=== PATIENT | female | born 1940 | race Caucasian/White ===

== ENCOUNTER 2017-07-18 12:52 | Outpatient (CLI) | payer MEDICARE, MEDICAID ==
--- NOTE | 2017-07-18 14:56 | RAD ---
PA AND LATERAL CHEST XRAY: DATE: 07/18/17. HISTORY: Dyspnea. COMPARISON: 08/07/14. FINDINGS: Triple-lead left subclavian AICD device remains in place. The cardiac silhouette and pulmonary vascu lature are within normal limits. Lungs remain hyperexpanded with linear densities at each lung base probably related to mild scarring. The lungs are otherwise clear. A nodular density overlies the ri ght hilar region, but this is seen on the prior study and is likely related to a prominent pulmonary vessel. There has been no interval change from the prior exam. IMPRESSION: 1. No acute cardiopulmonary process. 2. Chronic obstructive pulmonary disease. POS: OFF
== END 2017-07-18 12:53 | disposition home or self-care (01) ==
LOC: RAD 12:52
PROVIDERS: ATTEND Internal Medicine Pulmonary Disease
DX: R06.00 Dyspnea, unspecified (principal); J44.9 Chronic obstructive pulmonary disease, unspecified
CPT/HCPCS: 71046

== ENCOUNTER 2017-07-28 18:58 | Inpatient (IN) | payer MEDICARE, OTHER ==
[2017-07-28 19:39] LABS: #Eosinphils 0.1 thou/uL (0.0-0.7); #Lymphocytes 0.6 thou/uL (1.20-3.40); #Monocytes 0.8 thou/uL (0.11-0.59); #Neutrophils 8.5 thou/uL (1.40-6.50); %Basophils 0.1 % (0.0-1.0); %Eosinophils 1.2 % (0.0-10.0); %Monocytes 7.8 % (0.0-10.0); %Neutrophils 84.8 % (42.0-75.0); Hemoglobin 11.5 g/dL (12.0-16.0); Mean Corpuscular HGB CONC 31.7 g/dL (32.0-36.0); Mean Corpuscular Hemoglobin 26.4 pg (27.0-31.0); Mean Corpuscular Volume 83.5 fl (81.0-99.0); Mean Platelet Volume 9.2 fL (7.4-10.4); Platelet Count 259 thou/uL (130-400); RBC Distribution Width 20.4 % (11.5-14.5); Red Blood Cell (RBC) Count 4.36 mill/uL (4.20-5.40)
[2017-07-28] MEDS ORDERED: Albuterol Sulfate 2.5 mg/3 ml Neb ONE (19:39)
[2017-07-28 19:57] LABS: ALT (SGPT) 19 U/L (8-55); AST (SGOT) 19 U/L (5-34); Albumin 3.7 g/dL (3.4-4.8); Alkaline Phosphatase 47 U/L (40-150); Anion Gap 13 mmol/L (10-20); BUN (Urea Nitrogen) 46 mg/dL (9.8-20.1); Bilirubin, Total 0.5 mg/dL (0.2-1.2); Calc. Creatinine Clearance 0 mL/min (70-130); Carbon Dioxide 33 mmol/L (23-31); Chloride 91 mmol/L (98-107); Estimated GFR-MDRD 38; Globulin 2.8 g/dL (2.4-3.5); Glucose 157 mg/dL (83-110); Protein, Total 6.5 g/dL (6.0-8.3); Sodium 134 mmol/L (136-145)
[2017-07-28 20:02] LABS: CKMB 1.9 ng/mL (0-6.6); Troponin I 0.089 ng/mL (< 0.028)
[2017-07-28] MEDS ORDERED: Aspirin 325 MG TAB ONE (20:49)
[2017-07-28] MEDS ORDERED: methylPREDNISolone Sod Succ/PF 125 MG/2 ML VIAL ONE (20:49)
--- NOTE | 2017-07-28 20:55 | RAD ---
PORTABLE AP CHEST X-RAY 07/28/17 HISTORY: Dyspnea, shortness of breath. COMPARISON: 07/18/17. FINDINGS: A triple lead left subclavian AICD device remains in place. The cardiac silhouette is stable in size and magnified by projection. Pulmonary vasculature is within normal limits. The lungs are clear. Oste openia is present. Vascular calcifications are seen in the thoracic aorta. No other interval change. IMPRESSION: Stable chest without evidence of an acute cardiopulmonary process. POS: ИВАН
[2017-07-28 23:41] LABS: Troponin I 0.099 ng/mL (< 0.028)
[2017-07-29] MEDS ORDERED: Diabetic Tussin 200 MG/10 ML UDCUP PO PRN (01:43)
[2017-07-29 02:14] LABS: Troponin I 0.097 ng/mL (< 0.028)
[2017-07-29 05:58] VITALS: BMI 28.1
[2017-07-29] MEDS ORDERED: predniSONE 50 MG TAB PO SCH ×2 (09:00)
[2017-07-29] MEDS ORDERED: Docusate 100 MG CAP PO PRN (09:29)
[2017-07-29 09:45] LABS: Anion Gap 16 mmol/L (10-20); BUN (Urea Nitrogen) 48 mg/dL (9.8-20.1); Calc. Creatinine Clearance 38 mL/min (70-130); Calcium 10.4 mg/dL (7.8-10.44); Carbon Dioxide 29 mmol/L (23-31); Chloride 90 mmol/L (98-107); Estimated GFR-MDRD 34; Glucose 352 mg/dL (83-110); Potassium 3.5 mmol/L (3.5-5.1); Sodium 131 mmol/L (136-145)
[2017-07-29] MEDS ORDERED: Carvedilol 3.125 MG TAB PO SCH ×2 (10:00→21:00)
[2017-07-29] MEDS ORDERED: Aspirin 81 mg Enteric Coated Tablet PO SCH (10:00)
[2017-07-29] MEDS ORDERED: Furosemide 40 MG TAB PO SCH (10:15)
[2017-07-29] MEDS ORDERED: Digoxin 0.125 MG TAB PO SCH (10:15)
--- NOTE | 2017-07-29 11:03 | PDOC.PN ---
- Subjective Encounter Start Date: 07/29/17 Encounter Start Time: 11:00 Subjective: nsg notes rev, noemí ovn -: pt c/o continued cough and progressive decline at home over the past 3 mos -: she is hoping that we will be able to get her functional status improved. she has home health services and adamantly declines any further inpatient/ SNF/ rehab setting she states she is unable to ambulate from her bathroom back across her home without becoming extremely SOB she does not currently use any home O2 she is also concerned that her longstanding hernia has not been recently addressed and would like to know if she can take anything for her chronic urinary issues requests to "stay for a few days" because she is currently unable to "manage at home" - Objective Vital Signs & Weight: Vital Signs (12 hours) Temp Pulse Resp BP BP Pulse Ox 07/29/17 10:22 96 20 95 07/29/17 08:55 98 07/29/17 08:09 98 07/29/17 08:05 99 20 98 07/29/17 08:00 98.6 F 91 22 H 140/80 96 07/29/17 04:00 97.2 F L 89 18 166/68 H 96 07/29/17 02:12 93 16 94 L 07/28/17 23:12 90 16 95 Weight Weight 169 lb 6.4 oz I&O: 07/28/17 07/29/17 07/30/17 06:59 06:59 06:59 Intake Total 370 Output Total 100 Balance 270 Result Diagrams: 07/28/17 19:27 07/29/17 09:12 Additional Labs: Accuchecks 07/29/17 09:06 POC Glucose 363 H Phys Exam - Physical Examination Constitutional: NAD HEENT: PERRLA, moist MMs, sclera anicteric significant cough, wheezing throughout, coarse but overall diminished soft heart tones Gastrointestinal: soft, positive bowel sounds Neurological: moves all 4 limbs Psychiatric: normal affect (very anxious affect), A&O x 3 Dx/Plan - Plan * COPD with exacerbation * hypoxic spO2 88% per EMS currently on 2LNC * will continue with O2 supplementation and weaning as tolerated, request ambulatory pulse ox * prednisone, duo nebs standing and PRN - if unable to wean O2, t/c transition to IV solumederol * sputum cx, pt does not recall any recent hx of oral abx for any reason * allergies to quinolones, pcns, will use ceftriaxone for empiric abx coverage * apprec pulm c/s hx CAD, CHF * apprec card c/s per pt request * minimally elevated troponins, hemodynamically stable * continue to monitor hernia * stable, monitor urinary ? retention * pt gives hx of intermittent desire for urination without urine flow production * will bladder scan patient * actual retention vs spasms DM2 * continue home regimen including a SSI and monitor for med induced hyperglycemia from steroid use fatigue/ malaise * concern for progressive worsening of her known chronic cardiopulmonary disease processes as above concerned for overall poor superintendent terminal prognosis; d/w with patient who states that she wants to stay at home. she also endorses being full code at this point in time. she lives independently diet: cardiac activity: as beulah, PT, ambulatory pulse ox as above dvt ppx Review of Systems - Review of Systems Eyes: Vision Change - Medications/Allergies Allergies/Adverse Reactions: Allergies Allergy/AdvReac Type Severity Reaction Status Date / Time ciprofloxacin HCl Allergy Verified 07/29/17 00:44 [From Cipro] clarithromycin [From Biaxin] Allergy Verified 07/29/17 00:44 codeine Allergy Verified 07/29/17 00:44 Penicillins Allergy Verified 07/29/17 00:44 Medications: Current Medications Albuterol/Ipratropium (Duoneb) 3 ml NEB [id number] PRN PRN Reason: SOB &/or Wheezing Last Admin: 07/29/17 10:22 Dose: 3 ml Aspirin (Ecotrin) 81 mg PO DAILY [facility] Aspirin (Ecotrin) 81 mg PO NOW [facility] Stop: 07/29/17 12:00 Carvedilol (Coreg) 3.125 mg PO BID [facility] Carvedilol (Coreg) 3.125 mg PO NOW [facility] Stop: 07/29/17 12:00 Digoxin (Lanoxin) 0.125 mg PO MoWeFr@0900 [facility] Digoxin (Lanoxin) 0.125 mg PO NOW [facility] Stop: 07/29/17 12:15 Docusate Sodium (Colace) 100 mg PO DAILY PRN PRN Reason: Constipation Furosemide (Lasix) 80 mg PO BID [facility] Furosemide (Lasix) 80 mg PO NOW [facility] Stop: 07/29/17 12:15 Guaifenesin (Robitussin Sf) 200 mg PO Q4H PRN PRN Reason: Cough Insulin Detemir 50 units/ (Miscellaneous Medication) 0.5 mls @ 0 mls/hr SC BID [facility] Insulin Human Isoph/Insulin Regular (Humulin 70/30) 30 units SC BID-AC [facility] Insulin Human Lispro (Humalog) 0 units SC AC PRN PRN Reason: Hyperglycemia Magnesium Oxide (Magnesium Oxide) 400 mg PO DAILY [facility] Metoclopramide HCl (Reglan) 10 mg PO ACHS [facility] Metolazone (Zaroxolyn) 5 mg PO Q7DAYS [facility] Prednisone (Prednisone) 50 mg PO [facility] Spironolactone (Aldactone) 25 mg PO DAILY [facility]
[2017-07-29] MEDS: Metoclopramide HCl 10 MG TAB PO SCH ×3 (11:08→20:33)
[2017-07-29] MEDS ORDERED: cefTRIAXone\\ROCEPHIN 1 GM in Sodium Chloride 0.9% 100 ML IVPB SCH (11:15)
[2017-07-29] MEDS: HumaLOG 300 UNITS/3 ML VIAL SC PRN (12:58)
[2017-07-29] MEDS ORDERED: cefTRIAXone\\ROCEPHIN 1 GM, Syringe 0.4 ML in Sterile Water 9.6 ML SLOW IVP SCH (13:00)
--- NOTE | 2017-07-29 15:24 | CON ---
DATE OF CONSULTATION: 07/29/2017 HISTORY OF PRESENT ILLNESS: Ms. Morales is a 76-year-old female who has been followed by our group at least 10 years and I believe close to 20 years. I cannot access the old computer system to review the hospital records. She has significant obstructive lung disease. She presented with complaints of feeling poorly since last fall. She was in the office on Tuesday of this week, presented stating that she was not getting any better and wanted to be admitted to the hospital. PAST MEDICAL HISTORY: 1. Remarkable for systolic cardiomyopathy. 2. History of COPD. 3. History of multiple intubations. 4. Diabetes. 5. History of severe anxiety. 6. History of lipid disorder. ALLERGIES: She reports allergies to PENICILLIN, ZITHROMAX and CIPRO. FAMILY HISTORY: Positive for vascular disease and COPD. SOCIAL HISTORY: She quit smoking approximately 10 years ago. She was a heavy drinker, but quit in the . She does not use drugs. MEDICATIONS: She is currently on aspirin, Coreg, Rocephin, digoxin, Lasix, guaifenesin, insulin, ipratropium and albuterol, Reglan, magnesium and metolazone. REVIEW OF SYSTEMS: 10 point system reviewed otherwise negative. She denies purulent sputum or hemoptysis. She just complains of cough, dyspnea on exertion and chest congestion. PHYSICAL EXAMINATION: VITAL SIGNS: She is in no distress. She is afebrile, heart rate is 91, respiratory rate is 22, oximetry is 96% on 2 liters and blood pressure 140/80. GENERAL: She appears older than her age. NECK: Supple. No lymphadenopathy. LUNGS: Remarkable for diffuse coarse wheezes. HEART: Regular rhythm. ABDOMEN: Soft and nontender. EXTREMITIES: Without asymmetry. IMAGING DATA: Chest radiographs have been reviewed, pulmonary infiltrate suggestive of a pneumonia. LABORATORY DATA: White count 10, hemoglobin 11.5 and platelets 259. Sodium 131, potassium 3.5, chloride 90, bicarbonate 29, BUN 48, creatinine 1.47 and glucose 352. IMPRESSION: 1. Chronic obstructive pulmonary disease exacerbation. 2. Bronchitis. 3. Mild hyponatremia. 4. Chronic kidney disease. 5. Diabetes. 6. Deconditioning. 7. Acute on chronic respiratory failure with chronic hypoxemia. I am not sure what her baseline O2 sat in the office is. She is not on oxygen at home at this time. I will be happy to follow along with the other physicians caring for her. This is a 50-minute consult. Greater than 50% of the time was spent on the unit coordinating care. MARITA
[2017-07-29] MEDS: Insulin NPH/Reg Insulin Hm 300 UNITS/3 ML VIAL SC SCH (18:28)
[2017-07-29] MEDS: Furosemide 40 MG TAB PO SCH (20:32)
[2017-07-29] MEDS: Insulin Detemir 100 UNITS/ML 50 UNITS in Pre-Filled Syringe 1 EACH SC SCH (20:32)
[2017-07-29] MEDS ORDERED: Non-Formulary Item 1 EACH (Insulin Glargine,Hum.Rec.Anlog 50 UNIT) SQ SCH (21:00)
--- NOTE | 2017-07-29 23:34 | CON ---
DATE OF CONSULTATION: 07/29/2017 HISTORY OF PRESENT ILLNESS: The patient is a 76-year-old woman who presents for evaluation of increasing dyspnea. The patient has a long history of COPD and a history of a cardiomyopathy. She was found to have any congestive heart failure. In 1995, she underwent a catheterization and found to have severe decreased left ventricular systolic function with normal coronary arteries. The patient has had subsequently 2 further catheterizations revealed normal coronary arteries. She also has had placement of automatic implantable cardiac defibrillator. The patient has had a marked improvement in her left ventricular function. Her most recent echocardiogram in 06/2014 revealed an ejection fraction of 50%. The patient presented with increasing dyspnea. She denied having any chest pain. PAST MEDICAL HISTORY: 1. Cardiomyopathy. 2. Diabetes mellitus. 3. Hypertension. 4. Peripheral vascular disease. PAST SURGICAL HISTORY: Appendectomy. SOCIAL HISTORY: She is a former smoker ALLERGIES: ZOFRAN, CODEINE, PENICILLIN, CIPROFLOXACIN, and CLARITHROMYCIN. REVIEW OF SYSTEMS: Ten-point system otherwise unremarkable. No history of bright red blood per rectum, hematuria, or dysuria. PHYSICAL EXAMINATION: GENERAL: Elderly woman, in mild distress. VITAL SIGNS: Blood pressure was 140/80. NECK: Showed no jugular venous distention. LUNGS: Diminished breath sounds bilateral. HEART: Regular rate and rhythm, normal S1, S2. ABDOMEN: Nondistended. EXTREMITIES: Showed trace edema. SKIN: Warm and dry. NEUROLOGIC: Nonfocal. VASCULAR: Radial pulses 2+. LABORATORY DATA: Sodium 131, potassium 3.5, chloride 90, bicarbonate 48, BUN 1.47, glucose 352, troponin 0.097. White blood cell count 10, hemoglobin 11.5, hematocrit 36.4, and platelets 259. Her chest x-ray revealed normal cardiac silhouette with no edema. EKG revealed an electronic ventricular pacemaker. IMPRESSION: 1. Chronic obstructive pulmonary disease. 2. Indeterminate troponin level. 3. Diabetes mellitus. 4. Hypertension. 5. History of supraventricular tachycardia ablation. 6. Renal insufficiency. 7. History of AICD placement. This patient presented with a COPD exacerbation. From a cardiac standpoint, we will take her off her Coreg. With normal left ventricular function, she does not need to be on this medication. We will follow this patient with you through her hospitalization. TRD
[2017-07-30] MEDS: HumaLOG 300 UNITS/3 ML VIAL SC PRN ×3 (05:42→17:20)
[2017-07-30] MEDS ORDERED: Acetaminophen 325 MG TAB PO PRN (07:12)
[2017-07-30] MEDS ORDERED: Ondansetron ODT 4 MG TAB PO PRN (07:12)
[2017-07-30] MEDS ORDERED: Milk Of Magnesia 30 ML UDCUP PO PRN (07:12)
[2017-07-30] MEDS ORDERED: Chloraseptic Spray 180 ml Bottle PO PRN (07:12)
[2017-07-30] MEDS ORDERED: Mag-Al 1200 mg/1200 mg/30 ML UDCUP PO PRN (07:12)
[2017-07-30] MEDS ORDERED: Ondansetron HCl/PF 4 MG/2 ML Vial IVP PRN (07:12)
[2017-07-30] MEDS ORDERED: Artificial Tears 18 DROP/0.9 ML EA EYE PRN (07:12)
[2017-07-30] MEDS ORDERED: Sodium Chloride 0.65% Nasal 44 ML BOT EA NARE PRN (07:12)
[2017-07-30] MEDS ORDERED: hydrALAZINE 20 MG/ML VIAL SLOW IVP PRN (07:12)
[2017-07-30] MEDS ORDERED: Eucerin (Mineral Oil/Petrolatum,White) 30 gm Jar TOP PRN (07:12)
[2017-07-30] MEDS ORDERED: Loperamide HCl 2 MG CAP PO PRN (07:12)
[2017-07-30] MEDS: Insulin NPH/Reg Insulin Hm 300 UNITS/3 ML VIAL SC SCH ×2 (07:58→16:08)
[2017-07-30] MEDS: Aspirin 81 mg Enteric Coated Tablet PO SCH (07:59)
[2017-07-30] MEDS: Furosemide 40 MG TAB PO SCH ×2 (08:00→20:39)
[2017-07-30] MEDS ORDERED: predniSONE 50 MG TAB PO SCH (08:00)
[2017-07-30] MEDS: Metoclopramide HCl 10 MG TAB PO SCH ×4 (08:01→20:39)
[2017-07-30] MEDS: Magnesium Oxide 400 MG TAB PO SCH (08:01)
[2017-07-30] MEDS: guaiFENesin ER 600 MG TAB PO SCH ×2 (08:01→20:40)
[2017-07-30] MEDS: Famotidine 20 MG TAB PO SCH (08:02)
[2017-07-30] MEDS ORDERED: Spironolactone 25 MG TAB PO SCH (09:00)
[2017-07-30] MEDS: Insulin Detemir 100 UNITS/ML 50 UNITS in Pre-Filled Syringe 1 EACH SC SCH ×2 (09:34→20:40)
--- NOTE | 2017-07-30 10:29 | PDOC.PN ---
- Subjective Encounter Start Date: 07/30/17 Encounter Start Time: 08:20 -: old records requested/rev Patient seen and examined. No new complaints. No overnight events she talks without any distress she tells me that this time she will go home when pulmonary clears to go home she wanted to stay as much as possible - Objective MAR Reviewed: Yes Vital Signs & Weight: Vital Signs (12 hours) Temp Pulse Resp BP Pulse Ox 07/30/17 08:38 94 L 07/30/17 08:36 92 16 07/30/17 07:53 97.9 F 94 18 130/91 H 90 L 07/30/17 03:51 96 07/30/17 03:28 98.5 F 91 18 149/66 H 93 L 07/30/17 01:47 90 16 95 Weight Weight 170 lb 12.8 oz I&O: 07/29/17 07/30/17 07/31/17 06:59 06:59 06:59 Intake Total 370 1780 Output Total 100 2900 Balance 270 -1120 Result Diagrams: 07/28/17 19:27 07/29/17 09:12 Additional Labs: Accuchecks 07/30/17 07/29/17 07/29/17 05:38 19:58 16:33 POC Glucose 520 H 524 H 407 H 07/29/17 12:58 POC Glucose 358 H EKG Reviewed by me: Yes (nsr) Phys Exam - Physical Examination Constitutional: NAD HEENT: PERRLA, moist MMs, sclera anicteric Neck: no JVD, supple Respiratory: no wheezing, no rales, no rhonchi Cardiovascular: RRR, no significant murmur, no rub Gastrointestinal: soft, non-tender, no distention, positive bowel sounds Musculoskeletal: no edema, pulses present Neurological: non-focal, normal sensation Lymphatic: no nodes Psychiatric: normal affect Skin: no rash, normal turgor Dx/Plan (1) COPD exacerbation Code(s): J44.1 - CHRONIC OBSTRUCTIVE PULMONARY DISEASE W (ACUTE) EXACERBATION Status: Acute (2) Acute on chronic respiratory failure with hypoxemia Code(s): J96.21 - ACUTE AND CHRONIC RESPIRATORY FAILURE WITH HYPOXIA Status: Acute Comment: pt was not using oxygen at home (3) Demand ischemia Code(s): I24.8 - OTHER FORMS OF ACUTE ISCHEMIC HEART DISEASE Status: Acute (4) Hyponatremia Code(s): E87.1 - HYPO-OSMOLALITY AND HYPONATREMIA Status: Acute (5) Physical deconditioning Code(s): R53.81 - OTHER MALAISE Status: Acute (6) CHF (congestive heart failure) Code(s): I50.9 - HEART FAILURE, UNSPECIFIED Status: Chronic Qualifiers: Heart failure type: systolic Comment: h/o systolic CHF but EF improved (7) CKD (chronic kidney disease) stage 3, GFR 30-59 ml/min Status: Chronic (8) DM type 2 (diabetes mellitus, type 2) Status: Chronic Comment: (9) Diabetic gastroparesis Code(s): E11.43 - TYPE 2 DIABETES W DIABETIC AUTONOMIC (POLY)NEUROPATHY; K31.84 - GASTROPARESIS Status: Chronic Comment: (10) HTN (hypertension) Code(s): I10 - ESSENTIAL (PRIMARY) HYPERTENSION Status: Chronic Qualifiers: Hypertension type: essential hypertension Qualified Code(s): I10 - Essential (primary) hypertension Comment: Stable - Plan cont current plan of care, respiratory therapy * pulmonary and cardiology recommendation noted * medication reviewed as below * symptomatic treatment. * continue selected home medication Review of Systems - Review of Systems Constitutional: negative: fever, chills, sweats, weakness, malaise, other ENT: negative: Ear Pain, Ear Discharge, Nose Pain, Nose Discharge, Nose Congestion, Mouth Pain, Mouth Swelling, Throat Pain, Throat Swelling, Other Respiratory: Cough, Shortness of Breath. negative: Dry, Hemoptysis, SOB with Excertion, Pleuritic Pain, Sputum, Wheezing Cardiovascular: negative: chest pain, palpitations, orthopnea, paroxysmal nocturnal dyspnea, edema, light headedness, other Gastrointestinal: negative: Nausea, Vomiting, Abdominal Pain, Diarrhea, Constipation, Melena, Hematochezia, Other Genitourinary: negative: Dysuria, Frequency, Incontinence, Hematuria, Retention , Other Musculoskeletal: negative: Neck Pain, Shoulder Pain, Arm Pain, Back Pain, Hand Pain, Leg Pain, Foot Pain, Other Skin: negative: Rash, Lesions, Han, Bruising, Other - Medications/Allergies Allergies/Adverse Reactions: Allergies Allergy/AdvReac Type Severity Reaction Status Date / Time ciprofloxacin HCl Allergy Verified 07/29/17 00:44 [From Cipro] clarithromycin [From Biaxin] Allergy Verified 07/29/17 00:44 codeine Allergy Verified 07/29/17 00:44 Penicillins Allergy Verified 07/29/17 00:44 Medications: Current Medications Acetaminophen (Tylenol) 650 mg PO Q4H PRN PRN Reason: Headache/Fever or Mild Pain Al Hydroxide/Mg Hydroxide (Maalox) 15 ml PO Q4H PRN PRN Reason: Heartburn or Indigestion Albuterol/Ipratropium (Duoneb) 3 ml NEB [id number] PRN PRN Reason: SOB &/or Wheezing Last Admin: 07/29/17 10:22 Dose: 3 ml Albuterol/Ipratropium (Duoneb) 3 ml NEB [id number] [facility] Last Admin: 07/30/17 08:36 Dose: 3 ml Artificial Tears (Tears Naturale) 0 drop EA EYE PRN PRN PRN Reason: Dry Eyes Aspirin (Ecotrin) 81 mg PO DAILY [facility] Last Admin: 07/30/17 07:59 Dose: 81 mg Atorvastatin Calcium (Lipitor) 10 mg PO HS [facility] Digoxin (Lanoxin) 0.125 mg PO MoWeFr@0900 [facility] Docusate Sodium (Colace) 100 mg PO DAILY PRN PRN Reason: Constipation Famotidine (Pepcid) 20 mg PO DAILY [facility] Last Admin: 07/30/17 08:02 Dose: 20 mg Furosemide (Lasix) 80 mg PO BID [facility] Last Admin: 07/30/17 08:00 Dose: 80 mg Guaifenesin (Robitussin Sf) 200 mg PO Q4H PRN PRN Reason: Cough Guaifenesin (Mucinex) 600 mg PO Q12HR [facility] Last Admin: 07/30/17 08:01 Dose: 600 mg Hydralazine HCl (Apresoline) 10 mg SLOW IVP Q4H PRN PRN Reason: Systolic BP > 180 Insulin Detemir 50 units/ (Miscellaneous Medication) 0.5 mls @ 0 mls/hr SC BID [facility] Last Admin: 07/30/17 09:34 Dose: 0.5 mls Ceftriaxone Sodium 1 gm/ (Syringe 0.4 ml/ Sterile Water) 10 mls @ 120 mls/hr SLOW IVP 1800 [facility] Insulin Human Isoph/Insulin Regular (Humulin 70/30) 30 units SC BID-AC [facility] Last Admin: 07/30/17 07:58 Dose: 30 units Insulin Human Lispro (Humalog) 0 units SC AC PRN PRN Reason: Hyperglycemia Last Admin: 07/30/17 05:42 Dose: 5 units Loperamide HCl (Imodium) 2 mg PO PRN PRN PRN Reason: Diarrhea/Loose Stools Magnesium Hydroxide (Milk Of Magnesium) 30 ml PO DAILYPRN PRN PRN Reason: Constipation Magnesium Oxide (Magnesium Oxide) 400 mg PO DAILY [facility] Last Admin: 07/30/17 08:01 Dose: 400 mg Methylprednisolone Sodium Succinate (Solu-Medrol) 20 mg IVP Q6HR [facility] Last Admin: 07/30/17 05:29 Dose: 20 mg Metoclopramide HCl (Reglan) 10 mg PO ACHS [facility] Last Admin: 07/30/17 08:01 Dose: 10 mg Metolazone (Zaroxolyn) 5 mg PO Q7DAYS [facility] Mineral Oil/White Petrolatum (Eucerin Cream) 0 gm TOP BIDPRN PRN PRN Reason: Dry Skin Mometasone Furoate/Formoterol Fumar (Dulera 200 Mcg/5 Mcg Inhaler) 2 puff INH BID-RT [facility] Ondansetron HCl (Zofran Odt) 4 mg PO Q6H PRN PRN Reason: Nausea/Vomiting Ondansetron HCl (Zofran) 4 mg IVP Q6H PRN PRN Reason: Nausea/Vomiting Phenol (Chloraseptic [place] 180 Ml Bot) 0 ml PO PRN PRN PRN Reason: Sore Throat Sodium Chloride ([place] Nasal [place] 0.65%) 0 ml EA NARE QIDPRN PRN PRN Reason: Nasal Congestion Spironolactone (Aldactone) 25 mg PO DAILY [facility] Last Admin: 07/30/17 07:59 Dose: 25 mg
[2017-07-30] MEDS: cefTRIAXone\\ROCEPHIN 1 GM, Syringe 0.4 ML in Sterile Water 9.6 ML SLOW IVP SCH (17:19)
--- NOTE | 2017-07-30 17:27 | PRG ---
DATE OF SERVICE: 07/30/2017 SUBJECTIVE: Mr. Morales states she is feeling a little better. OBJECTIVE: VITAL SIGNS: She is afebrile, heart rate is 80, respiratory rate is 18, oximetry is 93 on room air. Blood pressure 124/60. LUNGS: Remarkable for improved wheezes. CARDIOVASCULAR: Regular rhythm. ABDOMEN: Soft. EXTREMITIES: Without asymmetry. IMPRESSION: Chronic obstructive pulmonary disease exacerbation. There is no new lab. Other problem s include, 1. Borderline hyponatremia. 2. Chronic kidney disease. 3. Diabetes with glucoses today up to 520. 4. Obesity. 5. History of multiple intubations in the past. 6. Diabetes. 7. History of severe anxiety. 8. History of a lipid disorder. 9. History of a cardiomyopathy with a normal ejection fraction on echocardiogram this admission. 10. History of pacemaker implantation. PLAN: Continue supportive care and start transitioning her towards home medicines in the morning. H opefully, she will be a candidate to be discharged on Tuesday. Dr. Lomax will see her on Tuesday as a l ongstanding relationship with her.
[2017-07-30] MEDS: Mometasone/Formoterol 120 PUFF INHALER INH SCH (20:09)
[2017-07-30] MEDS: Atorvastatin Calcium 10 MG TAB PO SCH (20:40)
[2017-07-31 05:25] LABS: #Lymphocytes 0.3 thou/uL (1.20-3.40); #Monocytes 0.6 thou/uL (0.11-0.59); #Neutrophils 7.7 thou/uL (1.40-6.50); %Eosinophils 0.3 % (0.0-10.0); %Lymphocytes 3.1 % (21.0-51.0); %Monocytes 6.5 % (0.0-10.0); %Neutrophils 90.1 % (42.0-75.0); Hemoglobin 10.6 g/dL (12.0-16.0); Mean Corpuscular HGB CONC 31.5 g/dL (32.0-36.0); Mean Corpuscular Hemoglobin 26.4 pg (27.0-31.0); Mean Corpuscular Volume 83.7 fl (81.0-99.0); Mean Platelet Volume 9.2 fL (7.4-10.4); Platelet Count 226 thou/uL (130-400); RBC Distribution Width 19.9 % (11.5-14.5); Red Blood Cell (RBC) Count 4.03 mill/uL (4.20-5.40); White Blood Cell (WBC) Count 8.6 thou/uL (4.8-10.8)
[2017-07-31 05:53] LABS: Anion Gap 15 mmol/L (10-20); BUN (Urea Nitrogen) 69 mg/dL (9.8-20.1); Calc. Creatinine Clearance 28 mL/min (70-130); Calcium 10.3 mg/dL (7.8-10.44); Carbon Dioxide 32 mmol/L (23-31); Chloride 88 mmol/L (98-107); Estimated GFR-MDRD 25; Glucose 543 mg/dL (83-110); Potassium 3.3 mmol/L (3.5-5.1); Sodium 132 mmol/L (136-145)
[2017-07-31] MEDS: HumaLOG 300 UNITS/3 ML VIAL SC PRN ×2 (06:00→14:32)
[2017-07-31] MEDS ORDERED: NS 0.9% w/ 20 MEQ KCL 1,000 ML/1,000 ML BAG IV SCH (07:15)
[2017-07-31] MEDS ORDERED: Potassium Chloride 20 MEQ TAB PO SCH (09:15)
[2017-07-31] MEDS: Insulin NPH/Reg Insulin Hm 300 UNITS/3 ML VIAL SC SCH ×2 (09:30→16:39)
--- NOTE | 2017-07-31 09:31 | PDOC.PN ---
- Subjective Encounter Start Date: 07/31/17 Encounter Start Time: 08:00 Patient seen and examined. No new complaints. No overnight events she still has productive cough, she is able to talk without any distress overall stable but today creatinine is elevated - Objective MAR Reviewed: Yes Vital Signs & Weight: Vital Signs (12 hours) Temp Pulse Resp BP Pulse Ox 07/31/17 08:00 97.6 F 92 18 140/63 95 07/31/17 04:32 96 07/31/17 04:00 98.0 F 88 20 125/78 90 L 07/31/17 01:47 92 16 95 07/30/17 21:51 91 16 94 L Weight Weight 163 lb 3.2 oz I&O: 07/30/17 07/31/17 08/01/17 06:59 06:59 06:59 Intake Total 1780 2350 Output Total 2900 4680 Balance -1120 -2330 Result Diagrams: 07/31/17 05:11 07/31/17 05:11 Additional Labs: Accuchecks 07/31/17 07/30/17 07/30/17 05:49 20:15 17:07 POC Glucose 427 H 441 H 524 H 07/30/17 11:04 POC Glucose 468 H EKG Reviewed by me: Yes (pacing) Phys Exam - Physical Examination Constitutional: NAD HEENT: PERRLA, moist MMs, sclera anicteric Neck: no JVD, supple Respiratory: no rales, wheezing present reduced air entry Cardiovascular: RRR, no significant murmur, no rub Gastrointestinal: soft, non-tender, no distention, positive bowel sounds Musculoskeletal: no edema, pulses present Neurological: non-focal, normal sensation Lymphatic: no nodes Psychiatric: normal affect Skin: no rash, normal turgor Dx/Plan (1) COPD exacerbation Code(s): J44.1 - CHRONIC OBSTRUCTIVE PULMONARY DISEASE W (ACUTE) EXACERBATION Status: Acute (2) Acute on chronic respiratory failure with hypoxemia Code(s): J96.21 - ACUTE AND CHRONIC RESPIRATORY FAILURE WITH HYPOXIA Status: Acute Comment: pt was not using oxygen at home (3) Demand ischemia Code(s): I24.8 - OTHER FORMS OF ACUTE ISCHEMIC HEART DISEASE Status: Acute (4) Hyponatremia Code(s): E87.1 - HYPO-OSMOLALITY AND HYPONATREMIA Status: Acute (5) Physical deconditioning Code(s): R53.81 - OTHER MALAISE Status: Acute (6) CHF (congestive heart failure) Code(s): I50.9 - HEART FAILURE, UNSPECIFIED Status: Chronic Qualifiers: Heart failure type: systolic Comment: h/o systolic CHF but EF improved (7) CKD (chronic kidney disease) stage 3, GFR 30-59 ml/min Status: Chronic (8) DM type 2 (diabetes mellitus, type 2) Status: Chronic Comment: (9) Diabetic gastroparesis Code(s): E11.43 - TYPE 2 DIABETES W DIABETIC AUTONOMIC (POLY)NEUROPATHY; K31.84 - GASTROPARESIS Status: Chronic Comment: (10) HTN (hypertension) Code(s): I10 - ESSENTIAL (PRIMARY) HYPERTENSION Status: Chronic Qualifiers: Hypertension type: essential hypertension Qualified Code(s): I10 - Essential (primary) hypertension Comment: Stable - Plan cont current plan of care, continue antibiotics, respiratory therapy * will hold lasix and aldactone in view of increasing creatinine * pt's prefers pulmonary or cardiology to make decision on IVF * we hope that by holding diuretics, her renal function should improve to baseline * will give one dose of potassium chloride PO * pt also prefers to make discharge decision by consultants * medication reviewed as below * symptomatic treatment. Review of Systems - Review of Systems Constitutional: negative: fever, chills, sweats, weakness, malaise, other Eyes: negative: Pain, Vision Change, Conjunctivae Inflammation, Eyelid Inflammation, Redness, Other ENT: negative: Ear Pain, Ear Discharge, Nose Pain, Nose Discharge, Nose Congestion, Mouth Pain, Mouth Swelling, Throat Pain, Throat Swelling, Other Respiratory: Cough, Shortness of Breath, Sputum, Wheezing. negative: Dry, Hemoptysis, SOB with Excertion, Pleuritic Pain Cardiovascular: negative: chest pain, palpitations, orthopnea, paroxysmal nocturnal dyspnea, edema, light headedness, other Gastrointestinal: negative: Nausea, Vomiting, Abdominal Pain, Diarrhea, Constipation, Melena, Hematochezia, Other Genitourinary: negative: Dysuria, Frequency, Incontinence, Hematuria, Retention , Other Musculoskeletal: negative: Neck Pain, Shoulder Pain, Arm Pain, Back Pain, Hand Pain, Leg Pain, Foot Pain, Other Skin: negative: Rash, Lesions, Han, Bruising, Other - Medications/Allergies Allergies/Adverse Reactions: Allergies Allergy/AdvReac Type Severity Reaction Status Date / Time ciprofloxacin HCl Allergy Verified 07/29/17 00:44 [From Cipro] clarithromycin [From Biaxin] Allergy Verified 07/29/17 00:44 codeine Allergy Verified 07/29/17 00:44 Penicillins Allergy Verified 07/29/17 00:44 Medications: Current Medications Acetaminophen (Tylenol) 650 mg PO Q4H PRN PRN Reason: Headache/Fever or Mild Pain Al Hydroxide/Mg Hydroxide (Maalox) 15 ml PO Q4H PRN PRN Reason: Heartburn or Indigestion Albuterol/Ipratropium (Duoneb) 3 ml NEB [id number] PRN PRN Reason: SOB &/or Wheezing Last Admin: 07/29/17 10:22 Dose: 3 ml Albuterol/Ipratropium (Duoneb) 3 ml NEB [id number] [facility] Last Admin: 07/31/17 01:47 Dose: 3 ml Artificial Tears (Tears Naturale) 0 drop EA EYE PRN PRN PRN Reason: Dry Eyes Aspirin (Ecotrin) 81 mg PO DAILY [facility] Last Admin: 07/30/17 07:59 Dose: 81 mg Atorvastatin Calcium (Lipitor) 10 mg PO HS [facility] Last Admin: 07/30/17 20:40 Dose: 10 mg Digoxin (Lanoxin) 0.125 mg PO MoWeFr@0900 [facility] Docusate Sodium (Colace) 100 mg PO DAILY PRN PRN Reason: Constipation Famotidine (Pepcid) 20 mg PO DAILY [facility] Last Admin: 07/30/17 08:02 Dose: 20 mg Guaifenesin (Robitussin Sf) 200 mg PO Q4H PRN PRN Reason: Cough Guaifenesin (Mucinex) 600 mg PO Q12HR [facility] Last Admin: 07/30/17 20:40 Dose: 600 mg Hydralazine HCl (Apresoline) 10 mg SLOW IVP Q4H PRN PRN Reason: Systolic BP > 180 Insulin Detemir 50 units/ (Miscellaneous Medication) 0.5 mls @ 0 mls/hr SC BID [facility] Last Admin: 07/30/17 20:40 Dose: 0.5 mls Ceftriaxone Sodium 1 gm/ (Syringe 0.4 ml/ Sterile Water) 10 mls @ 120 mls/hr SLOW IVP 1800 [facility] Last Admin: 07/30/17 17:19 Dose: 10 mls Insulin Human Isoph/Insulin Regular (Humulin 70/30) 50 units SC BID-AC [facility] Insulin Human Lispro (Humalog) 0 units SC AC PRN PRN Reason: Hyperglycemia Last Admin: 07/31/17 06:00 Dose: 5 units Loperamide HCl (Imodium) 2 mg PO PRN PRN PRN Reason: Diarrhea/Loose Stools Magnesium Hydroxide (Milk Of Magnesium) 30 ml PO DAILYPRN PRN PRN Reason: Constipation Magnesium Oxide (Magnesium Oxide) 400 mg PO DAILY [facility] Last Admin: 07/30/17 08:01 Dose: 400 mg Methylprednisolone Sodium Succinate (Solu-Medrol) 20 mg IVP Q6HR [facility] Last Admin: 07/31/17 05:43 Dose: 20 mg Metoclopramide HCl (Reglan) 10 mg PO ACHS [facility] Last Admin: 07/30/17 20:39 Dose: 10 mg Metolazone (Zaroxolyn) 5 mg PO Q7DAYS [facility] Mineral Oil/White Petrolatum (Eucerin Cream) 0 gm TOP BIDPRN PRN PRN Reason: Dry Skin Mometasone Furoate/Formoterol Fumar (Dulera 200 Mcg/5 Mcg Inhaler) 2 puff INH BID-RT [facility] Last Admin: 07/30/17 20:09 Dose: 2 puff Ondansetron HCl (Zofran Odt) 4 mg PO Q6H PRN PRN Reason: Nausea/Vomiting Ondansetron HCl (Zofran) 4 mg IVP Q6H PRN PRN Reason: Nausea/Vomiting Phenol (Chloraseptic [place] 180 Ml Bot) 0 ml PO PRN PRN PRN Reason: Sore Throat Potassium Chloride (K-Dur) 20 meq PO NOW [facility] Stop: 07/31/17 11:00 Sodium Chloride ([place] Nasal [place] 0.65%) 0 ml EA NARE QIDPRN PRN PRN Reason: Nasal Congestion
[2017-07-31] MEDS: Insulin Detemir 100 UNITS/ML 50 UNITS in Pre-Filled Syringe 1 EACH SC SCH ×2 (09:36→21:48)
[2017-07-31] MEDS: Aspirin 81 mg Enteric Coated Tablet PO SCH (09:41)
[2017-07-31] MEDS: Metoclopramide HCl 10 MG TAB PO SCH ×4 (09:41→21:48)
[2017-07-31] MEDS: Famotidine 20 MG TAB PO SCH (09:42)
[2017-07-31] MEDS: guaiFENesin ER 600 MG TAB PO SCH ×2 (09:43→21:48)
[2017-07-31] MEDS: Mometasone/Formoterol 120 PUFF INHALER INH SCH ×2 (10:53→19:16)
[2017-07-31] MEDS: Magnesium Oxide 400 MG TAB PO SCH (11:20)
[2017-07-31] MEDS: cefTRIAXone\\ROCEPHIN 1 GM, Syringe 0.4 ML in Sterile Water 9.6 ML SLOW IVP SCH (16:40)
--- NOTE | 2017-07-31 20:13 | PRG ---
DATE OF SERVICE: 07/31/2017 Carmen says she is feeling better. She thinks she is ready to go home tomorrow, but she is not isai e as she wants to talk it with Dr. Lomax. OBJECTIVE: VITAL SIGNS: She is afebrile, heart rate is 80, respiratory rate is 18, oximetry is 95 on 1 liter ca nnula. Blood pressure 140/67. LUNGS: Distant, clear. HEART: Regular rhythm. ABDOMEN: Soft. LABORATORY DATA: White count today is 8.6, hemoglobin 10.6, platelets 226. Sodium 132, potassium 3.3, chloride 88, bicarbonate 32, BUN 69, creatinine 1.94. Creatinine was 1.34 on admission. She is negative 3500 mL approximately the last 2 days. IMPRESSION: 1. Chronic obstructive pulmonary disease exacerbation. 2. Prerenal azotemia secondary to diuresis. She actually would benefit from gentle hydration at thi s point.
[2017-07-31] MEDS: Atorvastatin Calcium 10 MG TAB PO SCH (21:48)
[2017-08-01 05:49] LABS: #Lymphocytes 0.3 thou/uL (1.20-3.40); #Monocytes 0.6 thou/uL (0.11-0.59); %Eosinophils 0.5 % (0.0-10.0); %Lymphocytes 3.5 % (21.0-51.0); %Monocytes 7.3 % (0.0-10.0); %Neutrophils 88.7 % (42.0-75.0); Hemoglobin 11.3 g/dL (12.0-16.0); Mean Corpuscular HGB CONC 30.7 g/dL (32.0-36.0); Mean Corpuscular Hemoglobin 25.9 pg (27.0-31.0); Mean Corpuscular Volume 84.2 fl (81.0-99.0); Mean Platelet Volume 9.4 fL (7.4-10.4); Platelet Count 249 thou/uL (130-400); Red Blood Cell (RBC) Count 4.38 mill/uL (4.20-5.40); White Blood Cell (WBC) Count 7.8 thou/uL (4.8-10.8)
[2017-08-01 06:14] LABS: Anion Gap 18 mmol/L (10-20); BUN (Urea Nitrogen) 61 mg/dL (9.8-20.1); Calc. Creatinine Clearance 38 mL/min (70-130); Calcium 10.5 mg/dL (7.8-10.44); Carbon Dioxide 28 mmol/L (23-31); Chloride 94 mmol/L (98-107); Estimated GFR-MDRD 35; Glucose 235 mg/dL (83-110); Potassium 3.8 mmol/L (3.5-5.1); Sodium 136 mmol/L (136-145)
[2017-08-01] MEDS: Mometasone/Formoterol 120 PUFF INHALER INH SCH ×2 (07:34→19:28)
[2017-08-01] MEDS: Insulin Detemir 100 UNITS/ML 50 UNITS in Pre-Filled Syringe 1 EACH SC SCH ×2 (08:39→20:33)
[2017-08-01] MEDS: HumaLOG 300 UNITS/3 ML VIAL SC PRN (08:40)
[2017-08-01] MEDS: Insulin NPH/Reg Insulin Hm 300 UNITS/3 ML VIAL SC SCH ×2 (08:40→17:47)
[2017-08-01] MEDS: Digoxin 0.125 MG TAB PO SCH (08:43)
[2017-08-01] MEDS: Famotidine 20 MG TAB PO SCH (08:44)
[2017-08-01] MEDS: guaiFENesin ER 600 MG TAB PO SCH ×2 (08:44→20:26)
[2017-08-01] MEDS: Magnesium Oxide 400 MG TAB PO SCH (08:44)
[2017-08-01] MEDS: Aspirin 81 mg Enteric Coated Tablet PO SCH (08:44)
[2017-08-01] MEDS: Metoclopramide HCl 10 MG TAB PO SCH ×4 (08:44→20:26)
--- NOTE | 2017-08-01 09:39 | PRG ---
DATE OF SERVICE: 08/01/2017 Ms. Morales is doing well, no complaints. PHYSICAL EXAMINATION: VITAL SIGNS: Blood pressure 136/82, pulse is 80. LUNGS: Clear. CARDIAC: Normal S1, S2. ASSESSMENT: 1. Diastolic congestive heart failure, stable. 2. Renal insufficiency, stable. PLAN: Resume spironolactone 12.5 mg daily tomorrow. No other changes at this time.
--- NOTE | 2017-08-01 09:49 | PRG ---
DATE OF SERVICE: 08/01/2017 SUBJECTIVE: This morning, awake, alert, responsive. She is better and still coughing. OBJECTIVE: VITAL SIGNS: Sats 94% on 1 liter, blood pressure 130/82, respirations 18, temperature 98. CHEST: Decreased breath sounds, occasional wheeze. CARDIAC: Normal S1 and S2. ABDOMEN: Soft, no masses. LABORATORY DATA: Creatinine 1.4, BUN 61, white count 7,000. Glucose is normal. Sputum is growing P seudomonas probably tracheobronchitis colonization. ASSESSMENT: 1. Bronchitis. 2. Former smoker. 3. Coronary artery disease. 4. Congestive heart failure. PLAN: Switch her to oral medication, PT. Hopefully, when she is ambulating she can be discharged home.
[2017-08-01] MEDS: Cefdinir 300 MG CAP PO SCH ×2 (10:03→20:26)
--- NOTE | 2017-08-01 10:37 | PDOC.PN ---
- Subjective Encounter Start Date: 08/01/17 Encounter Start Time: 07:50 Patient seen and examined. No new complaints. No overnight events - Objective MAR Reviewed: Yes Vital Signs & Weight: Vital Signs (12 hours) Temp Pulse Resp BP Pulse Ox 08/01/17 08:43 79 08/01/17 07:38 94 L 08/01/17 07:37 16 94 L 08/01/17 07:35 98.1 F 69 18 136/82 94 L 08/01/17 07:34 86 18 94 L 08/01/17 04:17 94 L 08/01/17 03:14 98.1 F 105 H 20 134/61 96 08/01/17 01:32 94 16 95 Weight Weight 163 lb 4.8 oz I&O: 07/31/17 08/01/17 08/02/17 06:59 06:59 06:59 Intake Total 2350 2675 Output Total 4680 1900 Balance -2330 775 Result Diagrams: 08/01/17 04:09 08/01/17 04:09 Additional Labs: Accuchecks 08/01/17 07/31/17 07/31/17 05:41 20:17 16:40 POC Glucose 213 H 303 H 342 H 07/31/17 11:26 POC Glucose 387 H EKG Reviewed by me: Yes (pacing) Phys Exam - Physical Examination Constitutional: NAD HEENT: PERRLA, moist MMs, sclera anicteric Neck: no JVD, supple Respiratory: no wheezing, no rales, no rhonchi Cardiovascular: RRR, no significant murmur, no rub Gastrointestinal: soft, non-tender, no distention, positive bowel sounds Musculoskeletal: no edema, pulses present Neurological: non-focal, normal sensation Lymphatic: no nodes Psychiatric: normal affect, A&O x 3 Skin: no rash, normal turgor Dx/Plan (1) COPD exacerbation Code(s): J44.1 - CHRONIC OBSTRUCTIVE PULMONARY DISEASE W (ACUTE) EXACERBATION Status: Acute (2) Acute on chronic respiratory failure with hypoxemia Code(s): J96.21 - ACUTE AND CHRONIC RESPIRATORY FAILURE WITH HYPOXIA Status: Acute Comment: pt was not using oxygen at home (3) Demand ischemia Code(s): I24.8 - OTHER FORMS OF ACUTE ISCHEMIC HEART DISEASE Status: Acute (4) Hyponatremia Code(s): E87.1 - HYPO-OSMOLALITY AND HYPONATREMIA Status: Acute (5) Physical deconditioning Code(s): R53.81 - OTHER MALAISE Status: Acute (6) CHF (congestive heart failure) Code(s): I50.9 - HEART FAILURE, UNSPECIFIED Status: Chronic Qualifiers: Heart failure type: systolic Comment: h/o systolic CHF but EF improved (7) CKD (chronic kidney disease) stage 3, GFR 30-59 ml/min Status: Chronic (8) DM type 2 (diabetes mellitus, type 2) Status: Chronic Comment: (9) Diabetic gastroparesis Code(s): E11.43 - TYPE 2 DIABETES W DIABETIC AUTONOMIC (POLY)NEUROPATHY; K31.84 - GASTROPARESIS Status: Chronic Comment: (10) HTN (hypertension) Code(s): I10 - ESSENTIAL (PRIMARY) HYPERTENSION Status: Chronic Qualifiers: Hypertension type: essential hypertension Qualified Code(s): I10 - Essential (primary) hypertension Comment: Stable - Plan cont current plan of care, continue antibiotics, respiratory therapy * today will try to assess for her need for home oxygen * continue solumedrol * medication reviewed as below * symptomatic treatment * cardiology and pulmonary following * expecting discharge by tomorrow. * renal function improving Review of Systems - Review of Systems ENT: negative: Ear Pain, Ear Discharge, Nose Pain, Nose Discharge, Nose Congestion, Mouth Pain, Mouth Swelling, Throat Pain, Throat Swelling, Other Respiratory: negative: Cough, Dry, Shortness of Breath, Hemoptysis, SOB with Excertion, Pleuritic Pain, Sputum, Wheezing Cardiovascular: negative: chest pain, palpitations, orthopnea, paroxysmal nocturnal dyspnea, edema, light headedness, other Gastrointestinal: negative: Nausea, Vomiting, Abdominal Pain, Diarrhea, Constipation, Melena, Hematochezia, Other Genitourinary: negative: Dysuria, Frequency, Incontinence, Hematuria, Retention , Other Musculoskeletal: negative: Neck Pain, Shoulder Pain, Arm Pain, Back Pain, Hand Pain, Leg Pain, Foot Pain, Other - Medications/Allergies Allergies/Adverse Reactions: Allergies Allergy/AdvReac Type Severity Reaction Status Date / Time ciprofloxacin HCl Allergy Verified 07/29/17 00:44 [From Cipro] clarithromycin [From Biaxin] Allergy Verified 07/29/17 00:44 codeine Allergy Verified 07/29/17 00:44 Penicillins Allergy Verified 07/29/17 00:44 Medications: Current Medications Acetaminophen (Tylenol) 650 mg PO Q4H PRN PRN Reason: Headache/Fever or Mild Pain Al Hydroxide/Mg Hydroxide (Maalox) 15 ml PO Q4H PRN PRN Reason: Heartburn or Indigestion Albuterol/Ipratropium (Duoneb) 3 ml NEB [id number] PRN PRN Reason: SOB &/or Wheezing Last Admin: 07/29/17 10:22 Dose: 3 ml Albuterol/Ipratropium (Duoneb) 3 ml NEB [id number] [facility] Last Admin: 08/01/17 07:37 Dose: 3 ml Artificial Tears (Tears Naturale) 0 drop EA EYE PRN PRN PRN Reason: Dry Eyes Aspirin (Ecotrin) 81 mg PO DAILY [facility] Last Admin: 08/01/17 08:44 Dose: 81 mg Atorvastatin Calcium (Lipitor) 10 mg PO HS [facility] Last Admin: 07/31/17 21:48 Dose: 10 mg Cefdinir (Omnicef) 300 mg PO BID [facility] Last Admin: 08/01/17 10:03 Dose: 300 mg Digoxin (Lanoxin) 0.125 mg PO MoWeFr@0900 [facility] Last Admin: 08/01/17 08:43 Dose: 0.125 mg Docusate Sodium (Colace) 100 mg PO DAILY PRN PRN Reason: Constipation Last Admin: 07/31/17 09:41 Dose: 100 mg Famotidine (Pepcid) 20 mg PO DAILY [facility] Last Admin: 08/01/17 08:44 Dose: 20 mg Guaifenesin (Robitussin Sf) 200 mg PO Q4H PRN PRN Reason: Cough Guaifenesin (Mucinex) 600 mg PO Q12HR [facility] Last Admin: 08/01/17 08:44 Dose: 600 mg Hydralazine HCl (Apresoline) 10 mg SLOW IVP Q4H PRN PRN Reason: Systolic BP > 180 Insulin Detemir 50 units/ (Miscellaneous Medication) 0.5 mls @ 0 mls/hr SC BID [facility] Last Admin: 08/01/17 08:39 Dose: 0.5 mls Insulin Human Isoph/Insulin Regular (Humulin 70/30) 50 units SC BID-[facility] Last Admin: 08/01/17 08:40 Dose: 50 units Insulin Human Lispro (Humalog) 0 units SC AC PRN PRN Reason: Hyperglycemia Last Admin: 08/01/17 08:40 Dose: 2 units Loperamide HCl (Imodium) 2 mg PO PRN PRN PRN Reason: Diarrhea/Loose Stools Magnesium Hydroxide (Milk Of Magnesium) 30 ml PO DAILYPRN PRN PRN Reason: Constipation Magnesium Oxide (Magnesium Oxide) 400 mg PO DAILY [facility] Last Admin: 08/01/17 08:44 Dose: 400 mg Metoclopramide HCl (Reglan) 10 mg PO ACHS [facility] Last Admin: 08/01/17 08:44 Dose: 10 mg Mineral Oil/White Petrolatum (Eucerin Cream) 0 gm TOP BIDPRN PRN PRN Reason: Dry Skin Mometasone Furoate/Formoterol Fumar (Dulera 200 Mcg/5 Mcg Inhaler) 2 puff INH BID-RT [facility] Last Admin: 08/01/17 07:34 Dose: 2 puff Ondansetron HCl (Zofran Odt) 4 mg PO Q6H PRN PRN Reason: Nausea/Vomiting Ondansetron HCl (Zofran) 4 mg IVP Q6H PRN PRN Reason: Nausea/Vomiting Phenol (Chloraseptic [place] 180 Ml Bot) 0 ml PO PRN PRN PRN Reason: Sore Throat Prednisone (Prednisone) 20 mg PO BID-[facility] Sodium Chloride ([place] Nasal [place] 0.65%) 0 ml EA NARE QIDPRN PRN PRN Reason: Nasal Congestion Spironolactone (Aldactone) 12.5 mg PO QAM-[facility]
[2017-08-01] MEDS: predniSONE 20 MG TAB PO SCH (17:48)
[2017-08-01] MEDS: Atorvastatin Calcium 10 MG TAB PO SCH (20:26)
[2017-08-02] MEDS: Mometasone/Formoterol 120 PUFF INHALER INH SCH ×2 (07:22→18:44)
[2017-08-02 07:30] LABS: #Eosinphils 0.1 thou/uL (0.0-0.7); #Lymphocytes 0.5 thou/uL (1.20-3.40); #Monocytes 0.7 thou/uL (0.11-0.59); #Neutrophils 5.1 thou/uL (1.40-6.50); %Eosinophils 1.1 % (0.0-10.0); %Lymphocytes 8.3 % (21.0-51.0); %Monocytes 10.4 % (0.0-10.0); %Neutrophils 80.2 % (42.0-75.0); Hemoglobin 11.5 g/dL (12.0-16.0); Mean Corpuscular HGB CONC 30.5 g/dL (32.0-36.0); Mean Corpuscular Hemoglobin 25.8 pg (27.0-31.0); Mean Corpuscular Volume 84.5 fl (81.0-99.0); Mean Platelet Volume 8.2 fL (7.4-10.4); Platelet Count 306 thou/uL (130-400); RBC Distribution Width 20.1 % (11.5-14.5); Red Blood Cell (RBC) Count 4.47 mill/uL (4.20-5.40); White Blood Cell (WBC) Count 6.3 thou/uL (4.8-10.8)
[2017-08-02 07:50] LABS: Anion Gap 9 mmol/L (10-20); BUN (Urea Nitrogen) 48 mg/dL (9.8-20.1); Calc. Creatinine Clearance 52 mL/min (70-130); Calcium 10.5 mg/dL (7.8-10.44); Carbon Dioxide 36 mmol/L (23-31); Chloride 98 mmol/L (98-107); Estimated GFR-MDRD 51; Glucose 84 mg/dL (83-110); Potassium 3.2 mmol/L (3.5-5.1); Sodium 140 mmol/L (136-145)
[2017-08-02] MEDS ORDERED: Melatonin 3 MG TAB PO SCH (09:30)
[2017-08-02] MEDS: Cefdinir 300 MG CAP PO SCH ×2 (09:35→21:29)
[2017-08-02] MEDS: Insulin NPH/Reg Insulin Hm 300 UNITS/3 ML VIAL SC SCH ×2 (09:35→18:52)
[2017-08-02] MEDS: Magnesium Oxide 400 MG TAB PO SCH (09:35)
[2017-08-02] MEDS: Spironolactone 25 MG TAB PO SCH (09:36)
[2017-08-02] MEDS: predniSONE 20 MG TAB PO SCH ×2 (09:36→17:04)
[2017-08-02] MEDS: guaiFENesin ER 600 MG TAB PO SCH ×2 (09:36→21:29)
[2017-08-02] MEDS: Aspirin 81 mg Enteric Coated Tablet PO SCH (09:36)
[2017-08-02] MEDS: Famotidine 20 MG TAB PO SCH (09:36)
[2017-08-02] MEDS: Metoclopramide HCl 10 MG TAB PO SCH ×4 (09:36→21:29)
--- NOTE | 2017-08-02 10:38 | PDOC.PN ---
- Subjective Encounter Start Date: 08/02/17 Encounter Start Time: 07:50 Patient seen and examined. No new complaints. No overnight events - Objective Resuscitation Status: Resuscitation Status FULL:Full Resuscitation MAR Reviewed: Yes Vital Signs & Weight: Vital Signs (12 hours) Temp Pulse Resp BP Pulse Ox 08/02/17 10:32 84 22 H 94 L 08/02/17 07:22 76 18 96 08/02/17 07:21 76 18 96 08/02/17 04:00 97.8 F 95 20 147/100 H 100 08/02/17 02:19 102 H 16 97 Weight Weight 162 lb 8 oz I&O: 08/01/17 08/02/17 08/03/17 06:59 06:59 06:59 Intake Total 2675 1300 Output Total 1900 2550 Balance 775 -1250 Result Diagrams: 08/02/17 07:08 08/02/17 07:08 Additional Labs: Accuchecks 08/02/17 08/02/17 08/01/17 06:02 00:45 19:56 POC Glucose 104 75 95 08/01/17 08/01/17 16:36 11:04 POC Glucose 95 100 EKG Reviewed by me: Yes (pacing) Phys Exam - Physical Examination Constitutional: NAD HEENT: PERRLA, moist MMs, sclera anicteric Neck: no JVD, supple Respiratory: no wheezing, no rales, no rhonchi Cardiovascular: RRR, no significant murmur, no rub Gastrointestinal: soft, non-tender, no distention, positive bowel sounds Musculoskeletal: no edema, pulses present Neurological: non-focal, moves all 4 limbs Psychiatric: normal affect Skin: no rash, normal turgor Dx/Plan (1) COPD exacerbation Code(s): J44.1 - CHRONIC OBSTRUCTIVE PULMONARY DISEASE W (ACUTE) EXACERBATION Status: Acute (2) Acute on chronic respiratory failure with hypoxemia Code(s): J96.21 - ACUTE AND CHRONIC RESPIRATORY FAILURE WITH HYPOXIA Status: Acute Comment: pt was not using oxygen at home (3) Demand ischemia Code(s): I24.8 - OTHER FORMS OF ACUTE ISCHEMIC HEART DISEASE Status: Acute (4) Hyponatremia Code(s): E87.1 - HYPO-OSMOLALITY AND HYPONATREMIA Status: Acute (5) Physical deconditioning Code(s): R53.81 - OTHER MALAISE Status: Acute (6) CHF (congestive heart failure) Code(s): I50.9 - HEART FAILURE, UNSPECIFIED Status: Chronic Qualifiers: Heart failure type: systolic Comment: h/o systolic CHF but EF improved (7) CKD (chronic kidney disease) stage 3, GFR 30-59 ml/min Status: Chronic (8) DM type 2 (diabetes mellitus, type 2) Status: Chronic Comment: (9) Diabetic gastroparesis Code(s): E11.43 - TYPE 2 DIABETES W DIABETIC AUTONOMIC (POLY)NEUROPATHY; K31.84 - GASTROPARESIS Status: Chronic Comment: (10) HTN (hypertension) Code(s): I10 - ESSENTIAL (PRIMARY) HYPERTENSION Status: Chronic Qualifiers: Hypertension type: essential hypertension Qualified Code(s): I10 - Essential (primary) hypertension Comment: Stable - Plan cont current plan of care, continue antibiotics, respiratory therapy * medication reviewed as below * symptomatic treatment * continue omnicef and prednisone * pt does not feel subjectively good enough to home today * will arrange home oxygen. Review of Systems - Review of Systems ENT: negative: Ear Pain, Ear Discharge, Nose Pain, Nose Discharge, Nose Congestion, Mouth Pain, Mouth Swelling, Throat Pain, Throat Swelling, Other Respiratory: negative: Cough, Dry, Shortness of Breath, Hemoptysis, SOB with Excertion, Pleuritic Pain, Sputum, Wheezing Cardiovascular: negative: chest pain, palpitations, orthopnea, paroxysmal nocturnal dyspnea, edema, light headedness, other Gastrointestinal: negative: Nausea, Vomiting, Abdominal Pain, Diarrhea, Constipation, Melena, Hematochezia, Other Genitourinary: negative: Dysuria, Frequency, Incontinence, Hematuria, Retention , Other Musculoskeletal: negative: Neck Pain, Shoulder Pain, Arm Pain, Back Pain, Hand Pain, Leg Pain, Foot Pain, Other Skin: negative: Rash, Lesions, Han, Bruising, Other - Medications/Allergies Allergies/Adverse Reactions: Allergies Allergy/AdvReac Type Severity Reaction Status Date / Time ciprofloxacin HCl Allergy Verified 07/29/17 00:44 [From Cipro] clarithromycin [From Biaxin] Allergy Verified 07/29/17 00:44 codeine Allergy Verified 07/29/17 00:44 Penicillins Allergy Verified 07/29/17 00:44 Medications: Current Medications Acetaminophen (Tylenol) 650 mg PO Q4H PRN PRN Reason: Headache/Fever or Mild Pain Al Hydroxide/Mg Hydroxide (Maalox) 15 ml PO Q4H PRN PRN Reason: Heartburn or Indigestion Albuterol/Ipratropium (Duoneb) 3 ml NEB [id number] PRN PRN Reason: SOB &/or Wheezing Last Admin: 08/01/17 16:33 Dose: 3 ml Albuterol/Ipratropium (Duoneb) 3 ml NEB [id number] [facility] Last Admin: 08/02/17 10:32 Dose: 3 ml Artificial Tears (Tears Naturale) 0 drop EA EYE PRN PRN PRN Reason: Dry Eyes Aspirin (Ecotrin) 81 mg PO DAILY [facility] Last Admin: 08/02/17 09:36 Dose: 81 mg Atorvastatin Calcium (Lipitor) 10 mg PO HS [facility] Last Admin: 08/01/17 20:26 Dose: 10 mg Cefdinir (Omnicef) 300 mg PO BID [facility] Last Admin: 08/02/17 09:35 Dose: 300 mg Digoxin (Lanoxin) 0.125 mg PO MoWeFr@0900 [facility] Last Admin: 08/01/17 08:43 Dose: 0.125 mg Docusate Sodium (Colace) 100 mg PO DAILY PRN PRN Reason: Constipation Last Admin: 07/31/17 09:41 Dose: 100 mg Famotidine (Pepcid) 20 mg PO DAILY [facility] Last Admin: 08/02/17 09:36 Dose: 20 mg Guaifenesin (Robitussin Sf) 200 mg PO Q4H PRN PRN Reason: Cough Guaifenesin (Mucinex) 600 mg PO Q12HR [facility] Last Admin: 08/02/17 09:36 Dose: 600 mg Hydralazine HCl (Apresoline) 10 mg SLOW IVP Q4H PRN PRN Reason: Systolic BP > 180 Insulin Human Isoph/Insulin Regular (Humulin 70/30) 50 units SC BID-AC [facility] Last Admin: 08/02/17 09:35 Dose: 50 units Insulin Human Lispro (Humalog) 0 units SC AC PRN PRN Reason: Hyperglycemia Last Admin: 08/01/17 08:40 Dose: 2 units Loperamide HCl (Imodium) 2 mg PO PRN PRN PRN Reason: Diarrhea/Loose Stools Magnesium Hydroxide (Milk Of Magnesium) 30 ml PO DAILYPRN PRN PRN Reason: Constipation Magnesium Oxide (Magnesium Oxide) 400 mg PO DAILY [facility] Last Admin: 08/02/17 09:35 Dose: 400 mg Melatonin (Melatonin) 5 mg PO NOW [facility] Stop: 08/02/17 11:00 Metoclopramide HCl (Reglan) 10 mg PO ACHS [facility] Last Admin: 08/02/17 09:36 Dose: 10 mg Mineral Oil/White Petrolatum (Eucerin Cream) 0 gm TOP BIDPRN PRN PRN Reason: Dry Skin Mometasone Furoate/Formoterol Fumar (Dulera 200 Mcg/5 Mcg Inhaler) 2 puff INH BID-RT [facility] Last Admin: 08/02/17 07:22 Dose: 2 puff Ondansetron HCl (Zofran Odt) 4 mg PO Q6H PRN PRN Reason: Nausea/Vomiting Ondansetron HCl (Zofran) 4 mg IVP Q6H PRN PRN Reason: Nausea/Vomiting Phenol (Chloraseptic [place] 180 Ml Bot) 0 ml PO PRN PRN PRN Reason: Sore Throat Prednisone (Prednisone) 20 mg PO BID-[facility] Last Admin: 08/02/17 09:36 Dose: 20 mg Sodium Chloride ([place] Nasal [place] 0.65%) 0 ml EA NARE QIDPRN PRN PRN Reason: Nasal Congestion Sodium Chloride (Flush - Normal Saline) 10 ml IVF Q12HR [facility] Sodium Chloride (Flush - Normal Saline) 10 ml IVF PRN PRN PRN Reason: Saline Flush Spironolactone (Aldactone) 12.5 mg PO QAM-[facility] Last Admin: 08/02/17 09:36 Dose: 12.5 mg
--- NOTE | 2017-08-02 14:10 | PRG ---
DATE OF SERVICE: 08/02/2017 SUBJECTIVE: This morning, she said she got a sore throat. She had a rough night. She was short of breath. OBJECTIVE: VITAL SIGNS: Sats are 95 on 1 liter, temperature 97, respirations 18, pulse is 96. CHEST: No wheezing. CARDIAC: Normal S1, S2. LABORATORY DATA: White count 6000, H and H 11 and 37. Electrolytes are normal. She has pseudomonas which is probably colonization tracheobronchitis. ASSESSMENT AND PLAN: 1. Chronic obstructive pulmonary disease exacerbation. 2. Tracheobronchitis. 3. Coronary artery disease. Continue Omnicef, neb treatments, and steroids. DISPOSITION: Home in the next 24 to 48 hours. We will follow.
[2017-08-02] MEDS: Atorvastatin Calcium 10 MG TAB PO SCH (21:29)
--- NOTE | 2017-08-03 05:47 | PRG ---
DATE OF SERVICE: 08/03/2017 This morning she is awake, alert, responsive. She is better. She wants to go home. She wants to lo w flow O2, but her sats are 99 on 1 liter. Will try and get room air sats. PHYSICAL EXAMINATION: VITAL SIGNS: Pulse 90, respirations 15, temperature 98. CHEST: Chest revealed decreased breath sounds, no wheezing. CARDIAC: Normal S1-S2. No gallops. ABDOMEN: Soft, no masses. IMPRESSION: 1. Chronic obstructive pulmonary disease. 2. Congestive heart failure exacerbation. PLAN: Disposition home. Taper steroids over a coarse of a week to 10 days. She will be seen in the office in about a month.
[2017-08-03] MEDS: Mometasone/Formoterol 120 PUFF INHALER INH SCH (06:48)
[2017-08-03] MEDS ORDERED: Potassium Chloride 20 MEQ TAB PO SCH (09:45)
[2017-08-03] MEDS ORDERED: Spironolactone 25 MG TAB PO SCH (10:00)
--- NOTE | 2017-08-03 10:02 | PRG ---
DATE OF SERVICE: 08/03/2017 SUBJECTIVE: Ms. Morales is breathing better, feels better. PHYSICAL EXAMINATION: VITAL SIGNS: Blood pressure 135/64, pulse 70. LUNGS: Lungs are clear. CARDIAC: Normal S1, normal S2. ASSESSMENT: 1. Chronic obstructive pulmonary disease. 2. Diastolic heart failure, stable. 3. Hypokalemia. Potassium was 3.2. PLAN: 1. Replete potassium. 2. When she goes home, go back on Lasix 40 mg twice a day. 3. Spironolactone increased to 25 mg.
[2017-08-03] MEDS: Insulin NPH/Reg Insulin Hm 300 UNITS/3 ML VIAL SC SCH (10:42)
[2017-08-03] MEDS: Metoclopramide HCl 10 MG TAB PO SCH ×2 (10:44)
[2017-08-03] MEDS: Magnesium Oxide 400 MG TAB PO SCH (10:44)
[2017-08-03] MEDS: Cefdinir 300 MG CAP PO SCH (10:44)
[2017-08-03] MEDS: Famotidine 20 MG TAB PO SCH (10:44)
[2017-08-03] MEDS: Digoxin 0.125 MG TAB PO SCH (10:44)
[2017-08-03] MEDS: Aspirin 81 mg Enteric Coated Tablet PO SCH (10:45)
[2017-08-03] MEDS: predniSONE 20 MG TAB PO SCH (10:45)
[2017-08-03] MEDS: guaiFENesin ER 600 MG TAB PO SCH (10:45)
[2017-08-03] MEDS: Spironolactone 25 MG TAB PO SCH (10:45)
--- NOTE | 2017-08-03 11:11 | PDOC.PN ---
- Subjective Encounter Start Date: 08/03/17 Encounter Start Time: 08:10 Patient seen and examined. No new complaints. No overnight events - Objective Resuscitation Status: Resuscitation Status FULL:Full Resuscitation MAR Reviewed: Yes Vital Signs & Weight: Vital Signs (12 hours) Temp Pulse Resp BP Pulse Ox 08/03/17 10:44 83 08/03/17 10:32 68 18 99 08/03/17 06:51 76 18 98 08/03/17 06:48 76 16 98 08/03/17 04:00 98.0 F 105 H 18 135/64 99 08/03/17 02:06 91 16 99 Weight Weight 160 lb 11.2 oz I&O: 08/02/17 08/03/17 08/04/17 06:59 06:59 06:59 Intake Total 1300 1760 Output Total 2550 2875 Balance -1250 -1115 Result Diagrams: 08/02/17 07:08 08/02/17 07:08 Additional Labs: Accuchecks 08/03/17 08/03/17 08/02/17 05:56 01:28 20:56 POC Glucose 91 146 H 247 H 08/02/17 08/02/17 08/02/17 16:57 14:17 12:10 POC Glucose 200 H 129 H 128 H EKG Reviewed by me: Yes (pacing) Phys Exam - Physical Examination Constitutional: NAD HEENT: PERRLA, moist MMs, sclera anicteric Neck: no JVD, supple Respiratory: no wheezing, no rales, no rhonchi Cardiovascular: RRR, no significant murmur, no rub Gastrointestinal: soft, non-tender, no distention, positive bowel sounds Musculoskeletal: no edema, pulses present Neurological: non-focal, normal sensation Lymphatic: no nodes Psychiatric: normal affect Skin: no rash, normal turgor Dx/Plan (1) COPD exacerbation Code(s): J44.1 - CHRONIC OBSTRUCTIVE PULMONARY DISEASE W (ACUTE) EXACERBATION Status: Acute (2) Acute on chronic respiratory failure with hypoxemia Code(s): J96.21 - ACUTE AND CHRONIC RESPIRATORY FAILURE WITH HYPOXIA Status: Acute Comment: pt was not using oxygen at home (3) Demand ischemia Code(s): I24.8 - OTHER FORMS OF ACUTE ISCHEMIC HEART DISEASE Status: Acute (4) Hyponatremia Code(s): E87.1 - HYPO-OSMOLALITY AND HYPONATREMIA Status: Acute (5) Physical deconditioning Code(s): R53.81 - OTHER MALAISE Status: Acute (6) CHF (congestive heart failure) Code(s): I50.9 - HEART FAILURE, UNSPECIFIED Status: Chronic Qualifiers: Heart failure type: systolic Comment: h/o systolic CHF but EF improved (7) CKD (chronic kidney disease) stage 3, GFR 30-59 ml/min Status: Chronic (8) DM type 2 (diabetes mellitus, type 2) Status: Chronic Comment: (9) Diabetic gastroparesis Code(s): E11.43 - TYPE 2 DIABETES W DIABETIC AUTONOMIC (POLY)NEUROPATHY; K31.84 - GASTROPARESIS Status: Chronic Comment: (10) HTN (hypertension) Code(s): I10 - ESSENTIAL (PRIMARY) HYPERTENSION Status: Chronic Qualifiers: Hypertension type: essential hypertension Qualified Code(s): I10 - Essential (primary) hypertension Comment: Stable - Plan cont current plan of care, continue antibiotics, social sciences chair, respiratory therapy * stable for discharge as per pulmonary * medication reviewed as below * symptomatic treatment * she needs social work today for her to go to home . * if she stays for any reason, transfer to medical Review of Systems - Review of Systems ENT: negative: Ear Pain, Ear Discharge, Nose Pain, Nose Discharge, Nose Congestion, Mouth Pain, Mouth Swelling, Throat Pain, Throat Swelling, Other Respiratory: negative: Cough, Dry, Shortness of Breath, Hemoptysis, SOB with Excertion, Pleuritic Pain, Sputum, Wheezing Cardiovascular: negative: chest pain, palpitations, orthopnea, paroxysmal nocturnal dyspnea, edema, light headedness, other Gastrointestinal: negative: Nausea, Vomiting, Abdominal Pain, Diarrhea, Constipation, Melena, Hematochezia, Other Genitourinary: negative: Dysuria, Frequency, Incontinence, Hematuria, Retention , Other Musculoskeletal: negative: Neck Pain, Shoulder Pain, Arm Pain, Back Pain, Hand Pain, Leg Pain, Foot Pain, Other Skin: negative: Rash, Lesions, Han, Bruising, Other - Medications/Allergies Allergies/Adverse Reactions: Allergies Allergy/AdvReac Type Severity Reaction Status Date / Time ciprofloxacin HCl Allergy Verified 07/29/17 00:44 [From Cipro] clarithromycin [From Biaxin] Allergy Verified 07/29/17 00:44 codeine Allergy Verified 07/29/17 00:44 Penicillins Allergy Verified 07/29/17 00:44 Medications: Current Medications Acetaminophen (Tylenol) 650 mg PO Q4H PRN PRN Reason: Headache/Fever or Mild Pain Al Hydroxide/Mg Hydroxide (Maalox) 15 ml PO Q4H PRN PRN Reason: Heartburn or Indigestion Albuterol/Ipratropium (Duoneb) 3 ml NEB [id number] PRN PRN Reason: SOB &/or Wheezing Last Admin: 08/01/17 16:33 Dose: 3 ml Albuterol/Ipratropium (Duoneb) 3 ml NEB [id number] [facility] Last Admin: 08/03/17 10:32 Dose: 3 ml Artificial Tears (Tears Naturale) 0 drop EA EYE PRN PRN PRN Reason: Dry Eyes Aspirin (Ecotrin) 81 mg PO DAILY [facility] Last Admin: 08/03/17 10:45 Dose: 81 mg Atorvastatin Calcium (Lipitor) 10 mg PO HS [facility] Last Admin: 08/02/17 21:29 Dose: 10 mg Cefdinir (Omnicef) 300 mg PO BID [facility] Last Admin: 08/03/17 10:44 Dose: 300 mg Digoxin (Lanoxin) 0.125 mg PO MoWeFr@0900 [facility] Last Admin: 08/03/17 10:44 Dose: 0.125 mg Docusate Sodium (Colace) 100 mg PO DAILY PRN PRN Reason: Constipation Last Admin: 07/31/17 09:41 Dose: 100 mg Famotidine (Pepcid) 20 mg PO DAILY [facility] Last Admin: 08/03/17 10:44 Dose: 20 mg Guaifenesin (Robitussin Sf) 200 mg PO Q4H PRN PRN Reason: Cough Guaifenesin (Mucinex) 600 mg PO Q12HR [facility] Last Admin: 08/03/17 10:45 Dose: 600 mg Hydralazine HCl (Apresoline) 10 mg SLOW IVP Q4H PRN PRN Reason: Systolic BP > 180 Insulin Human Isoph/Insulin Regular (Humulin 70/30) 50 units SC BID-AC [facility] Last Admin: 08/03/17 10:42 Dose: 50 units Insulin Human Lispro (Humalog) 0 units SC AC PRN PRN Reason: Hyperglycemia Last Admin: 08/01/17 08:40 Dose: 2 units Loperamide HCl (Imodium) 2 mg PO PRN PRN PRN Reason: Diarrhea/Loose Stools Magnesium Hydroxide (Milk Of Magnesium) 30 ml PO DAILYPRN PRN PRN Reason: Constipation Magnesium Oxide (Magnesium Oxide) 400 mg PO DAILY [facility] Last Admin: 08/03/17 10:44 Dose: 400 mg Metoclopramide HCl (Reglan) 10 mg PO ACHS [facility] Last Admin: 08/03/17 10:44 Dose: 10 mg Mineral Oil/White Petrolatum (Eucerin Cream) 0 gm TOP BIDPRN PRN PRN Reason: Dry Skin Mometasone Furoate/Formoterol Fumar (Dulera 200 Mcg/5 Mcg Inhaler) 2 puff INH BID-RT [facility] Last Admin: 08/03/17 06:48 Dose: 2 puff Ondansetron HCl (Zofran Odt) 4 mg PO Q6H PRN PRN Reason: Nausea/Vomiting Ondansetron HCl (Zofran) 4 mg IVP Q6H PRN PRN Reason: Nausea/Vomiting Phenol (Chloraseptic Rawson 180 Ml Bot) 0 ml PO PRN PRN PRN Reason: Sore Throat Prednisone (Prednisone) 20 mg PO BID-WM [facility] Last Admin: 08/03/17 10:45 Dose: 20 mg Sodium Chloride (Taney Nasal Rawson 0.65%) 0 ml EA NARE QIDPRN PRN PRN Reason: Nasal Congestion Sodium Chloride (Flush - Normal Saline) 10 ml IVF Q12HR [facility] Last Admin: 08/02/17 21:29 Dose: Not Given Sodium Chloride (Flush - Normal Saline) 10 ml IVF PRN PRN PRN Reason: Saline Flush Spironolactone (Aldactone) 25 mg PO QAM-[facility] Spironolactone (Aldactone) 25 mg PO 1000 [facility] Stop: 08/03/17 12:00
--- NOTE | 2017-08-03 12:28 | DIS ---
DATE OF ADMISSION: 07/28/2017 DATE OF DISCHARGE: 08/03/2017 PRIMARY CARE PHYSICIAN: [facility] call admission. DISCHARGE DISPOSITION: Home. PRIMARY DISCHARGE DIAGNOSES: 1. Acute on chronic respiratory failure with hypoxia. 2. Chronic obstructive pulmonary disease exacerbation. 3. Demand ischemia. 4. Hyponatremia. 5. Physical deconditioning. 6. Acute kidney failure due to over diuresis, hypokalemia. SECONDARY DISCHARGE DIAGNOSES: Hypertension, diabetes type 2, history of diabetic gastroparesis, chr onic kidney disease stage 3, chronic congestive heart failure. PRIMARY PROCEDURE/OPERATION: None. RADIOLOGICAL INVESTIGATION: Echocardiography showed normal EF. Chest x-ray showed COPD changes. SIGNIFICANT LABORATORY DATA: WBC 6.3, hemoglobin 11.5, platelets 306. Sodium 140, potassium 3.2, BU N 48, creatinine 1.04, calcium 10.5. DISCHARGE MEDICATIONS: ProAir HFA 2 puffs q.6 hourly p.r.n., aspirin 81 mg p.o. daily, Coreg 3.25 mg p.o. b.i.d., Omnicef 300 mg p.o. b.i.d. for 7 days, digoxin 0.125 mg p.o. as directed, Colace 100 mg p.o. daily, Lasix 40 mg p.o. daily, Mucinex 600 mg p.o. b.i.d., Humalog insulin as per sliding scale , NPH 70/30, 30 units subcu b.i.d., Lantus insulin 50 units subcu b.i.d., atropine 2 puffs q.i.d., ma gnesium 400 mg p.o. daily, Reglan 10 mg p.o. a.c. and at bedtime, Zaroxolyn 5 mg every 7 days, Dulera two puffs inhalation b.i.d., spironolactone 25 mg p.o. daily, prednisone 20 mg p.o. b.i.d. for 7 day s, then 10 mg p.o. b.i.d. for 7 days, then 10 mg p.o. daily for 7 days. On the day of discharge, we discontinued Lantus insulin and she was getting insulin 70/30 while in hospital only 50 units subcu b .i.d. and her blood sugar remains stable with that. CONTRAINDICATIONS: None. CODE STATUS: FULL CODE. INPATIENT CONSULTANTS: Dr. Mcdermott and Dr. Lomax were following while in hospital. TEST RESULTS PENDING ON DISCHARGE: None. ALLERGIES: CIPROFLOXACIN, CLARITHROMYCIN, CODEINE and PENICILLIN. DISCHARGE PLAN: Post hospital, patient will follow with primary care physician and above-mentioned c onsultants. HOSPITAL COURSE: A 76-year-old female who was admitted by Dr. Issa Arora. Please see her H&P f or further details. The patient was admitted for COPD exacerbation. Pulmonology and Cardiology was consulted. Her troponin was elevated due to demand ischemia as per Cardiology. Dr. Thakur was follow ing for COPD flare-up. During this admission, she was requiring home oxygen and that was arranged wi th the help of assistant case manager. While in hospital, we optimally treated for COPD. She was getting diur etic therapy and that is why she developed acute kidney failure and we stopped diuretic therapy and r enal function improved. On discharge, we reduced diuretic therapy. Rest of medication was continued as per previous. During this admission, we did echocardiography and confirmed that previously her low EF is improved. This patient is euvolemic. We prescribed antibiotic as well as tapering doses of prednisone. Overall, this patient is medically stable and she will continue to follow up with primary care physic chikis. The patient is seen and examined at bedside today. Please see my progress note from today for furthe r details.
[2017-08-03 15:38] VITALS: BP 159/66; TEMP 97.6
[2017-08-04] MEDS ORDERED: Spironolactone 25 MG TAB PO SCH (08:00)
[2017-08-05] MEDS ORDERED: Metolazone 5 MG TAB PO SCH (09:00)
--- NOTE | 2017-08-20 19:55 | EKG ---
Test Reason : SOB Blood Pressure : / mmHG Vent. Rate : 095 BPM Atrial Rate : 095 BPM P-R Int : 174 ms QRS Dur : 182 ms QT Int : 420 ms P-R-T Axes : 088 -59 082 degrees QTc Int : 527 ms Atrial-sensed ventricular-paced rhythm Abnormal ECG Confirmed by CHRISTIAN HOU ([id number]), medical transcription editor JONAH SAMANO ([id number]) on 08/20/2017 7:54:57 PM Referred By: Confirmed By:CHRISTIAN HOU
== END 2017-08-03 15:31 | disposition home or self-care (01) | DRG 189 ==
LOC: ERS 18:58 → 2NO 20:43
PROVIDERS: ADMIT Internal Medicine; ATTEND Internal Medicine
DX: J96.21 Acute and chronic respiratory failure with hypoxia (principal); N17.9 Acute kidney failure, unspecified; E11.22 Type 2 diabetes mellitus with diabetic chronic kidney disease; E11.65 Type 2 diabetes mellitus with hyperglycemia; K31.84 Gastroparesis; E87.1 Hypo-osmolality and hyponatremia; E11.43 Type 2 diabetes mellitus with diabetic autonomic (poly)neuropathy; J44.1 Chronic obstructive pulmonary disease with (acute) exacerbation; I42.9 Cardiomyopathy, unspecified; I24.8 Other forms of acute ischemic heart disease; I13.0 Hypertensive heart and chronic kidney disease with heart failure and stage 1 through stage 4 chronic kidney disease, or unspecified chronic kidney disease; I50.22 Chronic systolic (congestive) heart failure; J44.0 Chronic obstructive pulmonary disease with (acute) lower respiratory infection; E87.6 Hypokalemia; J20.9 Acute bronchitis, unspecified; I25.10 Atherosclerotic heart disease of native coronary artery without angina pectoris; Z87.891 Personal history of nicotine dependence; N28.9 Disorder of kidney and ureter, unspecified; E66.9 Obesity, unspecified; Z68.26 Body mass index [BMI] 26.0-26.9, adult; F41.9 Anxiety disorder, unspecified; N14.1 Nephropathy induced by other drugs, medicaments and biological substances; T50.1X5A Adverse effect of loop [high-ceiling] diuretics, initial encounter; Y92.230 Patient room in hospital as the place of occurrence of the external cause; N18.3 Chronic kidney disease, stage 3 (moderate); Z79.82 Long term (current) use of aspirin; Z79.4 Long term (current) use of insulin; Z79.51 Long term (current) use of inhaled steroids; Z88.1 Allergy status to other antibiotic agents; Z88.5 Allergy status to narcotic agent; Z88.0 Allergy status to penicillin; Z95.810 Presence of automatic (implantable) cardiac defibrillator; F10.21 Alcohol dependence, in remission; Z85.41 Personal history of malignant neoplasm of cervix uteri; E78.00 Pure hypercholesterolemia, unspecified
CPT/HCPCS: 36415; 36416; 71045; 80048; 80053; 82553; 83605; 83880; 84484; 85025; 87040; 87070; 87077; 87186; 87205; 87804; 89220; 93005; 93306; 94640; 94760; 96374; A4216; G8978-GP-CI; G8979-GP-CI; J0696; J1815; J2920; J2930; J7506; J7611; J7620

== ENCOUNTER 2017-08-05 21:42 | Observation (INO) | payer MEDICARE, MEDICAID ==
[2017-08-05 23:25] LABS: Bilirubin Negative (Negative); Blood, Urine Negative (Negative); Clarity CLEAR (Clear); Glucose, Urine (Dipstick) Negative (Negative); Leukocyte Negative (Negative); Nitrite Negative (Negative); Protein, Urine (Dipstick) Negative (Neg-Trace); Urobilinogen 0.2 mg/dL (0.2-1.0); pH, Urine 6.5 (5.0-9.0)
--- NOTE | 2017-08-05 23:26 | RAD ---
PORTABLE CHEST: 08/05/17 HISTORY: Weakness. COMPARISON: 07/28/17. Lung potter remain clear. No infiltrate or vascular congestion. Heart size is upper normal. Pacemaker leads unchanged. IMPRESSION: No acute finding. No interval change. POS: [facility]
[2017-08-05 23:29] LABS: Anion Gap 13 mmol/L (10-20); BUN (Urea Nitrogen) 59 mg/dL (9.8-20.1); Calc. Creatinine Clearance 0 mL/min (70-130); Calcium 11.7 mg/dL (7.8-10.44); Carbon Dioxide 35 mmol/L (23-31); Chloride 82 mmol/L (98-107); Estimated GFR-MDRD 39; Glucose 121 mg/dL (83-110); Potassium 3.5 mmol/L (3.5-5.1); Sodium 126 mmol/L (136-145)
[2017-08-05 23:30] LABS: #Basophils 0.1 thou/uL (0.0-0.2); #Eosinphils 0.2 thou/uL (0.0-0.7); #Lymphocytes 0.3 thou/uL (1.20-3.40); #Monocytes 0.7 thou/uL (0.11-0.59); #Neutrophils 10.3 thou/uL (1.40-6.50); %Basophils 0.9 % (0.0-1.0); %Eosinophils 1.4 % (0.0-10.0); %Lymphocytes 2.2 % (21.0-51.0); %Monocytes 6.1 % (0.0-10.0); %Neutrophils 89.5 % (42.0-75.0); Hemoglobin 11.9 g/dL (12.0-16.0); Mean Corpuscular HGB CONC 31.1 g/dL (32.0-36.0); Mean Corpuscular Hemoglobin 25.2 pg (27.0-31.0); Mean Corpuscular Volume 81.1 fl (81.0-99.0); Mean Platelet Volume 8.5 fL (7.4-10.4); Platelet Count 394 thou/uL (130-400); RBC Distribution Width 20.7 % (11.5-14.5); Red Blood Cell (RBC) Count 4.72 mill/uL (4.20-5.40); White Blood Cell (WBC) Count 11.5 thou/uL (4.8-10.8)
[2017-08-05 23:30] LABS: Digoxin 0.53 ng/mL (0.8-2.0)
[2017-08-06 00:17] LABS: CKMB 1.9 ng/mL (0-6.6); Troponin I 0.078 ng/mL (< 0.028)
[2017-08-06 01:46] LABS: Thyroid Stimulating Hormone 3.6417 uIU/mL (0.35-4.94)
[2017-08-06 02:41] LABS: Troponin I 0.091 ng/mL (< 0.028)
[2017-08-06] MEDS ORDERED: Sodium Chloride 0.9% 1,000 ML IV SCH (03:00)
[2017-08-06 03:01] VITALS: BMI 28.6
[2017-08-06 03:50] LABS: Osmolality, Urine 210 mOsm/kg (300-900); Sodium, Urine 42 mmol/L (Not Available)
[2017-08-06 05:35] LABS: Troponin I 0.072 ng/mL (< 0.028)
[2017-08-06] MEDS ORDERED: Dextrose 50% Abboject 50 ML SYRINGE SLOW IVP PRN (07:31)
[2017-08-06] MEDS ORDERED: Acetaminophen 325 MG TAB PO PRN (07:31)
[2017-08-06] MEDS ORDERED: Ondansetron ODT 4 MG TAB PO PRN (07:31)
[2017-08-06] MEDS ORDERED: Dextrose 5% in Water 1,000 ML IV PRN (07:31)
[2017-08-06] MEDS ORDERED: Docusate 100 MG CAP PO PRN (07:31)
[2017-08-06] MEDS ORDERED: PROVENTIL INHALER 6.7 G (200 INHALATIONS) INH PRN (07:31)
[2017-08-06] MEDS ORDERED: Ipratropium Oral Inhaler (200 INHALATIONS) INH PRN (07:31)
[2017-08-06 08:08] LABS: Anion Gap 14 mmol/L (10-20); BUN (Urea Nitrogen) 58 mg/dL (9.8-20.1); Calc. Creatinine Clearance 45 mL/min (70-130); Calcium 11.1 mg/dL (7.8-10.44); Carbon Dioxide 32 mmol/L (23-31); Chloride 84 mmol/L (98-107); Estimated GFR-MDRD 40; Glucose 134 mg/dL (83-110); Sodium 127 mmol/L (136-145)
[2017-08-06 08:12] LABS: Potassium 2.9 mmol/L (3.5-5.1)
--- NOTE | 2017-08-06 08:25 | HP ---
PRIMARY CARE PROVIDER: Listed as Dr. Brewer. CHIEF COMPLAINT: Referred to the [email or web address] Service by [facility] for we tavia. HISTORY OF PRESENT ILLNESS: Patient discharged from the hospital 3 days ago. She states she just ca nnot walk very far, states she is weak. She states she feels fuzzy headed at times. She has a cough . She has had no fever or chills. She says she fell yesterday. No history of blackout. No definit e dizziness. No injury. No focal weakness. She asked me if she was going to be kept here or sent t o rehabilitation. PAST MEDICAL HISTORY: COPD, steroid dependent, has O2 at home. History of congestive heart failure, but her echocardiogram done 07/28/2017 shows an EF of 50%-55%; history of diabetes mellitus, type 2; hypertension; dyslipidemia; gastroesophageal reflux disease; chronic back pain; cervical cancer, shira ated with radiation; SVT, requiring ablation x2. PAST SURGICAL HISTORY: Includes tonsillectomy, pacemaker, appendectomy, and cataract surgery with le ns implant within the right eye. CURRENT MEDICATIONS: Prednisone 20 mg p.o. b.i.d.; ProAir HFA 2 puffs q.6 hours p.r.n.; aspirin 81 m g a day; Coreg 3.25 mg twice a day; Omnicef 300 mg twice a day for 7 days; digoxin 125 mcg a day; Las ix 40 mg a day; NPH insulin 70/30, 30 units subcu b.i.d.; Humalog per sliding scale; Reglan 10 mg a.c . and at bedtime; Zaroxolyn 5 mg every 7 days; Dulera 2 puffs b.i.d.; spironolactone 25 mg a day. ALLERGIES: CIPRO, BIAXIN, CODEINE, and PENICILLIN. SOCIAL HISTORY: Former smoker, quit smoking 10 years ago; alcoholic until 1986, she quit; denies any illicit drug abuse. CODE STATUS: FULL CODE status. FAMILY HISTORY: Father had MD and coronary artery disease. Mother had COPD, CVA, and coronary arter y disease. REVIEW OF SYSTEMS: General: No dizziness or fainting. She complains of fuzzy headedness. Eyes: P oor vision in the left eye. She states she needs surgery. She has had cataract surgery on the right . ENT: No ear pain or drainage. No nasal bleeding. No trouble swallowing. Cardiac: No chest bonnie n, orthopnea, or paroxysmal nocturnal dyspnea. Respiratory: She gives out at 10-20 feet, more weakn ess than shortness of breath. She does have a cough and occasional wheezing. Gastrointestinal: She has burning in her epigastrium at times, which she blames on the prednisone. No nausea or vomiting, no abdominal pain, no diarrhea. She has early satiety. Genitourinary: She has stress incontinence with no hematuria or dysuria. Musculoskeletal: No pain or swelling in her arms or legs. Neurologi juancarlos: No strokes, seizures, or focal weakness. Psychiatric: No anxiety or depression. Skin: Easy bruising, no rash. Heme/Lymph: No tender or swollen lymph nodes in axilla, inguinal, or cervical ar ea. PHYSICAL EXAMINATION: GENERAL: Alert, oriented, sitting up in the bed, in no distress. VITAL SIGNS: Blood pressure 141/73, pulse ox 95 on room air, respirations 16, pulse 81, temperature 97.8. HEENT: Examination of her head, eyes, ears, nose, and throat reveal pupils equal and round. She has an implant on the right. Sclerae white. Extraocular movements are intact. Tympanic membranes are occluded with cerumen. Nose is clear. Oral mucous membranes are wet. She is edentulous. NECK: Supple, without jugular venous distention, adenopathy, or thyromegaly. CHEST: Hyperresonant. No focal findings, some scattered rhonchi. HEART: Regular rate and rhythm. First and second heart sounds are clear. No murmurs, no gallops. ABDOMEN: Soft, bowel sounds are normal. There is no hepatosplenomegaly, no mass, no rebound. EXTREMITIES: Reveal no cyanosis, clubbing, or edema. PULSES: Carotid, radial, and femoral pulses symmetric and intact. Pedal pulses are diminished, but palpable and symmetric. SKIN: Warm and dry with marked actinic/steroid changes with minor ecchymoses on her arms. HEME/LYMPH: No tender or swollen lymph nodes in axilla, inguinal, or cervical area. NEUROLOGICAL: Cranial nerves II-XII are intact. Deep tendon reflexes symmetric. Moves all extremit ies. LABORATORY AND X-RAY FINDINGS: Chest x-ray: Pacemaker in the left upper chest. No CHF or infiltrat e, reviewed by me. EKG: Paced rhythm with atrial sensing and ventricular pacing, reviewed by me. White count 11.5 consistent with chronic steroid abuse usage, hemoglobin 11.9, platelet count 394,000 . Sodium 126, potassium 3.5, BUN 59, creatinine 1.33. Cardiac enzymes 0.078, 0.09, 0.07. Previous admissions 0.089, 0.099, 0.097. ADMITTING DIAGNOSES: 1. Generalized weakness. 2. Chronic obstructive pulmonary disease, steroid dependent. 3. Diabetes mellitus, type 2, insulin-dependent. 4. Hypertension. 5. History of heart failure with normal ejection fraction. 6. Chronic elevated troponins. 7. Gastroesophageal reflux disease. 8. Hyponatremia. 9. Chronic kidney disease, stage 3. PLAN: I see no hospitalization diagnosis in this patient. We discontinued the metolazone, repeat he r basic metabolic profile, continue her home medicines otherwise, consult PT/ OT, obtain rehabilitati on screen, and case management plan on referring for rehabilitation for conditioning.
[2017-08-06] MEDS: Sodium Chloride 0.9% 1,000 ML IV SCH ×2 (09:25→20:03)
[2017-08-06] MEDS: Spironolactone 25 MG TAB PO SCH (09:26)
[2017-08-06] MEDS: Carvedilol 3.125 MG TAB PO SCH ×2 (09:26→16:48)
[2017-08-06] MEDS: Cefdinir 300 MG CAP PO SCH ×2 (09:26→20:05)
[2017-08-06] MEDS: Magnesium Oxide 400 MG TAB PO SCH (09:26)
[2017-08-06] MEDS: predniSONE 20 MG TAB PO SCH ×2 (09:26→16:49)
[2017-08-06] MEDS: guaiFENesin ER 600 MG TAB PO SCH ×2 (09:26→20:06)
[2017-08-06] MEDS: Aspirin 81 mg Enteric Coated Tablet PO SCH (09:26)
[2017-08-06] MEDS ORDERED: Potassium Chloride 20 MEQ TAB PO SCH (09:30)
[2017-08-06] MEDS: Metoclopramide HCl 10 MG TAB PO SCH ×3 (11:00→20:06)
[2017-08-06] MEDS: Mometasone/Formoterol 120 PUFF INHALER INH SCH ×2 (11:30→18:19)
[2017-08-06] MEDS: HumaLOG 300 UNITS/3 ML VIAL SC PRN ×3 (12:31→22:13)
[2017-08-06] MEDS: Insulin NPH/Reg Insulin Hm 300 UNITS/3 ML VIAL SC SCH (17:55)
[2017-08-07] MEDS: Mometasone/Formoterol 120 PUFF INHALER INH SCH ×2 (06:45→18:56)
[2017-08-07] MEDS: Insulin NPH/Reg Insulin Hm 300 UNITS/3 ML VIAL SC SCH ×2 (09:14→17:10)
[2017-08-07] MEDS: predniSONE 20 MG TAB PO SCH ×2 (09:16→17:08)
[2017-08-07] MEDS: Metoclopramide HCl 10 MG TAB PO SCH ×4 (09:16→21:13)
[2017-08-07] MEDS: guaiFENesin ER 600 MG TAB PO SCH ×2 (09:16→21:13)
[2017-08-07] MEDS: Cefdinir 300 MG CAP PO SCH ×2 (09:17→21:13)
[2017-08-07] MEDS: Spironolactone 25 MG TAB PO SCH (09:17)
[2017-08-07] MEDS: Aspirin 81 mg Enteric Coated Tablet PO SCH (09:17)
[2017-08-07] MEDS: Magnesium Oxide 400 MG TAB PO SCH (09:17)
[2017-08-07] MEDS: Carvedilol 3.125 MG TAB PO SCH ×2 (09:17→17:08)
[2017-08-07] MEDS: HumaLOG 300 UNITS/3 ML VIAL SC PRN (11:46)
--- NOTE | 2017-08-07 14:15 | PRG ---
DATE OF SERVICE: 08/07/2017 SUBJECTIVE: The patient is seen and examined at the bedside. She still complains about generalized weakness, which is slightly better today, but she still feels quite short of breath, especially on ex ertion. OBJECTIVE: VITAL SIGNS: Blood pressure is 133/60, pulse is 103, respiratory rate is 18, temperature is 97.7, O2 saturation is 98% on 2 liters by nasal cannula. HEENT: Head is atraumatic, normocephalic. Eyes: PERRLA. Sclerae nonicteric. NECK: Supple. No JVD. LUNGS: Emphysematous, left base diminished breath sounds. No wheezing. CARDIOVASCULAR: S1 and S2 distant. No S3, no S4. ABDOMEN: Obese, mildly distended. Bowel sounds are present, no organomegaly. EXTREMITIES: No clubbing, cyanosis, or edema. NEUROLOGICAL EXAMINATION: She is alert and oriented x4. There are no any sensorimotor deficits pres ent. Cranial nerves are intact. LABORATORY DATA: No labs today. IMPRESSION: 1. Generalized weakness, which is most likely related to hyponatremia and volume depletion. 2. Hyponatremia and hypochloremia. 3. Chronic obstructive pulmonary disease, steroid dependent. 4. Diabetes mellitus, type 2. 5. Hypertension. 6. History of diastolic congestive heart failure. 7. Chronic kidney disease, stage 3. PLAN: To taper her prednisone, continue her p.o. antibiotic for now, continue gentle hydration at 70 mL per hour of normal saline. Obtain BMP and obtain further management of her transfer to skilled n ursing facility/rehab for physical therapy for generalized weakness. For now, we will continue her r egimen and Accu-Cheks a.c. and at bedtime and sliding scale and DuoNeb.
[2017-08-07 15:54] LABS: Anion Gap 15 mmol/L (10-20); BUN (Urea Nitrogen) 39 mg/dL (9.8-20.1); Calc. Creatinine Clearance 49 mL/min (70-130); Calcium 9.6 mg/dL (7.8-10.44); Carbon Dioxide 25 mmol/L (23-31); Chloride 99 mmol/L (98-107); Estimated GFR-MDRD 44; Glucose 133 mg/dL (83-110); Potassium 4.1 mmol/L (3.5-5.1); Sodium 135 mmol/L (136-145)
[2017-08-07] MEDS: Sodium Chloride 0.9% 1,000 ML IV SCH (17:14)
[2017-08-08] MEDS: Sodium Chloride 0.9% 1,000 ML IV SCH (04:55)
[2017-08-08 05:07] LABS: Anion Gap 9 mmol/L (10-20); BUN (Urea Nitrogen) 31 mg/dL (9.8-20.1); Calc. Creatinine Clearance 58 mL/min (70-130); Calcium 9.6 mg/dL (7.8-10.44); Carbon Dioxide 31 mmol/L (23-31); Chloride 102 mmol/L (98-107); Estimated GFR-MDRD 53; Glucose 127 mg/dL (83-110); Potassium 3.4 mmol/L (3.5-5.1); Sodium 139 mmol/L (136-145)
[2017-08-08] MEDS: Mometasone/Formoterol 120 PUFF INHALER INH SCH (06:49)
[2017-08-08] MEDS: Insulin NPH/Reg Insulin Hm 300 UNITS/3 ML VIAL SC SCH ×2 (07:41→17:37)
[2017-08-08] MEDS: predniSONE 20 MG TAB PO SCH ×2 (07:41→17:45)
[2017-08-08] MEDS: Carvedilol 3.125 MG TAB PO SCH ×2 (07:41→17:38)
[2017-08-08] MEDS: Metoclopramide HCl 10 MG TAB PO SCH ×3 (07:42→17:38)
[2017-08-08] MEDS ORDERED: Digoxin 0.125 MG TAB PO SCH (09:00)
[2017-08-08] MEDS: Cefdinir 300 MG CAP PO SCH (09:14)
[2017-08-08] MEDS: Spironolactone 25 MG TAB PO SCH (09:14)
[2017-08-08] MEDS: guaiFENesin ER 600 MG TAB PO SCH (09:14)
[2017-08-08] MEDS: Furosemide 40 MG TAB PO SCH ×2 (09:14→15:09)
[2017-08-08] MEDS: Magnesium Oxide 400 MG TAB PO SCH (09:15)
[2017-08-08] MEDS: Aspirin 81 mg Enteric Coated Tablet PO SCH (09:15)
[2017-08-08] MEDS ORDERED: Potassium Chloride 20 MEQ TAB PO SCH (10:45)
[2017-08-08] MEDS ORDERED: Folic Acid 1 MG TAB PO SCH (10:45)
[2017-08-08 16:29] VITALS: BP 136/74; TEMP 97.5
--- NOTE | 2017-08-08 19:09 | DIS ---
DATE OF DISCHARGE: 06/07/2018 DISCHARGE DISPOSITION: To [facility]. The patient was seen and examined on the day of discharge, denies any new complaints, no chest pain, shortness of breath, palpitations. SIGNIFICANT LABORATORIES: 1. Sodium on admission was 126, at discharge 139. 2. BUN on admission was 59 and at discharge 31. 3. Creatinine on admission was 1.33, at discharge 1.01. 4. Urine osmolality 210. Urine sodium 42. INPATIENT CONSULTANTS: None. BRIEF HOSPITAL COURSE: The patient is a 76-year-old female who was discharged from this facility on 08/03/2017 presented to the hospital with generalized weakness. Please refer to the history and phys ical dated 08/06/[address] Aroldo Navarrete for further details. The patient was admitted to the hospital with a diagnosis of generalized weakness, probably secondary to hyponatremia and over diuresis. The sodium gradually improved from 126-139 with gentle IV hydrat ion. Her Lasix dose has been reduced to 40 mg once a day. She will be discharged to [facility] for further rehabilitation. FINAL DIAGNOSES: 1. Generalized weakness, probably secondary to hyponatremia and over diuresis, resolved. Base met e very 2 for 3-4 times is recommended. Primary care physician is advised to follow. 2. Chronic obstructive pulmonary disease, on chronic steroids. 3. Diabetes mellitus type 2. 4. Hypertension. 5. Chronic diastolic heart failure. 6. Physical deconditioning. 7. Gastroesophageal reflux disease. 8. Chronic kidney disease stage 3. 9. Hypokalemia. 10. Chronic anemia. 11. Hypertension. 12. Dyslipidemia. 13. Chronic low back pain. Plan of care was discussed with the patient in detail. She stated understanding.
[2017-08-09] MEDS ORDERED: Multivit, Therapeutic 1 TAB PO SCH (09:00)
[2017-08-09] MEDS ORDERED: Cyanocobalamin (Vitamin B-12) 1,000 MCG TAB PO SCH (09:00)
[2017-08-13] MEDS ORDERED: predniSONE 5 MG TAB PO SCH (08:00)
[2017-08-20] MEDS ORDERED: predniSONE 5 MG TAB PO SCH (08:00)
--- NOTE | 2017-08-27 11:44 | EKG ---
Test Reason : Blood Pressure : / mmHG Vent. Rate : 081 BPM Atrial Rate : 081 BPM P-R Int : 184 ms QRS Dur : 196 ms QT Int : 476 ms P-R-T Axes : 090 -78 081 degrees QTc Int : 552 ms Electronic ventricular pacemaker Confirmed by SUKHDEEP GERONIMO, VERONIKA Fang ([id number]), city editor JONAH SAMANO ([id number]) on 08/27/2017 11:44:11 AM Referred By: Confirmed By:VERONIKA TARANGO MD
== END 2017-08-08 18:04 ==
LOC: ERS 21:42 → 2SW 08-06 00:22
PROVIDERS: ADMIT Internal Medicine; ATTEND Internal Medicine
DX: R53.1 Weakness (principal); J44.9 Chronic obstructive pulmonary disease, unspecified; E11.22 Type 2 diabetes mellitus with diabetic chronic kidney disease; I13.0 Hypertensive heart and chronic kidney disease with heart failure and stage 1 through stage 4 chronic kidney disease, or unspecified chronic kidney disease; N18.3 Chronic kidney disease, stage 3 (moderate); I50.32 Chronic diastolic (congestive) heart failure; K21.9 Gastro-esophageal reflux disease without esophagitis; E87.6 Hypokalemia; D63.1 Anemia in chronic kidney disease; E78.5 Hyperlipidemia, unspecified; M54.5 Low back pain; G89.29 Other chronic pain; I47.1 Supraventricular tachycardia; R79.89 Other specified abnormal findings of blood chemistry; E87.8 Other disorders of electrolyte and fluid balance, not elsewhere classified; Z79.82 Long term (current) use of aspirin; Z79.4 Long term (current) use of insulin; Z79.52 Long term (current) use of systemic steroids; Z79.899 Other long term (current) drug therapy; Z88.1 Allergy status to other antibiotic agents; Z88.5 Allergy status to narcotic agent; Z98.41 Cataract extraction status, right eye; Z95.0 Presence of cardiac pacemaker; Z96.1 Presence of intraocular lens; Z90.49 Acquired absence of other specified parts of digestive tract; Z90.89 Acquired absence of other organs; Z98.890 Other specified postprocedural states; Z87.891 Personal history of nicotine dependence; Z92.3 Personal history of irradiation; Z85.41 Personal history of malignant neoplasm of cervix uteri
CPT/HCPCS: 51701; 71045; 80048 ×4; 80162; 81003; 82553; 82962 ×3; 83880; 83930; 83935; 84300; 84443; 84484 ×3; 85025; 93005; 94640 ×7; 94664; 96360; 96361 ×3; 97116; 97139 ×3; 97530 ×2; 99285; G0378 ×2; G8978; G8979; G8987; G8988; 36415; 36416; A4353; J7506; J7620

== ENCOUNTER 2017-08-20 22:05 | Emergency (ER) | payer MEDICARE, MEDICAID ==
[2017-08-20 22:50] LABS: #Basophils 0.1 thou/uL (0.0-0.2); #Eosinphils 0.3 thou/uL (0.0-0.7); #Lymphocytes 0.3 thou/uL (1.20-3.40); #Monocytes 0.8 thou/uL (0.11-0.59); #Neutrophils 8.8 thou/uL (1.40-6.50); %Basophils 0.9 % (0.0-1.0); %Eosinophils 2.7 % (0.0-10.0); %Lymphocytes 2.4 % (21.0-51.0); %Monocytes 7.7 % (0.0-10.0); %Neutrophils 86.2 % (42.0-75.0); Hemoglobin 10.1 g/dL (12.0-16.0); Mean Corpuscular Hemoglobin 25.5 pg (27.0-31.0); Mean Corpuscular Volume 82.1 fl (81.0-99.0); Mean Platelet Volume 8.2 fL (7.4-10.4); Platelet Count 300 thou/uL (130-400); RBC Distribution Width 20.7 % (11.5-14.5); Red Blood Cell (RBC) Count 3.96 mill/uL (4.20-5.40); White Blood Cell (WBC) Count 10.2 thou/uL (4.8-10.8)
[2017-08-20 23:11] LABS: ALT (SGPT) 19 U/L (8-55); AST (SGOT) 14 U/L (5-34); Albumin 3.1 g/dL (3.4-4.8); Alkaline Phosphatase 48 U/L (40-150); Anion Gap 12 mmol/L (10-20); BUN (Urea Nitrogen) 28 mg/dL (9.8-20.1); Bilirubin, Total 0.3 mg/dL (0.2-1.2); CK (CPK) 14 U/L (29-168); Calc. Creatinine Clearance 0 mL/min (70-130); Calcium 10.5 mg/dL (7.8-10.44); Carbon Dioxide 31 mmol/L (23-31); Chloride 98 mmol/L (98-107); Estimated GFR-MDRD 46; Globulin 2.8 g/dL (2.4-3.5); Glucose 150 mg/dL (83-110); Potassium 4.2 mmol/L (3.5-5.1); Protein, Total 5.9 g/dL (6.0-8.3); Sodium 137 mmol/L (136-145)
[2017-08-20 23:15] LABS: Troponin I 0.048 ng/mL (< 0.028)
--- NOTE | 2017-08-20 23:16 | RAD ---
PORTABLE CHEST ONE VIEW: 08/20/17 at 11:08 p.m. HISTORY: Dyspnea. FINDINGS: Comparison made with the exam of previous day. The heart is enlarged. The left sided AICD remains in place. The lungs are well expanded without foca l areas of consolidation, pneumothorax, geoff pulmonary edema or pleural effusions are seen. IMPRESSION: No acute process. POS: [facility]
== END 2017-08-21 01:17 | disposition home or self-care (01) ==
LOC: ERS 22:05
DX: J20.9 Acute bronchitis, unspecified (principal); J44.0 Chronic obstructive pulmonary disease with (acute) lower respiratory infection; I50.9 Heart failure, unspecified; E11.9 Type 2 diabetes mellitus without complications; F41.9 Anxiety disorder, unspecified; Z87.891 Personal history of nicotine dependence
CPT/HCPCS: 71045; 80053; 82553; 83880; 84484; 85025; 93005; 94640; 94760; J7620

== ENCOUNTER 2017-09-05 22:12 | Observation (INO) | payer MEDICARE, MEDICAID ==
[2017-09-05 22:36] LABS: Bilirubin Negative (Negative); Blood, Urine Negative (Negative); Clarity CLEAR (Clear); Glucose, Urine (Dipstick) Negative (Negative); Leukocyte Small (Negative); Nitrite Positive (Negative); Protein, Urine (Dipstick) Negative (Neg-Trace); Specific Gravity, Urine 1.011 (1.002-1.036); Urobilinogen 0.2 mg/dL (0.2-1.0)
[2017-09-05 22:38] LABS: Bacteria/HPF 2+ HPF (None Seen); Hyaline Casts/LPF 0-3 HYALINE CAST LPF (0-3 Hyaline); Pathc Cast-AUWi Flag 0.14 (0-2.49); RBC/HPF 0-3 HPF (0-3); Squamous Epithelial 0-3 HPF (0-3)
--- NOTE | 2017-09-05 23:27 | RAD ---
TWO VIEWS RIGHT FEMUR: Comparison: None. History: Fall at home with right leg pain. FINDINGS: Two views of the right femur shows no evidence of acute or dislocation. No degenerative change is see n in the hip. Mild degenerative changes seen in the knee. IMPRESSION: No evidence of acute osseous abnormality. POS: [facility]
--- NOTE | 2017-09-05 23:28 | RAD ---
TWO VIEWS RIGHT HIP: Comparison: None. History: Right hip pain after falling at home. FINDINGS: Two views of the right hip shows no evidence of acute fracture or dislocation. No degenerative change s are seen in the hip. No soft tissue swelling is seen. IMPRESSION: Unremarkable exam. POS: [facility]
--- NOTE | 2017-09-05 23:29 | RAD ---
RIGHT FOOT THREE VIEWS: Comparison: None. History: Right foot pain after fall at home. FINDINGS: Three views of the right foot shows no evidence of acute fracture or dislocation. No degenerative chula nges are seen. No soft tissue swelling is present. IMPRESSION: Unremarkable exam. POS: [facility]
--- NOTE | 2017-09-05 23:31 | RAD ---
TWO VIEWS RIGHT TIBIA AND FIBULA: History: Fall at home with right leg pain. FINDINGS: Two views of the right tibia and fibula shows a minimally displaced oblique fracture through the fibu lar neck. No tibial fracture is appreciated. There are mild degenerative changes in the right knee kieran int. Diffuse soft tissue swelling is seen. IMPRESSION: 1. Minimally displaced right fibular neck fracture. 2. Mild degenerative change in the right knee. POS: [facility]
[2017-09-06] MEDS ORDERED: Acetaminophen 500 MG TAB ONE (00:55)
[2017-09-06] MEDS ORDERED: Dextrose 50% Abboject 50 ML SYRINGE SLOW IVP PRN (02:00)
[2017-09-06] MEDS ORDERED: traMADol HCl 50 MG TAB PO PRN ×2 (02:00→09:23)
[2017-09-06] MEDS ORDERED: Ondansetron ODT 4 MG TAB PO PRN (02:00)
[2017-09-06] MEDS ORDERED: Ondansetron HCl/PF 4 MG/2 ML Vial IVP PRN (02:00)
[2017-09-06] MEDS ORDERED: hydrALAZINE 20 MG/ML VIAL SLOW IVP PRN (02:00)
[2017-09-06] MEDS ORDERED: Dextrose 5% in Water 1,000 ML IV PRN (02:00)
[2017-09-06] MEDS ORDERED: Insulin Regular 300 UNITS/3 ML VIAL SC PRN (02:00)
[2017-09-06 04:42] VITALS: BMI 27.4
[2017-09-06 06:12] LABS: #Eosinphils 0.3 thou/uL (0.0-0.7); #Lymphocytes 0.6 thou/uL (1.20-3.40); #Monocytes 0.9 thou/uL (0.11-0.59); #Neutrophils 6.8 thou/uL (1.40-6.50); %Basophils 0.1 % (0.0-1.0); %Eosinophils 3.3 % (0.0-10.0); %Lymphocytes 7.1 % (21.0-51.0); %Monocytes 10.3 % (0.0-10.0); %Neutrophils 79.2 % (42.0-75.0); Mean Corpuscular HGB CONC 31.2 g/dL (32.0-36.0); Mean Corpuscular Hemoglobin 25.2 pg (27.0-31.0); Mean Corpuscular Volume 80.9 fl (81.0-99.0); Mean Platelet Volume 7.5 fL (7.4-10.4); Platelet Count 543 thou/uL (130-400); RBC Distribution Width 20.5 % (11.5-14.5); Red Blood Cell (RBC) Count 2.78 mill/uL (4.20-5.40); White Blood Cell (WBC) Count 8.5 thou/uL (4.8-10.8)
[2017-09-06 06:26] LABS: Anion Gap 10 mmol/L (10-20); BUN (Urea Nitrogen) 21 mg/dL (9.8-20.1); Calc. Creatinine Clearance 42 mL/min (70-130); Carbon Dioxide 36 mmol/L (23-31); Chloride 94 mmol/L (98-107); Estimated GFR-MDRD 40; Glucose 299 mg/dL (83-110); Magnesium 1.9 mg/dL (1.6-2.6); Phosphorus 3.4 mg/dL (2.3-4.7); Sodium 137 mmol/L (136-145)
[2017-09-06 06:31] LABS: Potassium 2.8 mmol/L (3.5-5.1)
[2017-09-06] MEDS: Acetaminophen 325 MG TAB PO SCH ×2 (06:44→08:14)
[2017-09-06] MEDS ORDERED: [UNRECOGNIZED DRUG - OTHER] IVPB SCH (07:30)
[2017-09-06] MEDS ORDERED: MAGNESIUM SULFATE IVPB SCH (07:30)
[2017-09-06] MEDS ORDERED: ADMIXTURE FEE IVPB SCH (07:30)
[2017-09-06] MEDS ORDERED: POTASSIUM CHLORIDE IVPB SCH (07:30)
--- NOTE | 2017-09-06 07:59 | HP ---
DATE OF ADMISSION: 09/06/2017 REQUESTING PHYSICIAN: Dr. Malagon. ATTENDING SURGEON: Dr. Ferguson. CONSULTATIONS: Orthopedics, Dr. Gabriel. HISTORY OF PRESENT ILLNESS: Patient is 77, woman who was ambulating at home when she let g o her walker to transition into another room when she states that her right knee gave way and she fel l landing on her knee. The patient was brought to the emergency department by ground EMS and was chula luated, examined, and noted to have a right proximal fibular fracture and we were asked to evaluate t he patient for admission, Orthopedic evaluation, and probable rehab consultation. ALLERGIES: BIAXIN, CIPRO, CLARITHROMYCIN, CODEINE, and PENICILLINS. CURRENT MEDICATIONS: 81 mg aspirin, carvedilol, digoxin, gabapentin, Lasix, spironolactone, and Regl an. PAST MEDICAL HISTORY: Gastroesophageal reflux disease, cardiomyopathy, hypertension, chronic diastol ic heart failure, chronic kidney disease stage 3, dyslipidemia, COPD on 3 liters of home oxygen, tread cutter billy low back pain. PAST SURGICAL HISTORY: Pacemaker placement, tonsillectomy, appendectomy, cataract surgery with lens replacement on right. SOCIAL HISTORY: Patient is a former tobacco user. She has not smoked in almost 20 years. Has not h ad alcohol since 1986. Denies drug use and is currently retired. FAMILY HISTORY: Coronary artery disease, COPD, and strokes. REVIEW OF SYSTEMS: Ten-point review of systems negative, unless otherwise stated. PHYSICAL EXAMINATION: VITAL SIGNS: Blood pressure 165/73, heart rate 75, respirations 20, oxygen saturation 99% on 3 liter s via nasal cannula, temperature is 98.3. GENERAL: Patient is resting comfortably in bed. Upon my entering the room, she was actually asleep, she was easily awakened. She was responding appropriately. Her Lucan coma scale was 15. HEENT: Head is normocephalic, atraumatic. Eyes: Extraocular motions intact. PERRLA bilaterally. Ears are atraumatic without discharge. Nose atraumatic without discharge. Oropharynx is clear. NECK: Nontender. Trachea is midline. No JVD. LUNGS: Patient has coarse rhonchorous bilateral breath sounds. HEART: Regular rate and rhythm. ABDOMEN: Soft, flat, nontender with active bowel sounds. Pelvis is stable. EXTREMITIES: Neurovascularly intact x4. Patient is tender to palpation to her right knee consistent with her proximal fibular fracture. She complains of right ankle pain, though the right ankle exam shows no swelling or ecchymosis. The patient states she has global pain in that area. Back by repor t, she is nontender and atraumatic. Labs are all pending. RADIOGRAPHS: Two views of the right tibia and fibula show minimally displaced right fibular neck fra cture. Two views of the right foot are unremarkable. Two views of the right hip are unremarkable. Two views of the right femur showed no evidence of acute osseous abnormality. LABORATORY DATA: Blood work is all pending. Urinalysis shows 11-20 wbc's, 2+ bacteria, positive andria kocyte, and positive nitrite. ASSESSMENT: 1. Status post ground level fall. 2. Urinary tract infection without signs of urosepsis. 3. Right proximal fibular fracture. 4. Right ankle pain. 5. History of multiple comorbidities. PLAN: We will be to admit the patient to the surgical floor, pain control, pulmonary toilet, gastrit is, and mechanical DVT prophylaxis. We will obtain Orthopedic consultation in the morning. The eval uation, examination, radiographic, and laboratory findings will be discussed with Dr. Ferguson in the mo rning also.
--- NOTE | 2017-09-06 08:13 | CON ---
DATE OF CONSULTATION: 09/06/2017 REQUESTING PHYSICIAN: Dr. Jason Gordon CONSULTING PHYSICIAN: Dr. Gamaliel Gabriel. REASON FOR CONSULTATION: Right fibula fracture. BRIEF HISTORY: This is a 77-year-old female who presented to the emergency department yesterday after a fall at home. She states she was recently discharged from rehab after a lengthy hospital stay for medical issues. She was using a rolling walker at home. When she states that her knee gave out, she lost her balance and fell. She was found to have a right proximal nondisplaced fibular fracture. We have been consulted for this reason. At the bedside, the patient denies any other injuries or any other extremities at the time of the fall. She denies any numbness or tingling. She denies any head injury. She has been comfortable since admission. She has not gotten up to walk around at this time. PAST MEDICAL HISTORY: COPD, congestive heart failure, diabetes mellitus type 2 , hypertension, dyslipidemia, GERD, chronic back pain, cervical cancer, and SVT. PAST SURGICAL HISTORY: Tonsillectomy, pacemaker, appendectomy, and cataract surgery. SOCIAL HISTORY: Former smoker, quit over 10 years ago. Alcohol use untill 1986. Denies any illicit drug use. FAMILY HISTORY: Reviewed and noncontributory. ALLERGIES: CIPRO, BIAXIN, CODEINE, and PENICILLIN. REVIEW OF SYSTEMS: Ten point review of systems conducted and otherwise negative except for as stated above. PHYSICAL EXAMINATION: VITAL SIGNS: Temperature 98.7, pulse 87, respiratory rate of 20, O2 sat of 94% on 2 liters nasal cannula, blood pressure of 113/66. GENERAL: The patient is awake, alert, oriented x3. She is in no acute distress. She is pleasant and cooperative with physical exam today. HEENT: Head is normocephalic, atraumatic. NECK: Supple. Breathing is nonlabored on nasal cannula oxygen. NEUROLOGIC: No focal neuro deficits noted. EXTREMITIES: The right lower extremity is bandaged with an Kody wrap to the midthigh. SCDs are in place. The patient is tender along the lateral aspect near the proximal fibula. Distal neurovascular status is intact. Active range of motion in the ankle and toes. Remainder of extremity exam is otherwise unremarkable. IMAGING DATA: Radiographic findings including tibia and fibula x-ray reviewed show evidence of a nondisplaced proximal fibula fracture through the neck. No other acute findings. There is also evidence of degenerative changes in the right knee. PLAN: Right proximal fibula fracture, nondisplaced. At this time, we will place the patient in a tall walking boot. She may weightbear as tolerated with her walker. She may remove the boot while in bed as well as for showering. This is for comfort and support measures only. She can follow up in the Orthopedic Clinic in 2 weeks for reevaluation. For any further questions, please consult the Orthopedic Service. Thank you for this consultation. MARITA
[2017-09-06] MEDS: Nitrofurantoin Monohyd/M-Cryst 100 MG CAP PO SCH ×2 (08:14→21:19)
[2017-09-06] MEDS ORDERED: Famotidine 20 MG TAB PO SCH (09:00)
[2017-09-06] MEDS ORDERED: Acetaminophen 325 MG TAB PO SCH (10:00)
[2017-09-06] MEDS: traMADol HCl 50 MG TAB PO SCH ×3 (10:42→21:27)
[2017-09-06] MEDS ORDERED: Insulin Regular 300 UNITS/3 ML VIAL IVP SCH (11:15)
[2017-09-06] MEDS: Acetaminophen 500 MG TAB PO SCH ×3 (12:03→21:20)
[2017-09-06] MEDS: Calcium Carbonate 500 MG ChewTAB PO PRN ×2 (13:02→18:52)
[2017-09-06] MEDS ORDERED: PROVENTIL INHALER 6.7 G (200 INHALATIONS) INH PRN (14:06)
[2017-09-06] MEDS: Gabapentin 300 MG CAP PO SCH ×2 (15:59→21:19)
--- NOTE | 2017-09-06 17:17 | PRG ---
DATE OF SERVICE: 09/06/2017 ATTENDING PHYSICIAN: Dominic Ferguson DO SUBJECTIVE: Mrs. Hall is a 77-year-old female who was admitted overnight. She was in her usual state of health when she reports that her right knee gave out and she fell landing on her knee. She was brought to the [place] ED by EMS where she was found to have a right proximal fibular fracture that was determined to be nonoperative. The patient was admitted by the Trauma services with orthop edic consultation. This morning, on exam, she reports that her pain has not been adequately controll ed. She voices no other complaints this morning. OBJECTIVE: VITAL SIGNS: BP 133/72, pulse 88, temperature 97.6, respirations 18, O2 sat 100% on 3 liters. GENERAL: The patient is an elderly adult female, resting in bed with nasal cannula in place. She do es not appear to be in any acute distress. HEENT: Normocephalic and atraumatic. RESPIRATORY: The patient has coarse rhonchi bilaterally. CARDIOVASCULAR: She has regular rate and rhythm. The patient has a pacemaker in place. ABDOMEN: Soft, nontender, and nondistended. She has normal bowel sounds. EXTREMITIES: She is neurovascularly intact x4. NEUROLOGIC: She is alert and oriented this morning. She is GCS of 15. She has no focal deficits. LABORATORY DATA: Hematology: WBC is 8.5, hemoglobin 7.0, hematocrit 22.5, platelets 543. Chemistry : Sodium 137, potassium 2.8, chloride 94, bicarbonate 36, BUN 21, creatinine 1.29, glucose 299, calc ium 11.0, phosphorus 3.4, magnesium 1.9. IMAGES: There are no images to review today. ASSESSMENT AND PLAN: 1. Status post ground level fall. 2. Urinary tract infection. 3. Right proximal fibular fracture, nonoperative. 4. History of chronic obstructive pulmonary disease, present on admission. 5. History of cardiomyopathy, present on admission. 6. History of congestive heart failure, present on admission. 7. History of chronic kidney disease, present on admission. 8. History of hypertension, present on admission. 9. Chronic low back pain. 10. Gastroesophageal reflux disease. 11. Acute traumatic pain. PLAN: 1. The patient was seen by Orthopedics who recommended putting her in a boot. She is to follow up w [facility] in 2 weeks for reevaluation. 2. Tylenol and tramadol for pain. We will add gabapentin 300 mg t.i.d. as well. 3. Pepcid for gastritis prophylaxis and gastroesophageal reflux disease. 4. Encourage incentive spirometry and pulmonary toileting. 5. Rehab screen. PT and OT for mobilization. 6. Case management is following for help with discharge planning. The patient may possibly be able to discharge to SNF. She has expressed an interest in going to [place], but may transition to long- term care. room service manager following. The patient was seen and examined along with Dr. Dominic Ferguson on rounds, who agrees with assessment and plan.
[2017-09-06] MEDS: Insulin NPH/Reg Insulin Hm 300 UNITS/3 ML VIAL SC SCH (17:27)
[2017-09-06] MEDS: Metoclopramide HCl 10 MG TAB PO SCH ×2 (17:27→21:19)
[2017-09-06] MEDS: Ipratropium Oral Inhaler (200 INHALATIONS) INH SCH (18:12)
[2017-09-06] MEDS: Mometasone/Formoterol 120 PUFF INHALER INH SCH (18:27)
[2017-09-06 19:01] LABS: Anion Gap 10 mmol/L (10-20); BUN (Urea Nitrogen) 19 mg/dL (9.8-20.1); Calc. Creatinine Clearance 47 mL/min (70-130); Calcium 10.7 mg/dL (7.8-10.44); Carbon Dioxide 34 mmol/L (23-31); Chloride 99 mmol/L (98-107); Estimated GFR-MDRD 46; Glucose 187 mg/dL (83-110); Potassium 3.7 mmol/L (3.5-5.1); Sodium 139 mmol/L (136-145)
[2017-09-06] MEDS: Senokot S 8.6-50 MG TAB PO SCH (21:26)
[2017-09-06] MEDS: Carvedilol 3.125 MG TAB PO SCH (21:27)
[2017-09-07] MEDS: Acetaminophen 500 MG TAB PO SCH ×4 (03:50→21:52)
[2017-09-07] MEDS: traMADol HCl 50 MG TAB PO SCH ×4 (03:50→21:52)
[2017-09-07] MEDS: Calcium Carbonate 500 MG ChewTAB PO PRN (03:53)
[2017-09-07 05:49] LABS: #Eosinphils 0.5 thou/uL (0.0-0.7); #Lymphocytes 0.6 thou/uL (1.20-3.40); #Monocytes 0.9 thou/uL (0.11-0.59); #Neutrophils 5.5 thou/uL (1.40-6.50); %Basophils 0.3 % (0.0-1.0); %Eosinophils 6.8 % (0.0-10.0); %Lymphocytes 7.5 % (21.0-51.0); %Monocytes 11.8 % (0.0-10.0); %Neutrophils 73.6 % (42.0-75.0); Hemoglobin 7.4 g/dL (12.0-16.0); Mean Corpuscular HGB CONC 30.4 g/dL (32.0-36.0); Mean Corpuscular Hemoglobin 24.9 pg (27.0-31.0); Mean Corpuscular Volume 81.7 fl (81.0-99.0); Mean Platelet Volume 7.4 fL (7.4-10.4); Platelet Count 536 thou/uL (130-400); RBC Distribution Width 20.4 % (11.5-14.5); Red Blood Cell (RBC) Count 2.98 mill/uL (4.20-5.40); White Blood Cell (WBC) Count 7.5 thou/uL (4.8-10.8)
[2017-09-07 06:03] LABS: Anion Gap 11 mmol/L (10-20); BUN (Urea Nitrogen) 21 mg/dL (9.8-20.1); Calc. Creatinine Clearance 50 mL/min (70-130); Calcium 10.6 mg/dL (7.8-10.44); Carbon Dioxide 34 mmol/L (23-31); Chloride 98 mmol/L (98-107); Estimated GFR-MDRD 49; Glucose 114 mg/dL (83-110); Magnesium 2.3 mg/dL (1.6-2.6); Potassium 3.7 mmol/L (3.5-5.1); Sodium 139 mmol/L (136-145)
[2017-09-07] MEDS: Mometasone/Formoterol 120 PUFF INHALER INH SCH ×2 (06:43→19:08)
[2017-09-07] MEDS: Ipratropium Oral Inhaler (200 INHALATIONS) INH SCH (06:43)
[2017-09-07] MEDS: Insulin NPH/Reg Insulin Hm 300 UNITS/3 ML VIAL SC SCH ×2 (07:30→17:30)
[2017-09-07] MEDS: Metoclopramide HCl 10 MG TAB PO SCH ×4 (07:40→21:45)
[2017-09-07] MEDS ORDERED: Potassium Chloride 20 MEQ TAB PO SCH (08:00)
[2017-09-07] MEDS: Digoxin 0.125 MG TAB PO SCH (08:18)
[2017-09-07] MEDS: Senokot S 8.6-50 MG TAB PO SCH ×3 (08:19→21:45)
[2017-09-07] MEDS: Nitrofurantoin Monohyd/M-Cryst 100 MG CAP PO SCH ×2 (08:20→21:46)
[2017-09-07] MEDS: Gabapentin 300 MG CAP PO SCH ×3 (08:20→21:45)
[2017-09-07] MEDS: Cyanocobalamin (Vitamin B-12) 1,000 MCG TAB PO SCH (08:20)
[2017-09-07] MEDS: Famotidine 20 MG TAB PO SCH (08:21)
[2017-09-07] MEDS: Multivit, Therapeutic 1 TAB PO SCH (08:21)
[2017-09-07] MEDS: Carvedilol 3.125 MG TAB PO SCH ×2 (08:22→21:45)
[2017-09-07] MEDS: Magnesium Oxide 400 MG TAB PO SCH (08:22)
[2017-09-07] MEDS ORDERED: Aspirin 81 mg Enteric Coated Tablet PO SCH (09:00)
[2017-09-07] MEDS: Polyethylene Glycol 3350 17 GM Packet PO SCH (10:21)
[2017-09-07] MEDS ORDERED: Melatonin 3 MG TAB PO SCH (21:00)
[2017-09-08] MEDS: traMADol HCl 50 MG TAB PO SCH ×2 (03:59→11:42)
[2017-09-08] MEDS: Acetaminophen 500 MG TAB PO SCH ×2 (03:59→11:41)
[2017-09-08] MEDS: Mometasone/Formoterol 120 PUFF INHALER INH SCH (06:14)
[2017-09-08] MEDS: Insulin NPH/Reg Insulin Hm 300 UNITS/3 ML VIAL SC SCH (07:23)
[2017-09-08] MEDS: Metoclopramide HCl 10 MG TAB PO SCH ×2 (07:23→11:42)
[2017-09-08 07:44] LABS: #Eosinphils 0.5 thou/uL (0.0-0.7); #Lymphocytes 0.8 thou/uL (1.20-3.40); #Monocytes 0.9 thou/uL (0.11-0.59); #Neutrophils 5.7 thou/uL (1.40-6.50); %Basophils 0.1 % (0.0-1.0); %Eosinophils 6.8 % (0.0-10.0); %Lymphocytes 9.5 % (21.0-51.0); %Monocytes 10.9 % (0.0-10.0); %Neutrophils 72.7 % (42.0-75.0); Hemoglobin 7.6 g/dL (12.0-16.0); Mean Corpuscular HGB CONC 30.1 g/dL (32.0-36.0); Mean Corpuscular Hemoglobin 24.5 pg (27.0-31.0); Mean Corpuscular Volume 81.5 fl (81.0-99.0); Mean Platelet Volume 7.1 fL (7.4-10.4); Platelet Count 573 thou/uL (130-400); RBC Distribution Width 20.1 % (11.5-14.5); Red Blood Cell (RBC) Count 3.11 mill/uL (4.20-5.40); White Blood Cell (WBC) Count 7.9 thou/uL (4.8-10.8)
[2017-09-08 08:02] LABS: Anion Gap 10 mmol/L (10-20); BUN (Urea Nitrogen) 19 mg/dL (9.8-20.1); Calc. Creatinine Clearance 50 mL/min (70-130); Calcium 10.9 mg/dL (7.8-10.44); Carbon Dioxide 32 mmol/L (23-31); Chloride 98 mmol/L (98-107); Estimated GFR-MDRD 46; Glucose 180 mg/dL (83-110); Magnesium 1.9 mg/dL (1.6-2.6); Phosphorus 2.9 mg/dL (2.3-4.7); Sodium 136 mmol/L (136-145)
[2017-09-08] MEDS ORDERED: Aspirin 81 mg Enteric Coated Tablet PO SCH (09:00)
[2017-09-08] MEDS ORDERED: Bisacodyl 10 MG SUPP PR SCH (09:00)
[2017-09-08] MEDS ORDERED: Spironolactone 25 MG TAB PO SCH (09:00)
[2017-09-08] MEDS ORDERED: Furosemide 40 MG TAB PO SCH (09:00)
[2017-09-08] MEDS: Famotidine 20 MG TAB PO SCH (09:16)
[2017-09-08] MEDS: Digoxin 0.125 MG TAB PO SCH (09:16)
[2017-09-08] MEDS: Carvedilol 3.125 MG TAB PO SCH (09:16)
[2017-09-08] MEDS: Nitrofurantoin Monohyd/M-Cryst 100 MG CAP PO SCH (09:17)
[2017-09-08] MEDS: Gabapentin 300 MG CAP PO SCH (09:17)
[2017-09-08] MEDS: Senokot S 8.6-50 MG TAB PO SCH (09:17)
[2017-09-08] MEDS: Cyanocobalamin (Vitamin B-12) 1,000 MCG TAB PO SCH (09:17)
[2017-09-08] MEDS: Magnesium Oxide 400 MG TAB PO SCH (09:18)
[2017-09-08] MEDS: Polyethylene Glycol 3350 17 GM Packet PO SCH ×2 (09:18→09:31)
[2017-09-08] MEDS: Multivit, Therapeutic 1 TAB PO SCH (09:18)
--- NOTE | 2017-09-08 11:07 | PRG ---
DATE OF SERVICE: 09/07/2017 ATTENDING PHYSICIAN: Dr. Dominic Ferguson. SUBJECTIVE: The patient is a 77-year-old female who was admitted the night before last and found to have a right proximal fibular fracture that was determined to be nonoperative. The patient was place d in a walking boot for comfort. The patient reports that she was unable to ambulate after the injur y. She has been working with PT and OT and her mobilization has improved somewhat. This morning on exam, she reports adequate pain control. She is somewhat anxious about when she is going to discharg e. She reports that she was unable to get comfortable last night and had a poor night sleep. OBJECTIVE: VITAL SIGNS: Blood pressure 137/62, pulse 73, temperature 97.5, respirations 20 and O2 sat 92% on 3 liters. GENERAL: The patient is an elderly adult female sitting in her chair next to the bed. She is not in any acute distress. HEENT: Normocephalic and atraumatic. She has nasal cannula in place. RESPIRATORY: She has coarse rhonchi bilaterally. CARDIOVASCULAR: She has a regular rate and rhythm. The patient has a pacemaker in place. ABDOMEN: Soft, nontender and nondistended. She has normal bowel sounds. EXTREMITIES: She is neurovascularly intact x4. NEUROLOGIC: She is alert and oriented this morning. She has a GCS of 15. She has no focal deficits . LABORATORY DATA: Hematology: WBC 7.5, hemoglobin 7.4, hematocrit 24.3 and platelets 536. Chemistry : Sodium 139, potassium 3.7, chloride 98, bicarbonate 34, BUN 21, creatinine 1.08, glucose 114, calc ium 10.6, phosphorus 3.0 and magnesium 2.3. IMAGING DATA: There are no images to review today. ASSESSMENT: 1. Status post ground level fall. 2. Right proximal fibular fracture, nonoperative. 3. Urinary tract infection. 4. History of chronic obstructive pulmonary disease, present on admission. 5. History of cardiomyopathy, present on admission. 6. History of congestive heart failure, present on admission. 7. History of chronic kidney disease, present on admission. 8. History of hypertension, present on admission. 9. Chronic low back pain. 10. Gastroesophageal reflux disease. 11. Acute traumatic pain. 12. Acute hypokalemia. PLAN: 1. Continue PT and OT for mobilization. 2. Incentive spirometry and pulmonary toileting. 3. We will add melatonin for sleep. 4. The patient's electrolytes have largely normal following administration of 60 mEq of potassium ye sterday. We will add a further 20 mEq this morning. 5. Optimize pain control. 6. Case management is following for help with discharge planning. Currently just awaiting insurance authorization. The patient was seen and examined along with Dr. Dominic Ferguson, who agrees with the assessment and pl an.
[2017-09-08] MEDS: Calcium Carbonate 500 MG ChewTAB PO PRN (11:41)
[2017-09-08 12:15] VITALS: BP 146/75; TEMP 98
--- NOTE | 2017-09-08 13:19 | PRG ---
DATE OF SERVICE: 09/08/2017 ATTENDING PHYSICIAN: Dominic Ferguson. SUBJECTIVE: Ms. Morales is a 77-year-old female who was admitted for a right proximal fibular fract ure that was determined to be nonoperative. She has been in a walking boot for comfort. The patient has been working with PT and OT and her mobilization has been steadily improving. She has had some ongoing anxiety about where she is going to be discharged to. Currently, we are awaiting insurance a pproval for discharge to intermediate in [place]. The patient vocalizes no complaints on exam this morning. OBJECTIVE: VITAL SIGNS: BP 128/61, pulse 82, temperature 97.8, respirations 16, O2 sat 95% on 3 liters. GENERAL APPEARANCE: Patient is an elderly adult female resting comfortably in no acute distress. HEENT: Normocephalic and atraumatic. She has nasal cannula in place. RESPIRATORY: She has coarse rhonchi bilaterally. CARDIOVASCULAR: Regular rate and rhythm. The patient has a pacemaker in place. ABDOMEN: Soft, nontender, nondistended. EXTREMITIES: The patient is moving all extremities. NEUROLOGIC: Patient is alert and oriented. Grossly, this morning she is GCS 15. She has no focal d eficits. LABORATORY DATA: Hematology: WBC 7.9, hemoglobin 7.6, hematocrit 25.4, platelets 573. Chemistry: Sodium 136, potassium 4.0, chloride 98, bicarbonate 32, BUN 19, creatinine 1.15, glucose 180, calcium 10.9, phosphorus 2.9, magnesium 1.9. IMAGING DATA: There are no images to review today. ASSESSMENT: 1. Status post ground level fall. 2. Right proximal fibular fracture, nonoperative. 3. Urinary tract infection without urosepsis. The patient currently is being treated with Macrobid. 4. History of chronic obstructive pulmonary disease, present on admission. 5. History of cardiomyopathy, present on admission. 6. History of congestive heart failure, present on admission. 7. History of chronic kidney disease, present on admission. 8. History of hypertension, present on admission. 9. Acute traumatic pain. 10. Acute hypokalemia, resolved. PLAN: 1. Continue PT and OT for mobilization. 2. Incentive spirometry and pulmonary toileting. 3. Continue melatonin for sleep. 4. Continue pain control as ordered. 5. Case management is following up for help with discharge planning. The patient is currently await [facility] insurance authorization for intermediate in [place]. The patient was seen and examined along with Dr. Dominic Ferguson on rounds and agrees with the assessme nt and plan.
--- NOTE | 2017-09-12 12:18 | DIS ---
DATE OF ADMISSION: 09/05/2017 DATE OF DISCHARGE: 09/08/2017 ADMITTING PHYSICIAN: Dr. Dominic Ferguson. DISCHARGING PHYSICIAN: Dr. Dominic Ferguson. PROCEDURES PERFORMED: None. HOSPITAL COURSE: Ms. Hall is a 77-year-old female who was ambulating at home when she like go fo r walker and states that her knee gave out and she fell landing on her right knee. She was brought t o the [place] ER by EMS evaluated and found to have a right proximal fibular fracture that was non displaced. Orthopedic surgery was consulted and trauma service was asked to admit. Her fracture was determined to be nonoperative and she was placed in a walking boot. PT and OT worked with her for m obilization. The patient chose custodial facility in [place] for her discharge. The patient was discharged in good condition on 09/08/2017. DISCHARGE MEDICATIONS: The patient's home medications were restarted and she was discharged with Tyl enol and tramadol for pain. ACTIVITY INSTRUCTIONS: Activity as tolerated. Orthopedic limitations include ambulation with assist ance. NOURISHMENT INSTRUCTIONS: Diabetic diet 1800 kilo calories per day. THERAPY: Occupational and physical therapy. Equipment and supplies walking boot. FOLLOWUP INSTRUCTIONS: The patient is to follow up with JEFFREY Hsu, in 7 days. She is als o instructed to follow up with Dr. Gamaliel Gabriel in 14 days. The patient does not have a for mal followup with Dr. Ferguson schedule. However, he does remain available for questions or concerns. This patient was seen and examined along with Dr. Dominic Ferguson on rounds who agrees with this discha rge plan.
== END 2017-09-08 15:39 ==
LOC: ERS 22:12 → SURG A 09-06 00:30 → INTOOBSV 09-06 00:30
PROVIDERS: ADMIT Surgery; ATTEND Surgery
DX: S82.401A Unspecified fracture of shaft of right fibula, initial encounter for closed fracture (principal); K21.9 Gastro-esophageal reflux disease without esophagitis; N39.0 Urinary tract infection, site not specified; M25.571 Pain in right ankle and joints of right foot; G89.11 Acute pain due to trauma; E11.22 Type 2 diabetes mellitus with diabetic chronic kidney disease; I13.0 Hypertensive heart and chronic kidney disease with heart failure and stage 1 through stage 4 chronic kidney disease, or unspecified chronic kidney disease; N18.3 Chronic kidney disease, stage 3 (moderate); I50.32 Chronic diastolic (congestive) heart failure; E78.5 Hyperlipidemia, unspecified; I42.9 Cardiomyopathy, unspecified; J44.9 Chronic obstructive pulmonary disease, unspecified; M54.5 Low back pain; G89.29 Other chronic pain; E87.6 Hypokalemia; W18.30XA Fall on same level, unspecified, initial encounter; Y93.01 Activity, walking, marching and hiking; Y92.009 Unspecified place in unspecified non-institutional (private) residence as the place of occurrence of the external cause; Z99.81 Dependence on supplemental oxygen; Z79.82 Long term (current) use of aspirin; Z79.4 Long term (current) use of insulin; Z79.891 Long term (current) use of opiate analgesic; Z79.899 Other long term (current) drug therapy; Z88.1 Allergy status to other antibiotic agents; Z88.0 Allergy status to penicillin; Z88.5 Allergy status to narcotic agent; Z98.41 Cataract extraction status, right eye; Z96.1 Presence of intraocular lens; Z95.0 Presence of cardiac pacemaker; Z90.89 Acquired absence of other organs; Z90.49 Acquired absence of other specified parts of digestive tract; Z87.891 Personal history of nicotine dependence
CPT/HCPCS: 73502; 73552; 73590; 73630; 80048 ×4; 82962 ×3; 83735 ×3; 84100 ×3; 85025 ×3; 93005; 94640 ×7; 96365; 96366; 96375; 97116; 97139; 97530 ×3; 99285; G0378 ×2; G8978; G8979; G8987; G8988; 36415; 36416; 81003; 81015; J0360; J1815; J3475; J3480; J7050; J7620

== ENCOUNTER 2017-09-12 21:50 | Inpatient (IN) | payer MEDICAID, MEDICARE ==
[2017-09-12 22:37] LABS: #Eosinphils 0.4 thou/uL (0.0-0.7); #Lymphocytes 0.8 thou/uL (1.20-3.40); #Monocytes 1.5 thou/uL (0.11-0.59); #Neutrophils 9.2 thou/uL (1.40-6.50); %Basophils 0.2 % (0.0-1.0); %Eosinophils 3.3 % (0.0-10.0); %Lymphocytes 6.7 % (21.0-51.0); %Monocytes 12.2 % (0.0-10.0); %Neutrophils 77.6 % (42.0-75.0); Hemoglobin 7.4 g/dL (12.0-16.0); Mean Corpuscular HGB CONC 30.5 g/dL (32.0-36.0); Mean Corpuscular Hemoglobin 24.3 pg (27.0-31.0); Mean Corpuscular Volume 79.7 fl (81.0-99.0); Mean Platelet Volume 7.3 fL (7.4-10.4); Platelet Count 607 thou/uL (130-400); RBC Distribution Width 20.3 % (11.5-14.5); Red Blood Cell (RBC) Count 3.02 mill/uL (4.20-5.40); White Blood Cell (WBC) Count 11.9 thou/uL (4.8-10.8)
[2017-09-12 22:37] LABS: pH, Arterial 7.43 (7.35-7.45)
[2017-09-12 22:38] LABS: Actual Bicarbonate (HCO3a) 30.6 mEq/L (22-26); Base Excess (BEa) 5.4 mEq/L (0 (+/-) 2.5); Calcium, Ionized 1.4 mmol/L (1.12-1.30); O2 Tension (PaO2) 64.6 mmHg (80.0-100.0)
[2017-09-12 22:39] LABS: Analyzer IN Cardio ER; Puncture Site RRA
--- NOTE | 2017-09-12 22:45 | RAD ---
PORTABLE CHEST: HISTORY: Respiratory distress. COMPARISON: 08/26/2017 FINDINGS: The lungs appear well aerated and clear. No infiltrate or vascular congestion. Heart size is mildly prominent. Pacemaker leads again noted. IMPRESSION: No acute lung process. POS: AGW
[2017-09-12 22:57] LABS: ALT (SGPT) 17 U/L (8-55); AST (SGOT) 18 U/L (5-34); Albumin 3.2 g/dL (3.4-4.8); Alkaline Phosphatase 57 U/L (40-150); Anion Gap 12 mmol/L (10-20); BUN (Urea Nitrogen) 25 mg/dL (9.8-20.1); Bilirubin, Total 0.3 mg/dL (0.2-1.2); Calc. Creatinine Clearance 0 mL/min (70-130); Calcium 10.8 mg/dL (7.8-10.44); Carbon Dioxide 28 mmol/L (23-31); Chloride 100 mmol/L (98-107); Estimated GFR-MDRD 37; Glucose 178 mg/dL (83-110); Potassium 4.1 mmol/L (3.5-5.1); Protein, Total 6.2 g/dL (6.0-8.3); Sodium 136 mmol/L (136-145)
[2017-09-12 23:01] LABS: CKMB 0.8 ng/mL (0-6.6); Troponin I 0.059 ng/mL (< 0.028)
[2017-09-13] MEDS ORDERED: Albuterol Sulfate 2.5 mg/3 ml Neb ONE (00:38)
[2017-09-13] MEDS ORDERED: Aspirin 325 MG TAB ONE (00:39)
[2017-09-13] MEDS ORDERED: Lorazepam 2 MG/ML VIAL ONE ×2 (00:48→01:19)
[2017-09-13] MEDS ORDERED: Ketorolac Tromethamine 30 MG/ML VIAL ONE (01:19)
[2017-09-13 02:33] LABS: Troponin I 0.176 ng/mL (< 0.028)
[2017-09-13 06:08] LABS: Troponin I 0.203 ng/mL (< 0.028)
[2017-09-13 06:11] LABS: ALT (SGPT) 15 U/L (8-55); AST (SGOT) 14 U/L (5-34); Albumin 3.1 g/dL (3.4-4.8); Alkaline Phosphatase 51 U/L (40-150); Anion Gap 12 mmol/L (10-20); BUN (Urea Nitrogen) 26 mg/dL (9.8-20.1); Bilirubin, Total 0.3 mg/dL (0.2-1.2); Calc. Creatinine Clearance 0 mL/min (70-130); Calcium 10.5 mg/dL (7.8-10.44); Carbon Dioxide 29 mmol/L (23-31); Chloride 102 mmol/L (98-107); Estimated GFR-MDRD 37; Globulin 2.7 g/dL (2.4-3.5); Glucose 147 mg/dL (83-110); Magnesium 1.9 mg/dL (1.6-2.6); Potassium 4.1 mmol/L (3.5-5.1); Protein, Total 5.8 g/dL (6.0-8.3); Sodium 139 mmol/L (136-145)
[2017-09-13 06:51] LABS: Band 10 % (5-11); Lymphocytes 12 % (21-51); MDiff Complete? YES; Mean Corpuscular HGB CONC 30.1 g/dL (32.0-36.0); Mean Corpuscular Hemoglobin 23.9 pg (27.0-31.0); Mean Corpuscular Volume 79.6 fl (81.0-99.0); Mean Platelet Volume 7.6 fL (7.4-10.4); Monocytes 17 % (0-10); Neutrophil 61 % (42-75); Platelet Count 542 thou/uL (130-400); RBC Distribution Width 20.3 % (11.5-14.5); Red Blood Cell (RBC) Count 2.91 mill/uL (4.20-5.40); White Blood Cell (WBC) Count 8.1 thou/uL (4.8-10.8)
[2017-09-13 10:09] LABS: Actual Bicarbonate (HCO3a) 30.5 mEq/L (22-26); Base Excess (BEa) 5.4 mEq/L (0 (+/-) 2.5); CO2 Tension 48.8 mmHg (35.0-45.0); O2 Tension (PaO2) 63.9 mmHg (80.0-100.0); pH, Arterial 7.41 (7.35-7.45)
[2017-09-13 10:10] LABS: Hematocrit-ABG 26.7 % (36.0-47.0); Hemoglobin (Hb) 7.2 g/dL (12.0-16.0)
[2017-09-13 10:11] LABS: Analyzer IN Cardio ER; Calcium, Ionized 1.5 mmol/L (1.12-1.30); Puncture Site LRA
[2017-09-13] MEDS ORDERED: Dextrose 5% in Water 1,000 ML IV PRN (10:18)
[2017-09-13] MEDS ORDERED: Acetaminophen 325 MG TAB PO PRN (10:18)
[2017-09-13] MEDS ORDERED: traMADol HCl 50 MG TAB PO PRN (10:18)
[2017-09-13] MEDS ORDERED: Dextrose 50% Abboject 50 ML SYRINGE SLOW IVP PRN (10:18)
--- NOTE | 2017-09-13 10:45 | HP ---
REASON FOR ADMISSION: Acute on chronic obstructive pulmonary disease exacerbation, acute on chronic hypoxic respiratory failure. HISTORY OF PRESENTING ILLNESS: The patient gives history of shortness of breath which started yesterday evening. This has been progressively getting worse to the point that she couldn't breathe at all. This happened at [facility] and patient was transferred here. She has expectoration of yellowish green sputum. No obvious fever as such. The patient is normally on 3 liters oxygen at [facility]. Has no complaints of chest pain or palpitation. Currently, she is saturating 84%-86% on 3 liters nasal cannula. ABG stat has been ordered now. PAST MEDICAL HISTORY/PAST SURGICAL HISTORY: History of chronic obstructive pulmonary disease, which is severe and stage, on home oxygen, history of congestive heart failure with diastolic dysfunction, diabetes mellitus type 2, obesity, hypertension, dyslipidemia, recent fibular fracture, history of cervical cancer treated with radiation in the past, history of SVT requiring ablation x2, prior history of intubation x6 for respiratory failure, hiatal hernia, tonsillectomy, pacemaker, appendectomy, cataract surgery with intraocular lens in the right eye. PERSONAL HISTORY: Quit smoking more than 10 years ago, but has smoked one pack a day for nearly 30 years or so. Does not abuse alcohol or drugs. She is currently a [facility] resident. FAMILY HISTORY: Father had coronary artery disease. Mother had history of COPD and stroke. CURRENT MEDICATIONS: Patient is on albuterol inhaler q.6 hourly p.r.n., DuoNebs 3 times daily, Humalog sliding scale, Ultram p.r.n., spironolactone 25 mg daily, Reglan 10 mg a.c. and at bedtime, melatonin 3 mg p.o. at bedtime, magnesium oxide 400 mg p.o. daily, gabapentin 300 mg p.o. 3 times daily, Lasix 60 mg b.i.d., Pepcid 20 mg daily, digoxin 0.125 mg p.o. daily, vitamin B12 1000 mcg p.o. daily, vitamin D3 2000 units p.o. daily, Coreg 3.125 mg p.o. twice daily, Symbicort 160/4.5 mcg 2 puffs twice daily, aspirin 81 mg p.o. daily. ALLERGIES: CIPROFLOXACIN, CLARITHROMYCIN, CODEINE, and PENICILLIN. rEVIEW OF SYSTEMS: The following complete review of systems was negative, unless otherwise mentioned in the HPI or below: Constitutional: Weight loss or gain, ability to conduct usual activities. Skin: Rash, itching. Eyes: Double vision, pain. ENT/Mouth: Nose bleeding, neck stiffness, pain, tenderness. Cardiovascular: Palpitations, dyspnea on exertion, orthopnea. Respiratory: Shortness of breath, wheezing, cough, hemoptysis, fever or night sweats. Gastrointestinal: Poor appetite, abdominal pain, heartburn, nausea, vomiting, constipation, or diarrhea. Genitourinary: Urgency, frequency, dysuria, nocturia. Musculoskeletal: Pain, swelling. Neurologic/Psychiatric: Anxiety, depression. Allergy/Immunologic: Skin rash, bleeding tendency. PHYSICAL EXAMINATION: GENERAL: The patient is a 77-year-old female who is currently in moderate respiratory distress. VITAL SIGNS: Blood pressure 146/80, pulse 86 per minute, respiratory rate 28 per minute, saturating 85%-88% on 3 liters nasal cannula, temperature is 98.3 degrees Fahrenheit. NECK: Supple, no elevated JVD. EYES: Extraocular muscles intact. Pupils reacting to light. Oral cavity: Mucous membranes are dry. No exudates or congestion. CARDIOVASCULAR SYSTEM: S1, S2 heard. Regular rhythm. RESPIRATORY SYSTEM: Air entry 1+ bilaterally. Scattered wheezes plus bilaterally. ABDOMEN: Soft, bowel sounds heard. No tenderness, rigidity or guarding. EXTREMITIES: No peripheral edema or calf tenderness. The patient has a surgical boot on the right for her fibular fracture. No gangrene or ulceration seen. CENTRAL NERVOUS SYSTEM: No gross focal deficits seen. Patient is alert and oriented well. PSYCHIATRIC SYSTEM: The patient's mood is a bit anxious, otherwise no hallucinations or delusions. IMAGING DATA AND LABORATORY DATA: EKG done showed paced rhythm at 91 beats per minute. Blood gas done showed pH of 7.41, pCO2 48, pO2 63, BUN 26, creatinine 1.3, serum bicarbonate 29, serum glucose 147, albumin is 3.1, troponin I was indeterminate and peaking up to 0.2, CK-MB 0.8, BNP 308. White count of 8, hemoglobin and hematocrit 7 and 23, platelet count is 542 with 61% neutrophils and 17% monocytes. Patient's MCV is 79. Chest x-ray done showed no acute infiltrate. CLINICAL IMPRESSION AND PLAN: The patient will be admitted to [facility] for acute on chronic respiratory failure with hypoxia, acute on chronic obstructive pulmonary disease exacerbation with patient being on home oxygen. She will be placed on DuoNebs q.6 hourly, Solu-Medrol 40 mg IV q.6 hourly and Ceftin 250 mg twice daily. We will continue her digoxin, aspirin, Colace, melatonin, Reglan, MiraLax, Ultram as before. Gentle hydration with normal saline at 50 mL per hour to help with her expectoration of sputum. We will also obtain iron studies. This is the first time that her hemoglobin (baseline hemoglobin has been 11-12 grams) has dropped down to 7 and we will obtain stool occult blood x2 along with iron studies. Type and screen will be done and if needed, she will be transfused if her hemoglobin drops to less than 7 grams. I have discussed code status with her. The patient wants to be FULL CODE. She knows she has end-stage COPD and may not come out of the ventilator easily but the patient is clearly aware of all the complications and would still want to be FULL CODE for now. She does mention that she does not want to be on the ventilator for a long time. She does not specify how many days. Her power of melon packer is her sister, Ms. Nicole Lugo, who is her sister. The patient is single and has no children. We will also obtain consultation with Dr. Thakur who is semiconductor dies loader for Pulmonology. She will be closely monitored for arrhythmias in view of prior history of SVT. MARITA
[2017-09-13] MEDS: Sodium Chloride 0.9% 1,000 ML IV SCH (11:40)
[2017-09-13 11:58] LABS: Iron 25 ug/dL (50-170); Iron Binding Capacity, Total 308 mcg/dL (265-497)
[2017-09-13 12:31] LABS: Folate (Folic Acid) 17.5 ng/mL (7.0-31.4)
[2017-09-13 16:16] VITALS: BMI 29.1
[2017-09-13 17:58] LABS: Bilirubin Negative (Negative); Blood, Urine Small (Negative); Clarity CLOUDY (Clear); Glucose, Urine (Dipstick) Negative (Negative); Leukocyte Large (Negative); Nitrite Positive (Negative); Protein, Urine (Dipstick) 30 mg/dL (Neg-Trace); Specific Gravity, Urine 1.017 (1.002-1.036); Urobilinogen 0.2 mg/dL (0.2-1.0)
[2017-09-13 17:59] LABS: Bacteria/HPF 3+ HPF (None Seen); Hyaline Casts/LPF NONE SEEN LPF (0-3 Hyaline); RBC/HPF 0-3 HPF (0-3); WBC/HPF 21-50 HPF (0-3)
[2017-09-13] MEDS: Gabapentin 300 MG CAP PO SCH ×2 (18:05→21:18)
[2017-09-13] MEDS: ALPRAZolam 0.5 MG TAB PO PRN (18:06)
[2017-09-13] MEDS: Ferrous Sulfate 325 MG TAB PO SCH (18:06)
[2017-09-13] MEDS: Metoclopramide HCl 10 MG TAB PO SCH ×3 (18:06→22:10)
[2017-09-13] MEDS: Docusate 100 MG CAP PO SCH (21:18)
[2017-09-13] MEDS: Famotidine 20 MG TAB PO SCH (21:19)
[2017-09-13] MEDS: Cefuroxime Axetil 250 MG TAB PO SCH (22:08)
[2017-09-13] MEDS: Melatonin 3 MG TAB PO SCH (22:08)
[2017-09-14] MEDS: HumaLOG 300 UNITS/3 ML VIAL SC PRN ×3 (01:30→17:31)
[2017-09-14 04:26] LABS: #Basophils 0.1 thou/uL (0.0-0.2); #Lymphocytes 0.2 thou/uL (1.20-3.40); #Monocytes 0.2 thou/uL (0.11-0.59); #Neutrophils 6.6 thou/uL (1.40-6.50); %Eosinophils 0.6 % (0.0-10.0); %Lymphocytes 3.3 % (21.0-51.0); %Monocytes 2.4 % (0.0-10.0); %Neutrophils 92.7 % (42.0-75.0); Mean Corpuscular HGB CONC 30.5 g/dL (32.0-36.0); Mean Corpuscular Hemoglobin 24.2 pg (27.0-31.0); Mean Corpuscular Volume 79.3 fl (81.0-99.0); Mean Platelet Volume 7.5 fL (7.4-10.4); Platelet Count 480 thou/uL (130-400); RBC Distribution Width 20.3 % (11.5-14.5); Red Blood Cell (RBC) Count 2.87 mill/uL (4.20-5.40); White Blood Cell (WBC) Count 7.1 thou/uL (4.8-10.8)
[2017-09-14 04:35] LABS: Anion Gap 13 mmol/L (10-20); BUN (Urea Nitrogen) 33 mg/dL (9.8-20.1); Calc. Creatinine Clearance 49 mL/min (70-130); Carbon Dioxide 26 mmol/L (23-31); Chloride 103 mmol/L (98-107); Estimated GFR-MDRD 45; Glucose 289 mg/dL (83-110); Sodium 137 mmol/L (136-145)
[2017-09-14] MEDS: Sodium Chloride 0.9% 1,000 ML IV SCH (05:36)
[2017-09-14] MEDS ORDERED: Guaifenesin DM 100-10/5 ML UDCUP PO PRN (08:30)
[2017-09-14] MEDS: ALPRAZolam 0.5 MG TAB PO PRN (08:43)
[2017-09-14] MEDS: Ferrous Sulfate 325 MG TAB PO SCH ×2 (08:44→17:31)
[2017-09-14] MEDS: Famotidine 20 MG TAB PO SCH ×2 (08:44→20:40)
[2017-09-14] MEDS: Digoxin 0.125 MG TAB PO SCH (08:44)
[2017-09-14] MEDS: Multivit, Therapeutic 1 TAB PO SCH (08:44)
[2017-09-14] MEDS: Metoclopramide HCl 10 MG TAB PO SCH ×4 (08:44→20:40)
[2017-09-14] MEDS: Aspirin 81 mg Enteric Coated Tablet PO SCH (08:45)
[2017-09-14] MEDS: Furosemide 40 MG/4 ML VIAL SLOW IVP SCH (08:45)
[2017-09-14] MEDS: Polyethylene Glycol 3350 17 GM Packet PO SCH (08:45)
[2017-09-14] MEDS: Cyanocobalamin (Vitamin B-12) 1,000 MCG TAB PO SCH (08:45)
[2017-09-14] MEDS: Enoxaparin Sodium 40 MG/0.4 ML SYRINGE SC SCH (08:45)
[2017-09-14] MEDS: Docusate 100 MG CAP PO SCH ×2 (08:45→20:40)
[2017-09-14] MEDS: Gabapentin 300 MG CAP PO SCH ×3 (08:45→20:40)
[2017-09-14] MEDS ORDERED: Cefepime 1 GM in Sodium Chloride 0.9% 100 ML IVPB SCH (09:00)
[2017-09-14] MEDS: Cefepime 1 GM, Admixture Fee 1 EACH in Sodium Chloride 0.9% 10 ML SLOW IVP SCH ×2 (09:41→20:39)
--- NOTE | 2017-09-14 09:45 | CON ---
DATE OF CONSULTATION: 09/14/2017 Thirty-five minutes critical care time. REASON FOR CONSULTATION: Acute on chronic respiratory failure. CONSULTING PHYSICIAN: Dr. White. HISTORY OF PRESENT ILLNESS: The patient is a 77-year-old female long-term resident, who came to [facility] yesterday with increasing shortness of breath to the point where she needed to be placed on BiPAP. She apparently has severe COPD and also has chronic diastolic heart failure. Patient is c omplaining she is having trouble coughing things up and is requesting frequent suctioning. She has b een on BiPAP most of the night. She has been cared for by Dr. Lomax in the past. PAST MEDICAL HISTORY: 1. Severe COPD. 2. Chronic diastolic heart failure. 3. Diabetes mellitus, type 2. 4. Hypertension. 5. Obesity. 6. Hyperlipidemia. 7. Cervical cancer. 8. Supraventricular tachycardia. 9. Hiatal hernia surgery. 10. Tonsillectomy. 11. Pacemaker placement. 12. Appendectomy. 13. Cataract surgery. SOCIAL HISTORY: Smoked 1 pack a day for 30 years, quit over 10 years ago. Does not use illicit drug s. FAMILY MEDICAL HISTORY: Remarkable for coronary artery disease. MEDICATIONS PRIOR TO ADMISSION: DuoNeb, Humalog insulin, spironolactone, Reglan, melatonin, magnesiu m, gabapentin, Lasix, Pepcid, digoxin, vitamin B12, vitamin D3, Coreg, Symbicort, and aspirin. ALLERGIES: CIPRO, CLARITHROMYCIN, CODEINE, PENICILLIN. REVIEW OF SYSTEMS: Remarkable for secretions, weakness, shortness of breath, cough. Otherwise, 12-p oint review of systems is negative. PHYSICAL EXAMINATION: VITAL SIGNS: Temperature 97.3, pulse 100, respirations 20, O2 sat 95% on BiPAP, blood pressure 106/5 5. GENERAL: The patient is an elderly female, who is in mild respiratory discomfort. HEENT EXAM: Pupils react. Sclerae icteric. Oropharynx clear. NECK: No JVD. LUNGS: Coarse rhonchi bilaterally. CARDIOVASCULAR: S1 and S2 regular without audible murmur, rub, or gallop. ABDOMEN: Soft, nontender, nondistended. EXTREMITIES: No clubbing, cyanosis, or edema. IMAGING: Chest x-ray from yesterday demonstrates hyperinflated lung potter with cardiomegaly. She h as a pacemaker in place on the left. LABORATORY DATA: Sodium 137, potassium 5.0, chloride 103, CO2 of 26, BUN 33, creatinine 1.2, glucose 289. Calcium 10. White blood cell count 7.1, hemoglobin 7, hematocrit 22.8, platelet count 480. B WOOD GLUER level at the time of admission was 308. ASSESSMENT: 1. Chronic obstructive pulmonary disease with exacerbation. 2. Acute on chronic hypoxic respiratory failure. 3. History of diastolic heart failure. 4. History of multiple medical problems listed above. PLAN: 1. Continue the IV steroids. 2. Switch to IV antibiotics. 3. Increase frequency of nebulization treatments. Additionally, add Brovana and Pulmicort. 4. Restart diuretics. 5. Maintain BiPAP. If she worsens endotracheal intubation may be required. 6. DVT prophylaxis with enoxaparin. 7. GI prophylaxis with Pepcid.
--- NOTE | 2017-09-14 13:00 | PDOC.PN ---
- Subjective Encounter Start Date: 09/14/17 Encounter Start Time: 12:45 Subjective: lethargic on bipap - Objective Resuscitation Status: Resuscitation Status FULL:Full Resuscitation MAR Reviewed: Yes Vital Signs & Weight: Vital Signs (12 hours) Temp Pulse Resp BP Pulse Ox 09/14/17 12:51 98.1 F 83 28 H 144/64 H 98 09/14/17 10:51 74 35 H 94 L 09/14/17 08:44 97 09/14/17 08:00 97.3 F L 74 35 H 106/55 L 96 09/14/17 07:19 68 30 H 85 L 09/14/17 07:17 75 35 H 92 L 09/14/17 04:58 73 32 H 97 09/14/17 04:07 97.8 F 75 32 H 120/48 L 95 09/14/17 02:01 94 L 09/14/17 01:07 34 H 09/14/17 00:58 80 34 H 94 L Weight Weight 178 lb 3.2 oz I&O: 09/13/17 09/14/17 09/15/17 06:59 06:59 06:59 Intake Total 770 Output Total 900 Balance -130 Result Diagrams: 09/14/17 04:01 09/14/17 04:01 Additional Labs: Accuchecks 09/14/17 09/14/17 09/14/17 12:00 06:18 00:46 POC Glucose 346 H 289 H 332 H 09/13/17 18:43 POC Glucose 266 H Phys Exam - Physical Examination HEENT: PERRLA, moist MMs Neck: no JVD, supple Respiratory: no rales, wheezing present Cardiovascular: RRR, no significant murmur Gastrointestinal: soft, non-tender, positive bowel sounds Musculoskeletal: no edema, pulses present Neurological: non-focal, moves all 4 limbs Dx/Plan (1) Acute and chronic respiratory failure with hypoxia Code(s): J96.21 - ACUTE AND CHRONIC RESPIRATORY FAILURE WITH HYPOXIA Status: Acute (2) COPD exacerbation Code(s): J44.1 - CHRONIC OBSTRUCTIVE PULMONARY DISEASE W (ACUTE) EXACERBATION Status: Acute (3) Chronic anemia Code(s): D64.9 - ANEMIA, UNSPECIFIED Status: Chronic (4) JOE (acute kidney injury) Code(s): N17.9 - ACUTE KIDNEY FAILURE, UNSPECIFIED Status: Acute (5) Anxiety disorder Code(s): F41.9 - ANXIETY DISORDER, UNSPECIFIED Status: Chronic Qualifiers: Anxiety disorder type: generalized anxiety disorder Qualified Code(s): F41.1 - Generalized anxiety disorder (6) Physical deconditioning Code(s): R53.81 - OTHER MALAISE Status: Chronic (7) DM type 2 (diabetes mellitus, type 2) Status: Chronic Qualifiers: Diabetes mellitus long-term insulin use: with long-term use Diabetes mellitus complication status: with unspecified complications Qualified Code(s) : E11.8 - Type 2 diabetes mellitus with unspecified complications; Z79.4 - retirement (current) use of insulin; Z79.4 - retirement (current) use of insulin; Z79.4 - intermediate card tender (current) use of insulin; Z79.4 - retirement (current) use of insulin Comment: (8) HTN (hypertension) Code(s): I10 - ESSENTIAL (PRIMARY) HYPERTENSION Status: Chronic Qualifiers: Hypertension type: essential hypertension Comment: Stable - Plan on bipap -: palliative consultation, pt has end stage copd on 3 lts home O2 at baseline -: steroids, nebs, empiric antibiotics -: Hb around 7g, no stool sample yet for occult blood(not a cand for scope ) -: prognosis guarded, PT to mobilize as tolerated per ortho advice * . Review of Systems - Medications/Allergies Allergies/Adverse Reactions: Allergies Allergy/AdvReac Type Severity Reaction Status Date / Time ciprofloxacin HCl Allergy Verified 07/29/17 00:44 [From Cipro] clarithromycin [From Biaxin] Allergy Verified 07/29/17 00:44 codeine Allergy Verified 07/29/17 00:44 Penicillins Allergy Verified 07/29/17 00:44 Medications: Current Medications Acetaminophen (Tylenol) 650 mg PO Q4H PRN PRN Reason: Headache/Fever or Pain Albuterol/Ipratropium (Duoneb) 3 ml NEB [id number] ELO[facility] Last Admin: 09/14/17 10:51 Dose: 3 ml Alprazolam (Xanax) 1 mg PO Q8H PRN PRN Reason: Anxiety Last Admin: 09/14/17 08:43 Dose: 1 mg Arformoterol Tartrate (Brovana) 15 mcg NEB BID-RT [facility] Aspirin (Ecotrin) 81 mg PO DAILY ELO[facility] Last Admin: 09/14/17 08:45 Dose: 81 mg Budesonide (Pulmicort Neb Solution) 0.5 mg INH BID-RT [facility] Cyanocobalamin (Vitamin B-12) 1,000 mcg PO DAILY [facility] Last Admin: 09/14/17 08:45 Dose: 1,000 mcg Dextrose/Water (Dextrose 50%) 25 gm SLOW IVP PRN PRN PRN Reason: Hypoglycemia Digoxin (Lanoxin) 0.125 mg PO DAILY [facility] Last Admin: 09/14/17 08:44 Dose: 0.125 mg Docusate Sodium (Colace) 100 mg PO BID [facility] Last Admin: 09/14/17 08:45 Dose: 100 mg Enoxaparin Sodium (Lovenox) 40 mg SC 0900 [facility] Last Admin: 09/14/17 08:45 Dose: 40 mg Famotidine (Pepcid) 20 mg PO BID [facility] Last Admin: 09/14/17 08:44 Dose: 20 mg Ferrous Sulfate (Feosol) 325 mg PO BID[facility] Last Admin: 09/14/17 08:44 Dose: 325 mg Furosemide (Lasix) 40 mg SLOW IVP DAILY [facility] Last Admin: 09/14/17 08:45 Dose: 40 mg Gabapentin (Neurontin) 300 mg PO TID [facility] Last Admin: 09/14/17 08:45 Dose: 300 mg Glucagon (Glucagon) 1 mg IM PRN PRN PRN Reason: Hypoglycemia Guaifenesin/Dextromethorphan (Robitussin Dm) 15 ml PO Q4H PRN PRN Reason: Cough Guaifenesin/Dextromethorphan (Robitussin Dm) 10 ml PO Q6H PRN PRN Reason: Cough Dextrose/Water (D5w) 1,000 mls @ 0 mls/hr IV .Q0M PRN; As Directed PRN Reason: Hypoglycemia Sodium Chloride (Normal Saline 0.9%) 1,000 mls @ 50 mls/hr IV .Q20H [facility] Last Admin: 09/14/17 05:36 Dose: 1,000 mls Cefepime HCl 1 gm/Miscellaneous Medication 1 each/ Sodium Chloride 10 mls @ 120 mls/hr SLOW IVP Q12HR [facility] Last Admin: 09/14/17 09:41 Dose: 10 mls Insulin Human Lispro (Humalog) 0 units SC .MODERATE SLIDING SC PRN PRN Reason: Moderate Correctional Scale Insulin Human Lispro (Humalog) 0 units SC .BEDTIME SLIDING SC PRN PRN Reason: Bedtime Correctional Scale Last Admin: 09/14/17 01:30 Dose: 4 unit Melatonin (Melatonin) 3 mg PO HS [facility] Last Admin: 09/13/17 22:08 Dose: 3 mg Methylprednisolone Sodium Succinate (Solu-Medrol) 40 mg IVP Q6HR [facility] Last Admin: 09/14/17 05:36 Dose: 40 mg Metoclopramide HCl (Reglan) 10 mg PO ACHS [facility] Last Admin: 09/14/17 08:44 Dose: 10 mg Multivitamins (Theragran) 1 tab PO DAILY [facility] Last Admin: 09/14/17 08:44 Dose: 1 tab Polyethylene Glycol (Miralax) 17 gm PO DAILY [facility] Last Admin: 09/14/17 08:45 Dose: 17 gm Sodium Chloride (Flush - Normal Saline) 10 ml IVF Q12HR [facility] Last Admin: 09/14/17 09:00 Dose: Not Given Sodium Chloride (Flush - Normal Saline) 10 ml IVF PRN PRN PRN Reason: Saline Flush Tramadol HCl (Ultram) 50 mg PO Q6H PRN PRN Reason: Breakthrough Pain
--- NOTE | 2017-09-14 13:18 | PQF ---
DATE: 09-14-17 ATTN: DR. ARIEL COLE Please exercise your independent, professional judgment in responding to the clarification form. Clinical indicators are provided on the bottom of this form for your review Please check appropriate box(s): [ x] Acute Renal Failure (ARF) / Acute Kidney Injury (JOE) [ ] Acute on Chronic Renal Failure please specify Stage of CKD (see below) [ ] CKD without ARF/JOE please specify Stage of CKD [ ] Other diagnosis [ ] Unable to determine In addition, please specify: Present on Admission (POA): [ x] Yes [ ] No [ ] Unable to determine National Kidney Foundation Guidelines for CKD Staging Stage I Kidney damage with normal or increased GFR GFR > 90 Stage II Kidney damage with mildly decreased GFR GFR 60- 89 Stage III Kidney damage with moderately decreased GFR GFR 30- 59 Stage IV Kidney damage with severely decreased GFR GFR 16-29 Stage V Kidney failure GFR<15 ESRD End Stage Renal Disease On dialysis Acute Renal Failure/Acute Kidney Failure defined as: Increases in SCr by (>) 0.3 mg/dl within 48 hours OR- Increases in SCr by (>) 1.5 times baseline, known or presumed to have occurred within the prior 7 days OR- Urine volume < 0.5 ml/kg/hour for 6 hours (KDIGO supplement 2012 for RIFLE/JENNIE criteria) For continuity of documentation, please document condition throughout progress notes and discharge summary. Thank You. CLINICAL INDICATORS - SIGNS / SYMPTOMS / LABS ER DOCUMENTATION: RENAL DISEASE, INSUFFICIENCY GFR: 218: 37 18: 37 09-14-17: 45 CREATININE: 2-18: 1.39 -18: 1.38 18: 1.17 BUN: 4-2-18: 25 18: 26 18: 33 RISK FACTORS: ER DOCUMENTATION: RENAL DISEASE, INSUFFICIENCY ( ER) HOME ASA, LASIX, SPIRONOLACTONE TREATMENTS: (MAR) NS IVF (This form is maintained as a part of the permanent medical record) 2014 [employer]. All Rights Reserved [email or web address] Office: [phone] [facility]
--- NOTE | 2017-09-14 13:33 | PQF ---
DATE: 09-14-17 ATTN: DR. ARIEL COLE Please exercise your independent, professional judgment in responding to the clarification form. Clinical indicators are provided on the bottom of this form for your review Please check appropriate box(s): [ x ] Demand Ischemia [ ] Insignificant Lab Values [ ] Other diagnosis [ ] Unable to determine In addition, please specify: Present on Admission (POA): [x ] Yes [ ] No [ ] Unable to determine CLINICAL INDICATORS - SIGNS / SYMPTOMS / LABS} ER DOCUMENTATION: HX OF CARDIOMYOPATHY, CHF, FORMER SMOKER ER DIAGNOSIS: DYSPNEA, COPD EXACERBATION, ELEVATED TROPONINS H&P: HX OF HTN, DYSLIPIDEMIA, SVT, PACEMAKER TROPONIN: 09-12-17: 0.059 09-13-17: 0.176 09-13-17: 0.203 RISKS: H&P: HX OF HTN, DYSLIPIDEMIA, SVT, PACEMAKER, DM 2 TREATMENTS: (ER) ASA AND DAILY (This form is maintained as a part of the permanent medical record) 2014 [employer]. All Rights Reserved [email or web address] Office: [phone] MARITA
--- NOTE | 2017-09-14 13:54 | PQF ---
DATE: 09-14-17 ATTN: DR. ARIEL OCLE Please exercise your independent, professional judgment in responding to the clarification form. Clinical indicators are provided on the bottom of this form for your review Please check appropriate box(s): [ ] UTI [ x ] Contaminated urine specimen without UTI [ ] Other diagnosis [ ] Unable to determine In addition, please specify: Present on Admission (POA): [ x ] Yes [ ] No [ ] Unable to determine For continuity of documentation, please document condition throughout progress notes and discharge summary. Thank You. CLINICAL INDICATORS - SIGNS / SYMPTOMS / LABS URINE: 09-13-17: URINE PROTEIN: 30 H URINE BLOOD: SMALL H URINE NITRITE: POSITIVE H UR LEUKOCYTE ESTERASE: LARGE H URINE WBC: 21-50 H URINE BACTERIA: 3+ H RISK FACTORS: H&P: ADMITTED WITH ACUTE RESPIRATORY FAILURE, ACUTE COPD EXACERBATION NURSE ASSESSMENT 09-13-17: INDWELLING CATH, INSERTED 09-13-17 TREATMENT: (AUG) MAXIPIME IV, NS IVF (This form is maintained as a part of the permanent medical record) 2014 [employer] All Rights Reserved [email or web address] Office: [phone] [facility]
[2017-09-14] MEDS: Arformoterol 15 MCG/2 ML NEB NEB SCH (19:21)
[2017-09-14] MEDS: Budesonide 0.5 MG/2 ML NEB INH SCH (19:22)
[2017-09-14] MEDS: Cefuroxime Axetil 250 MG TAB PO SCH (20:40)
[2017-09-14] MEDS: Melatonin 3 MG TAB PO SCH (20:40)
[2017-09-15] MEDS: HumaLOG 300 UNITS/3 ML VIAL SC PRN ×5 (00:11→21:06)
[2017-09-15] MEDS: Sodium Chloride 0.9% 1,000 ML IV SCH ×2 (03:37→05:12)
[2017-09-15 04:26] LABS: Anion Gap 9 mmol/L (10-20); BUN (Urea Nitrogen) 44 mg/dL (9.8-20.1); Calc. Creatinine Clearance 45 mL/min (70-130); Calcium 9.8 mg/dL (7.8-10.44); Carbon Dioxide 32 mmol/L (23-31); Chloride 103 mmol/L (98-107); Estimated GFR-MDRD 40; Glucose 298 mg/dL (83-110); Potassium 4.7 mmol/L (3.5-5.1); Sodium 139 mmol/L (136-145)
[2017-09-15] MEDS ORDERED: Fleet Enema 133 ML BOT PR PRN (04:57)
[2017-09-15] MEDS ORDERED: Bisacodyl 10 MG SUPP PR PRN (04:57)
[2017-09-15] MEDS: Senokot S 8.6-50 MG TAB PO SCH ×2 (08:24→21:05)
[2017-09-15] MEDS: Gabapentin 300 MG CAP PO SCH ×3 (08:25→21:05)
[2017-09-15] MEDS: Digoxin 0.125 MG TAB PO SCH (08:25)
[2017-09-15] MEDS: Enoxaparin Sodium 40 MG/0.4 ML SYRINGE SC SCH (08:26)
[2017-09-15] MEDS: Metoclopramide HCl 10 MG TAB PO SCH ×4 (08:26→21:05)
[2017-09-15] MEDS: Aspirin 81 mg Enteric Coated Tablet PO SCH (08:26)
[2017-09-15] MEDS: Ferrous Sulfate 325 MG TAB PO SCH ×2 (08:26→17:44)
[2017-09-15] MEDS: Famotidine 20 MG TAB PO SCH (08:26)
[2017-09-15] MEDS: Cyanocobalamin (Vitamin B-12) 1,000 MCG TAB PO SCH (08:26)
[2017-09-15] MEDS: Multivit, Therapeutic 1 TAB PO SCH (08:27)
[2017-09-15] MEDS: Polyethylene Glycol 3350 17 GM Packet PO SCH (08:27)
[2017-09-15] MEDS: Furosemide 40 MG/4 ML VIAL SLOW IVP SCH (08:27)
[2017-09-15] MEDS: Budesonide 0.5 MG/2 ML NEB INH SCH ×2 (08:44→19:40)
[2017-09-15] MEDS ORDERED: Insulin Detemir 100 UNITS/ML 15 UNITS in Pre-Filled Syringe 1 EACH SC SCH (09:17)
[2017-09-15] MEDS: Arformoterol 15 MCG/2 ML NEB NEB SCH (11:06)
[2017-09-15] MEDS: Cefdinir 300 MG CAP PO SCH ×2 (12:48→21:05)
[2017-09-15] MEDS: ALPRAZolam 0.5 MG TAB PO PRN (13:21)
--- NOTE | 2017-09-15 13:44 | PRG ---
DATE OF SERVICE: 09/15/2017 SUBJECTIVE: This morning, awake, alert, and responsive, in no distress. OBJECTIVE: VITAL SIGNS: Blood pressure is 147/57, sats are 97, temperature 96.7, respiration 26. I's and O's h ave been good, 1420 in, 900 out. CHEST: Decreased breath sounds, no wheezing. CARDIAC: Normal S1, S2. No gallops. ABDOMEN: Soft, no masses. IMPRESSION: Urinary tract infection, chronic obstructive pulmonary disease exacerbation and congesti ve heart failure. PLAN: Discontinue BiPAP. P.o. medication. PT. Diet. Continue steroids, p.o. antibiotics for UTI. Please note, her last echo done in July shows EF was approximately 55%. Pacer wire in the right ventricle. We will follow.
--- NOTE | 2017-09-15 14:17 | PDOC.PN ---
- Subjective Encounter Start Date: 09/15/17 Encounter Start Time: 12:00 Subjective: more awake and talking better this am -: sob is better -: brother and sister in law at bedside - Objective Resuscitation Status: Resuscitation Status FULL:Full Resuscitation MAR Reviewed: Yes Vital Signs & Weight: Vital Signs (12 hours) Temp Pulse Resp BP Pulse Ox 09/15/17 11:18 97.9 F 88 22 H 127/58 L 91 L 09/15/17 10:54 88 18 09/15/17 08:46 79 18 09/15/17 08:25 81 09/15/17 08:00 97.9 F 79 18 143/61 H 93 L 09/15/17 04:40 96.7 F L 69 26 H 147/59 H 97 09/15/17 04:23 97 Weight Weight 177 lb 12.8 oz I&O: 09/14/17 09/15/17 09/16/17 06:59 06:59 06:59 Intake Total 770 1420 Output Total 900 900 Balance -130 520 Result Diagrams: 09/14/17 04:01 09/15/17 03:26 Additional Labs: Accuchecks 09/15/17 09/15/17 09/15/17 12:27 06:14 00:07 POC Glucose 319 H 332 H 306 H 09/14/17 17:08 POC Glucose 310 H Phys Exam - Physical Examination HEENT: PERRLA, moist MMs Neck: no JVD, supple Respiratory: no wheezing, no rales rhonchi++ Cardiovascular: RRR, no significant murmur Gastrointestinal: soft, non-tender, no distention, positive bowel sounds Musculoskeletal: no edema, pulses present Neurological: non-focal, moves all 4 limbs Dx/Plan (1) Acute and chronic respiratory failure with hypoxia Code(s): J96.21 - ACUTE AND CHRONIC RESPIRATORY FAILURE WITH HYPOXIA Status: Resolved (2) COPD exacerbation Code(s): J44.1 - CHRONIC OBSTRUCTIVE PULMONARY DISEASE W (ACUTE) EXACERBATION Status: Acute (3) Chronic anemia Code(s): D64.9 - ANEMIA, UNSPECIFIED Status: Chronic (4) JOE (acute kidney injury) Code(s): N17.9 - ACUTE KIDNEY FAILURE, UNSPECIFIED Status: Acute Comment: resolving (5) Anxiety disorder Code(s): F41.9 - ANXIETY DISORDER, UNSPECIFIED Status: Chronic Qualifiers: Anxiety disorder type: generalized anxiety disorder Qualified Code(s): F41.1 - Generalized anxiety disorder (6) Physical deconditioning Code(s): R53.81 - OTHER MALAISE Status: Chronic (7) DM type 2 (diabetes mellitus, type 2) Status: Chronic Qualifiers: Diabetes mellitus bar supervisor insulin use: with halfway use Diabetes mellitus complication status: with unspecified complications Qualified Code(s) : E11.8 - Type 2 diabetes mellitus with unspecified complications; Z79.4 - USP (current) use of insulin; Z79.4 - USP (current) use of insulin; Z79.4 - USP (current) use of insulin; Z79.4 - line up worker (current) use of insulin Comment: (8) HTN (hypertension) Code(s): I10 - ESSENTIAL (PRIMARY) HYPERTENSION Status: Chronic Qualifiers: Hypertension type: essential hypertension Comment: Stable - Plan is more oriented this am and is conversing -: code status revisited this am, still wants everything done -: on omnicef, nebs, solumedrol -: continue dig and daily oral lasix -: add levemir 15 u bid, taper with steroid taper * . Patient and brother at bedside are aware of her end stage copd and poor prognosis with morbidity if she goes on vent. Brother and sister in law understand and are trying to talk to patient along with Palliative care involvement. Review of Systems - Medications/Allergies Allergies/Adverse Reactions: Allergies Allergy/AdvReac Type Severity Reaction Status Date / Time ciprofloxacin HCl Allergy Verified 07/29/17 00:44 [From Cipro] clarithromycin [From Biaxin] Allergy Verified 07/29/17 00:44 codeine Allergy Verified 07/29/17 00:44 Penicillins Allergy Verified 07/29/17 00:44 Medications: Current Medications Acetaminophen (Tylenol) 650 mg PO Q4H PRN PRN Reason: Headache/Fever or Pain Albuterol/Ipratropium (Duoneb) 3 ml NEB [id number] ELO[facility] Last Admin: 09/15/17 10:54 Dose: 3 ml Alprazolam (Xanax) 1 mg PO Q8H PRN PRN Reason: Anxiety Last Admin: 09/15/17 13:21 Dose: 1 mg Aspirin (Ecotrin) 81 mg PO DAILY [facility] Last Admin: 09/15/17 08:26 Dose: 81 mg Bisacodyl (Dulcolax) 10 mg MT DAILYPRN PRN PRN Reason: Constipation Last Admin: 09/15/17 05:14 Dose: 10 mg Budesonide (Pulmicort Neb Solution) 0.5 mg INH BID-RT [facility] Last Admin: 09/15/17 08:44 Dose: 0.5 mg Cefdinir (Omnicef) 300 mg PO BID [facility] Stop: 09/22/17 09:01 Last Admin: 09/15/17 12:48 Dose: 300 mg Cyanocobalamin (Vitamin B-12) 1,000 mcg PO DAILY [facility] Last Admin: 09/15/17 08:26 Dose: 1,000 mcg Dextrose/Water (Dextrose 50%) 25 gm SLOW IVP PRN PRN PRN Reason: Hypoglycemia Digoxin (Lanoxin) 0.125 mg PO DAILY [facility] Last Admin: 09/15/17 08:25 Dose: 0.125 mg Enoxaparin Sodium (Lovenox) 40 mg SC 0900 [facility] Last Admin: 09/15/17 08:26 Dose: 40 mg Famotidine (Pepcid) 20 mg PO 0900 [facility] Ferrous Sulfate (Feosol) 325 mg PO BID-[facility] Last Admin: 09/15/17 08:26 Dose: 325 mg Furosemide (Lasix) 40 mg SLOW IVP DAILY [facility] Last Admin: 09/15/17 08:27 Dose: 40 mg Gabapentin (Neurontin) 300 mg PO TID [facility] Last Admin: 09/15/17 08:25 Dose: 300 mg Glucagon (Glucagon) 1 mg IM PRN PRN PRN Reason: Hypoglycemia Guaifenesin/Dextromethorphan (Robitussin Dm) 15 ml PO Q4H PRN PRN Reason: Cough Guaifenesin/Dextromethorphan (Robitussin Dm) 10 ml PO Q6H PRN PRN Reason: Cough Dextrose/Water (D5w) 1,000 mls @ 0 mls/hr IV .Q0M PRN; As Directed PRN Reason: Hypoglycemia Sodium Chloride (Normal Saline 0.9%) 1,000 mls @ 50 mls/hr IV .Q20H [facility] Last Admin: 09/15/17 05:12 Dose: 1,000 mls Insulin Detemir 15 units/ (Miscellaneous Medication) 0.15 mls @ 0 mls/hr SC BID [facility] Insulin Human Lispro (Humalog) 0 units SC .MODERATE SLIDING SC PRN PRN Reason: Moderate Correctional Scale Last Admin: 09/15/17 12:48 Dose: 8 units Insulin Human Lispro (Humalog) 0 units SC .BEDTIME SLIDING SC PRN PRN Reason: Bedtime Correctional Scale Last Admin: 09/15/17 00:11 Dose: 4 unit Lactulose (Lactulose) 10 gm PO DAILYPRN PRN PRN Reason: Constipation Melatonin (Melatonin) 3 mg PO HS [facility] Last Admin: 09/14/17 20:40 Dose: 3 mg Methylprednisolone Sodium Succinate (Solu-Medrol) 40 mg IVP Q6HR [facility] Last Admin: 09/15/17 12:48 Dose: 40 mg Metoclopramide HCl (Reglan) 10 mg PO ACHS [facility] Last Admin: 09/15/17 12:48 Dose: 10 mg Mometasone Furoate/Formoterol Fumar (Dulera 200 Mcg/5 Mcg Inhaler) 2 puff INH BID-RT [facility] Multivitamins (Theragran) 1 tab PO DAILY [facility] Last Admin: 09/15/17 08:27 Dose: 1 tab Polyethylene Glycol (Miralax) 17 gm PO DAILY [facility] Last Admin: 09/15/17 08:27 Dose: 17 gm Senna/Docusate Sodium (Senokot S) 2 tab PO BID [facility] Last Admin: 09/15/17 08:24 Dose: 2 tab Sodium Biphosphate/Sodium Phosphate (Fleet Enema) 133 ml MT DAILY PRN PRN Reason: Constipation Sodium Chloride (Flush - Normal Saline) 10 ml IVF Q12HR [facility] Last Admin: 09/15/17 08:27 Dose: 10 ml Sodium Chloride (Flush - Normal Saline) 10 ml IVF PRN PRN PRN Reason: Saline Flush Tramadol HCl (Ultram) 50 mg PO Q6H PRN PRN Reason: Breakthrough Pain
[2017-09-15] MEDS: Mometasone/Formoterol 120 PUFF INHALER INH SCH (19:42)
[2017-09-15] MEDS: Melatonin 3 MG TAB PO SCH (21:05)
[2017-09-15] MEDS: Insulin Detemir 100 UNITS/ML 15 UNITS in Pre-Filled Syringe 1 EACH SC SCH (21:06)
[2017-09-16] MEDS: Sodium Chloride 0.9% 1,000 ML IV SCH ×2 (01:12→21:34)
[2017-09-16] MEDS: HumaLOG 300 UNITS/3 ML VIAL SC PRN ×4 (06:26→21:24)
[2017-09-16] MEDS: Mometasone/Formoterol 120 PUFF INHALER INH SCH ×2 (06:31→18:37)
[2017-09-16] MEDS: Budesonide 0.5 MG/2 ML NEB INH SCH ×2 (06:31→18:36)
[2017-09-16] MEDS: Polyethylene Glycol 3350 17 GM Packet PO SCH (08:37)
[2017-09-16] MEDS: predniSONE 20 MG TAB PO SCH ×2 (08:37→21:22)
[2017-09-16] MEDS: Furosemide 40 MG/4 ML VIAL SLOW IVP SCH (08:37)
[2017-09-16] MEDS: Senokot S 8.6-50 MG TAB PO SCH ×2 (08:38→21:22)
[2017-09-16] MEDS: Enoxaparin Sodium 40 MG/0.4 ML SYRINGE SC SCH (08:38)
[2017-09-16] MEDS: Aspirin 81 mg Enteric Coated Tablet PO SCH (08:39)
[2017-09-16] MEDS: Gabapentin 300 MG CAP PO SCH ×3 (08:39→21:22)
[2017-09-16] MEDS: Ferrous Sulfate 325 MG TAB PO SCH ×2 (08:39→16:28)
[2017-09-16] MEDS: Cyanocobalamin (Vitamin B-12) 1,000 MCG TAB PO SCH (08:39)
[2017-09-16] MEDS: Cefdinir 300 MG CAP PO SCH (08:39)
[2017-09-16] MEDS: Insulin Detemir 100 UNITS/ML 15 UNITS in Pre-Filled Syringe 1 EACH SC SCH ×2 (08:39→21:24)
[2017-09-16] MEDS: Digoxin 0.125 MG TAB PO SCH (08:39)
[2017-09-16] MEDS: Famotidine 20 MG TAB PO SCH (08:39)
[2017-09-16] MEDS: Metoclopramide HCl 10 MG TAB PO SCH ×4 (08:39→21:22)
[2017-09-16] MEDS: Multivit, Therapeutic 1 TAB PO SCH (08:39)
[2017-09-16] MEDS: ALPRAZolam 0.5 MG TAB PO PRN (09:57)
[2017-09-16] MEDS ORDERED: Cefepime 1 GM in Sodium Chloride 0.9% 100 ML IVPB SCH (11:00)
--- NOTE | 2017-09-16 14:33 | PRG ---
DATE OF SERVICE: 09/16/2017 SUBJECTIVE: This morning, awake, alert and responsive. OBJECTIVE: VITAL SIGNS: Blood pressure 151/57, sats are 95% on 3 liters, respiratory rate 24. CHEST: Decreased breath sounds, no wheezing. CARDIAC: Normal S1, S2. No gallops. ABDOMEN: Soft, no masses. IMPRESSION: Chronic obstructive pulmonary disease, congestive heart failure, urinary tract infection . PLAN: She is able to be transfer out of the MICU. PT and supportive care, eventually transferred danilo merritt to the residential.
[2017-09-16] MEDS ORDERED: Cefepime 1 GM, Admixture Fee 1 EACH in Sodium Chloride 0.9% 10 ML SLOW IVP SCH (15:00)
--- NOTE | 2017-09-16 15:01 | PDOC.PN ---
- Subjective Encounter Start Date: 09/16/17 Encounter Start Time: 14:59 Subjective: feels weak and c/o cough and easily getting winded - Objective Resuscitation Status: Resuscitation Status FULL:Full Resuscitation MAR Reviewed: Yes Vital Signs & Weight: Vital Signs (12 hours) Temp Pulse Pulse Pulse Resp BP BP 09/16/17 12:37 98.0 F 85 16 09/16/17 11:24 97.2 F L 71 22 H 09/16/17 10:38 83 16 09/16/17 09:13 85 87 145/62 H 154/60 H 09/16/17 08:39 81 09/16/17 08:00 97.7 F 81 24 H 09/16/17 07:00 97.7 F 81 24 H 09/16/17 06:32 76 16 09/16/17 03:58 97.5 F L 73 21 H BP Pulse Ox 09/16/17 12:37 149/68 H 95 09/16/17 11:24 143/63 H 100 09/16/17 10:38 09/16/17 09:13 09/16/17 08:39 09/16/17 08:00 93 L 09/16/17 07:00 151/57 H 95 09/16/17 06:32 09/16/17 03:58 135/60 100 Weight Weight 181 lb 3.013 oz I&O: 09/15/17 09/16/17 09/17/17 06:59 06:59 06:59 Intake Total 1420 1920 540 Output Total 900 1625 950 Balance 520 295 -410 Result Diagrams: 09/17/17 05:16 09/17/17 05:16 Additional Labs: Accuchecks 09/16/17 09/16/17 09/15/17 10:52 05:38 21:07 POC Glucose 396 H 347 H 397 H 09/15/17 16:44 POC Glucose 330 H Microbiology 09/13/17 17:00 Urine espitia catheter Urine Culture - Final Pseudomonas aeruginosa 09/13/17 06:10 Stool Stool Occult Blood (JU) - Final 09/12/17 22:37 Venous blood - Right Arm Blood Culture - Preliminary NO GROWTH AT 48 HOURS 09/12/17 22:30 Venous blood - Left Arm Blood Culture - Preliminary NO GROWTH AT 48 HOURS Laboratory Tests 09/07/17 09/08/17 09/12/17 04:44 07:17 22:15 Creatinine 1.08 1.15 H 1.39 H 09/13/17 09/14/17 09/15/17 05:11 04:01 03:26 Creatinine 1.38 H 1.17 H 1.29 H Phys Exam - Physical Examination Constitutional: NAD pale,weak and tired looking HEENT: PERRLA, moist MMs, sclera anicteric, oral pharynx no lesions Neck: no JVD, supple, full ROM Respiratory: no wheezing, no rales, no rhonchi, clear to auscultation bilateral Cardiovascular: RRR, no significant murmur Gastrointestinal: soft, non-tender, no distention, positive bowel sounds Musculoskeletal: no edema, pulses present Neurological: non-focal, normal sensation, moves all 4 limbs Psychiatric: normal affect, A&O x 3 Dx/Plan (1) Pseudomonas urinary tract infection Code(s): N39.0 - URINARY TRACT INFECTION, SITE NOT SPECIFIED; B96.5 - PSEUDOMONAS (MALLEI) CAUSING DISEASES CLASSD ELSWHR Status: Acute (2) Acute and chronic respiratory failure with hypoxia Code(s): J96.21 - ACUTE AND CHRONIC RESPIRATORY FAILURE WITH HYPOXIA Status: Resolved (3) COPD exacerbation Code(s): J44.1 - CHRONIC OBSTRUCTIVE PULMONARY DISEASE W (ACUTE) EXACERBATION Status: Acute (4) CHF (congestive heart failure) Code(s): I50.9 - HEART FAILURE, UNSPECIFIED Status: Chronic Qualifiers: Heart failure type: systolic Comment: h/o systolic CHF but EF improved (5) CKD (chronic kidney disease) stage 3, GFR 30-59 ml/min Status: Chronic (6) DM type 2 (diabetes mellitus, type 2) Status: Chronic Qualifiers: Diabetes mellitus termite exterminator helper insulin use: with nursing home use Diabetes mellitus complication status: with unspecified complications Qualified Code(s) : E11.8 - Type 2 diabetes mellitus with unspecified complications; Z79.4 - alf (current) use of insulin; Z79.4 - alf (current) use of insulin; Z79.4 - termination clerk (current) use of insulin; Z79.4 - termination clerk (current) use of insulin Comment: (7) HTN (hypertension) Code(s): I10 - ESSENTIAL (PRIMARY) HYPERTENSION Status: Chronic Qualifiers: Hypertension type: essential hypertension Qualified Code(s): I10 - Essential (primary) hypertension Comment: Stable (8) Physical deconditioning Code(s): R53.81 - OTHER MALAISE Status: Chronic (9) Anxiety disorder Code(s): F41.9 - ANXIETY DISORDER, UNSPECIFIED Status: Chronic Qualifiers: Anxiety disorder type: generalized anxiety disorder Qualified Code(s): F41.1 - Generalized anxiety disorder (10) FAHAD (iron deficiency anemia) Code(s): D50.9 - IRON DEFICIENCY ANEMIA, UNSPECIFIED Status: Chronic - Plan continue antibiotics, PT/OT, respiratory therapy, incentive spirometry, out of bed/ambulate, DVT proph w/SCDs change ABx to cover for Pseudomonas UTI. -: cont nebs, Steroids PO,O2 prn. -: recheck CBC .may need PRBC.May need iv iron. -: cont lasix w strict I/Os -: Ok to transfer to medical * . Review of Systems - Review of Systems Constitutional: weakness, malaise ENT: negative: Ear Pain, Ear Discharge, Nose Pain, Nose Discharge, Nose Congestion, Mouth Pain, Mouth Swelling, Throat Pain, Throat Swelling, Other Respiratory: Cough, SOB with Excertion, Wheezing. negative: Dry, Shortness of Breath, Hemoptysis, Pleuritic Pain, Sputum Cardiovascular: negative: chest pain, palpitations, orthopnea, paroxysmal nocturnal dyspnea, edema, light headedness, other Gastrointestinal: negative: Nausea, Vomiting, Abdominal Pain, Diarrhea, Constipation, Melena, Hematochezia, Other Genitourinary: negative: Dysuria, Frequency, Incontinence, Hematuria, Retention , Other Musculoskeletal: negative: Neck Pain, Shoulder Pain, Arm Pain, Back Pain, Hand Pain, Leg Pain, Foot Pain, Other Skin: negative: Rash, Lesions, Han, Bruising, Other Neurological: negative: Weakness, Numbness, Incoordination, Change in Speech, Confusion, Seizures, Other - Medications/Allergies Allergies/Adverse Reactions: Allergies Allergy/AdvReac Type Severity Reaction Status Date / Time ciprofloxacin HCl Allergy Verified 07/29/17 00:44 [From Cipro] clarithromycin [From Biaxin] Allergy Verified 07/29/17 00:44 codeine Allergy Verified 07/29/17 00:44 Penicillins Allergy Verified 07/29/17 00:44 Medications: Current Medications Acetaminophen (Tylenol) 650 mg PO Q4H PRN PRN Reason: Headache/Fever or Pain Albuterol/Ipratropium (Duoneb) 3 ml NEB [id number] [facility] Last Admin: 09/16/17 10:38 Dose: 3 ml Alprazolam (Xanax) 1 mg PO Q8H PRN PRN Reason: Anxiety Last Admin: 09/16/17 09:57 Dose: 1 mg Aspirin (Ecotrin) 81 mg PO DAILY [facility] Last Admin: 09/16/17 08:39 Dose: 81 mg Bisacodyl (Dulcolax) 10 mg MD DAILYPRN PRN PRN Reason: Constipation Last Admin: 09/15/17 05:14 Dose: 10 mg Budesonide (Pulmicort Neb Solution) 0.5 mg INH BID-RT [facility] Last Admin: 09/16/17 06:31 Dose: 0.5 mg Cyanocobalamin (Vitamin B-12) 1,000 mcg PO DAILY [facility] Last Admin: 09/16/17 08:39 Dose: 1,000 mcg Dextrose/Water (Dextrose 50%) 25 gm SLOW IVP PRN PRN PRN Reason: Hypoglycemia Digoxin (Lanoxin) 0.125 mg PO DAILY [facility] Last Admin: 09/16/17 08:39 Dose: 0.125 mg Enoxaparin Sodium (Lovenox) 40 mg SC 0900 [facility] Last Admin: 09/16/17 08:38 Dose: 40 mg Famotidine (Pepcid) 20 mg PO 0900 [facility] Last Admin: 09/16/17 08:39 Dose: 20 mg Ferrous Sulfate (Feosol) 325 mg PO BID-[facility] Last Admin: 09/16/17 08:39 Dose: 325 mg Furosemide (Lasix) 40 mg SLOW IVP DAILY [facility] Last Admin: 09/16/17 08:37 Dose: 40 mg Gabapentin (Neurontin) 300 mg PO TID [facility] Last Admin: 09/16/17 08:39 Dose: 300 mg Glucagon (Glucagon) 1 mg IM PRN PRN PRN Reason: Hypoglycemia Guaifenesin/Dextromethorphan (Robitussin Dm) 15 ml PO Q4H PRN PRN Reason: Cough Guaifenesin/Dextromethorphan (Robitussin Dm) 10 ml PO Q6H PRN PRN Reason: Cough Dextrose/Water (D5w) 1,000 mls @ 0 mls/hr IV .Q0M PRN; As Directed PRN Reason: Hypoglycemia Sodium Chloride (Normal Saline 0.9%) 1,000 mls @ 50 mls/hr IV .Q20H [facility] Last Admin: 09/16/17 01:12 Dose: 1,000 mls Insulin Detemir 15 units/ (Miscellaneous Medication) 0.15 mls @ 0 mls/hr SC BID [facility] Last Admin: 09/16/17 08:39 Dose: 0.15 mls Cefepime HCl 2 gm/ Syringe 2.5 (ml/ Sodium Chloride) 12.5 mls @ 150 mls/hr SLOW IVP 1100,2300 [facility] Cefepime HCl 1 gm/Miscellaneous Medication 1 each/ Sodium Chloride 10 mls @ 120 mls/hr SLOW IVP 1500 [facility] Stop: 09/16/17 17:00 Insulin Human Lispro (Humalog) 0 units SC .MODERATE SLIDING SC PRN PRN Reason: Moderate Correctional Scale Last Admin: 09/16/17 11:28 Dose: 10 units Insulin Human Lispro (Humalog) 0 units SC .BEDTIME SLIDING SC PRN PRN Reason: Bedtime Correctional Scale Last Admin: 09/15/17 21:06 Dose: 5 unit Lactulose (Lactulose) 10 gm PO DAILYPRN PRN PRN Reason: Constipation Last Admin: 09/16/17 09:53 Dose: 10 gm Melatonin (Melatonin) 3 mg PO HS [facility] Last Admin: 09/15/17 21:05 Dose: 3 mg Metoclopramide HCl (Reglan) 10 mg PO ACHS [facility] Last Admin: 09/16/17 11:28 Dose: 10 mg Mometasone Furoate/Formoterol Fumar (Dulera 200 Mcg/5 Mcg Inhaler) 2 puff INH BID-RT [facility] Last Admin: 09/16/17 06:31 Dose: 2 puff Multivitamins (Theragran) 1 tab PO DAILY [facility] Last Admin: 09/16/17 08:39 Dose: 1 tab Polyethylene Glycol (Miralax) 17 gm PO DAILY [facility] Last Admin: 09/16/17 08:37 Dose: 17 gm Prednisone (Prednisone) 20 mg PO BID [facility] Last Admin: 09/16/17 08:37 Dose: 20 mg Senna/Docusate Sodium (Senokot S) 2 tab PO BID [facility] Last Admin: 09/16/17 08:38 Dose: 2 tab Sodium Biphosphate/Sodium Phosphate (Fleet Enema) 133 ml MD DAILY PRN PRN Reason: Constipation Sodium Chloride (Flush - Normal Saline) 10 ml IVF Q12HR [facility] Last Admin: 09/16/17 08:40 Dose: 10 ml Sodium Chloride (Flush - Normal Saline) 10 ml IVF PRN PRN PRN Reason: Saline Flush Tramadol HCl (Ultram) 50 mg PO Q6H PRN PRN Reason: Breakthrough Pain
[2017-09-16] MEDS: Melatonin 3 MG TAB PO SCH (21:22)
[2017-09-16] MEDS ORDERED: Cefepime 2 GM, Syringe 2.5 ML in Sodium Chloride 0.9% 10 ML SLOW IVP SCH (23:00)
[2017-09-17 05:43] LABS: Anion Gap 9 mmol/L (10-20); BUN (Urea Nitrogen) 40 mg/dL (9.8-20.1); Calc. Creatinine Clearance 67 mL/min (70-130); Calcium 9.3 mg/dL (7.8-10.44); Carbon Dioxide 28 mmol/L (23-31); Chloride 107 mmol/L (98-107); Estimated GFR-MDRD 62; Glucose 312 mg/dL (83-110); Potassium 4.4 mmol/L (3.5-5.1); Sodium 140 mmol/L (136-145)
[2017-09-17 05:48] LABS: Band 5 % (5-11); Hemoglobin 6.6 g/dL (12.0-16.0); Hypochromia MODERATE=16-30 cells (100X) (0-5/hpf); Lymphocytes 7 % (21-51); MDiff Complete? YES; Mean Corpuscular HGB CONC 27.8 g/dL (32.0-36.0); Mean Corpuscular Hemoglobin 22.4 pg (27.0-31.0); Mean Corpuscular Volume 80.6 fl (81.0-99.0); Mean Platelet Volume 8.2 fL (7.4-10.4); Monocytes 5 % (0-10); Neutrophil 83 % (42-75); PLT Morphology Comment Appears Increased; Platelet Count 479 thou/uL (130-400); Polychromasia SLIGHT = 2-3 cells (100X) (0-2/hpf); RBC Distribution Width 21.5 % (11.5-14.5); Red Blood Cell (RBC) Count 2.93 mill/uL (4.20-5.40); Reflex for Review?? YES; White Blood Cell (WBC) Count 9.3 thou/uL (4.8-10.8)
[2017-09-17] MEDS: HumaLOG 300 UNITS/3 ML VIAL SC PRN ×4 (06:30→21:07)
[2017-09-17] MEDS: Budesonide 0.5 MG/2 ML NEB INH SCH (06:46)
[2017-09-17] MEDS: Mometasone/Formoterol 120 PUFF INHALER INH SCH ×2 (06:47→18:25)
[2017-09-17] MEDS: Metoclopramide HCl 10 MG TAB PO SCH ×4 (09:13→21:00)
[2017-09-17] MEDS: Cyanocobalamin (Vitamin B-12) 1,000 MCG TAB PO SCH (09:14)
[2017-09-17] MEDS: Aspirin 81 mg Enteric Coated Tablet PO SCH (09:14)
[2017-09-17] MEDS: Digoxin 0.125 MG TAB PO SCH (09:14)
[2017-09-17] MEDS: Ferrous Sulfate 325 MG TAB PO SCH ×2 (09:14→16:10)
[2017-09-17] MEDS: Enoxaparin Sodium 40 MG/0.4 ML SYRINGE SC SCH (09:19)
[2017-09-17] MEDS: Famotidine 20 MG TAB PO SCH (09:20)
[2017-09-17] MEDS: Furosemide 40 MG/4 ML VIAL SLOW IVP SCH (09:20)
[2017-09-17] MEDS: Gabapentin 300 MG CAP PO SCH ×3 (09:21→21:00)
[2017-09-17] MEDS: Senokot S 8.6-50 MG TAB PO SCH ×2 (09:22→21:00)
[2017-09-17] MEDS: Multivit, Therapeutic 1 TAB PO SCH (09:22)
[2017-09-17] MEDS: Polyethylene Glycol 3350 17 GM Packet PO SCH (09:22)
[2017-09-17] MEDS: Insulin Detemir 100 UNITS/ML 15 UNITS in Pre-Filled Syringe 1 EACH SC SCH ×2 (09:22→21:06)
[2017-09-17] MEDS: predniSONE 20 MG TAB PO SCH ×2 (09:22→21:00)
[2017-09-17] MEDS: Sodium Chloride 0.9% 1,000 ML IV SCH ×2 (14:31→21:12)
--- NOTE | 2017-09-17 14:41 | PRG ---
DATE OF SERVICE: 09/17/2017 SUBJECTIVE: Ms. Morales is better. She still has some pain in the leg in which x-ray shows negativ e. Numerous questions regarding her pulmonary status, she has got some cough, which is probably [place] ent of bronchus and COPD. OBJECTIVE: VITAL SIGNS: Sats are 98% on room air, blood pressure 146/75, respiration rate 18. CHEST: Decreased breath sounds. No wheezing. CARDIAC: Normal S1 and S2. No gallops. ABDOMEN: Soft. No masses. LABORATORY DATA: White count 9000, hemoglobin and hematocrit is low. Electrolytes are normal. IMPRESSION: Chronic obstructive pulmonary disease exacerbation, bronchitis, severe deconditioning, f all with left leg issues. PLAN: The patient has oral antibiotics, oral prednisone. I see no evidence of any pneumonia that re quired broad-spectrum antibiotics. His Pseudomonas in the urine is sensitive to pretty much all the antibiotics, not septic. Suggest to leave her on Omnicef for a week is more than likely a colonization. Hopefully, she can be discharged back to the alf on Tuesday.
--- NOTE | 2017-09-17 15:03 | PDOC.PN ---
- Subjective Encounter Start Date: 09/17/17 Encounter Start Time: 14:59 Subjective: feels weak and tired - Objective Resuscitation Status: Resuscitation Status FULL:Full Resuscitation MAR Reviewed: Yes Vital Signs & Weight: Vital Signs (12 hours) Temp Pulse Resp BP BP BP Pulse Ox 09/17/17 14:17 84 20 09/17/17 13:49 98.4 F 75 18 173/84 H 97 09/17/17 12:15 98.0 F 16 128/73 92 L 09/17/17 12:05 98.1 F 14 151/80 H 92 L 09/17/17 10:48 75 22 H 93 L 09/17/17 09:14 72 09/17/17 08:00 98.2 F 72 20 146/75 H 95 09/17/17 06:46 69 20 97 09/17/17 06:44 69 20 97 09/17/17 04:00 98.5 F 69 20 122/63 97 Weight Weight 191 lb 8 oz I&O: 09/16/17 09/17/17 09/18/17 06:59 06:59 06:59 Intake Total 1920 2780 0 Output Total 1625 2350 Balance 295 430 0 Result Diagrams: 09/17/17 05:16 09/17/17 05:16 Additional Labs: Accuchecks 09/17/17 09/17/17 09/16/17 11:22 05:12 20:02 POC Glucose 314 H 336 H 376 H 09/16/17 16:06 POC Glucose 390 H Microbiology 09/13/17 17:00 Urine espitia catheter Urine Culture - Final Pseudomonas aeruginosa 09/13/17 06:10 Stool Stool Occult Blood (JU) - Final 09/12/17 22:37 Venous blood - Right Arm Blood Culture - Preliminary NO GROWTH AT 48 HOURS 09/12/17 22:30 Venous blood - Left Arm Blood Culture - Preliminary NO GROWTH AT 48 HOURS Laboratory Tests 09/12/17 09/13/17 09/14/17 22:15 05:11 04:01 Creatinine 1.39 H 1.38 H 1.17 H 09/15/17 03:26 Creatinine 1.29 H Phys Exam - Physical Examination weak and pale HEENT: moist MMs, sclera anicteric, 2+ tonsils Neck: no JVD Respiratory: no wheezing, no rales, no rhonchi, clear to auscultation bilateral Cardiovascular: RRR, no significant murmur Gastrointestinal: soft, non-tender, no distention, positive bowel sounds Musculoskeletal: no edema, pulses present Neurological: non-focal, normal sensation, moves all 4 limbs Psychiatric: normal affect, A&O x 3 Skin: no rash Dx/Plan (1) FAHAD (iron deficiency anemia) Code(s): D50.9 - IRON DEFICIENCY ANEMIA, UNSPECIFIED Status: Chronic Comment : Acute drop (2) Pseudomonas urinary tract infection Code(s): N39.0 - URINARY TRACT INFECTION, SITE NOT SPECIFIED; B96.5 - PSEUDOMONAS (MALLEI) CAUSING DISEASES CLASSD ELSWHR Status: Acute (3) Acute and chronic respiratory failure with hypoxia Code(s): J96.21 - ACUTE AND CHRONIC RESPIRATORY FAILURE WITH HYPOXIA Status: Resolved (4) COPD exacerbation Code(s): J44.1 - CHRONIC OBSTRUCTIVE PULMONARY DISEASE W (ACUTE) EXACERBATION Status: Acute (5) CHF (congestive heart failure) Code(s): I50.9 - HEART FAILURE, UNSPECIFIED Status: Chronic Qualifiers: Heart failure type: systolic Comment: h/o systolic CHF but EF improved.AICD in place (6) CKD (chronic kidney disease) stage 3, GFR 30-59 ml/min Status: Chronic (7) DM type 2 (diabetes mellitus, type 2) Status: Chronic Qualifiers: Diabetes mellitus fci insulin use: with medical terminologist use Diabetes mellitus complication status: with unspecified complications Qualified Code(s) : E11.8 - Type 2 diabetes mellitus with unspecified complications; Z79.4 - termite control technician (current) use of insulin; Z79.4 - termite control technician (current) use of insulin; Z79.4 - termite control technician (current) use of insulin; Z79.4 - termite control technician (current) use of insulin Comment: (8) HTN (hypertension) Code(s): I10 - ESSENTIAL (PRIMARY) HYPERTENSION Status: Chronic Qualifiers: Hypertension type: essential hypertension Qualified Code(s): I10 - Essential (primary) hypertension Comment: Stable (9) Physical deconditioning Code(s): R53.81 - OTHER MALAISE Status: Chronic (10) Anxiety disorder Code(s): F41.9 - ANXIETY DISORDER, UNSPECIFIED Status: Chronic Qualifiers: Anxiety disorder type: generalized anxiety disorder Qualified Code(s): F41.1 - Generalized anxiety disorder (11) Right femoral shaft fracture Code(s): S72.301A - UNSP FRACTURE OF SHAFT OF RIGHT FEMUR, INIT FOR CLOS FX Status: Chronic Qualifiers: Encounter type: subsequent encounter Fracture type: closed Comment: Conservative management per ortho.Boot in room - Plan continue antibiotics, PT/OT, social media director, respiratory therapy, incentive spirometry, out of bed/ambulate, DVT proph w/SCDs Will transfuse 1 unit PRBC for Hb<7.check FOBT.H/H in am -: Omnicef does not cover Psudomonas. -: Only Cephalosporin to cover Pseudomonas is Cefepime,ceftazidime -: Pt allergic to PCN and Ciprofloxacin -: will change back to cefepime.will need Rx for at least 5 days * .cont nebs,steroids ,O2 . * am labs Review of Systems - Review of Systems Constitutional: weakness, malaise Respiratory: Cough, SOB with Excertion. negative: Dry, Shortness of Breath, Hemoptysis, Pleuritic Pain, Sputum, Wheezing Cardiovascular: chest pain. negative: palpitations, orthopnea, paroxysmal nocturnal dyspnea, edema, light headedness, other Gastrointestinal: negative: Nausea, Vomiting, Abdominal Pain, Diarrhea, Constipation, Melena, Hematochezia, Other Genitourinary: negative: Dysuria, Frequency, Incontinence, Hematuria, Retention , Other Musculoskeletal: Leg Pain. negative: Neck Pain, Shoulder Pain, Arm Pain, Back Pain, Hand Pain, Foot Pain, Other Skin: negative: Rash, Lesions, Han, Bruising, Other Neurological: negative: Weakness, Numbness, Incoordination, Change in Speech, Confusion, Seizures, Other - Medications/Allergies Allergies/Adverse Reactions: Allergies Allergy/AdvReac Type Severity Reaction Status Date / Time ciprofloxacin HCl Allergy Verified 07/29/17 00:44 [From Cipro] clarithromycin [From Biaxin] Allergy Verified 07/29/17 00:44 codeine Allergy Verified 07/29/17 00:44 Penicillins Allergy Verified 07/29/17 00:44 Medications: Current Medications Acetaminophen (Tylenol) 650 mg PO Q4H PRN PRN Reason: Headache/Fever or Pain Albuterol/Ipratropium (Duoneb) 3 ml NEB [id number] [facility] Last Admin: 09/17/17 14:17 Dose: 3 ml Alprazolam (Xanax) 1 mg PO Q8H PRN PRN Reason: Anxiety Last Admin: 09/16/17 09:57 Dose: 1 mg Aspirin (Ecotrin) 81 mg PO DAILY [facility] Last Admin: 09/17/17 09:14 Dose: 81 mg Bisacodyl (Dulcolax) 10 mg SC DAILYPRN PRN PRN Reason: Constipation Last Admin: 09/15/17 05:14 Dose: 10 mg Cefdinir (Omnicef) 300 mg PO BID [facility] Cyanocobalamin (Vitamin B-12) 1,000 mcg PO DAILY [facility] Last Admin: 09/17/17 09:14 Dose: 1,000 mcg Dextrose/Water (Dextrose 50%) 25 gm SLOW IVP PRN PRN PRN Reason: Hypoglycemia Digoxin (Lanoxin) 0.125 mg PO DAILY [facility] Last Admin: 09/17/17 09:14 Dose: 0.125 mg Enoxaparin Sodium (Lovenox) 40 mg SC 0900 [facility] Last Admin: 09/17/17 09:19 Dose: 40 mg Famotidine (Pepcid) 20 mg PO 0900 [facility] Last Admin: 09/17/17 09:20 Dose: 20 mg Ferrous Sulfate (Feosol) 325 mg PO BID-[facility] Last Admin: 09/17/17 09:14 Dose: 325 mg Furosemide (Lasix) 40 mg SLOW IVP DAILY [facility] Last Admin: 09/17/17 09:20 Dose: 40 mg Gabapentin (Neurontin) 300 mg PO TID [facility] Last Admin: 09/17/17 09:21 Dose: 300 mg Glucagon (Glucagon) 1 mg IM PRN PRN PRN Reason: Hypoglycemia Guaifenesin/Dextromethorphan (Robitussin Dm) 15 ml PO Q4H PRN PRN Reason: Cough Guaifenesin/Dextromethorphan (Robitussin Dm) 10 ml PO Q6H PRN PRN Reason: Cough Dextrose/Water (D5w) 1,000 mls @ 0 mls/hr IV .Q0M PRN; As Directed PRN Reason: Hypoglycemia Sodium Chloride (Normal Saline 0.9%) 1,000 mls @ 50 mls/hr IV .Q20H [facility] Last Admin: 09/17/17 14:31 Dose: Not Given Insulin Detemir 15 units/ (Miscellaneous Medication) 0.15 mls @ 0 mls/hr SC BID [facility] Last Admin: 09/17/17 09:22 Dose: 0.15 mls Insulin Human Lispro (Humalog) 0 units SC .MODERATE SLIDING SC PRN PRN Reason: Moderate Correctional Scale Last Admin: 09/17/17 13:00 Dose: 8 units Insulin Human Lispro (Humalog) 0 units SC .BEDTIME SLIDING SC PRN PRN Reason: Bedtime Correctional Scale Last Admin: 09/16/17 21:24 Dose: 5 unit Lactulose (Lactulose) 10 gm PO DAILYPRN PRN PRN Reason: Constipation Last Admin: 09/16/17 09:53 Dose: 10 gm Melatonin (Melatonin) 3 mg PO HS [facility] Last Admin: 09/16/17 21:22 Dose: 3 mg Metoclopramide HCl (Reglan) 10 mg PO ACHS [facility] Last Admin: 09/17/17 13:00 Dose: 10 mg Mometasone Furoate/Formoterol Fumar (Dulera 200 Mcg/5 Mcg Inhaler) 2 puff INH BID-RT [facility] Last Admin: 09/17/17 06:47 Dose: 2 puff Multivitamins (Theragran) 1 tab PO DAILY [facility] Last Admin: 09/17/17 09:22 Dose: 1 tab Polyethylene Glycol (Miralax) 17 gm PO DAILY [facility] Last Admin: 09/17/17 09:22 Dose: 17 gm Prednisone (Prednisone) 20 mg PO BID [facility] Last Admin: 09/17/17 09:22 Dose: 20 mg Senna/Docusate Sodium (Senokot S) 2 tab PO BID [facility] Last Admin: 09/17/17 09:22 Dose: 2 tab Sodium Biphosphate/Sodium Phosphate (Fleet Enema) 133 ml SC DAILY PRN PRN Reason: Constipation Sodium Chloride (Flush - Normal Saline) 10 ml IVF Q12HR [facility] Last Admin: 09/17/17 09:23 Dose: 10 ml Sodium Chloride (Flush - Normal Saline) 10 ml IVF PRN PRN PRN Reason: Saline Flush Tramadol HCl (Ultram) 50 mg PO Q6H PRN PRN Reason: Breakthrough Pain
[2017-09-17] MEDS ORDERED: ALPRAZolam 0.25 MG TAB PO SCH (16:30)
[2017-09-17] MEDS ORDERED: Cefdinir 300 MG CAP PO SCH (21:00)
[2017-09-17] MEDS: Cefepime 1 GM, Admixture Fee 1 EACH in Sodium Chloride 0.9% 10 ML SLOW IVP SCH (21:00)
[2017-09-17] MEDS ORDERED: Cefepime 1 GM in Sodium Chloride 0.9% 100 ML IVPB SCH (21:00)
[2017-09-17] MEDS: Melatonin 3 MG TAB PO SCH (21:03)
[2017-09-17] MEDS: Guaifenesin DM 100-10/5 ML UDCUP PO PRN (21:12)
[2017-09-18 04:36] LABS: Anion Gap 11 mmol/L (10-20); BUN (Urea Nitrogen) 29 mg/dL (9.8-20.1); Calc. Creatinine Clearance 81 mL/min (70-130); Calcium 9.3 mg/dL (7.8-10.44); Carbon Dioxide 26 mmol/L (23-31); Chloride 106 mmol/L (98-107); Estimated GFR-MDRD 72; Glucose 204 mg/dL (83-110); Potassium 4.4 mmol/L (3.5-5.1); Sodium 139 mmol/L (136-145)
[2017-09-18 04:42] LABS: #Basophils 0.1 thou/uL (0.0-0.2); #Eosinphils 0.2 thou/uL (0.0-0.7); #Lymphocytes 0.4 thou/uL (1.20-3.40); #Monocytes 0.6 thou/uL (0.11-0.59); #Neutrophils 7.5 thou/uL (1.40-6.50); %Basophils 0.7 % (0.0-1.0); %Eosinophils 1.9 % (0.0-10.0); %Lymphocytes 4.5 % (21.0-51.0); %Monocytes 6.6 % (0.0-10.0); %Neutrophils 86.3 % (42.0-75.0); Hemoglobin 8.4 g/dL (12.0-16.0); Mean Corpuscular HGB CONC 30.6 g/dL (32.0-36.0); Mean Corpuscular Hemoglobin 25.1 pg (27.0-31.0); Mean Corpuscular Volume 81.9 fl (81.0-99.0); Mean Platelet Volume 8.7 fL (7.4-10.4); Platelet Count 411 thou/uL (130-400); RBC Distribution Width 20.3 % (11.5-14.5); Red Blood Cell (RBC) Count 3.35 mill/uL (4.20-5.40); White Blood Cell (WBC) Count 8.7 thou/uL (4.8-10.8)
[2017-09-18] MEDS: HumaLOG 300 UNITS/3 ML VIAL SC PRN ×3 (05:54→16:09)
[2017-09-18] MEDS: ALPRAZolam 0.5 MG TAB PO PRN ×2 (05:59→21:38)
[2017-09-18] MEDS: Mometasone/Formoterol 120 PUFF INHALER INH SCH ×2 (06:53→18:14)
[2017-09-18 08:41] LABS: Digoxin 0.82 ng/mL (0.8-2.0)
[2017-09-18] MEDS ORDERED: Carvedilol 6.25 MG TAB PO SCH (09:00)
[2017-09-18] MEDS: Ferrous Sulfate 325 MG TAB PO SCH ×2 (09:08→16:01)
[2017-09-18] MEDS: Famotidine 20 MG TAB PO SCH (09:08)
[2017-09-18] MEDS: predniSONE 20 MG TAB PO SCH ×2 (09:08→21:36)
[2017-09-18] MEDS: Cyanocobalamin (Vitamin B-12) 1,000 MCG TAB PO SCH (09:08)
[2017-09-18] MEDS: Aspirin 81 mg Enteric Coated Tablet PO SCH (09:08)
[2017-09-18] MEDS: Gabapentin 300 MG CAP PO SCH ×3 (09:08→21:35)
[2017-09-18] MEDS: Digoxin 0.125 MG TAB PO SCH (09:08)
[2017-09-18] MEDS: Metoclopramide HCl 10 MG TAB PO SCH ×4 (09:08→21:36)
[2017-09-18] MEDS: Multivit, Therapeutic 1 TAB PO SCH (09:08)
[2017-09-18] MEDS: Cefepime 1 GM, Admixture Fee 1 EACH in Sodium Chloride 0.9% 10 ML SLOW IVP SCH ×2 (09:09→21:43)
[2017-09-18] MEDS: Polyethylene Glycol 3350 17 GM Packet PO SCH (09:09)
[2017-09-18] MEDS: Enoxaparin Sodium 40 MG/0.4 ML SYRINGE SC SCH (09:09)
[2017-09-18] MEDS: Insulin Detemir 100 UNITS/ML 15 UNITS in Pre-Filled Syringe 1 EACH SC SCH ×2 (09:10→21:43)
[2017-09-18] MEDS: Furosemide 40 MG TAB PO SCH (09:12)
[2017-09-18] MEDS: Senokot S 8.6-50 MG TAB PO SCH ×2 (09:15→21:36)
[2017-09-18] MEDS: Guaifenesin DM 100-10/5 ML UDCUP PO PRN ×2 (09:23→21:42)
[2017-09-18] MEDS ORDERED: ALPRAZolam 0.25 MG TAB PO SCH (10:14)
[2017-09-18] MEDS ORDERED: Calcium Carbonate 500 MG ChewTAB PO PRN (10:15)
--- NOTE | 2017-09-18 13:15 | PDOC.PN ---
- Subjective Encounter Start Date: 09/18/17 Encounter Start Time: 13:13 Subjective: feels better.breathing better.on home O2 -: had big bowel movement yesterday - Objective Resuscitation Status: Resuscitation Status FULL:Full Resuscitation MAR Reviewed: Yes Vital Signs & Weight: Vital Signs (12 hours) Temp Pulse Resp BP Pulse Ox 09/18/17 10:31 79 22 H 96 09/18/17 09:08 79 09/18/17 08:00 97.8 F 79 22 H 134/73 96 09/18/17 06:51 84 20 96 Weight Weight 191 lb 8 oz I&O: 09/17/17 09/18/17 09/19/17 06:59 06:59 06:59 Intake Total 2780 1490 Output Total 2350 3250 Balance 430 -1760 Result Diagrams: 09/18/17 04:00 09/18/17 04:00 Additional Labs: Accuchecks 09/18/17 09/18/17 09/17/17 11:20 05:52 20:14 POC Glucose 279 H 220 H 264 H 09/17/17 16:36 POC Glucose 276 H Phys Exam - Physical Examination Constitutional: NAD HEENT: PERRLA, moist MMs, sclera anicteric, oral pharynx no lesions Neck: no nodes, no JVD, supple, full ROM Respiratory: no wheezing, no rales, no rhonchi, clear to auscultation bilateral Cardiovascular: RRR, no significant murmur Gastrointestinal: soft, non-tender, no distention, positive bowel sounds Musculoskeletal: no edema, pulses present Neurological: non-focal, normal sensation, moves all 4 limbs Psychiatric: normal affect, A&O x 3 Skin: no rash Dx/Plan (1) FAHAD (iron deficiency anemia) Code(s): D50.9 - IRON DEFICIENCY ANEMIA, UNSPECIFIED Status: Chronic Comment : Acute drop (2) Pseudomonas urinary tract infection Code(s): N39.0 - URINARY TRACT INFECTION, SITE NOT SPECIFIED; B96.5 - PSEUDOMONAS (MALLEI) CAUSING DISEASES CLASSD ELSWHR Status: Acute (3) Acute and chronic respiratory failure with hypoxia Code(s): J96.21 - ACUTE AND CHRONIC RESPIRATORY FAILURE WITH HYPOXIA Status: Resolved (4) COPD exacerbation Code(s): J44.1 - CHRONIC OBSTRUCTIVE PULMONARY DISEASE W (ACUTE) EXACERBATION Status: Acute (5) CHF (congestive heart failure) Code(s): I50.9 - HEART FAILURE, UNSPECIFIED Status: Chronic Qualifiers: Heart failure type: systolic Comment: h/o systolic CHF but EF improved.AICD in place (6) CKD (chronic kidney disease) stage 3, GFR 30-59 ml/min Status: Chronic (7) DM type 2 (diabetes mellitus, type 2) Status: Chronic Qualifiers: Diabetes mellitus intermediate insulin use: with intermediate accountant use Diabetes mellitus complication status: with unspecified complications Qualified Code(s) : E11.8 - Type 2 diabetes mellitus with unspecified complications; Z79.4 - termite control service representative (current) use of insulin; Z79.4 - alf (current) use of insulin; Z79.4 - termite control service representative (current) use of insulin; Z79.4 - termite control service representative (current) use of insulin Comment: (8) HTN (hypertension) Code(s): I10 - ESSENTIAL (PRIMARY) HYPERTENSION Status: Chronic Qualifiers: Hypertension type: essential hypertension Qualified Code(s): I10 - Essential (primary) hypertension Comment: Stable (9) Physical deconditioning Code(s): R53.81 - OTHER MALAISE Status: Chronic (10) Anxiety disorder Code(s): F41.9 - ANXIETY DISORDER, UNSPECIFIED Status: Chronic Qualifiers: Anxiety disorder type: generalized anxiety disorder Qualified Code(s): F41.1 - Generalized anxiety disorder - Plan espitia catheter, continue antibiotics, PT/OT, respiratory therapy, incentive spirometry, out of bed/ambulate, DVT proph w/SCDs H/H stable post transfusion.monitor.FeSO4.Negative FOBT -: DC IVF.restart home dose of lasix.Currently on IV lasix -: Restart aldactone. -: DC Coreg as recommended by cardiology in past.Pt w Good EF & severe COPD -: Bipap prn .nebs, po steroids.add mucinex * .Cont Cefepime for Pseudomonas UTI.will need at least 5 days, so will need to stay till then.Today is Day#3. * Allergic to Levaquin,the only PO meds against Pseudomonas. * am labs * needs aggressive PT. Review of Systems - Review of Systems Constitutional: weakness, malaise. negative: fever, chills, sweats, other Eyes: negative: Pain, Vision Change, Conjunctivae Inflammation, Eyelid Inflammation, Redness, Other ENT: negative: Ear Pain, Ear Discharge, Nose Pain, Nose Discharge, Nose Congestion, Mouth Pain, Mouth Swelling, Throat Pain, Throat Swelling, Other Respiratory: Cough, SOB with Excertion Cardiovascular: negative: chest pain, palpitations, orthopnea, paroxysmal nocturnal dyspnea, edema, light headedness, other Gastrointestinal: negative: Nausea, Vomiting, Abdominal Pain, Diarrhea, Constipation, Melena, Hematochezia, Other Genitourinary: negative: Dysuria, Frequency, Incontinence, Hematuria, Retention , Other Musculoskeletal: negative: Neck Pain, Shoulder Pain, Arm Pain, Back Pain, Hand Pain, Leg Pain, Foot Pain, Other Skin: negative: Rash, Lesions, Han, Bruising, Other Neurological: negative: Weakness, Numbness, Incoordination, Change in Speech, Confusion, Seizures, Other - Medications/Allergies Allergies/Adverse Reactions: Allergies Allergy/AdvReac Type Severity Reaction Status Date / Time ciprofloxacin HCl Allergy Verified 07/29/17 00:44 [From Cipro] clarithromycin [From Biaxin] Allergy Verified 07/29/17 00:44 codeine Allergy Verified 07/29/17 00:44 Penicillins Allergy Verified 07/29/17 00:44 Medications: Current Medications Acetaminophen (Tylenol) 650 mg PO Q4H PRN PRN Reason: Headache/Fever or Pain Last Admin: 09/17/17 16:08 Dose: 650 mg Albuterol/Ipratropium (Duoneb) 3 ml NEB [id number] ELOINA Last Admin: 09/18/17 10:31 Dose: 3 ml Alprazolam (Xanax) 1 mg PO Q8H PRN PRN Reason: Anxiety Last Admin: 09/18/17 05:59 Dose: 1 mg Aspirin (Ecotrin) 81 mg PO DAILY ELOINA Last Admin: 09/18/17 09:08 Dose: 81 mg Bisacodyl (Dulcolax) 10 mg NH DAILYPRN PRN PRN Reason: Constipation Last Admin: 09/15/17 05:14 Dose: 10 mg Calcium Carbonate (Tums) 1,000 mg PO QIDPRN PRN PRN Reason: Heartburn or Indigestion Last Admin: 09/18/17 10:44 Dose: 1,000 mg Cyanocobalamin (Vitamin B-12) 1,000 mcg PO DAILY [facility] Last Admin: 09/18/17 09:08 Dose: 1,000 mcg Dextrose/Water (Dextrose 50%) 25 gm SLOW IVP PRN PRN PRN Reason: Hypoglycemia Digoxin (Lanoxin) 0.125 mg PO DAILY [facility] Last Admin: 09/18/17 09:08 Dose: 0.125 mg Enoxaparin Sodium (Lovenox) 40 mg SC 899 [facility] Last Admin: 09/18/17 09:09 Dose: 40 mg Famotidine (Pepcid) 20 mg PO 09 [facility] Last Admin: 09/18/17 09:08 Dose: 20 mg Ferrous Sulfate (Feosol) 325 mg PO BID-[facility] Last Admin: 09/18/17 09:08 Dose: 325 mg Furosemide (Lasix) 60 mg PO DAILY [facility] Last Admin: 09/18/17 09:12 Dose: 60 mg Gabapentin (Neurontin) 300 mg PO TID [facility] Last Admin: 09/18/17 09:08 Dose: 300 mg Glucagon (Glucagon) 1 mg IM PRN PRN PRN Reason: Hypoglycemia Guaifenesin/Dextromethorphan (Robitussin Dm) 15 ml PO Q4H PRN PRN Reason: Cough Last Admin: 09/18/17 09:23 Dose: 15 ml Guaifenesin/Dextromethorphan (Robitussin Dm) 10 ml PO Q6H PRN PRN Reason: Cough Last Admin: 09/17/17 16:09 Dose: 10 ml Dextrose/Water (D5w) 1,000 mls @ 0 mls/hr IV .Q0M PRN; As Directed PRN Reason: Hypoglycemia Insulin Detemir 15 units/ (Miscellaneous Medication) 0.15 mls @ 0 mls/hr SC BID [facility] Last Admin: 09/18/17 09:10 Dose: 0.15 mls Cefepime HCl 1 gm/Miscellaneous Medication 1 each/ Sodium Chloride 10 mls @ 120 mls/hr SLOW IVP Q12HR [facility] Last Admin: 09/18/17 09:09 Dose: 10 mls Insulin Human Lispro (Humalog) 0 units SC .MODERATE SLIDING SC PRN PRN Reason: Moderate Correctional Scale Last Admin: 09/18/17 12:56 Dose: 6 units Insulin Human Lispro (Humalog) 0 units SC .BEDTIME SLIDING SC PRN PRN Reason: Bedtime Correctional Scale Last Admin: 09/17/17 21:07 Dose: 2 unit Lactulose (Lactulose) 10 gm PO DAILYPRN PRN PRN Reason: Constipation Last Admin: 09/16/17 09:53 Dose: 10 gm Melatonin (Melatonin) 3 mg PO HS [facility] Last Admin: 09/17/17 21:03 Dose: 3 mg Metoclopramide HCl (Reglan) 10 mg PO ACHS [facility] Last Admin: 09/18/17 10:44 Dose: 10 mg Mometasone Furoate/Formoterol Fumar (Dulera 200 Mcg/5 Mcg Inhaler) 2 puff INH BID-RT [facility] Last Admin: 09/18/17 06:53 Dose: 2 puff Multivitamins (Theragran) 1 tab PO DAILY [facility] Last Admin: 09/18/17 09:08 Dose: 1 tab Polyethylene Glycol (Miralax) 17 gm PO DAILY [facility] Last Admin: 09/18/17 09:09 Dose: 17 gm Prednisone (Prednisone) 20 mg PO BID [facility] Last Admin: 09/18/17 09:08 Dose: 20 mg Senna/Docusate Sodium (Senokot S) 2 tab PO BID [facility] Last Admin: 09/18/17 09:15 Dose: Not Given Sodium Biphosphate/Sodium Phosphate (Fleet Enema) 133 ml NH DAILY PRN PRN Reason: Constipation Last Admin: 09/17/17 17:12 Dose: 133 ml Sodium Chloride (Flush - Normal Saline) 10 ml IVF Q12HR [facility] Last Admin: 09/18/17 09:15 Dose: 10 ml Sodium Chloride (Flush - Normal Saline) 10 ml IVF PRN PRN PRN Reason: Saline Flush Spironolactone (Aldactone) 25 mg PO DAILY [facility] Tramadol HCl (Ultram) 50 mg PO Q6H PRN PRN Reason: Breakthrough Pain
[2017-09-18] MEDS ORDERED: guaiFENesin ER 600 MG TAB PO SCH (13:30)
--- NOTE | 2017-09-18 15:07 | PRG ---
DATE OF SERVICE: 09/18/2017 SUBJECTIVE: She says she is better. She received transfusion of packed cells yesterday for low hemo globin and hematocrit. OBJECTIVE: VITAL SIGNS: Blood pressure 134/73, sats are 96 on 3 liters, respirations 22, and temperature 97. CHEST: Chest reveals no wheezing. CARDIAC: Normal S1, S2. No gallops. ABDOMEN: Soft. No masses. LABORATORY DATA: Hemoglobin and hematocrit is 8 and 27. White count is 8000. Glucose 220. ASSESSMENT AND PLAN: Chronic obstructive pulmonary disease, congestive heart failure, depression, an xiety, urinary tract infection. PLAN: I keep switching patient to oral antibiotics. Hospitalist keeps changing the patient to IV an tibiotics. I see no reason to put the patient on IV antibiotics as she has got UTI, probably coloniz ation.
[2017-09-18] MEDS ORDERED: Mometasone/Formoterol 120 PUFF INHALER INH SCH (18:30)
[2017-09-18] MEDS: guaiFENesin ER 600 MG TAB PO SCH (21:35)
[2017-09-18] MEDS: Melatonin 3 MG TAB PO SCH (21:36)
[2017-09-19] MEDS: ALPRAZolam 0.5 MG TAB PO PRN ×2 (05:41→21:46)
[2017-09-19] MEDS: Mometasone/Formoterol 120 PUFF INHALER INH SCH ×2 (07:28→18:00)
[2017-09-19] MEDS: Gabapentin 300 MG CAP PO SCH ×3 (07:49→20:13)
[2017-09-19] MEDS: Digoxin 0.125 MG TAB PO SCH (07:49)
[2017-09-19] MEDS: guaiFENesin ER 600 MG TAB PO SCH ×2 (07:51→20:13)
[2017-09-19] MEDS: Metoclopramide HCl 10 MG TAB PO SCH ×4 (07:52→20:13)
[2017-09-19] MEDS: Ferrous Sulfate 325 MG TAB PO SCH ×2 (07:52→16:44)
[2017-09-19] MEDS: Senokot S 8.6-50 MG TAB PO SCH ×2 (07:52→20:11)
[2017-09-19] MEDS: Multivit, Therapeutic 1 TAB PO SCH (07:52)
[2017-09-19] MEDS: Aspirin 81 mg Enteric Coated Tablet PO SCH (07:52)
[2017-09-19] MEDS: Furosemide 40 MG TAB PO SCH (07:54)
[2017-09-19] MEDS: Cefepime 1 GM, Admixture Fee 1 EACH in Sodium Chloride 0.9% 10 ML SLOW IVP SCH ×2 (07:55→20:11)
[2017-09-19] MEDS: predniSONE 20 MG TAB PO SCH ×2 (07:55→20:13)
[2017-09-19] MEDS: Enoxaparin Sodium 40 MG/0.4 ML SYRINGE SC SCH (07:55)
[2017-09-19] MEDS: Cyanocobalamin (Vitamin B-12) 1,000 MCG TAB PO SCH (07:55)
[2017-09-19] MEDS: Insulin Detemir 100 UNITS/ML 15 UNITS in Pre-Filled Syringe 1 EACH SC SCH ×2 (07:56→20:17)
[2017-09-19] MEDS: Spironolactone 25 MG TAB PO SCH (07:58)
[2017-09-19] MEDS: Polyethylene Glycol 3350 17 GM Packet PO SCH (07:58)
[2017-09-19] MEDS: Famotidine 20 MG TAB PO SCH (07:59)
[2017-09-19] MEDS ORDERED: Furosemide 20 MG TAB PO SCH (09:00)
[2017-09-19] MEDS: HumaLOG 300 UNITS/3 ML VIAL SC PRN ×3 (11:54→20:15)
--- NOTE | 2017-09-19 14:31 | PDOC.PN ---
- Subjective Encounter Start Date: 09/19/17 Encounter Start Time: 14:29 Patient seen and examined, remains confused, no new issues per nursing staff, no family at bedside. - Objective Resuscitation Status: Resuscitation Status FULL:Full Resuscitation Vital Signs & Weight: Vital Signs (12 hours) Temp Pulse Resp BP Pulse Ox 09/19/17 14:25 77 16 09/19/17 10:47 80 16 09/19/17 08:09 97.7 F 76 20 137/64 97 09/19/17 08:00 97.7 F 80 16 09/19/17 07:49 79 09/19/17 07:29 80 16 Weight Weight 190 lb 4.8 oz I&O: 09/18/17 09/19/17 09/20/17 06:59 06:59 06:59 Intake Total 1490 505 Output Total 3250 3700 Balance -4360 -6976 Result Diagrams: 09/18/17 04:00 09/18/17 04:00 Additional Labs: Accuchecks 09/19/17 09/19/17 09/18/17 11:55 04:39 20:06 POC Glucose 285 H 186 H 211 H 09/18/17 16:10 POC Glucose 217 H Phys Exam - Physical Examination Constitutional: NAD HEENT: PERRLA, moist MMs, sclera anicteric Neck: no nodes, no JVD, supple Respiratory: no wheezing, no rales, no rhonchi Cardiovascular: RRR, no significant murmur, no rub Gastrointestinal: soft, non-tender, no distention Musculoskeletal: pulses present, edema present (trace) Dx/Plan (1) JOE (acute kidney injury) Code(s): N17.9 - ACUTE KIDNEY FAILURE, UNSPECIFIED Status: Acute Comment: resolving (2) Anxiety disorder Code(s): F41.9 - ANXIETY DISORDER, UNSPECIFIED Status: Chronic Qualifiers: Anxiety disorder type: generalized anxiety disorder Qualified Code(s): F41.1 - Generalized anxiety disorder (3) Chronic anemia Code(s): D64.9 - ANEMIA, UNSPECIFIED Status: Chronic (4) FAHAD (iron deficiency anemia) Code(s): D50.9 - IRON DEFICIENCY ANEMIA, UNSPECIFIED Status: Chronic Comment : Acute drop (5) Acute and chronic respiratory failure with hypoxia Code(s): J96.21 - ACUTE AND CHRONIC RESPIRATORY FAILURE WITH HYPOXIA Status: Resolved (6) COPD exacerbation Code(s): J44.1 - CHRONIC OBSTRUCTIVE PULMONARY DISEASE W (ACUTE) EXACERBATION Status: Acute (7) Demand ischemia Code(s): I24.8 - OTHER FORMS OF ACUTE ISCHEMIC HEART DISEASE Status: Acute (8) DM type 2 (diabetes mellitus, type 2) Status: Chronic Qualifiers: Diabetes mellitus intermediate frame tender insulin use: with intermediate frame tender use Diabetes mellitus complication status: with unspecified complications Qualified Code(s) : E11.8 - Type 2 diabetes mellitus with unspecified complications; Z79.4 - long term care pharmacist (current) use of insulin; Z79.4 - long term care pharmacist (current) use of insulin; Z79.4 - long term care pharmacist (current) use of insulin; Z79.4 - [facility] (current) use of insulin Comment: (9) HTN (hypertension) Code(s): I10 - ESSENTIAL (PRIMARY) HYPERTENSION Status: Chronic Qualifiers: Hypertension type: essential hypertension Qualified Code(s): I10 - Essential (primary) hypertension Comment: Stable (10) Physical deconditioning Code(s): R53.81 - OTHER MALAISE Status: Chronic - Plan * continue PT/OT * monitor Hgb for now, patient stating she'd like to not have an EGD if possible , Hgb stable for now * cont home oxygen * palliative care consulted and following * no family at bedside * guarded-poor prognosis, call placed to emergency contact at [phone] ( Nicole Lugo) but no answer * will request CM and palliative care to help with snf goals of care, patient would benefit from palliative care at residential * DC plans in 24-48hrs once out patient care arrangements done and Hgb remains stable * labs in AM * Patient came from [facility] * No family at bedside
[2017-09-19] MEDS: Melatonin 3 MG TAB PO SCH (21:46)
[2017-09-20 04:51] LABS: #Eosinphils 0.1 thou/uL (0.0-0.7); #Lymphocytes 0.4 thou/uL (1.20-3.40); #Monocytes 0.5 thou/uL (0.11-0.59); #Neutrophils 8.2 thou/uL (1.40-6.50); %Eosinophils 0.7 % (0.0-10.0); %Lymphocytes 4.2 % (21.0-51.0); %Monocytes 5.8 % (0.0-10.0); %Neutrophils 89.3 % (42.0-75.0); Hemoglobin 8.6 g/dL (12.0-16.0); Mean Corpuscular HGB CONC 30.7 g/dL (32.0-36.0); Mean Corpuscular Hemoglobin 24.4 pg (27.0-31.0); Mean Corpuscular Volume 79.7 fl (81.0-99.0); Mean Platelet Volume 8.4 fL (7.4-10.4); Platelet Count 363 thou/uL (130-400); RBC Distribution Width 20.1 % (11.5-14.5); White Blood Cell (WBC) Count 9.2 thou/uL (4.8-10.8)
[2017-09-20 05:04] LABS: Anion Gap 8 mmol/L (10-20); BUN (Urea Nitrogen) 27 mg/dL (9.8-20.1); Calc. Creatinine Clearance 80 mL/min (70-130); Carbon Dioxide 32 mmol/L (23-31); Chloride 102 mmol/L (98-107); Estimated GFR-MDRD 71; Glucose 236 mg/dL (83-110); Potassium 4.6 mmol/L (3.5-5.1); Sodium 137 mmol/L (136-145)
[2017-09-20] MEDS: HumaLOG 300 UNITS/3 ML VIAL SC PRN ×2 (06:02→12:15)
[2017-09-20] MEDS: Mometasone/Formoterol 120 PUFF INHALER INH SCH (07:28)
[2017-09-20 08:06] VITALS: BP 120/64; TEMP 98.2
[2017-09-20] MEDS: Famotidine 20 MG TAB PO SCH (08:22)
[2017-09-20] MEDS: Furosemide 40 MG TAB PO SCH (08:22)
[2017-09-20] MEDS: Metoclopramide HCl 10 MG TAB PO SCH ×2 (08:23→12:23)
[2017-09-20] MEDS: Digoxin 0.125 MG TAB PO SCH (08:23)
[2017-09-20] MEDS: Gabapentin 300 MG CAP PO SCH (08:23)
[2017-09-20] MEDS: ALPRAZolam 0.5 MG TAB PO PRN (08:23)
[2017-09-20] MEDS: Senokot S 8.6-50 MG TAB PO SCH (08:24)
[2017-09-20] MEDS: guaiFENesin ER 600 MG TAB PO SCH (08:24)
[2017-09-20] MEDS: Enoxaparin Sodium 40 MG/0.4 ML SYRINGE SC SCH (08:26)
[2017-09-20] MEDS: Cyanocobalamin (Vitamin B-12) 1,000 MCG TAB PO SCH (08:26)
[2017-09-20] MEDS: Ferrous Sulfate 325 MG TAB PO SCH (08:26)
[2017-09-20] MEDS: Multivit, Therapeutic 1 TAB PO SCH (08:26)
[2017-09-20] MEDS: Spironolactone 25 MG TAB PO SCH (08:26)
[2017-09-20] MEDS: predniSONE 20 MG TAB PO SCH (08:26)
[2017-09-20] MEDS: Polyethylene Glycol 3350 17 GM Packet PO SCH (08:27)
[2017-09-20] MEDS: Aspirin 81 mg Enteric Coated Tablet PO SCH (08:31)
--- NOTE | 2017-09-20 09:08 | PDOC.PN ---
- Subjective Encounter Start Date: 09/20/17 Encounter Start Time: 12:45 Subjective: Patient feeling better. More energy since transfusion. Breathing -: ok on her 3L home O2. Wants to go back to SNF. - Objective Resuscitation Status: Resuscitation Status FULL:Full Resuscitation MAR Reviewed: Yes Vital Signs & Weight: Vital Signs (12 hours) Temp Pulse Resp BP Pulse Ox 09/20/17 08:23 99 09/20/17 08:05 98.2 F 99 16 120/64 86 L 09/20/17 07:26 70 16 98 09/19/17 22:33 75 16 99 Weight Weight 190 lb 4.8 oz I&O: 09/19/17 09/20/17 09/21/17 06:59 06:59 06:59 Intake Total 505 500 Output Total 3700 0631 Balance -5258 -2942 Result Diagrams: 09/20/17 04:15 09/20/17 04:15 Additional Labs: Accuchecks 09/20/17 09/19/17 09/19/17 04:42 23:59 19:47 POC Glucose 239 H 244 H 356 H 09/19/17 09/19/17 16:48 11:55 POC Glucose 296 H 285 H Phys Exam - Physical Examination Constitutional: NAD HEENT: moist MMs Respiratory: no wheezing, no rales, no rhonchi Cardiovascular: RRR, no significant murmur Gastrointestinal: soft, positive bowel sounds Neurological: non-focal Psychiatric: normal affect, A&O x 3 Dx/Plan (1) Acute and chronic respiratory failure with hypoxia Code(s): J96.21 - ACUTE AND CHRONIC RESPIRATORY FAILURE WITH HYPOXIA Status: Resolved (2) COPD exacerbation Code(s): J44.1 - CHRONIC OBSTRUCTIVE PULMONARY DISEASE W (ACUTE) EXACERBATION Status: Acute (3) Pseudomonas urinary tract infection Code(s): N39.0 - URINARY TRACT INFECTION, SITE NOT SPECIFIED; B96.5 - PSEUDOMONAS (MALLEI) CAUSING DISEASES CLASSD ELSWHR Status: Resolved Comment : Possibly colonization, completed sufficient days of Cefepime, will d/c abx (4) JOE (acute kidney injury) Code(s): N17.9 - ACUTE KIDNEY FAILURE, UNSPECIFIED Status: Resolved (5) Anxiety disorder Code(s): F41.9 - ANXIETY DISORDER, UNSPECIFIED Status: Chronic Qualifiers: Anxiety disorder type: generalized anxiety disorder Qualified Code(s): F41.1 - Generalized anxiety disorder (6) Chronic anemia Code(s): D64.9 - ANEMIA, UNSPECIFIED Status: Chronic Comment: stable (7) Demand ischemia Code(s): I24.8 - OTHER FORMS OF ACUTE ISCHEMIC HEART DISEASE Status: Resolved (8) DM type 2 (diabetes mellitus, type 2) Status: Chronic Qualifiers: Diabetes mellitus prison insulin use: with termite control representative use Diabetes mellitus complication status: with unspecified complications Qualified Code(s) : E11.8 - Type 2 diabetes mellitus with unspecified complications; Z79.4 - senior living (current) use of insulin; Z79.4 - senior living (current) use of insulin; Z79.4 - middle or intermediate school principal (current) use of insulin; Z79.4 - middle or intermediate school principal (current) use of insulin Comment: (9) Diabetic gastroparesis Code(s): E11.43 - TYPE 2 DIABETES W DIABETIC AUTONOMIC (POLY)NEUROPATHY; K31.84 - GASTROPARESIS Status: Chronic Comment: (10) HTN (hypertension) Code(s): I10 - ESSENTIAL (PRIMARY) HYPERTENSION Status: Chronic Qualifiers: Hypertension type: essential hypertension Qualified Code(s): I10 - Essential (primary) hypertension Comment: Stable - Plan cont current plan of care, PT/OT Plan on transfer back to SNF when arranged. * . - Discharge Day Encounter end time: 13:20
[2017-09-20] MEDS: Cefepime 1 GM, Admixture Fee 1 EACH in Sodium Chloride 0.9% 10 ML SLOW IVP SCH (09:33)
[2017-09-20] MEDS: Insulin Detemir 100 UNITS/ML 15 UNITS in Pre-Filled Syringe 1 EACH SC SCH (09:47)
--- NOTE | 2017-09-21 01:36 | DIS ---
PRIMARY CARE PHYSICIAN: Angeli Brewer. REASON FOR ADMISSION: Chronic obstructive pulmonary disease exacerbation. DISCHARGE DIAGNOSES: 1. Acute on chronic hypoxic respiratory failure, resolved. 2. Chronic obstructive pulmonary disease exacerbation. 3. Pseudomonas urinary tract infection versus colonization. 4. Acute kidney injury, resolved. 5. Anxiety disorder. 6. Chronic anemia. 7. Demand ischemia. 8. Diabetes mellitus type 2. 9. Diabetic gastroparesis. 10. Hypertension. PROCEDURES: None. CONSULTATIONS: Pulmonology, Dr. Montgomery. LABORATORY DATA: Hemoglobin 8.6 at discharge, creatinine 0.78 at discharge. Urine culture growing b ack greater than 100,000 colony forming units of Pseudomonas aeruginosa sensitive to cefepime, ciprof loxacin, and Zosyn. SUMMARY OF HOSPITAL COURSE: This is a 77-year-old white female with a known history of COPD, normall y [facility] 3 liters [facility] who presented with worsening shortness of breath at [facility] where she is in a [facility] unit for a broken right ankle. She also had increase d yellowish green sputum and was saturating 84-86% on 3 liter nasal cannula. Patient was admitted to the [facility]. Pulmonology was consulted. She did have to be placed on BiPAP temporarily. The patient was given IV steroids, IV antibiotics. She also had dirty urine, so it was cultured; however, she is not having any urinary tract symptoms and her white blood cell count was normal on her CBC when she was admitted. The patient had slow improvement during hospitalization. She did grow out Pseudomonas for which she was treated with cefepime IV for about 7 days, but never had any symptoms for. She wa s able to be weaned down to her 3 liters of oxygen. She was found to be anemic. This is a chronic p roblem that she has dealt with for a long time with no evidence of acute bleeding. She did have a tr ansfusion and felt more energetic after that on the day of discharge, was ready to go back to the [facility]. DISCHARGE MANAGEMENT: Discharge back to [facility] facility in [place]. ACTIVITY: As tolerated. DIET: Diabetic diet. THERAPY: Occupational and physical therapy. She is being given nebulizers and oxygen. DISCHARGE MEDICATIONS: Resume home medications. No changes. TIME SPENT: I did spend 35 minutes arranging the details of this discharge.
== END 2017-09-20 15:37 | DRG 189 ==
LOC: ERS 21:50 → ERHOLD 09-13 00:41 → IMCU/EMU 09-13 16:00 → T4-B 09-16 12:13
PROVIDERS: ADMIT Internal Medicine Infectious Disease; ATTEND Internal Medicine Infectious Disease
PROC: 5A09357 Assistance with Respiratory Ventilation, Less than 24 Consecutive Hours, Continuous Positive Airway Pressure (ICD-10-PCS; principal; 2017-09-13)
PROC: 30233N1 Transfusion of Nonautologous Red Blood Cells into Peripheral Vein, Percutaneous Approach (ICD-10-PCS; 2017-09-17)
DX: J96.21 Acute and chronic respiratory failure with hypoxia (principal); N17.9 Acute kidney failure, unspecified; I24.8 Other forms of acute ischemic heart disease; K31.84 Gastroparesis; J44.1 Chronic obstructive pulmonary disease with (acute) exacerbation; I50.32 Chronic diastolic (congestive) heart failure; N39.0 Urinary tract infection, site not specified; Z51.5 Encounter for palliative care; I11.0 Hypertensive heart disease with heart failure; E11.43 Type 2 diabetes mellitus with diabetic autonomic (poly)neuropathy; Z99.81 Dependence on supplemental oxygen; E78.5 Hyperlipidemia, unspecified; F41.9 Anxiety disorder, unspecified; F32.9 Major depressive disorder, single episode, unspecified; B96.5 Pseudomonas (aeruginosa) (mallei) (pseudomallei) as the cause of diseases classified elsewhere; Z87.891 Personal history of nicotine dependence; Z85.41 Personal history of malignant neoplasm of cervix uteri; Z92.3 Personal history of irradiation; Z88.1 Allergy status to other antibiotic agents; Z88.5 Allergy status to narcotic agent; Z88.0 Allergy status to penicillin; Z79.82 Long term (current) use of aspirin; Z79.4 Long term (current) use of insulin; Z79.899 Other long term (current) drug therapy; Z95.0 Presence of cardiac pacemaker
CPT/HCPCS: 36415; 36416; 36430; 71045; 80048; 80053; 80162; 81003; 81015; 82274; 82553; 82607; 82728; 82746; 82805; 83540; 83550; 83605; 83735; 83880; 84484; 85025; 85060; 86850; 86900; 86901; 87040; 87077; 87086; 87186; 93005; 93010; 94640; 94660; 94760; 96374; A4216; G8978-GP-CM; G8979-GP-CJ; J0692; J1650; J1815; J1885; J1940; J2060; J2920; J7050; J7506; J7611; J7620; J7626; P9016

== ENCOUNTER 2017-10-10 11:51 | Inpatient (IN) | payer MEDICARE ==
[2017-10-10 12:26] LABS: Actual Bicarbonate (HCO3a) 28.6 mEq/L (22-26); Base Excess (BEa) 3.4 mEq/L (0 (+/-) 2.5); CO2 Tension 47.1 mmHg (35.0-45.0); Hemoglobin (Hb) 8.2 g/dL (12.0-16.0); O2 Tension (PaO2) 61.2 mmHg (80.0-100.0)
[2017-10-10 12:27] LABS: Analyzer IN Cardio ER; Calcium, Ionized 1.5 mmol/L (1.12-1.30); Puncture Site RRA
[2017-10-10 12:28] LABS: ALV-art Gradient 165.125 (0-20)
[2017-10-10] MEDS ORDERED: methylPREDNISolone Sod Succ/PF 125 MG/2 ML VIAL ONE (12:29)
[2017-10-10 12:52] LABS: Hemoglobin 8.5 g/dL (12.0-16.0); Mean Corpuscular HGB CONC 29.8 g/dL (32.0-36.0); Mean Corpuscular Hemoglobin 23.7 pg (27.0-31.0); Mean Corpuscular Volume 79.7 fl (81.0-99.0); Mean Platelet Volume 7.5 fL (7.4-10.4); Platelet Count 676 thou/uL (130-400); RBC Distribution Width 20.1 % (11.5-14.5); Red Blood Cell (RBC) Count 3.58 mill/uL (4.20-5.40); White Blood Cell (WBC) Count 14.2 thou/uL (4.8-10.8)
--- NOTE | 2017-10-10 13:15 | RAD ---
PORTABLE CHEST 1 VIEW: Date: 10/10/17 Time: 1221 hours HISTORY: Dyspnea. FINDINGS: Comparison made with exam of 09/12/17. The heart size is upper limits of normal. Aorta is tortuous. Left-sided AICD remains in place. Lungs are well expanded without lobar consolidation, pneumothorax, or pleural effusions. IMPRESSION: No acute process. POS: [facility]
[2017-10-10 13:16] LABS: ALT (SGPT) 15 U/L (8-55); AST (SGOT) 19 U/L (5-34); Albumin 3.6 g/dL (3.4-4.8); Alkaline Phosphatase 65 U/L (40-150); Anion Gap 14 mmol/L (10-20); BUN (Urea Nitrogen) 24 mg/dL (9.8-20.1); Bilirubin, Total 0.3 mg/dL (0.2-1.2); Calc. Creatinine Clearance 0 mL/min (70-130); Calcium 11.1 mg/dL (7.8-10.44); Carbon Dioxide 26 mmol/L (23-31); Chloride 101 mmol/L (98-107); Estimated GFR-MDRD 48; Globulin 3.2 g/dL (2.4-3.5); Glucose 139 mg/dL (83-110); Potassium 4.3 mmol/L (3.5-5.1); Protein, Total 6.8 g/dL (6.0-8.3); Sodium 137 mmol/L (136-145)
[2017-10-10 13:23] LABS: #Eosinphils 0.2 thou/uL (0.0-0.7); #Lymphocytes 0.7 thou/uL (1.20-3.40); #Monocytes 0.8 thou/uL (0.11-0.59); #Neutrophils 12.6 thou/uL (1.40-6.50); %Basophils 0.1 % (0.0-1.0); %Eosinophils 1.1 % (0.0-10.0); %Lymphocytes 4.7 % (21.0-51.0); %Monocytes 5.9 % (0.0-10.0); %Neutrophils 88.2 % (42.0-75.0); Anisocytosis SLIGHT = 6-15 cells (100X) (0-5/hpf); Hypochromia SLIGHT = 6-15 cells (100X) (0-5/hpf); MDiff Complete? YES; PLT Morphology Comment Appears Increased
[2017-10-10 13:26] LABS: Bilirubin Negative (Negative); Blood, Urine Negative (Negative); Clarity CLEAR (Clear); Glucose, Urine (Dipstick) Negative (Negative); Leukocyte Small (Negative); Nitrite Negative (Negative); Protein, Urine (Dipstick) Negative (Neg-Trace); Specific Gravity, Urine 1.013 (1.002-1.036); Urobilinogen 0.2 mg/dL (0.2-1.0); pH, Urine 5.5 (5.0-9.0)
[2017-10-10 13:52] LABS: Bacteria/HPF None Seen HPF (None Seen); Hyaline Casts/LPF 0-3 HYALINE CAST LPF (0-3 Hyaline); RBC/HPF None Seen HPF (0-3); Squamous Epithelial 0-3 HPF (0-3)
[2017-10-10 13:54] LABS: Renal Epithelial None Seen HPF (0-3); Transitional Epithelial NONE SEEN HPF (0-3)
[2017-10-10] MEDS ORDERED: cefTRIAXone\\ROCEPHIN 1 GM in Sodium Chloride 0.9% 100 ML IVPB SCH (15:00)
[2017-10-10] MEDS ORDERED: ALPRAZolam 1 MG TAB PO PRN (15:01)
[2017-10-10] MEDS ORDERED: Acetaminophen 325 MG TAB PO PRN (15:04)
[2017-10-10] MEDS ORDERED: Zolpidem Tartrate 5 MG TAB PO PRN (15:04)
[2017-10-10] MEDS ORDERED: Dextrose 50% Abboject 50 ML SYRINGE SLOW IVP PRN (15:13)
[2017-10-10] MEDS ORDERED: Dextrose 5% in Water 1,000 ML IV PRN (15:13)
[2017-10-10] MEDS ORDERED: Acetaminophen 500 MG TAB ONE (15:55)
--- NOTE | 2017-10-10 15:59 | HP ---
DATE OF ADMISSION: 10/10/2017 CHIEF COMPLAINT: Shortness of breath. HISTORY OF PRESENT ILLNESS: This is a 77-year-old female who was admitted to the hospital coming int o ER due to worsening shortness of breath. The patient was apparently here a few days ago, just rece ntly discharged about a week ago for similar issues. The patient was [facility] to a [facility] an d now is presenting with similar complaints. The patient lives at [facility], at prior d ischarge is where she was sent. Patient currently states that the shortness of breath started to get progressively, was getting really bad starting overnight this morning, and she came to the ER. In t he ER, the patient received antibiotics and was placed on BiPAP and has had some relief since then. Patient currently states that she still has a little bit of shortness of breath, but is significantly better while on the BiPAP from earlier today. Patient otherwise denies any other complaints. No as sociated factors. No other alleviating or aggravating factors. Patient does not have any other comp laints to talk about, states that this has happened to her before. ALLERGIES: FLUOROQUINOLONES, CLARITHROMYCIN, CODEINE, and PENICILLINS. PAST MEDICAL HISTORY: Pertinent for CKD stage 3, COPD, anxiety disorder, chronic anemia, diabetes me llitus type 2, gastroparesis, hypertension as well as coronary artery disease. FAMILY HISTORY: Both sides had diabetes and high blood pressure in mother and father. SOCIAL HISTORY: The patient denies any smoking or drinking currently, did use to smoke, but quit a f ew years back. MEDICATIONS: See MAR. REVIEW OF SYSTEMS: All review of systems reviewed. Pertinent positives in the HPI, otherwise negati ve. PHYSICAL EXAMINATION: VITAL SIGNS: Blood pressure is 102/85, respiratory rate is 18, temperature is 98.5, however, earlier during the day at [facility] was supposedly 101, heart rate of 88. GENERAL: Patient in mild respiratory discomfort, lying in bed. HEENT: Pupils equal, round, react to light and accommodation bilaterally. Extraocular muscles intac t. BiPAP mask in place. Oral cavity appears dry. CARDIOVASCULAR: Regular rate and rhythm. S1 and S2. No murmurs, rubs or gallops appreciated. PULMONARY: Clear to auscultation bilaterally aerating well. Mild respiratory distress. No wheezing appreciated. ABDOMEN: Positive bowel sounds, soft, nontender, no rebound or guarding. EXTREMITIES: 2+ peripheral pulses bilaterally. No edema noted. No loss of motor function. NEUROLOGIC: Cranial nerves II-XII intact bilaterally. Alert and oriented x3 and no loss of motor or sensory function. LABORATORY DATA: CBC reveals a white count of 14.2, hemoglobin 8.2, MCV of 80, platelet count of 676 . ABG: pH 7.4, pCO2 of 47, pO2 61. Basic metabolic panel shows a BUN of 24, creatinine 1.09, lacti c acid of 2.6, calcium of 11.1. Urinalysis shows small leukocyte esterase is 11-20 wbc count. Recen t chest x-ray done which reveals no acute cardiopulmonary process. ASSESSMENT: 1. Chronic obstructive pulmonary disease exacerbation. 2. Hypertension. 3. Diabetes mellitus type 2. 4. Hyperlipidemia. 5. Anxiety disorder. 6. Chronic kidney disease stage 3. PLAN: At this point in time, we will admit the patient in IMCU. We will start the patient on steroi ds, dual antibiotics with azithromycin and Rocephin. We will also continue home medications as appro priate. Place the patient on insulin sliding scale as well as low dose long-acting insulin. GI and DVT prophylaxis. The patient wishes to remain a FULL CODE at this point in time. Case and plan disc ussed with the patient at length. She understands and agrees with this plan.
[2017-10-10] MEDS ORDERED: Azithromycin 500 MG in Sodium Chloride 0.9% 250 ML 250 ML IVPB SCH ×2 (16:00→18:00)
[2017-10-10 16:34] VITALS: BMI 30.1
[2017-10-10 17:20] LABS: Lactic Acid 1.7 mmol/L (0.5-2.2)
[2017-10-10] MEDS: Mometasone/Formoterol 120 PUFF INHALER INH SCH (19:47)
[2017-10-10] MEDS: Cefepime 1 GM, Admixture Fee 1 EACH in Sodium Chloride 0.9% 10 ML SLOW IVP SCH (20:46)
[2017-10-10] MEDS: Melatonin 3 MG TAB PO SCH (20:47)
[2017-10-10] MEDS: Gabapentin 300 MG CAP PO SCH (20:47)
[2017-10-10] MEDS: Heparin 5,000 UNITS/ML VIAL SC SCH (20:48)
[2017-10-10] MEDS: Carvedilol 3.125 MG TAB PO SCH (20:48)
[2017-10-10] MEDS ORDERED: Cefepime 1 GM in Sodium Chloride 0.9% 100 ML IVPB SCH (21:00)
[2017-10-10] MEDS: HumaLOG 300 UNITS/3 ML VIAL SC PRN (21:30)
--- NOTE | 2017-10-11 05:41 | CON ---
DATE OF CONSULTATION: 10/10/2017 HISTORY OF PRESENT ILLNESS: A 77-year-old female who was brought in from the [place] [facility] with acute respiratory distress. She was on BiPAP in the MICU, she was transferred on BiPAP. It was briefly r emoved to talk to her. She states for the last week, she is having difficulty breathing and now has been coughing some grossly yellow sputum. This morning, her condition got worse. She told them to c all 911 and she was brought to the hospital. A chest x-ray shows a questionable left upper lung infi ltrate. Though, her sats right now are 100% on 2 liters, pulse is 70, blood pressure 130/80, respira tions 30. She is clearly dyspneic. The patient has been here numerous times, well outlined in all o ur extensive medical history. She carries a diagnosis of severe COPD; diastolic dysfunction; previou s systolic heart function; history of multiple intubations; history of chronic tobacco abuse, though she has quit smoking way back 10 years ago; history of SVT. PAST SURGICAL HISTORY: Previous surgeries include tonsils, pacemaker, appendix, cataract surgery, ce rvical cancer surgery. SOCIAL HISTORY: Tobacco, a pack a day for 30 years, quit smoking 10 years ago. Alcohol, none. MEDICATIONS: Medicine from home, long list including Mucinex, Aldactone 25, Reglan 10, gabapentin 30 0 three times a day, Lasix 60, Lanoxin 0.125, Coreg 3.125, Xanax 1 mg p.r.n., tramadol p.r.n., nebuli zer several times a day, Symbicort 160 several times a day, aspirin 81. ALLERGIES: CIPRO, BIAXIN, CODEINE, and PENICILLIN. REVIEW OF SYSTEMS: Otherwise, 10-point negative as noted. PHYSICAL EXAMINATION: VITAL SIGNS: Sats are 97% to 100% on supplemental oxygen 2 liters; pulse 80; respirations 25-30, she is having difficulty breathing; blood pressure 160/80. CHEST: Extensive rhonchi and crackles bilaterally. CARDIOVASCULAR: Normal S1 and S2. No gallops. ABDOMEN: Soft. EXTREMITIES: 1+ edema. NEUROLOGIC: She is awake, alert, responsive, very appropriate. LABORATORY DATA: PO2 is 61, pCO2 of 47.40, on a BiPAP, minute ventilation was 17%. White count 14,0 00, H&H ____, platelet count is normal at 676. Chemistry profile shows BUN and creatinine are normal . ASSESSMENT: 1. Acute on chronic respiratory failure. 2. End-stage chronic obstructive pulmonary disease. 3. Systolic dysfunction with severe deconditioning with multiple intubations. PLAN: I have increased Maxipime to cover Pseudomonas. She has had previous UTI with this. Continue steroids, neb treatments, supportive care. Prognosis remains guarded. She wants all supportive care. If her condition gets worse, she will be intubated. Forty five minutes critical care time.
[2017-10-11 05:57] LABS: Anion Gap 11 mmol/L (10-20); BUN (Urea Nitrogen) 31 mg/dL (9.8-20.1); Calc. Creatinine Clearance 53 mL/min (70-130); Calcium 10.2 mg/dL (7.8-10.44); Carbon Dioxide 29 mmol/L (23-31); Chloride 100 mmol/L (98-107); Estimated GFR-MDRD 47; Glucose 261 mg/dL (83-110); Potassium 4.9 mmol/L (3.5-5.1); Sodium 135 mmol/L (136-145)
[2017-10-11] MEDS: HumaLOG 300 UNITS/3 ML VIAL SC PRN ×3 (06:01→20:54)
[2017-10-11] MEDS: Mometasone/Formoterol 120 PUFF INHALER INH SCH ×2 (07:40→19:06)
[2017-10-11 09:35] LABS: #Lymphocytes 0.5 thou/uL (1.20-3.40); #Monocytes 1.1 thou/uL (0.11-0.59); #Neutrophils 17.8 thou/uL (1.40-6.50); %Eosinophils 0.1 % (0.0-10.0); %Lymphocytes 2.6 % (21.0-51.0); %Monocytes 5.6 % (0.0-10.0); %Neutrophils 91.6 % (42.0-75.0); Hemoglobin 7.1 g/dL (12.0-16.0); Mean Corpuscular HGB CONC 29.6 g/dL (32.0-36.0); Mean Corpuscular Hemoglobin 23.5 pg (27.0-31.0); Mean Corpuscular Volume 79.4 fl (81.0-99.0); Mean Platelet Volume 7.5 fL (7.4-10.4); Platelet Count 457 thou/uL (130-400); RBC Distribution Width 19.7 % (11.5-14.5); Red Blood Cell (RBC) Count 3.01 mill/uL (4.20-5.40); White Blood Cell (WBC) Count 19.4 thou/uL (4.8-10.8)
--- NOTE | 2017-10-11 09:58 | PRG ---
DATE OF SERVICE: 10/11/2017 This morning, she is better. PHYSICAL EXAMINATION: VITAL SIGNS: Sats are 100% on 2 liters, respirations 20, temperature 98, blood pressure 122/56. CHEST: Chest revealed decreased breath sounds, no wheezing. CARDIAC: Normal S1-S2. No gallops. ABDOMEN: Soft. No masses. IMPRESSION: End-stage chronic obstructive pulmonary disease, better. PLAN: Switch over to oral prednisone, oral antibiotics. PT and supportive care. Hopefully, can be discharged back to the assisted in the next several days.
[2017-10-11 10:04] LABS: Band 41 % (5-11); Eosinophils 1 % (0-10); Hypochromia SLIGHT = 6-15 cells (100X) (0-5/hpf); Lymphocytes 2 % (21-51); Metamyelocyte 1 % (0-0); Microcytosis SLIGHT = 6-15 cells (100X) (0-5/hpf); Monocytes 7 % (0-10); Ovalocytes SLIGHT = 2-5 cells (100X) (0-1/hpf); PLT Morphology Comment Appears Increased; Polychromasia SLIGHT = 2-3 cells (100X) (0-2/hpf)
[2017-10-11] MEDS: Furosemide 40 MG TAB PO SCH (10:17)
[2017-10-11] MEDS: Spironolactone 25 MG TAB PO SCH (10:17)
[2017-10-11] MEDS: Digoxin 0.125 MG TAB PO SCH (10:18)
[2017-10-11] MEDS: Cefepime 1 GM, Admixture Fee 1 EACH in Sodium Chloride 0.9% 10 ML SLOW IVP SCH ×2 (10:18→20:51)
[2017-10-11] MEDS: Gabapentin 300 MG CAP PO SCH ×3 (10:18→20:50)
[2017-10-11] MEDS: Carvedilol 3.125 MG TAB PO SCH ×2 (10:18→20:51)
[2017-10-11] MEDS: Heparin 5,000 UNITS/ML VIAL SC SCH ×2 (10:18→20:54)
[2017-10-11] MEDS: Bisacodyl 10 MG SUPP PR SCH (10:53)
--- NOTE | 2017-10-11 11:07 | PDOC.PN ---
- Subjective Encounter Start Date: 10/11/17 Encounter Start Time: 11:05 Patient seen and examined, states she feels better today, improved SOB but not back to baseline, seen and examined, all questions answered. - Objective Vital Signs & Weight: Vital Signs (12 hours) Temp Pulse Resp BP Pulse Ox 10/11/17 10:18 72 10/11/17 08:00 98.6 F 72 20 100 10/11/17 07:14 98.6 F 72 20 123/56 L 100 10/11/17 04:00 98.5 F 74 20 112/49 L 99 10/11/17 02:56 72 100 10/11/17 00:00 97.8 F 71 18 123/56 L 100 Weight Weight 183 lb 3.2 oz I&O: 10/10/17 10/11/17 10/12/17 06:59 06:59 06:59 Intake Total 520 Balance 520 Result Diagrams: 10/11/17 05:08 10/11/17 05:08 Additional Labs: Accuchecks 10/11/17 10/10/17 06:02 20:53 POC Glucose 277 H 316 H Phys Exam - Physical Examination Constitutional: NAD HEENT: PERRLA, moist MMs, sclera anicteric Neck: no nodes, no JVD, supple coarse breath sounds B/L productive cough Cardiovascular: RRR, no significant murmur, no rub Gastrointestinal: soft, non-tender, no distention Musculoskeletal: pulses present, edema present (trace) Neurological: non-focal, normal sensation Dx/Plan (1) COPD exacerbation Code(s): J44.1 - CHRONIC OBSTRUCTIVE PULMONARY DISEASE W (ACUTE) EXACERBATION Status: Acute (2) Anxiety disorder Code(s): F41.9 - ANXIETY DISORDER, UNSPECIFIED Status: Chronic Qualifiers: (3) CHF (congestive heart failure) Code(s): I50.9 - HEART FAILURE, UNSPECIFIED Status: Chronic Comment: h/o systolic CHF but EF improved.AICD in place (4) CKD (chronic kidney disease) stage 3, GFR 30-59 ml/min Status: Chronic (5) DM type 2 (diabetes mellitus, type 2) Status: Chronic Qualifiers: Comment: - Plan * patient feeling better * cont w/ abx and bipap as needed * labs in AM * IMCU for 24 more hours, can likely transfer to telemetry in AM if feeling well * cont current plan of care
--- NOTE | 2017-10-11 13:59 | PQF ---
DATE: 10-11-17 ATTN: DR. BRITTANIE MONTES Please exercise your independent, professional judgment in responding to the clarification form. Clinical indicators are provided on the bottom of this form for your review Please check appropriate box(s): [ ] UTI [ x ] Contaminated urine specimen without UTI [ ] Other diagnosis [ ] Unable to determine In addition, please specify: Present on Admission (POA): [ ] Yes [ ] No [ x ] Unable to determine For continuity of documentation, please document condition throughout progress notes and discharge summary. Thank You. CLINICAL INDICATORS - SIGNS / SYMPTOMS / LABS URINE: 10-10-17: UR LEUKOCYTE ESTERASE: SMALL H URINE WBC: 11-[address] PEÑA 10-10-17: I HAVE INCREASED MAXAPIME TO COVER PSEUDOMONAS. SHE HAS HAD PREVIOUS UTI WITH THIS. H&P: TEMP 98.5, HOWEVER,EARLIER DURING THE DAY AT [facility] WAS SUPPOSEDLY 101 RISK FACTORS: H&P: PT FROM [facility], HX OF CKD3, COPD, CHRONIC ANEMIA, DM 2, GASTROPARESIS, HTN, CAD TREATMENT: (MAR ) MAXIPIME IV, ZITHROMAX, ROCEPHIN, VANCOMYCIN (This form is maintained as a part of the permanent medical record) 2014 [employer], [employer]. All Rights Reserved YESSENIA [email or web address] Office: [phone] MARITA
--- NOTE | 2017-10-11 14:16 | PQF ---
DATE: 10-11-17 ATTN: DR. BRITTANIE MONTES Please exercise your independent, professional judgment in responding to the clarification form. Clinical indicators are provided on the bottom of this form for your review Please check appropriate box(es): [ x ] Sepsis due to: ( UTI, etc.) bronchitis [ ] SIRS due to non-infectious process (please specify etiology) [ ] with organ dysfunction [ ] without organ dysfunction [ ] Severe sepsis with acute organ dysfunction of: (Examples: respiratory failure, acute kidney failure, other) [ ] Other diagnosis [ ] Unable to determine In addition, please specify: Present on Admission (POA): [ x ] Yes [ ] No [ ] Unable to determine For continuity of documentation, please document condition throughout progress notes and discharge summary. Thank You. CLINICAL INDICATORS - SIGNS / SYMPTOMS / LABS ER DIAGNOSIS: SEPSIS, REP DISTRESS CONSULT NOTE DR. PEÑA 10-10-17: I HAVE INCREASED MAXIPIME O COVER PSEUDOMONAS. SHE HAS HAD PREVIOUS UTI WITH THIS. TEMP: H&P: TEMPERATURE IS 98.5, HOWEVER, EARLIER DURING THE DAY WAS SUPPOSEDLY 101 WBC: 10-10-17: 14.2, 10-11-17: 19.4 BANDS: 10-11-17: 41 LACTIC ACID: 10-10-17: 2.6 RISK FACTORS: CONSULT NOTE DR. PEÑA 10-10-17: I HAVE INCREASED MAXIPIME O COVER PSEUDOMONAS. SHE HAS HAD PREVIOUS UTI WITH THIS. ADVANCED AGE TREATMENTS: (MAR ) MAXIPIME, ROCEPHIN, VANCOMYCIN, ZITHROMAX MTDD
[2017-10-11] MEDS ORDERED: cefTRIAXone\\ROCEPHIN 1 GM, Syringe 0.4 ML in Sterile Water 9.6 ML SLOW IVP SCH (15:00)
[2017-10-11] MEDS ORDERED: Calcium Carbonate 500 MG ChewTAB PO PRN (20:37)
[2017-10-11] MEDS: Melatonin 3 MG TAB PO SCH (20:51)
[2017-10-12 04:42] LABS: #Lymphocytes 0.4 thou/uL (1.20-3.40); #Monocytes 0.6 thou/uL (0.11-0.59); %Eosinophils 0.2 % (0.0-10.0); %Lymphocytes 2.7 % (21.0-51.0); %Monocytes 3.9 % (0.0-10.0); %Neutrophils 93.2 % (42.0-75.0); Mean Corpuscular HGB CONC 29.8 g/dL (32.0-36.0); Mean Corpuscular Hemoglobin 23.6 pg (27.0-31.0); Mean Platelet Volume 7.4 fL (7.4-10.4); Platelet Count 495 thou/uL (130-400); RBC Distribution Width 19.4 % (11.5-14.5); Red Blood Cell (RBC) Count 2.97 mill/uL (4.20-5.40)
[2017-10-12 04:51] LABS: Anion Gap 14 mmol/L (10-20); BUN (Urea Nitrogen) 36 mg/dL (9.8-20.1); Calc. Creatinine Clearance 58 mL/min (70-130); Calcium 10.5 mg/dL (7.8-10.44); Carbon Dioxide 29 mmol/L (23-31); Chloride 98 mmol/L (98-107); Estimated GFR-MDRD 52; Glucose 321 mg/dL (83-110); Sodium 136 mmol/L (136-145)
[2017-10-12] MEDS: HumaLOG 300 UNITS/3 ML VIAL SC PRN ×4 (05:52→21:04)
[2017-10-12] MEDS: Mometasone/Formoterol 120 PUFF INHALER INH SCH ×2 (07:31→19:30)
[2017-10-12] MEDS: Carvedilol 3.125 MG TAB PO SCH ×2 (08:22→21:05)
[2017-10-12] MEDS: Azithromycin 250 MG TAB PO SCH (08:22)
[2017-10-12] MEDS: Digoxin 0.125 MG TAB PO SCH (08:22)
[2017-10-12] MEDS: Spironolactone 25 MG TAB PO SCH (08:22)
[2017-10-12] MEDS: Gabapentin 300 MG CAP PO SCH ×3 (08:22→21:04)
[2017-10-12] MEDS: Heparin 5,000 UNITS/ML VIAL SC SCH ×2 (08:23→21:04)
[2017-10-12] MEDS: Furosemide 40 MG TAB PO SCH (08:24)
[2017-10-12] MEDS: Bisacodyl 10 MG SUPP PR SCH (08:33)
--- NOTE | 2017-10-12 08:44 | PRG ---
DATE OF SERVICE: 10/12/2017 This morning she is awake, alert, responsive, appears to be in no distress. PHYSICAL EXAMINATION: VITAL SIGNS: Sats are 98 on 2 liters, respiration rate 18, temperature 97, blood pressure 144/63. S he ____ the BiPAP last night. CHEST: Chest reveals decreased breath sounds, no wheezing. CARDIAC: Normal S1, S2, no gallops. ABDOMEN: Soft, no masses. LABORATORY DATA: White count 15,000, H&H 7 and 23, platelet count 495. Electrolytes are normal. IMPRESSION: 1. Chronic obstructive pulmonary disease exacerbation. 2. Bronchitis. 3. Possible pneumonia, improved. PLAN: Discontinue IV antibiotics. Discontinue IV steroids. She can be transferred back to the [facility] home in the next 24-48 hours.
[2017-10-12] MEDS: Melatonin 3 MG TAB PO SCH (21:05)
[2017-10-13 05:45] LABS: #Eosinphils 0.1 thou/uL (0.0-0.7); #Lymphocytes 0.6 thou/uL (1.20-3.40); #Monocytes 0.7 thou/uL (0.11-0.59); #Neutrophils 9.6 thou/uL (1.40-6.50); %Eosinophils 0.8 % (0.0-10.0); %Lymphocytes 5.1 % (21.0-51.0); %Monocytes 6.1 % (0.0-10.0); Hemoglobin 6.9 g/dL (12.0-16.0); Mean Corpuscular HGB CONC 30.2 g/dL (32.0-36.0); Mean Corpuscular Hemoglobin 23.6 pg (27.0-31.0); Mean Corpuscular Volume 78.2 fl (81.0-99.0); Platelet Count 484 thou/uL (130-400); RBC Distribution Width 19.1 % (11.5-14.5); Red Blood Cell (RBC) Count 2.92 mill/uL (4.20-5.40); White Blood Cell (WBC) Count 10.9 thou/uL (4.8-10.8)
[2017-10-13 05:56] LABS: Anion Gap 7 mmol/L (10-20); BUN (Urea Nitrogen) 37 mg/dL (9.8-20.1); Calc. Creatinine Clearance 68 mL/min (70-130); Calcium 10.3 mg/dL (7.8-10.44); Carbon Dioxide 36 mmol/L (23-31); Chloride 99 mmol/L (98-107); Estimated GFR-MDRD 61; Glucose 232 mg/dL (83-110); Potassium 3.8 mmol/L (3.5-5.1); Sodium 138 mmol/L (136-145)
[2017-10-13] MEDS ORDERED: predniSONE 20 MG TAB PO SCH (08:00)
[2017-10-13] MEDS: Mometasone/Formoterol 120 PUFF INHALER INH SCH (08:00)
[2017-10-13] MEDS ORDERED: Furosemide 20 MG/2 ML VIAL IVP SCH (09:00)
--- NOTE | 2017-10-13 09:05 | PDOC.PN ---
- Subjective Encounter Start Date: 10/12/17 Encounter Start Time: 14:25 -: old records requested/rev Pt seen and exmained, chart reviewed in its entirety. This is my first viit with this patient was in IMCU, transferred to medical earlier by Dr Lomax. Admitted fro AECOPD and bronchitis. Hx tib fx 08/2017 with ABLA and Fe deficiency. hgb remains low. Breathing better, pt normally on 3L O2, 98% on 2L Now No F/C, minimal cough, no CP, no N/V/D/C, no new comaqplints 10 point ROS performed and neg for all systems except as per HPI - Objective MAR Reviewed: Yes Vital Signs & Weight: Vital Signs (12 hours) Pulse Resp Pulse Ox 10/13/17 08:00 70 16 98 10/13/17 07:59 70 18 98 10/13/17 03:10 72 16 97 10/12/17 22:39 70 16 96 Weight Weight 184 lb 8 oz I&O: 10/12/17 10/13/17 10/14/17 06:59 06:59 06:59 Intake Total 360 Output Total 240 Balance 120 Result Diagrams: 10/13/17 05:28 10/13/17 05:28 Additional Labs: Accuchecks 10/13/17 10/12/17 10/12/17 05:31 20:04 16:25 POC Glucose 237 H 283 H 265 H 10/12/17 10:41 POC Glucose 282 H Radiology Reviewed by me: Yes EKG Reviewed by me: Yes Phys Exam - Physical Examination Constitutional: NAD HEENT: PERRLA, moist MMs, sclera anicteric, oral pharynx no lesions Neck: no nodes, no JVD, supple, full ROM Respiratory: no rales, no rhonchi, clear to auscultation bilateral no wheezing, but prolonged expiration Cardiovascular: RRR, no significant murmur, no rub Gastrointestinal: soft, non-tender, no distention, positive bowel sounds Musculoskeletal: pulses present, edema present Neurological: non-focal, normal sensation, moves all 4 limbs Lymphatic: no nodes Psychiatric: normal affect, A&O x 3 Skin: no rash, normal turgor, cap refill <2 seconds Dx/Plan (1) Chronic anemia Code(s): D64.9 - ANEMIA, UNSPECIFIED Status: Chronic Comment: stable (2) JOE (acute kidney injury) Code(s): N17.9 - ACUTE KIDNEY FAILURE, UNSPECIFIED Status: Resolved (3) Anxiety disorder Code(s): F41.9 - ANXIETY DISORDER, UNSPECIFIED Status: Chronic Qualifiers: Anxiety disorder type: unspecified anxiety disorder Qualified Code(s): F41.9 - Anxiety disorder, unspecified (4) Acute and chronic respiratory failure with hypoxia Code(s): J96.21 - ACUTE AND CHRONIC RESPIRATORY FAILURE WITH HYPOXIA Status: Resolved (5) FAHAD (iron deficiency anemia) Code(s): D50.9 - IRON DEFICIENCY ANEMIA, UNSPECIFIED Status: Chronic Comment : Acute drop (6) Physical deconditioning Code(s): R53.81 - OTHER MALAISE Status: Chronic (7) COPD exacerbation Code(s): J44.1 - CHRONIC OBSTRUCTIVE PULMONARY DISEASE W (ACUTE) EXACERBATION Status: Acute (8) DM type 2 (diabetes mellitus, type 2) Status: Chronic Qualifiers: Diabetes mellitus halfway 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
--- NOTE | 2017-10-13 09:37 | PRG ---
DATE OF SERVICE: 10/13/2017 SUBJECTIVE: Awake, alert, responsive. OBJECTIVE: VITAL SIGNS: Sats are 90 on 2 liters, pulse 70, respirations 16, blood pressure is 147/65. CHEST: With decreased breath sounds, no wheezing. CARDIAC: Normal S1, S2, no gallops. ABDOMEN: Soft, no masses. LABORATORY DATA: H&H is 6.9 and 22, white count 10,000. Electrolytes are normal. IMPRESSION: 1. Congestive heart failure. 2. Chronic obstructive pulmonary disease. 3. Severe deconditioning. 4. Anemia. PLAN: Agree with transfusion. Taper prednisone to baseline of 5-10 a day.
[2017-10-13] MEDS: Furosemide 40 MG TAB PO SCH (10:21)
[2017-10-13] MEDS: Carvedilol 3.125 MG TAB PO SCH (10:21)
[2017-10-13] MEDS: Bisacodyl 10 MG SUPP PR SCH (10:22)
[2017-10-13] MEDS: Azithromycin 250 MG TAB PO SCH (10:22)
[2017-10-13] MEDS: Gabapentin 300 MG CAP PO SCH ×2 (10:22→14:52)
[2017-10-13] MEDS: Digoxin 0.125 MG TAB PO SCH (10:22)
[2017-10-13] MEDS: Spironolactone 25 MG TAB PO SCH (10:22)
[2017-10-13] MEDS: Heparin 5,000 UNITS/ML VIAL SC SCH (10:23)
[2017-10-13 10:50] VITALS: TEMP 98
[2017-10-13 16:17] VITALS: BP 153/66
== END 2017-10-13 16:00 | DRG 871 ==
LOC: ERS 11:51 → IMCU/EMU 16:18 → ONC 10-12 13:44
PROVIDERS: ADMIT Internal Medicine; ATTEND Internal Medicine
PROC: 5A09357 Assistance with Respiratory Ventilation, Less than 24 Consecutive Hours, Continuous Positive Airway Pressure (ICD-10-PCS; principal; 2017-10-10)
DX: A41.9 Sepsis, unspecified organism (principal); J96.21 Acute and chronic respiratory failure with hypoxia; I50.32 Chronic diastolic (congestive) heart failure; I13.0 Hypertensive heart and chronic kidney disease with heart failure and stage 1 through stage 4 chronic kidney disease, or unspecified chronic kidney disease; N17.9 Acute kidney failure, unspecified; J20.9 Acute bronchitis, unspecified; N18.3 Chronic kidney disease, stage 3 (moderate); D41.9 Neoplasm of uncertain behavior of unspecified urinary organ; D64.9 Anemia, unspecified; E11.9 Type 2 diabetes mellitus without complications; I25.10 Atherosclerotic heart disease of native coronary artery without angina pectoris; Z88.8 Allergy status to other drugs, medicaments and biological substances; Z88.1 Allergy status to other antibiotic agents; Z88.5 Allergy status to narcotic agent; Z88.0 Allergy status to penicillin; J44.9 Chronic obstructive pulmonary disease, unspecified; F41.9 Anxiety disorder, unspecified; Z87.891 Personal history of nicotine dependence; Z95.0 Presence of cardiac pacemaker; D50.9 Iron deficiency anemia, unspecified; Z79.82 Long term (current) use of aspirin; Z79.4 Long term (current) use of insulin; Z79.84 Long term (current) use of oral hypoglycemic drugs
CPT/HCPCS: 36415; 36416; 36430; 51701; 71045; 80048; 80053; 81003; 81015; 82805; 83605; 85025; 86850; 86900; 86901; 87040; 87086; 93005; 94640; 94660; 94664; 96365; 96375; A4216; A4353; G8978-GP-CL; G8979-GP-CI; J0456; J0692; J0696; J1644; J1940; J2920; J2930; J3370; J7050; J7506; J7620; P9016

== ENCOUNTER 2017-10-20 11:07 | Outpatient (CLI) | payer MEDICARE ==
--- NOTE | 2017-10-20 12:20 | RAD ---
ABDOMEN 2 VIEWS: Date: 10/20/17 HISTORY: Hernia. Possible incarcerated. COMPARISON: None. FINDINGS: There are air-filled loops of small bowel in the left hemiabdomen. Based on the lateral projection, o bvious air-filled bowel loop is not appreciated beyond the expected region of the peritoneal margin. However, given the presence of small bowel distention, the possibility of an obstructing/incarcerated hernia cannot be excluded. Abdomen and pelvis CT is recommended. There is fecal material in the righ t hemicolon. IMPRESSION: Small bowel obstruction is suspected. Etiology is uncertain. Abdomen and pelvic CT with oral and IV c ontrast is recommended. CODE T. POS: [facility]
== END 2017-10-20 11:08 | disposition home or self-care (01) ==
LOC: RAD-FRANK 11:07
PROVIDERS: ATTEND Nurse Practitioner Family
DX: R10.9 Unspecified abdominal pain (principal)
CPT/HCPCS: 74018; 74019

== ENCOUNTER 2017-10-20 13:44 | Inpatient (IN) | payer MEDICARE ==
[~2017-10-20 13:44] MED LIST: ISOVUE-370 76%-LOCM 1 ML ONE; Lidocaine 1% PF 5 ML VIAL ONE; PHENYLEPHRINE-NS 100 MCG/ML 10 ML SYRINGE ONE; PROPOFOL 200 MG/20 ML VIAL ONE; Succinylcholine Chloride 20 MG/ML 10 ml SYRINGE FS ONE
[2017-10-20 15:01] LABS: Hemoglobin 9.7 g/dL (12.0-16.0); Mean Corpuscular Hemoglobin 24.7 pg (27.0-31.0); Mean Corpuscular Volume 82.4 fl (81.0-99.0); Platelet Count 506 thou/uL (130-400); RBC Distribution Width 21.9 % (11.5-14.5); Red Blood Cell (RBC) Count 3.93 mill/uL (4.20-5.40); White Blood Cell (WBC) Count 22.4 thou/uL (4.8-10.8)
[2017-10-20 15:18] LABS: ALT (SGPT) 10 U/L (8-55); AST (SGOT) 11 U/L (5-34); Albumin 3.3 g/dL (3.4-4.8); Alkaline Phosphatase 58 U/L (40-150); Anion Gap 11 mmol/L (10-20); BUN (Urea Nitrogen) 26 mg/dL (9.8-20.1); Bilirubin, Total 0.4 mg/dL (0.2-1.2); Calc. Creatinine Clearance 0 mL/min (70-130); Calcium 10.5 mg/dL (7.8-10.44); Carbon Dioxide 30 mmol/L (23-31); Chloride 98 mmol/L (98-107); Estimated GFR-MDRD 60; Globulin 2.9 g/dL (2.4-3.5); Glucose 152 mg/dL (83-110); Lipase 18 U/L (8-78); Potassium 4.4 mmol/L (3.5-5.1); Protein, Total 6.2 g/dL (6.0-8.3); Sodium 135 mmol/L (136-145)
[2017-10-20 15:22] LABS: CKMB 1.4 ng/mL (0-6.6)
[2017-10-20 15:23] LABS: Anisocytosis SLIGHT = 6-15 cells (100X) (0-5/hpf); Hypochromia SLIGHT = 6-15 cells (100X) (0-5/hpf); Lymphocytes 4 % (21-51); MDiff Complete? YES; Monocytes 1 % (0-10); Neutrophil 95 % (42-75); PLT Morphology Comment Appears Increased
[2017-10-20 16:04] LABS: Bilirubin Negative (Negative); Blood, Urine Negative (Negative); Clarity CLEAR (Clear); Glucose, Urine (Dipstick) Negative (Negative); Leukocyte Small (Negative); Nitrite Negative (Negative); Protein, Urine (Dipstick) 30 mg/dL (Neg-Trace); Specific Gravity, Urine 1.012 (1.002-1.036); Urobilinogen 0.2 mg/dL (0.2-1.0)
[2017-10-20 16:10] LABS: Bacteria/HPF None Seen HPF (None Seen); Hyaline Casts/LPF 0-3 HYALINE CAST LPF (0-3 Hyaline); Pathc Cast-AUWi Flag 0.14 (0-2.49); RBC/HPF 0-3 HPF (0-3); Squamous Epithelial 0-3 HPF (0-3); WBC/HPF 21-50 HPF (0-3)
[2017-10-20 16:12] LABS: Yeast-AUWi Flag 87.6 (0-25.0)
[2017-10-20 16:29] LABS: Yeast-All Forms 2+ HPF (None Seen)
--- NOTE | 2017-10-20 17:07 | CT ---
CT ABDOMEN AND PELVIS WITH CONTRAST: HISTORY: 77-year-old female with abdominal pain and possible bowel obstruction. COMPARISON: 08/22/16 TECHNIQUE: Multiple contiguous axial images were obtained in a CT of the abdomen and pelvis with contrast. Coron al reformats were performed. FINDINGS: There are small calcifications in the dependent aspect of the gallbladder. There are hypodensities in both kidneys measuring up to 2.5 cm in size which represents cysts. There is a stable lesion versus lesions in the right adrenal gland measuring up to 1.7 cm in size. These may contain macroscopic fat and represent myelolipomas. No focal liver lesions are seen. The spleen and pancreas are unremarkable . The patient has an umbilical hernia. This contains a loop of small bowel. The small bowel proximal to this hernia is distended measuring up to 4.0 cm in size. The small bowel distal to this hernia is de compressed. No free air, free fluid or stranding changes are seen in the abdomen or pelvis. The colo n contains a moderate amount of stool. There is scattered diverticula in the left colon. There are calcified fibroids in the uterus which is small and atrophic. Atherosclerotic calcification s are seen in the aorta. No abdominal or pelvic lymphadenopathy are seen. Degenerative changes are seen in the spine. There are small bilateral pleural effusions with adjacent atelectasis. IMPRESSION: 1. The patient has an umbilical hernia containing small bowel. There appears to be a small bowel obstruction secondary to an incarcerated hernia. 2. Diverticulosis. 3. Fibroid uterus. 4. Bilateral renal cysts. 5. Small bilateral pleural effusions with adjacent atelectasis. 6. Cholelithiasis. POS: [facility]
[2017-10-20] MEDS ORDERED: MEROPENEM 1 GM/50 ML 1 GM in Premix Bag 1 BAG IVPB SCH (17:30)
[2017-10-20] MEDS ORDERED: HYDROmorphone 0.5 MG/0.5 ML SYRINGE ONE (17:43)
[2017-10-20] MEDS ORDERED: Fentanyl 100 MCG/2 ML VIAL ONE ×2 (17:43)
[2017-10-20] MEDS ORDERED: Midazolam HCl 2 mg/2 ml Vial ONE (17:43)
[2017-10-20] MEDS ORDERED: Albuterol Sulfate 2.5 mg/3 ml Neb ONE (18:01)
--- NOTE | 2017-10-20 18:57 | HP ---
HISTORY OF PRESENT ILLNESS: A 77-year-old female in [facility] for rehab due to an orthop edic injury. She states she walked 100 feet today with a walker. On 09/05/2017, had a normal right hip x-ray; 09/05/2017, right foot x-ray was unremarkable; 09/05/2017, x-ray demonstrated minimally di splaced right fibular neck fracture. She has been undergoing rehabilitation for this injury. Weight bearing as tolerated. She presents today with 2 days of nausea and vomiting, distention, appreciated in the ER to have an incarcerated umbilical hernia, unable to reduce it. CAT scan verifies a bowel obstruction with incarcerated small bowel. ALLERGIES: CIPRO, CLARITHROMYCIN, CODEINE, PENICILLINS. TOBACCO: None, since 1991. ALCOHOL: None, since 1986. PAST SURGICAL HISTORY: Pacemaker, followed Dr. Mcdermott; appendectomy; tonsillectomy. PAST MEDICAL HISTORY: Cervical cancer treated with radiation therapy, diastolic dysfunction, cardiom yopathy. Echocardiogram, 07/2017, 55% EF, normal LV function, diastolic dysfunction. I have discuss ed with Dr. Mcdermott and her main problem is COPD, asthma. Chronic obstructive pulmonary disease, asth ma, followed by Dr. Lomax. She is on BiPAP occasionally. Dr. Lomax saw her couple of months ago. Shasta coleman currently is not wheezing. She has not had her nebulizers today. Dr. Lomax saw her on hospital in September. CKD, anxiety, chronic anemia. She has had colonoscopies with Dr. Turner. She has had upper endoscopy by Dr. Khan in the last 2 years. REVIEW OF SYSTEMS: Otherwise, noncontributory. PHYSICAL EXAMINATION: GENERAL: Patient is in no distress. ABDOMEN: Protuberant. VITAL SIGNS: 146/58, 84, 20, 98.4 degrees, 79 kilograms. HEAD, EYES, EARS, NOSE and THROAT: Unremarkable. LUNGS: Clear to auscultation, no wheezing. CARDIAC: Regular rate and rhythm. Pacemaker left chest. ABDOMEN: Distended, tympanitic, protuberant, incarcerated umbilical hernia, very tender. EXTREMITIES: She has chronic venous stasis changes. There is no obvious deformity. LABORATORIES: White count 22, hemoglobin 9.7. Sodium 135, BUN 26, creatinine 0.9, glucose 152, calc ium 10.5. ASSESSMENT AND PLAN: 1. Incarcerated umbilical hernia with small-bowel obstruction, dehydration. Plan emergent operative intervention. Risk of infection, bleeding, reoperation discussed. We have called her sister on sev eral occasions and family is aware. The patient understands the risks of infection, bleeding, reoper ation and necessity of postop ventilation. She will be in the ICU postoperatively. 2. Chronic obstructive pulmonary disease, asthma. Consult Pulmonary Medicine preoperatively. I hav e discussed with Dr. Pettit, nebulizer treatment now. 3. Cardiomyopathy with diastolic dysfunction, EF 50%-55%, echocardiogram followed Dr. Mcdermott, [facility]. Plan perioperative Cardiology followup. 4. Mild chronic kidney disease. 5. Recent fibular fracture, undergoing rehabilitation.
[2017-10-20] MEDS ORDERED: Sodium Chloride 0.9% 30 ML ONE (19:25)
[2017-10-20] MEDS ORDERED: Dextrose 50% Abboject 50 ML SYRINGE SLOW IVP PRN (20:03)
[2017-10-20] MEDS ORDERED: Morphine 4 MG/ML VIAL SLOW IVP PRN ×2 (20:03)
[2017-10-20] MEDS ORDERED: hydrALAZINE 20 MG/ML VIAL SLOW IVP PRN (20:03)
[2017-10-20] MEDS ORDERED: Dextrose 5% in Water 1,000 ML IV PRN (20:03)
[2017-10-20] MEDS ORDERED: Sodium Chloride 0.9% 1,000 ML IV SCH (20:45)
[2017-10-20] MEDS ORDERED: Famotidine/PF 20 mg/2ml Vial SLOW IVP SCH (21:00)
[2017-10-20] MEDS: Lactated Ringer's 1,000 ML IV SCH (21:05)
[2017-10-20 21:39] LABS: Actual Bicarbonate (HCO3a) 27.5 mEq/L (22-26); Base Excess (BEa) 4.5 mEq/L (0 (+/-) 2.5); CO2 Tension 34.6 mmHg (35.0-45.0); Hematocrit-ABG 31.7 % (36.0-47.0); Hemoglobin (Hb) 8.9 g/dL (12.0-16.0); O2 Tension (PaO2) 120.5 mmHg (80.0-100.0); pH, Arterial 7.52 (7.35-7.45)
[2017-10-20 21:40] LABS: Calcium, Ionized 1.4 mmol/L (1.12-1.30); Puncture Site LINE
--- NOTE | 2017-10-20 21:46 | RAD ---
PORTABLE CHEST: 10/20/17 HISTORY: Dyspnea. COMPARISON: 09/30/17 study. Heart size appears slightly enlarged with internal defibrillator device present. Endotracheal and NG tubes are in satisfactory position. A right subclavian line is seen with catheter tip overlying the s uperior vena cava. There is increased density in the basis suggesting effusions with atelectasis or i nfiltrate. IMPRESSION: 1. Bibasilar pleural and parenchymal lung changes suggesting atelectasis or infiltrate with effu sions. 2. Endotracheal and NG tubes and right subclavian line appear in satisfactory position. No signs of pneumothorax. POS: [facility]
--- NOTE | 2017-10-20 21:47 | RAD ---
KUB: 10/20/17 HISTORY: NG tube placement. This film only includes the upper abdomen. It confirms the presence of the NG tube with the tip overl cooper the lower lumbar spine presumably within the antrum region of the stomach. IMPRESSION: NG tube with tip below the hemidiaphragm. POS: [facility]
[2017-10-20] MEDS ORDERED: Meropenem 1 GM in Sodium Chloride 0.9% 100 ML IVPB SCH (22:00)
[2017-10-20] MEDS ORDERED: Lorazepam 2 MG/ML VIAL SLOW IVP PRN (22:02)
[2017-10-20] MEDS ORDERED: fentaNYL Citrate/PF 2,000 MCG in Sodium Chloride 0.9% 60 ML IV SCH (22:02)
[2017-10-20] MEDS ORDERED: Propofol BOLUS 1,000 MG/100 ML VIAL IV PRN (22:02)
[2017-10-20] MEDS ORDERED: DISCONTINUE PREVIOUS NARCOTIC PAIN MEDICATIONS AND BENZODIAZEPINES FS SCH (22:02)
[2017-10-20] MEDS ORDERED: Fentanyl BOLUS 250 ML IVPB PRN (22:02)
[2017-10-20] MEDS: Enoxaparin Sodium 30 MG/0.3 ML SYRINGE SC SCH (22:08)
[2017-10-20] MEDS: Propofol 1,000 MG/100 ML VIAL IV PRN (22:08)
[2017-10-21] MEDS: Morphine 4 MG/ML VIAL SLOW IVP PRN (00:44)
[2017-10-21] MEDS: MEROPENEM 1 GM/50 ML 1 GM in Premix Bag 1 BAG IVPB SCH ×3 (02:13→18:03)
--- NOTE | 2017-10-21 04:37 | OP ---
DATE OF OPERATION: 10/20/2017 PREOPERATIVE DIAGNOSIS: Incarcerated umbilical hernia with small-bowel obstruction. POSTOPERATIVE DIAGNOSIS: Strangulated umbilical hernia with small-bowel obstruction, poor IV access procedure. PROCEDURE: Right subclavian vein central line. Laparotomy, small bowel resection, anastomosis, umbi lical hernia repair. Wound left open to heal by secondary intention . SURGEON: Alfredo Cantu MD ANESTHESIA: General. PROCEDURE IN DETAIL: The patient was taken to the operating room in supine position under general an esthesia, Zuniga catheter was placed. Right chest was prepared with ChloraPrep, draped in routine fas hion. Trocar catheter cannulated the subclavian vein and J-wire threaded. Trocar catheter removed. Seldinger technique used to place a triple-lumen catheter, securing it with 3-0 nylon suture. Steri le dressing applied. Each port aspirated blood and flushed with saline solution. Abdomen prepared w ith chloraprep, draped in routine fashion. Incision made about the umbilicus over the incarcerated h ernia mass. strangulated segment of small bowel, dissected free from the fascia. Fascia opene d, small bowel delivered from the wound. The small bowel resection undertaken, dividing the mesenter y with the LigaSure and created a small bowel anastomosis side to side with 2 fires of the ROBE staple r, resecting the small bowel segment to pathology. Staple line reinforced with interrupted Lembert s uture of 3-0 silk. Mesenteric closed with 3-0 silk fascia approximated with continuous suture of #1 PDS after excising the hernia sac. Skin irrigated. Skin approximated with rod in the midline, l eft open above and below and wet to dry dressings applied for wound VAC application tomorrow. Deborah osorio tolerated the procedure well and she was transferred to Intensive Care Unit in stable condition on the ventilator.
[2017-10-21 05:56] LABS: ALT (SGPT) 8 U/L (8-55); AST (SGOT) 10 U/L (5-34); Albumin 2.8 g/dL (3.4-4.8); Alkaline Phosphatase 49 U/L (40-150); Anion Gap 11 mmol/L (10-20); BUN (Urea Nitrogen) 22 mg/dL (9.8-20.1); Bilirubin, Total 0.4 mg/dL (0.2-1.2); Calc. Creatinine Clearance 76 mL/min (70-130); Calcium 10.1 mg/dL (7.8-10.44); Carbon Dioxide 30 mmol/L (23-31); Chloride 101 mmol/L (98-107); Estimated GFR-MDRD 72; Globulin 2.5 g/dL (2.4-3.5); Glucose 97 mg/dL (83-110); Potassium 3.6 mmol/L (3.5-5.1); Protein, Total 5.3 g/dL (6.0-8.3); Sodium 138 mmol/L (136-145)
[2017-10-21 06:00] LABS: Band 2 % (5-11); Hemoglobin 8.7 g/dL (12.0-16.0); MDiff Complete? YES; Mean Corpuscular HGB CONC 30.7 g/dL (32.0-36.0); Mean Corpuscular Hemoglobin 24.8 pg (27.0-31.0); Mean Corpuscular Volume 80.8 fl (81.0-99.0); Mean Platelet Volume 7.9 fL (7.4-10.4); Metamyelocyte 1 % (0-0); Monocytes 1 % (0-10); Myelocyte 1 % (0-0); Neutrophil 95 % (42-75); Platelet Count 444 thou/uL (130-400); RBC Distribution Width 21.8 % (11.5-14.5); Red Blood Cell (RBC) Count 3.51 mill/uL (4.20-5.40); White Blood Cell (WBC) Count 22.4 thou/uL (4.8-10.8)
[2017-10-21 06:49] LABS: Actual Bicarbonate (HCO3a) 29.4 mEq/L (22-26); CO2 Tension 43.3 mmHg (35.0-45.0); O2 Tension (PaO2) 86.6 mmHg (80.0-100.0); pH, Arterial 7.45 (7.35-7.45)
[2017-10-21 06:50] LABS: Calcium, Ionized 1.4 mmol/L (1.12-1.30); Puncture Site A-LINE
[2017-10-21 06:51] LABS: ALV-art Gradient 108.825 (0-20)
[2017-10-21] MEDS: Propofol 1,000 MG/100 ML VIAL IV PRN (07:36)
[2017-10-21] MEDS: Lactated Ringer's 1,000 ML IV SCH ×2 (07:37→16:55)
[2017-10-21] MEDS ORDERED: Famotidine 40 MG/4 ML VIAL SLOW IVP SCH (09:00)
--- NOTE | 2017-10-21 09:15 | RAD ---
CHEST 1 VIE: HISTORY: Dyspnea. Followup. COMPARISON: 10/20/17. FINDINGS: Cardiac silhouette magnified and enlarged. Pulmonary vasculature are upper limits of normal. Bilate ral pleural fluid and patchy bibasilar infiltrates are unchanged. Patient rotated rightward. Lines and tubes unchanged in position. No evidence of pneumothorax. IMPRESSION: Bilateral pleural fluid and other findings are stable. POS: [facility]
[2017-10-21] MEDS ORDERED: Famotidine/PF 20 mg/2ml Vial SLOW IVP SCH (10:30)
--- NOTE | 2017-10-21 13:00 | PRG ---
DATE OF SERVICE: 10/21/2017 HISTORY OF PRESENT ILLNESS: Lucy Morales is doing well today. She is on the ventilator this mo rning. Her rate has been turned down from rate of 8 to 4. She is tolerating this well. OBJECTIVE: GENERAL: She is awake and communicative and appropriately responsive. VITAL SIGNS: Temperature 101.4 degrees, pulse 103, blood pressure 116/49. Gastric drainage overnigh t 100 mL out of her NG tube, Zuniga output 1680. LUNGS: Clear to auscultation. CARDIAC: Regular rate and rhythm without murmur or gallop. ABDOMEN: Soft, bowel sounds present. Wound VAC has been applied to wound. EXTREMITIES: Unremarkable. Chronic venous stasis changes. LABORATORY DATA: White count this morning is 22,000, hemoglobin 8.7, sodium 138, potassium 3.6, BUN 22, creatinine 0.77. Liver function tests normal. ASSESSMENT AND PLAN: 1. Respiratory failure, chronic obstructive pulmonary disease, asthma. Wean ventilator as able toda y. Hopefully, we will be able to extubate her per Pulmonary Medicine. Continue nebulizers once extu bated up out of a chair, out of bed into a chair 3 times a day. Physical therapy consult for ambulat ion. Weightbear as tolerated. She has a fibular fracture, right leg. 2. We will need to return to a senior living or rehabilitation post-discharge. Continue NG tube p ost-extubation until bowel function resumes. Dr. Garrett is covering until next Tuesday morning. 3. Diastolic dysfunction. Echocardiogram 45-50% of ejection fraction in September 2017, lisa Gant pending. 4. Diabetes mellitus. 5. Chronic anemia. No indication for transfusion at this time.
[2017-10-21] MEDS ORDERED: Acetaminophen 1,000 MG in Premix Bag 1 BAG IVPB PRN (15:40)
[2017-10-21] MEDS ORDERED: Furosemide 40 MG/4 ML VIAL SLOW IVP SCH (15:45)
--- NOTE | 2017-10-21 16:51 | PDOC.PN ---
- Subjective Encounter Start Date: 10/21/17 Encounter Start Time: 10:00 Pt seen for management of medical comorbidities, including hypertension. Pt is intubated, waking up to voice. Unable to complete ROS due to pt's intubated status. - Objective MAR Reviewed: Yes Vital Signs & Weight: Vital Signs (12 hours) Temp Pulse Resp BP Pulse Ox 10/21/17 12:00 101.4 F H 19 10/21/17 10:48 103 H 116/49 L 10/21/17 10:00 18 10/21/17 08:44 100 143/35 H 10/21/17 08:00 100.4 F H 103 H 18 98 10/21/17 06:26 98 129/31 L 10/21/17 06:00 10 L Weight Admit Weight 178 lb 2.136 oz Weight 178 lb 2.136 oz Most Recent Monitor Data Heart Rate from ECG 103 NIBP 111/53 NIBP BP-Mean 62 Respiration from ECG 27 SpO2 98 I&O: 10/20/17 10/21/17 10/22/17 06:59 06:59 06:59 Intake Total 81.8 0 Output Total 1780 310 Balance -1698.2 -310 Result Diagrams: 10/21/17 05:00 10/21/17 05:00 Additional Labs: Accuchecks 10/21/17 10/21/17 10/20/17 06:45 01:01 18:40 POC Glucose 96 93 137 H EKG Reviewed by me: Yes (V-paced rhythm) Phys Exam - Physical Examination Intubated HEENT: sclera anicteric ETT Respiratory: no wheezing, no rales, no rhonchi, clear to auscultation bilateral Cardiovascular: RRR Gastrointestinal: soft dressing Neurological: moves all 4 limbs Psychiatric: normal affect Dx/Plan (1) HTN (hypertension) Code(s): I10 - ESSENTIAL (PRIMARY) HYPERTENSION Status: Chronic Qualifiers: Hypertension type: essential hypertension Qualified Code(s): I10 - Essential (primary) hypertension Comment: Stable, BP controlled. Add PRN IV hydralazine for blood pressure spikes. 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 - Plan DVT proph w/SCDs * . Pt s/p surgery for incarcerated hernia. Could not discuss code status due to intubated status. Review of Systems - Medications/Allergies Allergies/Adverse Reactions: Allergies Allergy/AdvReac Type Severity Reaction Status Date / Time ciprofloxacin HCl Allergy Verified 07/29/17 00:44 [From Cipro] clarithromycin [From Biaxin] Allergy Verified 07/29/17 00:44 codeine Allergy Verified 07/29/17 00:44 Penicillins Allergy Verified 07/29/17 00:44 Medications: Current Medications Albuterol Sulfate (Ventolin) 2.5 mg NEB [id number] PRN PRN Reason: Wheezing Albuterol/Ipratropium (Duoneb) 3 ml NEB Q4H PRN PRN Reason: Wheezing Dextrose/Water (Dextrose 50%) 25 gm SLOW IVP PRN PRN PRN Reason: Hypoglycemia Enoxaparin Sodium (Lovenox) 30 mg SC 2100 ELO[facility] Last Admin: 10/20/17 22:08 Dose: 30 mg Famotidine (Pepcid) 20 mg SLOW IVP Q12HR [facility] Furosemide (Lasix) 40 mg SLOW IVP NOW ELO[facility] Stop: 10/21/17 17:45 Glucagon (Glucagon) 1 mg IM PRN PRN PRN Reason: Hypoglycemia Hydralazine HCl (Apresoline) 10 mg SLOW IVP Q4H PRN PRN Reason: SBP > 170 or DBP > 100 Last Admin: 10/20/17 20:39 Dose: 10 mg Dextrose/Water (D5w) 1,000 mls @ 0 mls/hr IV .Q0M PRN; As Directed PRN Reason: Hypoglycemia Lactated Ringer's (Lactated Ringer's) 1,000 mls @ 70 mls/hr IV .[id number] ELOIAN Last Admin: 10/21/17 07:37 Dose: 1,000 mls Meropenem 1 gm/ Device 50 mls @ 100 mls/hr IVPB 0200,1000,1800 ELO[facility] Last Admin: 10/21/17 10:03 Dose: 50 mls Fentanyl Citrate 2,000 mcg/ (Sodium Chloride) 100 mls @ 0 mls/hr IV INF ELOINA; Per Protocol PRN Reason: Protocol Stop: 11/19/17 22:02 Fentanyl Citrate (Fentanyl Bolus) 250 mls @ 0 mls/hr IVPB PRN PRN; As Directed PRN Reason: Breakthrough pain/agitation Stop: 11/19/17 22:02 Acetaminophen 1,000 mg/ Device 100 mls @ 400 mls/hr IVPB Q6H PRN PRN Reason: Fever/Mild Pain Stop: 10/22/17 15:41 Insulin Human Lispro (Humalog) 0 units SC .MODERATE SLIDING SC PRN PRN Reason: Moderate Correctional Scale Lorazepam (Ativan) 2 mg SLOW IVP Q1H PRN PRN Reason: Breakthrough agitation Stop: 11/19/17 22:02 Morphine Sulfate (Morphine) 2 mg SLOW IVP Q1H PRN PRN Reason: breakthrough pain/agitation Stop: 11/19/17 22:02 Last Admin: 10/21/17 00:44 Dose: 2 mg Discontinue Previous Narcotic Pain Medications And Benzodiazepines 1 each FS .ONE [facility] Stop: 11/19/17 22:02 Propofol (Diprivan) 1,000 mg IV INF PRN; Protocol PRN Reason: TO ACHIEVE GOAL RASS Stop: 11/19/17 22:02 Last Admin: 10/21/17 07:36 Dose: 1,000 mg Propofol (Diprivan Bolus) 20 mg IV Q5MIN PRN PRN Reason: BREAKTHROUGH AGITATION Stop: 11/19/17 22:02 Sodium Chloride (Flush - Normal Saline) 10 ml IVF PRN PRN PRN Reason: Saline Flush
[2017-10-21] MEDS ORDERED: hydrALAZINE 20 MG/ML VIAL SLOW IVP PRN (16:53)
[2017-10-21] MEDS ORDERED: Digoxin 0.5 MG/2 ML AMP SLOW IVP SCH (19:30)
[2017-10-21] MEDS ORDERED: Potassium Chloride 40 MEQ in Sodium Chloride 0.9% 500 ML IVPB SCH (19:45)
--- NOTE | 2017-10-21 21:07 | CON ---
DATE OF CONSULTATION: 10/21/2017 HISTORY OF PRESENT ILLNESS: Ms. Morales is a 77-year-old female well known to our service. She has significant obstructive lung disease followed by Dr. Lomax. She has, however, had multiple hospitali zations over many, many years. She presented with an incarcerated umbilical hernia that required surgery. She was left ventilated o vernight. I was consulted to assist in her management. PAST MEDICAL HISTORY: Remarkable for, 1. Chronic obstructive pulmonary disease. 2. History of anxiety. 3. History of an admission at the end of September with respiratory distress requiring BiPAP. 4. History of diastolic dysfunction. 5. Past history of systolic heart failure. 6. History of multiple intubations. 7. History of chronic tobacco use, abstinent for over 10 years. 8. Supraventricular tachycardia. 9. History of a pacemaker. 10. History of cervical cancer surgery. 11. History of an appendectomy. 12. History of cataract surgery. SOCIAL HISTORY: History of 30+ pack year history smoked in over 10 years. She does drink alcohol. S he does not use drugs. ALLERGIES: She reports CIPRO, BIAXIN, CODEINE, PENICILLIN allergies. MEDICATIONS: Prior to admission, she has been on Aldactone, Reglan, gabapentin, Lasix, Lanoxin, Core g, Xanax, tramadol, nebulizer, Symbicort, and aspirin. She has been living in a [facility]. REVIEW OF SYSTEMS: Ten points unobtainable as she is intubated. PHYSICAL EXAMINATION: GENERAL: This morning, she is in no distress. VITAL SIGNS: Blood pressure 115/51, heart rate 99, respiratory rates in the 20s. HEENT: Pupils are equal. Sclerae anicteric. NECK: Supple. LUNGS: Clear. HEART: Regular rhythm. ABDOMEN: Soft and slightly distended. EXTREMITIES: With asymmetry. NEUROLOGIC: Nonfocal. LABORATORY AND X-RAY FINDINGS: Chest radiographs showed no alveolar infiltrates. Intake and output negative 1698. White count 22.4, hemoglobin 8.7, platelets 444. Sodium 138, potassium 3.6, chloride 101, bicarb 30, BUN 22, creatinine 0.7, albumin is 2.8. IMPRESSION AND PLAN: 1. Status post resection of small bowel for an incarcerated hernia. 2. Deconditioning. 3. Severe chronic obstructive pulmonary disease. 4. Overnight respiratory failure and mechanical ventilation. She meets criteria for extubation. Darek leslie passed a leak test. She had a minute volume of about 7 liters a minute this morning. She has subs equently been extubated and reevaluated multiple times. She is talking in complete sentences (is alw ays quite talkative). She is stable hopefully to move out of Critical Care Unit tomorrow if she has a good night. Critical care time was 35 minutes.
[2017-10-21] MEDS: Famotidine/PF 20 mg/2ml Vial SLOW IVP SCH (21:16)
[2017-10-21] MEDS: Enoxaparin Sodium 30 MG/0.3 ML SYRINGE SC SCH (21:17)
--- NOTE | 2017-10-22 01:51 | CON ---
DATE OF CONSULTATION: 10/21/2017 REASON FOR CONSULTATION: Perioperative management, history of diastolic heart failure, history of ch ronic obstructive pulmonary disease, previous pacemaker defibrillator. HISTORY OF PRESENT ILLNESS: Ms. Morales is a 77-year-old woman, who presented last night with an in carcerated hernia, which was repaired. She was intubated, but now extubated. She is breathing well. She has no chest pain or pressure. PAST MEDICAL HISTORY: 1. Diastolic heart failure, previously systolic, but a biventricular device helped tremendously with that. 2. Cardiomyopathy. 3. Chronic obstructive pulmonary disease. She was at a senior living prior to coming here. MEDICATIONS: 1. Spironolactone 25 mg twice a day. 2. Carvedilol 3.125 mg twice a day, could not take higher dose due to chronic obstructive pulmonary disease. 3. Digoxin 0.125 mg 3 days a week. 4. Insulin. 5. Could not take TANNER inhibitors due to renal insufficiency. REVIEW OF SYSTEMS: Constitutional: She has actually lost weight. Vision: No changes. Hearing: N o changes. Pulmonary: Positive for shortness of breath. Cardiac: No chest pain. Gastrointestinal : No nausea, vomiting, diarrhea. Skin: No rashes. Neurologic: No unilateral weakness or numbness . Psychiatric: No unusual depression or anxiety. PHYSICAL EXAMINATION: GENERAL: This is a pleasant elderly woman, in no distress. VITAL SIGNS: Blood pressure 120/50, pulse 100, it is irregular, looks like it is atrial fibrillation . EYES: Sclerae nonicteric. MOUTH: Mucous membranes moist. NECK: Supple, no lymphadenopathy. LUNGS: Clear. CARDIOVASCULAR: Irregularly irregular. ABDOMEN: Soft, nontender. EXTREMITIES: No edema. IMAGING: EKG, paced rhythm. ASSESSMENT: 1. History of diastolic heart failure. 2. Looks like she is likely in atrial fibrillation intermittently although the initial EKG showed si nus rhythm. 3. Biventricular pacing. PLAN: 1. We will give her a dose of digoxin. 2. Check digoxin level tomorrow. 3. Carvedilol will be resumed. 4. P.r.n. diuretics. 5. We will follow with you.
[2017-10-22] MEDS: MEROPENEM 1 GM/50 ML 1 GM in Premix Bag 1 BAG IVPB SCH ×3 (03:06→18:00)
[2017-10-22] MEDS: Albuterol Sulfate 2.5 mg/3 ml Neb NEB PRN (03:22)
[2017-10-22 05:59] LABS: #Eosinphils 0.1 thou/uL (0.0-0.7); #Lymphocytes 0.6 thou/uL (1.20-3.40); #Monocytes 1.3 thou/uL (0.11-0.59); #Neutrophils 14.2 thou/uL (1.40-6.50); %Eosinophils 0.6 % (0.0-10.0); %Lymphocytes 3.8 % (21.0-51.0); %Neutrophils 87.6 % (42.0-75.0); Hemoglobin 8.1 g/dL (12.0-16.0); Mean Corpuscular HGB CONC 30.6 g/dL (32.0-36.0); Mean Corpuscular Hemoglobin 25.5 pg (27.0-31.0); Mean Corpuscular Volume 83.3 fl (81.0-99.0); Mean Platelet Volume 7.7 fL (7.4-10.4); Platelet Count 388 thou/uL (130-400); RBC Distribution Width 21.4 % (11.5-14.5); Red Blood Cell (RBC) Count 3.19 mill/uL (4.20-5.40); White Blood Cell (WBC) Count 16.2 thou/uL (4.8-10.8)
[2017-10-22 06:34] LABS: Chloride 108 mmol/L (98-107); Sodium 139 mmol/L (136-145)
[2017-10-22 07:19] LABS: ALT (SGPT) 7 U/L (8-55); AST (SGOT) 10 U/L (5-34); Albumin 2.7 g/dL (3.4-4.8); Alkaline Phosphatase 50 U/L (40-150); Anion Gap 9 mmol/L (10-20); BUN (Urea Nitrogen) 18 mg/dL (9.8-20.1); Bilirubin, Total 0.5 mg/dL (0.2-1.2); Calc. Creatinine Clearance 77 mL/min (70-130); Calcium 10.2 mg/dL (7.8-10.44); Carbon Dioxide 31 mmol/L (23-31); Estimated GFR-MDRD 72; Globulin 2.6 g/dL (2.4-3.5); Glucose 128 mg/dL (83-110); Potassium 4.3 mmol/L (3.5-5.1); Protein, Total 5.3 g/dL (6.0-8.3)
[2017-10-22] MEDS: Spironolactone 25 MG TAB PO SCH ×2 (08:29→13:51)
[2017-10-22] MEDS: Carvedilol 3.125 MG TAB PO SCH ×3 (08:29→15:25)
[2017-10-22] MEDS: Lactated Ringer's 1,000 ML IV SCH (08:33)
--- NOTE | 2017-10-22 09:38 | RAD ---
ONE VIEW CHEST: COMPARISON: 10/21/17. HISTORY: Ventilated patient. Asthma. COPD. FINDINGS: Interval removal of endotracheal tube. Worsening opacification in the left hemithorax. Stable defib rillator and central venous catheter. Nasogastric tube is again noted. Slightly increased opacification of the right hemithorax. IMPRESSION: 1. Interval removal of the endotracheal tube. 2. Worsening opacification of the left and to a lesser extent right lung. CODE T POS: JACKI
[2017-10-22] MEDS ORDERED: Digoxin 0.5 MG/2 ML AMP SLOW IVP SCH ×2 (10:15→10:30)
[2017-10-22] MEDS ORDERED: Metoprolol Tartrate 5 MG/5 ML VIAL IVP SCH (10:30)
--- NOTE | 2017-10-22 10:32 | PRG ---
DATE OF SERVICE: 10/22/2017 SUBJECTIVE: Ms. Rudd is up in the chair. OBJECTIVE: VITAL SIGNS: The heart rate is 100-110, it is atrial fibrillation. LUNGS: Clear. CARDIAC: Tachycardic. ABDOMEN: Soft, nontender. EXTREMITIES: There is minimal edema. ASSESSMENT: 1. Congestive heart failure, diastolic. 2. Previous biventricular pacer. 3. Atrial fibrillation with increased ventricular rate. PLAN: 1. Give additional digoxin. 2. Give her some intravenous beta blockers. She will get the benefit from biventricular pacer at is rate (00:36) right lower. 3. Ultimately, we will need to anticoagulate, but in the early postoperative period for major abdomi nal surgery, we will hold off (00:43).
[2017-10-22] MEDS ORDERED: Furosemide 40 MG/4 ML VIAL ONE (10:43)
[2017-10-22] MEDS: Furosemide 20 MG/2 ML VIAL SLOW IVP SCH (10:44)
--- NOTE | 2017-10-22 12:30 | PRG ---
DATE OF SERVICE: 10/22/2017 Ms. Morales is postoperative day #2 from a laparotomy for repair of a strangulated umbilical hernia with small bowel resection. She was intubated postoperatively and was extubated yesterday. She is s till in the Intensive Care Unit. She still has nasogastric tube in. She is alert and has no complai nts, but is curious when she can begin eating. PHYSICAL EXAMINATION: VITAL SIGNS: On examination, she is afebrile today. She had a temperature up to 101.4 yesterday hussain or to extubation. Her pulse today has ranged from the upper 90s-110. She has been treated for tachy cardia by Dr. Mcdermott with digoxin and metoprolol. Her blood pressure currently is 148/50. Urine out put for yesterday was 1275. She has minimal NG output. LUNGS: Clear to auscultation. ABDOMEN: Has a VAC dressing intact, but I can hear no bowel sounds. She has no focal tenderness. S he is currently sitting up in a chair. LABORATORY STUDIES: Her CBC shows a white blood cell count has dropped from 22 yesterday to 16 today . Hemoglobin is stable at 8.1. Chemistry panel shows minimal electrolyte abnormalities. Her albumi n is low at 2.7. Her chest x-ray today looks somewhat like left lung collapse, but it is difficult t o tell. It appears that there is opacification on the left side. ASSESSMENT: A patient who has multiple chronic medical problems. She is 77 years old. She has been followed by Cardiology and Pulmonary. She is not ready for transfer to the floor and hopefully her chest x-ray looks improved tomorrow. For now, I would recommend continuing the NG tube and she is no t yet ready to begin taking oral intake.
[2017-10-22] MEDS: Famotidine/PF 20 mg/2ml Vial SLOW IVP SCH ×2 (14:11→20:47)
[2017-10-22] MEDS: Metoprolol Tartrate 5 MG/5 ML VIAL IVP PRN (18:03)
--- NOTE | 2017-10-22 18:20 | PDOC.PN ---
- Subjective Encounter Start Date: 10/22/17 Encounter Start Time: 10:20 Pt seen for followup re: hypertension. Denies chest pain or shortness of breath. Complains of dry mouth. Denies fevers or chills. Denies nausea or vomiting. - Objective MAR Reviewed: Yes Vital Signs & Weight: Vital Signs (12 hours) Temp Pulse Pulse Pulse Resp BP BP 10/22/17 17:07 95 99 121/58 L 162/51 H 10/22/17 15:42 99 21 H 10/22/17 12:42 99 19 10/22/17 12:00 98.2 F 10/22/17 10:40 110 H 10/22/17 08:00 98.6 F 95 31 H 10/22/17 07:29 Pulse Ox Pulse Ox Pulse Ox 10/22/17 17:07 94 L 95 10/22/17 15:42 97 10/22/17 12:42 97 10/22/17 12:00 10/22/17 10:40 10/22/17 08:00 96 10/22/17 07:29 97 Weight Admit Weight 178 lb 2.136 oz Weight 181 lb 7.047 oz Most Recent Monitor Data Heart Rate from ECG 106 NIBP 165/50 NIBP BP-Mean 62 Respiration from ECG 20 SpO2 97 I&O: 10/21/17 10/22/17 10/23/17 06:59 06:59 06:59 Intake Total 81.8 3520 0 Output Total 1780 1305 1255 Balance -1698.2 2215 -1255 Result Diagrams: 10/22/17 05:49 10/22/17 05:49 Additional Labs: Accuchecks 10/22/17 10/22/17 10/22/17 17:31 12:32 01:18 POC Glucose 156 H 162 H 113 H 10/21/17 10/21/17 21:38 19:01 POC Glucose 131 H 137 H EKG Reviewed by me: Yes (Tele: NSR) Phys Exam - Physical Examination Obese HEENT: moist MMs, sclera anicteric Neck: supple Respiratory: clear to auscultation bilateral Cardiovascular: RRR Gastrointestinal: soft dressing Neurological: moves all 4 limbs Psychiatric: normal affect Dx/Plan (1) HTN (hypertension) Code(s): I10 - ESSENTIAL (PRIMARY) HYPERTENSION Status: Chronic Qualifiers: Hypertension type: essential hypertension Qualified Code(s): I10 - Essential (primary) hypertension Comment: Stable, BP controlled. (2) COPD (chronic obstructive pulmonary disease) Status: Chronic Comment: stable, continue bronchodilators and antibiotics (3) CHF (congestive heart failure) Code(s): I50.9 - HEART FAILURE, UNSPECIFIED Status: Chronic Comment: Stable (4) CKD (chronic kidney disease) stage 3, GFR 30-59 ml/min Status: Chronic Comment: Improved (5) DM type 2 (diabetes mellitus, type 2) Status: Chronic Qualifiers: Diabetes mellitus equipment operator intermodal yard insulin use: with equipment operator intermodal yard use Comment: On accuchecks, insulin sliding scale. - Plan * . Review of Systems - Medications/Allergies Allergies/Adverse Reactions: Allergies Allergy/AdvReac Type Severity Reaction Status Date / Time ciprofloxacin HCl Allergy Verified 07/29/17 00:44 [From Cipro] clarithromycin [From Biaxin] Allergy Verified 07/29/17 00:44 codeine Allergy Verified 07/29/17 00:44 Penicillins Allergy Verified 07/29/17 00:44 Medications: Current Medications Albuterol Sulfate (Ventolin) 2.5 mg NEB [id number] PRN PRN Reason: Wheezing Last Admin: 10/22/17 03:22 Dose: 2.5 mg Albuterol/Ipratropium (Duoneb) 3 ml NEB [id number] [facility] Last Admin: 10/22/17 15:42 Dose: 3 ml Carvedilol (Coreg) 3.125 mg PO BID-[facility] Last Admin: 10/22/17 15:25 Dose: Not Given Dextrose/Water (Dextrose 50%) 25 gm SLOW IVP PRN PRN PRN Reason: Hypoglycemia Enoxaparin Sodium (Lovenox) 30 mg SC 2100 [facility] Last Admin: 10/21/17 21:17 Dose: 30 mg Famotidine (Pepcid) 20 mg SLOW IVP Q12HR [facility] Last Admin: 10/22/17 14:11 Dose: 20 mg Furosemide (Lasix) 20 mg SLOW IVP DAILY [facility] Last Admin: 10/22/17 10:44 Dose: 20 mg Glucagon (Glucagon) 1 mg IM PRN PRN PRN Reason: Hypoglycemia Hydralazine HCl (Apresoline) 10 mg SLOW IVP Q4H PRN PRN Reason: SBP > 170 or DBP > 100 Last Admin: 10/20/17 20:39 Dose: 10 mg Hydralazine HCl (Apresoline) 10 mg SLOW IVP Q6H PRN PRN Reason: SBP Greater Than 170 Dextrose/Water (D5w) 1,000 mls @ 0 mls/hr IV .Q0M PRN; As Directed PRN Reason: Hypoglycemia Lactated Ringer's (Lactated Ringer's) 1,000 mls @ 70 mls/hr IV .[id number] ELOINA Last Admin: 10/22/17 08:33 Dose: 1,000 mls Meropenem 1 gm/ Device 50 mls @ 100 mls/hr IVPB 0200,1000,1800 [facility] Last Admin: 10/22/17 18:00 Dose: 50 mls Fentanyl Citrate 2,000 mcg/ (Sodium Chloride) 100 mls @ 0 mls/hr IV INF ELOINA; Per Protocol PRN Reason: Protocol Stop: 11/19/17 22:02 Fentanyl Citrate (Fentanyl Bolus) 250 mls @ 0 mls/hr IVPB PRN PRN; As Directed PRN Reason: Breakthrough pain/agitation Stop: 11/19/17 22:02 Insulin Human Lispro (Humalog) 0 units SC .MODERATE SLIDING SC PRN PRN Reason: Moderate Correctional Scale Lorazepam (Ativan) 2 mg SLOW IVP Q1H PRN PRN Reason: Breakthrough agitation Stop: 11/19/17 22:02 Metoprolol Tartrate (Lopressor) 5 mg IVP Q6H PRN PRN Reason: To Control Heart Rate Last Admin: 10/22/17 18:03 Dose: 5 mg Morphine Sulfate (Morphine) 2 mg SLOW IVP Q1H PRN PRN Reason: breakthrough pain/agitation Stop: 11/19/17 22:02 Last Admin: 10/21/17 00:44 Dose: 2 mg Discontinue Previous Narcotic Pain Medications And Benzodiazepines 1 each FS .ONE ELOINA Stop: 11/19/17 22:02 Propofol (Diprivan) 1,000 mg IV INF PRN; Protocol PRN Reason: TO ACHIEVE GOAL RASS Stop: 11/19/17 22:02 Last Admin: 10/21/17 07:36 Dose: 1,000 mg Propofol (Diprivan Bolus) 20 mg IV Q5MIN PRN PRN Reason: BREAKTHROUGH AGITATION Stop: 11/19/17 22:02 Sodium Chloride (Flush - Normal Saline) 10 ml IVF PRN PRN PRN Reason: Saline Flush Spironolactone (Aldactone) 25 mg PO [facility] Last Admin: 10/22/17 13:51 Dose: Not Given
--- NOTE | 2017-10-22 19:50 | PRG ---
DATE OF SERVICE: 10/22/2017 SUBJECTIVE: She did well overnight. She is in no distress. OBJECTIVE: VITAL SIGNS: Heart rates in the 90s, respiratory rate 15, oximetry is 99 on 2 liters, and blood pres sure 121/58. Intake and output is positive 2215. LUNGS: Clear. CARDIOVASCULAR: Regular rhythm. ABDOMEN: Soft. EXTREMITIES: Without asymmetry. LABORATORY DATA: White count 16.2, hemoglobin 8.1, and platelets 388. Sodium 139, potassium 4.3, chloride 108, bicarbonate 31, BUN 18, creatinine 0.7. I noticed nebulized treatments were p.r.n., so these have been changed to q.4 hours while awake. IMPRESSION: 1. Chronic obstructive pulmonary disease, clinically stable. 2. Status post laparotomy with partial small-bowel resection for strangulated hernia. 3. Congestive heart failure/diastolic. 4. History of pacemaker. 5. History of atrial fibrillation. PLAN: Continue supportive care in the critical care unit. She is stable, transfer out in the [facility]
[2017-10-22] MEDS: Enoxaparin Sodium 30 MG/0.3 ML SYRINGE SC SCH (20:40)
[2017-10-22] MEDS ORDERED: Famotidine 40 MG/4 ML VIAL SLOW IVP SCH (21:00)
[2017-10-23] MEDS ORDERED: Metoprolol Tartrate 5 MG/5 ML VIAL IVP SCH (01:15)
[2017-10-23] MEDS: MEROPENEM 1 GM/50 ML 1 GM in Premix Bag 1 BAG IVPB SCH ×3 (02:00→17:53)
[2017-10-23] MEDS: Morphine 4 MG/ML VIAL SLOW IVP PRN (03:22)
[2017-10-23] MEDS: Lactated Ringer's 1,000 ML IV SCH ×2 (03:33→17:59)
[2017-10-23 05:46] LABS: #Eosinphils 0.1 thou/uL (0.0-0.7); #Lymphocytes 0.4 thou/uL (1.20-3.40); #Monocytes 0.9 thou/uL (0.11-0.59); #Neutrophils 10.6 thou/uL (1.40-6.50); %Basophils 0.1 % (0.0-1.0); %Eosinophils 1.1 % (0.0-10.0); %Monocytes 7.8 % (0.0-10.0); %Neutrophils 87.9 % (42.0-75.0); Mean Corpuscular HGB CONC 30.5 g/dL (32.0-36.0); Mean Corpuscular Hemoglobin 25.6 pg (27.0-31.0); Mean Corpuscular Volume 83.8 fl (81.0-99.0); Mean Platelet Volume 8.1 fL (7.4-10.4); Platelet Count 403 thou/uL (130-400); RBC Distribution Width 21.1 % (11.5-14.5); Red Blood Cell (RBC) Count 3.12 mill/uL (4.20-5.40); White Blood Cell (WBC) Count 12.1 thou/uL (4.8-10.8)
[2017-10-23 06:01] LABS: Anion Gap 9 mmol/L (10-20); BUN (Urea Nitrogen) 14 mg/dL (9.8-20.1); Calc. Creatinine Clearance 86 mL/min (70-130); Carbon Dioxide 30 mmol/L (23-31); Chloride 105 mmol/L (98-107); Estimated GFR-MDRD 82; Glucose 150 mg/dL (83-110); Sodium 140 mmol/L (136-145)
[2017-10-23] MEDS: Spironolactone 25 MG TAB PO SCH (08:28)
[2017-10-23] MEDS: Carvedilol 3.125 MG TAB PO SCH ×2 (08:28→14:03)
[2017-10-23] MEDS: Furosemide 20 MG/2 ML VIAL SLOW IVP SCH ×2 (08:33→14:48)
[2017-10-23] MEDS: Famotidine/PF 20 mg/2ml Vial SLOW IVP SCH ×2 (09:10→21:19)
--- NOTE | 2017-10-23 11:21 | PDOC.PN ---
- Subjective Encounter Start Date: 10/23/17 Encounter Start Time: 10:20 Pt seen for followup re: hypertension. More alert today, denies chest pain, shortness of breath, fevers or chills. passed flatus. - Objective MAR Reviewed: Yes Vital Signs & Weight: Vital Signs (12 hours) Temp Pulse Resp Pulse Ox 10/23/17 10:42 93 16 99 10/23/17 07:42 98.4 F 105 H 16 98 10/23/17 07:02 98 10/23/17 07:00 105 H 16 98 10/23/17 04:00 98.6 F 10/23/17 00:00 98.4 F Weight Admit Weight 178 lb 2.136 oz Weight 181 lb 7.047 oz Most Recent Monitor Data Heart Rate from ECG 97 NIBP 152/70 NIBP BP-Mean 106 Respiration from ECG 25 SpO2 99 I&O: 10/22/17 10/23/17 10/24/17 06:59 06:59 06:59 Intake Total 3520 2508 Output Total 1305 2480 Balance 2215 28 Result Diagrams: 10/23/17 05:23 10/23/17 05:23 Additional Labs: Accuchecks 10/23/17 10/22/17 10/22/17 00:44 17:31 12:32 POC Glucose 156 H 156 H 162 H EKG Reviewed by me: Yes (Tele: V-paced rhythm) Phys Exam - Physical Examination Constitutional: NAD HEENT: moist MMs Neck: supple Respiratory: clear to auscultation bilateral Cardiovascular: RRR Gastrointestinal: soft Neurological: moves all 4 limbs Psychiatric: normal affect Dx/Plan (1) HTN (hypertension) Code(s): I10 - ESSENTIAL (PRIMARY) HYPERTENSION Status: Chronic Qualifiers: Hypertension type: essential hypertension Qualified Code(s): I10 - Essential (primary) hypertension Comment: Stable, BP controlled. Continue to monitor vital signs, titrate antihypertensives as needed. (2) COPD (chronic obstructive pulmonary disease) Status: Chronic Comment: stable (3) CHF (congestive heart failure) Code(s): I50.9 - HEART FAILURE, UNSPECIFIED Status: Chronic Comment: Stable. 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 - Plan * . Review of Systems - Review of Systems Respiratory: negative: Cough, Shortness of Breath, Hemoptysis, SOB with Excertion, Pleuritic Pain, Wheezing Cardiovascular: negative: chest pain, palpitations, orthopnea, paroxysmal nocturnal dyspnea, edema, light headedness - Medications/Allergies Allergies/Adverse Reactions: Allergies Allergy/AdvReac Type Severity Reaction Status Date / Time ciprofloxacin HCl Allergy Verified 07/29/17 00:44 [From Cipro] clarithromycin [From Biaxin] Allergy Verified 07/29/17 00:44 codeine Allergy Verified 07/29/17 00:44 Penicillins Allergy Verified 07/29/17 00:44 Medications: Current Medications Albuterol Sulfate (Ventolin) 2.5 mg NEB [id number] PRN PRN Reason: Wheezing Last Admin: 10/22/17 03:22 Dose: 2.5 mg Albuterol/Ipratropium (Duoneb) 3 ml NEB [id number] [facility] Last Admin: 10/23/17 10:42 Dose: 3 ml Carvedilol (Coreg) 3.125 mg PO BID-[facility] Last Admin: 10/23/17 08:28 Dose: Not Given Dextrose/Water (Dextrose 50%) 25 gm SLOW IVP PRN PRN PRN Reason: Hypoglycemia Digoxin (Lanoxin) 0.125 mg SLOW IVP DAILY [facility] Enoxaparin Sodium (Lovenox) 30 mg SC 2100 [facility] Last Admin: 10/22/17 20:40 Dose: 30 mg Famotidine (Pepcid) 20 mg SLOW IVP Q12HR [facility] Last Admin: 10/23/17 09:10 Dose: 20 mg Furosemide (Lasix) 20 mg SLOW IVP DAILY [facility] Last Admin: 10/23/17 08:33 Dose: 20 mg Furosemide (Lasix) 20 mg SLOW IVP 0600,1400 [facility] Glucagon (Glucagon) 1 mg IM PRN PRN PRN Reason: Hypoglycemia Hydralazine HCl (Apresoline) 10 mg SLOW IVP Q4H PRN PRN Reason: SBP > 170 or DBP > 100 Last Admin: 10/20/17 20:39 Dose: 10 mg Hydralazine HCl (Apresoline) 10 mg SLOW IVP Q6H PRN PRN Reason: SBP Greater Than 170 Dextrose/Water (D5w) 1,000 mls @ 0 mls/hr IV .Q0M PRN; As Directed PRN Reason: Hypoglycemia Lactated Ringer's (Lactated Ringer's) 1,000 mls @ 70 mls/hr IV .[id number] [facility] Last Admin: 10/23/17 03:33 Dose: 1,000 mls Meropenem 1 gm/ Device 50 mls @ 100 mls/hr IVPB 0200,1000,1800 [facility] Last Admin: 10/23/17 09:36 Dose: 50 mls Potassium Chloride 40 meq/ (Device) 100 mls @ 25 mls/hr IVPB 1600 [facility] Stop: 10/23/17 19:59 Insulin Human Lispro (Humalog) 0 units SC .MODERATE SLIDING SC PRN PRN Reason: Moderate Correctional Scale Lorazepam (Ativan) 2 mg SLOW IVP Q1H PRN PRN Reason: Breakthrough agitation Stop: 11/19/17 22:02 Metoprolol Tartrate (Lopressor) 5 mg IVP Q6H PRN PRN Reason: To Control Heart Rate Last Admin: 10/22/17 18:03 Dose: 5 mg Morphine Sulfate (Morphine) 2 mg SLOW IVP Q1H PRN PRN Reason: breakthrough pain/agitation Stop: 11/19/17 22:02 Last Admin: 10/23/17 03:22 Dose: 2 mg Discontinue Previous Narcotic Pain Medications And Benzodiazepines 1 each FS .ONE [facility] Stop: 11/19/17 22:02 Sodium Chloride (Flush - Normal Saline) 10 ml IVF PRN PRN PRN Reason: Saline Flush Spironolactone (Aldactone) 25 mg PO QAM-WM [facility] Last Admin: 10/23/17 08:28 Dose: Not Given
--- NOTE | 2017-10-23 13:19 | PRG ---
DATE OF SERVICE: 10/23/2017 SUBJECTIVE: Ms. Morales is more awake and alert today. She feels better. OBJECTIVE: VITAL SIGNS: Blood pressure 154/65, pulse 97 regular. LUNGS: Clear. CARDIAC: Irregularly, irregular. ABDOMEN: Soft, nontender. EXTREMITIES: There is mild edema. ASSESSMENT: 1. Congestive heart failure, diastolic, gradually improving. 2. Status post emergency abdominal surgery, still n.p.o. PLAN: I think we need to keep her in the ICU until she can take some oral medications. She is still receiving IV diuretics and IV metoprolol.
--- NOTE | 2017-10-23 13:54 | PRG ---
DATE OF SERVICE: 10/23/2017 SUBJECTIVE: Lucy Morales is doing well. OBJECTIVE: GENERAL: She is in no distress. She denies abdominal pain. She just wants to start drinking more. VITAL SIGNS: She is afebrile, heart rate is 105, respiratory rate 16, oximetry is 98% on 2 liters, b lood pressure 152/70. LUNGS: Clear. Surprisingly, she is not wheezing. HEART: Regular rhythm. ABDOMEN: Soft, diffusely mildly tender. EXTREMITIES: Without clubbing, cyanosis, or edema. LABORATORY DATA: White count from 22 to 16 to 12.1 today, hemoglobin is 8 grams, which is stable, pl atelets 403,000. Sodium 140, potassium 4, chloride 105, bicarbonate 30, BUN 14, creatinine 0.69. IMPRESSION: 1. A strangulated umbilical hernia with small-bowel obstruction. 2. Underlying obstructive lung disease. 3. Deconditioning living in a fulltime care environment. PLAN: Wound care, physical therapy, antimicrobial therapy, and nebulizer treatments. She is stable to move out of the Critical Care Unit to a step-down unit.
--- NOTE | 2017-10-23 15:18 | PRG ---
DATE OF SERVICE: 10/23/2017 SUBJECTIVE: Ms. Morales is postoperative day #3 following laparotomy for repair of strangulated umb ilical hernia with small bowel resection. She remains in the Intensive Care Unit. She has a nasogas tric tube in place. Upon my arrival, she is bright and alert and pleasant and interactive. She aske d appropriate questions and is appropriately oriented. She notes that she is passing flatus. OBJECTIVE: VITAL SIGNS: She is afebrile. Her pulse is 105 currently. Blood pressure is 152/70. LUNGS: Clear to auscultation anteriorly with a vigorous productive cough. ABDOMEN: Protuberant but probably not distended. There are normoactive bowel sounds. VAC is presen t on her midline wound. Nasogastric tube is in place and has put out essentially nothing for the las t 24 hours when I flushed it, only the flushed comes back out. LABORATORY STUDIES: Her basic metabolic panel is essentially normal. Her CBC reveals a hemoglobin t hat is stable at 8.0. White blood cell count is down from 16 yesterday to 12 today. ASSESSMENT AND PLAN: She is clearly improving from a surgical standpoint. Today, I will remove her nasogastric tube and allow it to continue with ice chips and sips of water. If she is stable, then I would anticipate a clear liquid diet tomorrow. She is to remain in the Intensive Care Unit for now. Possible transfer out tomorrow.
[2017-10-23] MEDS ORDERED: Potassium Chloride 40 MEQ in Premix Bag 1 BAG IVPB SCH (16:00)
[2017-10-23] MEDS: Metoprolol Tartrate 5 MG/5 ML VIAL IVP PRN (16:16)
[2017-10-23] MEDS: HumaLOG 300 UNITS/3 ML VIAL SC PRN (16:19)
[2017-10-23] MEDS: Enoxaparin Sodium 30 MG/0.3 ML SYRINGE SC SCH (21:19)
[2017-10-24] MEDS: Metoprolol Tartrate 5 MG/5 ML VIAL IVP PRN (01:57)
[2017-10-24] MEDS: MEROPENEM 1 GM/50 ML 1 GM in Premix Bag 1 BAG IVPB SCH ×3 (01:58→17:18)
[2017-10-24] MEDS: Albuterol Sulfate 2.5 mg/3 ml Neb NEB PRN (03:42)
[2017-10-24 04:29] LABS: Anion Gap 10 mmol/L (10-20); BUN (Urea Nitrogen) 12 mg/dL (9.8-20.1); Calc. Creatinine Clearance 91 mL/min (70-130); Calcium 10.5 mg/dL (7.8-10.44); Carbon Dioxide 32 mmol/L (23-31); Chloride 101 mmol/L (98-107); Estimated GFR-MDRD 88; Glucose 134 mg/dL (83-110); Potassium 3.9 mmol/L (3.5-5.1); Sodium 139 mmol/L (136-145)
[2017-10-24 04:31] LABS: Digoxin 0.64 ng/mL (0.8-2.0)
[2017-10-24] MEDS: Lactated Ringer's 1,000 ML IV SCH ×2 (06:06→14:28)
[2017-10-24] MEDS: Furosemide 20 MG/2 ML VIAL SLOW IVP SCH ×3 (06:07→14:28)
[2017-10-24] MEDS: Carvedilol 3.125 MG TAB PO SCH ×2 (09:13→17:17)
[2017-10-24] MEDS: Spironolactone 25 MG TAB PO SCH (09:14)
[2017-10-24] MEDS: Digoxin 0.5 MG/2 ML AMP SLOW IVP SCH (09:14)
--- NOTE | 2017-10-24 09:22 | PRG ---
DATE OF SERVICE: 10/24/2017 This morning she is awake, alert, responsive. Doing better. She is weak. PHYSICAL EXAMINATION: VITAL SIGNS; Sats are 90 on 2 liters, temperature 98, pulse 70, respiration rate 18, blood pressure 150/70. GENERAL: She denies any pain or discomfort. CHEST: Chest reveals decreased breath sounds, no wheezing. CARDIAC: Normal S1, S2, no gallops or mass. Calcium is slightly elevated at 10.5. IMPRESSION: 1. Chronic obstructive pulmonary disease. 2. Congestive heart failure. 3. Status post lap strangulated hernia. PLAN: Continue aggressive PT and supportive care. I will follow.
[2017-10-24] MEDS: Morphine 4 MG/ML VIAL SLOW IVP PRN ×2 (10:38→22:12)
[2017-10-24] MEDS: Famotidine/PF 20 mg/2ml Vial SLOW IVP SCH ×2 (10:41→22:22)
[2017-10-24 12:09] VITALS: BMI 30.2
[2017-10-24] MEDS ORDERED: hydrALAZINE 20 MG/ML VIAL SLOW IVP PRN (14:38)
--- NOTE | 2017-10-24 14:39 | PDOC.PN ---
- Subjective Encounter Start Date: 10/24/17 Encounter Start Time: 09:40 Pt seen for followup re: hypertension. Denies chest pain, shortness of breath, fevers or chills. Says she feels better. - Objective MAR Reviewed: Yes Vital Signs & Weight: Vital Signs (12 hours) Temp Pulse Pulse Pulse Resp BP Pulse Ox 10/24/17 14:08 102 H 32 H 91 L 10/24/17 10:22 105 H 24 H 100 10/24/17 09:38 92 107 H 149/68 H 10/24/17 09:14 109 H 10/24/17 08:00 98.3 F 70 18 98 10/24/17 07:59 98.3 F 10/24/17 07:13 95 10/24/17 07:11 102 H 22 H 95 10/24/17 04:00 98.8 F 10/24/17 03:42 105 H 21 H 98 Pulse Ox Pulse Ox 10/24/17 14:08 10/24/17 10:22 10/24/17 09:38 97 98 10/24/17 09:14 10/24/17 08:00 10/24/17 07:59 10/24/17 07:13 10/24/17 07:11 10/24/17 04:00 10/24/17 03:42 Weight Admit Weight 178 lb 2.136 oz Weight 181 lb 7.047 oz Most Recent Monitor Data Heart Rate from ECG 104 NIBP 151/61 NIBP BP-Mean 82 Respiration from ECG 25 SpO2 91 I&O: 10/23/17 10/24/17 10/25/17 06:59 06:59 06:59 Intake Total 2508 1808.6 100 Output Total 2480 3025 800 Balance 28 -1216.4 -700 Result Diagrams: 10/23/17 05:23 10/24/17 03:55 Additional Labs: Accuchecks 10/24/17 10/23/17 00:54 16:00 POC Glucose 133 H 188 H EKG Reviewed by me: Yes (Tele: V-paced) Phys Exam - Physical Examination Constitutional: NAD HEENT: moist MMs Neck: supple Respiratory: clear to auscultation bilateral Cardiovascular: RRR Gastrointestinal: soft abdo dressing Neurological: moves all 4 limbs Psychiatric: normal affect Dx/Plan (1) HTN (hypertension) Code(s): I10 - ESSENTIAL (PRIMARY) HYPERTENSION Status: Chronic Qualifiers: Hypertension type: essential hypertension Qualified Code(s): I10 - Essential (primary) hypertension Comment: BP slightly high today. Continue to monitor vital signs, titrate antihypertensives as needed. (2) COPD (chronic obstructive pulmonary disease) Status: Chronic Comment: stable (3) CHF (congestive heart failure) Code(s): I50.9 - HEART FAILURE, UNSPECIFIED Status: Chronic Comment: Stable. ACC AHA Class D (4) CKD (chronic kidney disease) stage 3, GFR 30-59 ml/min Status: Chronic Comment: Improved (5) DM type 2 (diabetes mellitus, type 2) Status: Chronic Qualifiers: Diabetes mellitus nursing home insulin use: with trust officer use Comment: On accuchecks, insulin sliding scale. - Plan * . Review of Systems - Medications/Allergies Allergies/Adverse Reactions: Allergies Allergy/AdvReac Type Severity Reaction Status Date / Time ciprofloxacin HCl Allergy Verified 07/29/17 00:44 [From Cipro] clarithromycin [From Biaxin] Allergy Verified 07/29/17 00:44 codeine Allergy Verified 07/29/17 00:44 Penicillins Allergy Verified 07/29/17 00:44 Medications: Current Medications Albuterol Sulfate (Ventolin) 2.5 mg NEB [id number] PRN PRN Reason: Wheezing Last Admin: 10/24/17 03:42 Dose: 2.5 mg Albuterol/Ipratropium (Duoneb) 3 ml NEB [id number] [facility] Last Admin: 10/24/17 14:08 Dose: 3 ml Carvedilol (Coreg) 3.125 mg PO BID-[facility] Last Admin: 10/24/17 09:13 Dose: 3.125 mg Dextrose/Water (Dextrose 50%) 25 gm SLOW IVP PRN PRN PRN Reason: Hypoglycemia Digoxin (Lanoxin) 0.125 mg SLOW IVP DAILY [facility] Last Admin: 10/24/17 09:14 Dose: 0.125 mg Enoxaparin Sodium (Lovenox) 30 mg SC 2100 [facility] Last Admin: 10/23/17 21:19 Dose: 30 mg Famotidine (Pepcid) 20 mg SLOW IVP Q12HR [facility] Last Admin: 10/24/17 10:41 Dose: 20 mg Furosemide (Lasix) 20 mg SLOW IVP 0600,1400 [facility] Last Admin: 10/24/17 14:28 Dose: 20 mg Glucagon (Glucagon) 1 mg IM PRN PRN PRN Reason: Hypoglycemia Hydralazine HCl (Apresoline) 10 mg SLOW IVP Q4H PRN PRN Reason: SBP > 170 or DBP > 100 Last Admin: 10/20/17 20:39 Dose: 10 mg Hydralazine HCl (Apresoline) 10 mg SLOW IVP Q6H PRN PRN Reason: SBP Greater Than 170 Dextrose/Water (D5w) 1,000 mls @ 0 mls/hr IV .Q0M PRN; As Directed PRN Reason: Hypoglycemia Lactated Ringer's (Lactated Ringer's) 1,000 mls @ 70 mls/hr IV .[id number] [facility] Last Admin: 10/24/17 14:28 Dose: 1,000 mls Meropenem 1 gm/ Device 50 mls @ 100 mls/hr IVPB 0200,1000,1800 [facility] Last Admin: 10/24/17 10:41 Dose: 50 mls Insulin Human Lispro (Humalog) 0 units SC .MODERATE SLIDING SC PRN PRN Reason: Moderate Correctional Scale Last Admin: 10/23/17 16:19 Dose: 2 unit Lorazepam (Ativan) 2 mg SLOW IVP Q1H PRN PRN Reason: Breakthrough agitation Stop: 11/19/17 22:02 Last Admin: 10/23/17 22:12 Dose: 2 mg Metoprolol Tartrate (Lopressor) 5 mg IVP Q6H PRN PRN Reason: To Control Heart Rate Last Admin: 10/24/17 01:57 Dose: 5 mg Morphine Sulfate (Morphine) 2 mg SLOW IVP Q1H PRN PRN Reason: breakthrough pain/agitation Stop: 11/19/17 22:02 Last Admin: 10/24/17 10:38 Dose: 2 mg Discontinue Previous Narcotic Pain Medications And Benzodiazepines 1 each FS .ONE [facility] Stop: 11/19/17 22:02 Sodium Chloride (Flush - Normal Saline) 10 ml IVF PRN PRN PRN Reason: Saline Flush Spironolactone (Aldactone) 25 mg PO QAM-[facility] Last Admin: 10/24/17 09:14 Dose: 25 mg
--- NOTE | 2017-10-24 18:45 | PRG ---
DATE OF SERVICE: 10/24/2017 SUBJECTIVE: Carmen is sleeping. She is doing well, no complaints. PHYSICAL EXAMINATION: VITAL SIGNS: Blood pressure 130/57, pulse is variable and is at 90s. LUNGS: Clear. CARDIAC: Irregular. ABDOMEN: Soft, nontender. EXTREMITIES: No edema. ASSESSMENT: 1. Congestive heart failure, systolic, diastolic mixed. 2. Previous biventricular pacemaker defibrillator. 3. Atrial fibrillation. 4. Recent major abdominal surgery. PLAN: 1. We will fully anticoagulate when feasible. 2. We will add beta blockers. 3. I do not think she can tolerate amiodarone to her lungs. Okay with me to move to the surgical fl oor.
--- NOTE | 2017-10-24 19:11 | PRG ---
DATE OF SERVICE: 10/24/2017 SUBJECTIVE: Ms. Morales is postoperative day #4 following laparotomy for strangulated umbilical her talib and small bowel resection. She was just now transferred out of the Intensive Care Unit to the [facility]. Her nasogastric tube was removed yesterday. She denies nausea or vomiting and is hungry. She tells me she is passing flatus and stool. SUBJECTIVE: VITAL SIGNS: She is afebrile. Vital signs are essentially normal. LUNGS: Clear to auscultation anteriorly. ABDOMEN: Reveals normoactive bowel sounds and no significant tenderness. ASSESSMENT AND PLAN: She is making progress following her bowel resection. She was stable for trans geoff to the floor from the ICU. Today, I will start her on full liquid diet. We will also take out o f her Zuniga catheter.
[2017-10-24] MEDS: Enoxaparin Sodium 30 MG/0.3 ML SYRINGE SC SCH (21:59)
[2017-10-24] MEDS ORDERED: Famotidine 20 MG TAB PO SCH (22:00)
[2017-10-25] MEDS: MEROPENEM 1 GM/50 ML 1 GM in Premix Bag 1 BAG IVPB SCH ×3 (02:54→17:40)
[2017-10-25] MEDS: Furosemide 20 MG/2 ML VIAL SLOW IVP SCH ×2 (05:22→13:48)
[2017-10-25] MEDS: Lactated Ringer's 1,000 ML IV SCH (05:22)
[2017-10-25 05:51] LABS: Anion Gap 12 mmol/L (10-20); BUN (Urea Nitrogen) 11 mg/dL (9.8-20.1); Calc. Creatinine Clearance 97 mL/min (70-130); Calcium 10.1 mg/dL (7.8-10.44); Carbon Dioxide 31 mmol/L (23-31); Chloride 100 mmol/L (98-107); Estimated GFR-MDRD Greater than 90; Glucose 185 mg/dL (83-110); Potassium 3.8 mmol/L (3.5-5.1); Sodium 139 mmol/L (136-145)
[2017-10-25] MEDS: Digoxin 0.5 MG/2 ML AMP SLOW IVP SCH (09:11)
[2017-10-25] MEDS ORDERED: Digoxin 0.125 MG TAB PO SCH (09:15)
--- NOTE | 2017-10-25 09:16 | PRG ---
DATE OF SERVICE: 10/25/2017 She is awake, alert, responsive. She denies any pain. She is still short of breath. She is still o n antibiotics. PHYSICAL EXAMINATION: VITAL SIGNS: Blood pressure is 164/76, sats are 100% on 2 liters, respirations 20, temperature 98. CHEST: Chest reveals minimal rhonchi. CARDIAC: Normal S1, S2, no gallops. ABDOMEN: Soft. NEUROLOGIC: Awake, alert, responsive. Blood sugar 183. IMPRESSION: 1. Status post lap for incarcerated hernia. 2. Chronic obstructive pulmonary disease. 3. Respiratory failure. 4. Congestive heart failure. PLAN: The patient has been low dose prednisone for an extended period of time. Restart low dose pre dnisone, neb treatments and supportive care, PT. I will follow.
[2017-10-25] MEDS: Carvedilol 3.125 MG TAB PO SCH ×2 (09:24→17:40)
[2017-10-25] MEDS: Famotidine 20 MG TAB PO SCH ×2 (09:24→20:19)
[2017-10-25] MEDS: Spironolactone 25 MG TAB PO SCH (09:24)
[2017-10-25] MEDS: HumaLOG 300 UNITS/3 ML VIAL SC PRN ×2 (11:23→17:39)
--- NOTE | 2017-10-25 16:34 | PDOC.PN ---
- Subjective Encounter Start Date: 10/25/17 Encounter Start Time: 10:00 Pt seen for followup re: hypertension. Denies fevers, chills, chest pain, nausea or vomiting. - Objective MAR Reviewed: Yes Vital Signs & Weight: Vital Signs (12 hours) Temp Pulse Resp BP Pulse Ox 10/25/17 16:01 99.1 F 103 H 16 135/73 97 10/25/17 10:14 101 H 24 H 98 10/25/17 09:21 104 H 10/25/17 08:00 97.8 F 104 H 16 96 10/25/17 06:19 100 22 H 100 Weight Admit Weight 178 lb 2.136 oz Weight 181 lb 7.047 oz Most Recent Monitor Data Heart Rate from ECG 99 NIBP 143/62 NIBP BP-Mean 79 Respiration from ECG 16 SpO2 100 I&O: 10/24/17 10/25/17 10/26/17 06:59 06:59 06:59 Intake Total 1808.6 1550 Output Total 3025 2360 Balance -1216.4 -810 Result Diagrams: 10/23/17 05:23 10/25/17 05:15 Additional Labs: Accuchecks 10/25/17 10/25/17 10/25/17 15:36 10:27 05:58 POC Glucose 231 H 269 H 183 H 10/25/17 10/25/17 10/24/17 03:32 01:47 17:15 POC Glucose 131 H 148 H 154 H Labs reviewed by me Phys Exam - Physical Examination Constitutional: NAD HEENT: moist MMs Neck: supple Respiratory: clear to auscultation bilateral Cardiovascular: RRR Gastrointestinal: soft Neurological: moves all 4 limbs Psychiatric: normal affect Dx/Plan (1) HTN (hypertension) Code(s): I10 - ESSENTIAL (PRIMARY) HYPERTENSION Status: Chronic Qualifiers: Hypertension type: essential hypertension Qualified Code(s): I10 - Essential (primary) hypertension Comment: Stable (2) COPD (chronic obstructive pulmonary disease) Status: Chronic Comment: stable (3) CHF (congestive heart failure) Code(s): I50.9 - HEART FAILURE, UNSPECIFIED Status: Chronic Comment: Stable. ACC AHA Class D (4) CKD (chronic kidney disease) stage 3, GFR 30-59 ml/min Status: Chronic Comment: Improved (5) DM type 2 (diabetes mellitus, type 2) Status: Chronic Qualifiers: Diabetes mellitus alf insulin use: with alf use Comment: On accuchecks, insulin sliding scale. - Plan * . Review of Systems - Medications/Allergies Allergies/Adverse Reactions: Allergies Allergy/AdvReac Type Severity Reaction Status Date / Time ciprofloxacin HCl Allergy Verified 07/29/17 00:44 [From Cipro] clarithromycin [From Biaxin] Allergy Verified 07/29/17 00:44 codeine Allergy Verified 07/29/17 00:44 Penicillins Allergy Verified 07/29/17 00:44 Medications: Current Medications Albuterol Sulfate (Ventolin) 2.5 mg NEB [id number] PRN PRN Reason: Wheezing Last Admin: 10/24/17 03:42 Dose: 2.5 mg Albuterol/Ipratropium (Duoneb) 3 ml NEB [id number] [facility] Last Admin: 10/25/17 13:48 Dose: 3 ml Carvedilol (Coreg) 3.125 mg PO BID-[facility] Last Admin: 10/25/17 09:24 Dose: 3.125 mg Dextrose/Water (Dextrose 50%) 25 gm SLOW IVP PRN PRN PRN Reason: Hypoglycemia Digoxin (Lanoxin) 0.125 mg PO QAM [facility] Enoxaparin Sodium (Lovenox) 30 mg SC 2100 [facility] Last Admin: 10/24/17 21:59 Dose: 30 mg Famotidine (Pepcid) 20 mg PO BID [facility] Last Admin: 10/25/17 09:24 Dose: 20 mg Furosemide (Lasix) 20 mg SLOW IVP 0600,1400 [facility] Last Admin: 10/25/17 13:48 Dose: 20 mg Glucagon (Glucagon) 1 mg IM PRN PRN PRN Reason: Hypoglycemia Hydralazine HCl (Apresoline) 10 mg SLOW IVP Q6H PRN PRN Reason: SBP Greater Than 170 Dextrose/Water (D5w) 1,000 mls @ 0 mls/hr IV .Q0M PRN; As Directed PRN Reason: Hypoglycemia Meropenem 1 gm/ Device 50 mls @ 100 mls/hr IVPB 0200,1000,1800 [facility] Last Admin: 10/25/17 09:16 Dose: 50 mls Lactated Ringer's (Lactated Ringer's) 1,000 mls @ 50 mls/hr IV .Q20H [facility] Last Admin: 10/25/17 05:22 Dose: 1,000 mls Insulin Human Lispro (Humalog) 0 units SC .MODERATE SLIDING SC PRN PRN Reason: Moderate Correctional Scale Last Admin: 10/25/17 11:23 Dose: 6 unit Lorazepam (Ativan) 2 mg SLOW IVP Q1H PRN PRN Reason: Breakthrough agitation Stop: 11/19/17 22:02 Last Admin: 10/23/17 22:12 Dose: 2 mg Metoprolol Tartrate (Lopressor) 5 mg IVP Q6H PRN PRN Reason: To Control Heart Rate Last Admin: 10/24/17 01:57 Dose: 5 mg Mometasone Furoate/Formoterol Fumar (Dulera 200 Mcg/5 Mcg Inhaler) 2 puff INH BID-RT [facility] Morphine Sulfate (Morphine) 2 mg SLOW IVP Q1H PRN PRN Reason: breakthrough pain/agitation Stop: 11/19/17 22:02 Last Admin: 10/24/17 22:12 Dose: 2 mg Discontinue Previous Narcotic Pain Medications And Benzodiazepines 1 each FS .ONE [facility] Stop: 11/19/17 22:02 Prednisone (Prednisone) 20 mg PO [facility] Sodium Chloride (Flush - Normal Saline) 10 ml IVF PRN PRN PRN Reason: Saline Flush Spironolactone (Aldactone) 25 mg PO QA-[facility] Last Admin: 10/25/17 09:24 Dose: 25 mg
[2017-10-25] MEDS: Mometasone/Formoterol 120 PUFF INHALER INH SCH (19:22)
[2017-10-25] MEDS: Enoxaparin Sodium 30 MG/0.3 ML SYRINGE SC SCH (20:19)
[2017-10-25] MEDS: Albuterol Sulfate 2.5 mg/3 ml Neb NEB PRN (22:45)
[2017-10-25] MEDS: Lorazepam 2 MG/ML VIAL SLOW IVP PRN (23:05)
[2017-10-26] MEDS: Lactated Ringer's 1,000 ML IV SCH (00:45)
--- NOTE | 2017-10-26 01:00 | PRG ---
DATE OF SERVICE: 10/25/2017 SUBJECTIVE: Ms. Morales is postoperative day #5 following laparotomy for strangulated umbilical her talib, small bowel resection. She remains on the surgical floor today. I start her on a full liquid d iet earlier today and she tells me she tolerated this. She has not vomited. She apparently has not had a bowel movement yet. She is uncertain if she has passed gas or not. OBJECTIVE: VITAL SIGNS: She is afebrile, pulse is 82-91, blood pressure is 117/62. LUNGS: Clear to auscultation. ABDOMEN: Soft, mildly distended with hypoactive bowel sounds. Wound VAC is in place in the center. LABORATORY STUDIES: Her basic metabolic panel is essentially normal except for elevated sugar levels . She has had a CBC in a couple of days. ASSESSMENT AND PLAN: The patient is making an appropriate progress. We are waiting for her ileus to appropriately resolve to where she can take adequate intake. She seems to be medically and hemodyna mically stable. She did have anemia when her labs were last checked a couple days ago, so I make isai e that we get a repeat CBC tomorrow. For right now, probably keep her on a full liquid diet.
[2017-10-26] MEDS: MEROPENEM 1 GM/50 ML 1 GM in Premix Bag 1 BAG IVPB SCH ×2 (01:03→10:05)
[2017-10-26] MEDS: Albuterol Sulfate 2.5 mg/3 ml Neb NEB PRN (02:20)
[2017-10-26] MEDS: Furosemide 20 MG/2 ML VIAL SLOW IVP SCH ×2 (05:15→13:53)
[2017-10-26] MEDS: HumaLOG 300 UNITS/3 ML VIAL SC PRN ×4 (06:05→21:39)
[2017-10-26] MEDS: Mometasone/Formoterol 120 PUFF INHALER INH SCH ×2 (07:03→19:43)
[2017-10-26 07:09] LABS: Hemoglobin 8.1 g/dL (12.0-16.0); Mean Corpuscular HGB CONC 30.6 g/dL (32.0-36.0); Mean Corpuscular Hemoglobin 25.1 pg (27.0-31.0); Mean Corpuscular Volume 82.2 fl (81.0-99.0); Mean Platelet Volume 7.9 fL (7.4-10.4); Platelet Count 382 thou/uL (130-400); Red Blood Cell (RBC) Count 3.21 mill/uL (4.20-5.40); White Blood Cell (WBC) Count 10.6 thou/uL (4.8-10.8)
[2017-10-26] MEDS: Famotidine 20 MG TAB PO SCH ×2 (08:04→21:38)
[2017-10-26] MEDS: predniSONE 20 MG TAB PO SCH (08:04)
[2017-10-26] MEDS: Carvedilol 3.125 MG TAB PO SCH ×2 (08:04→17:50)
[2017-10-26] MEDS: Spironolactone 25 MG TAB PO SCH ×2 (08:04→21:38)
[2017-10-26] MEDS ORDERED: Digoxin 0.125 MG TAB PO SCH (09:00)
[2017-10-26 09:01] LABS: Anisocytosis SLIGHT = 6-15 cells (100X) (0-5/hpf); Band 9 % (5-11); Eosinophils 1 % (0-10); Hypochromia SLIGHT = 6-15 cells (100X) (0-5/hpf); Lymphocytes 4 % (21-51); MDiff Complete? YES; Monocytes 9 % (0-10); Neutrophil 77 % (42-75); PLT Morphology Comment Appears Adequate; Polychromasia SLIGHT = 2-3 cells (100X) (0-2/hpf)
[2017-10-26] MEDS: Lorazepam 2 MG/ML VIAL SLOW IVP PRN (10:30)
--- NOTE | 2017-10-26 10:51 | PRG ---
DATE OF SERVICE: 10/26/2017 She says she is having difficulty breathing this morning. She is passing gas. PHYSICAL EXAMINATION: VITAL SIGNS: Sats are 90% on 2 liters, temperature is 97, pulse 95, respiration rate 18, blood press ure 131/71. CHEST: Chest reveals minimal rhonchi. CARDIAC: Normal S1, S2. ABDOMEN: Soft, no masses. LABORATORY: White count 10,000, H&H 8 and 26, platelet count 382. Glucose 224. IMPRESSION: 1. Chronic obstructive pulmonary disease. 2. Congestive heart failure, stable. 3. Status post lap. PLAN: Continue neb treatments, low dose steroids. I will follow.
[2017-10-26] MEDS ORDERED: Docusate 100 MG CAP PO PRN (15:48)
[2017-10-26] MEDS ORDERED: traMADol HCl 50 MG TAB PO PRN (15:48)
[2017-10-26] MEDS ORDERED: ALPRAZolam 0.5 MG TAB PO PRN (15:48)
[2017-10-26] MEDS ORDERED: PROVENTIL INHALER 6.7 G (200 INHALATIONS) INH PRN (15:48)
[2017-10-26] MEDS ORDERED: Ondansetron ODT 4 MG TAB PO PRN (15:48)
[2017-10-26] MEDS ORDERED: Bisacodyl 10 MG SUPP PR PRN (15:48)
[2017-10-26] MEDS ORDERED: Calcium Carbonate 500 MG ChewTAB PO PRN (15:48)
[2017-10-26] MEDS ORDERED: VITAMIN D3 PO SCH (16:00)
[2017-10-26] MEDS ORDERED: ALENDRONATE SODIUM PO SCH (16:00)
--- NOTE | 2017-10-26 16:50 | PRG ---
DATE OF SERVICE: 10/26/2017 SUBJECTIVE: Ms. Morales is doing well. She is tolerating her diet. She has been advanced to a kailash betic diet. OBJECTIVE: LUNGS: Clear to auscultation with occasional wheeze. She is on Lasix twice a day per [facility]. CARDIAC: Regular rate and rhythm. ABDOMEN: Soft. Bowel sounds present. Bowel movements have occurred. Wound VAC in place. EXTREMITIES: Unremarkable. LABORATORY DATA: Hemoglobin 8.1, white count 10.6. Basic metabolic profile yesterday normal. We wi ll check tomorrow given Lasix administration. ASSESSMENT: Doing well, increase diet, saline lock her diuretics. PLAN: Discharge home in the senior living in the next day or two.
[2017-10-26] MEDS: Acetaminophen 500 MG TAB PO SCH ×2 (17:50→21:38)
[2017-10-26] MEDS: Metoclopramide HCl 10 MG TAB PO SCH ×2 (17:50→21:39)
[2017-10-26] MEDS: Ferrous Sulfate 325 MG TAB PO SCH (17:50)
--- NOTE | 2017-10-26 18:03 | PDOC.PN ---
- Subjective Encounter Start Date: 10/26/17 Encounter Start Time: 08:40 Pt seen for followup re: hypertension. Denies chest pain, shortness of breath, fevers or chills. - Objective MAR Reviewed: Yes Vital Signs & Weight: Vital Signs (12 hours) Temp Pulse Resp BP Pulse Ox 10/26/17 16:04 98.2 F 86 20 130/69 97 10/26/17 11:34 97.9 F 101 H 20 133/77 95 10/26/17 10:38 96 20 98 10/26/17 08:04 93 10/26/17 08:00 97.6 F 95 18 133/71 98 10/26/17 07:55 97.6 F 93 18 98 10/26/17 07:01 97 20 98 Weight Admit Weight 178 lb 2.136 oz Weight 181 lb 7.047 oz Most Recent Monitor Data Heart Rate from ECG 99 NIBP 143/62 NIBP BP-Mean 79 Respiration from ECG 16 SpO2 100 I&O: 10/25/17 10/26/17 10/27/17 06:59 06:59 06:59 Intake Total 1550 1320 Output Total 2360 1200 Balance -810 120 Result Diagrams: 10/26/17 06:29 10/25/17 05:15 Additional Labs: Accuchecks 10/26/17 10/26/17 10/26/17 16:04 11:33 06:03 POC Glucose 262 H 217 H 202 H 10/25/17 20:57 POC Glucose 222 H Labs reviewed by me Phys Exam - Physical Examination Constitutional: NAD HEENT: moist MMs Neck: supple Respiratory: clear to auscultation bilateral Cardiovascular: RRR Gastrointestinal: soft Neurological: moves all 4 limbs Psychiatric: normal affect Dx/Plan (1) HTN (hypertension) Code(s): I10 - ESSENTIAL (PRIMARY) HYPERTENSION Status: Chronic Qualifiers: Hypertension type: essential hypertension Qualified Code(s): I10 - Essential (primary) hypertension Comment: BP controlled (2) COPD (chronic obstructive pulmonary disease) Status: Chronic Comment: stable (3) CHF (congestive heart failure) Code(s): I50.9 - HEART FAILURE, UNSPECIFIED Status: Chronic Comment: Stable. ACC AHA Class D (4) CKD (chronic kidney disease) stage 3, GFR 30-59 ml/min Status: Chronic Comment: Improved (5) DM type 2 (diabetes mellitus, type 2) Status: Chronic Qualifiers: Diabetes mellitus group home insulin use: with group home use Comment: continue accuchecks, insulin sliding scale. - Plan * . Review of Systems - Review of Systems Respiratory: negative: Cough, Shortness of Breath, SOB with Excertion, Pleuritic Pain, Wheezing Cardiovascular: negative: chest pain, palpitations, orthopnea, paroxysmal nocturnal dyspnea, edema, light headedness - Medications/Allergies Allergies/Adverse Reactions: Allergies Allergy/AdvReac Type Severity Reaction Status Date / Time ciprofloxacin HCl Allergy Verified 07/29/17 00:44 [From Cipro] clarithromycin [From Biaxin] Allergy Verified 07/29/17 00:44 codeine Allergy Verified 07/29/17 00:44 Penicillins Allergy Verified 07/29/17 00:44 Medications: Current Medications Acetaminophen (Tylenol) 1,000 mg PO Q6H [facility] Last Admin: 10/26/17 17:50 Dose: 1,000 mg Albuterol Sulfate (Ventolin) 2.5 mg NEB [id number] PRN PRN Reason: Wheezing Last Admin: 10/26/17 02:20 Dose: 2.5 mg Albuterol/Ipratropium (Duoneb) 3 ml NEB Q2H PRN PRN Reason: Wheezing Albuterol/Ipratropium (Duoneb) 3 ml NEB QID-RT [facility] Alprazolam (Xanax) 1 mg PO Q8H PRN PRN Reason: Anxiety Aspirin (Ecotrin) 81 mg PO DAILY [facility] Bisacodyl (Dulcolax) 10 mg [place] DAILY PRN PRN Reason: Constipation Calcium Carbonate (Tums) 1,000 mg PO Q4H PRN PRN Reason: ACID REFUX Carvedilol (Coreg) 3.125 mg PO BID-[facility] Last Admin: 10/26/17 17:50 Dose: 3.125 mg Dextrose/Water (Dextrose 50%) 25 gm SLOW IVP PRN PRN PRN Reason: Hypoglycemia Digoxin (Lanoxin) 0.125 mg PO MoWeFr [facility] Docusate Sodium (Colace) 100 mg PO DAILY PRN PRN Reason: Constipation Enoxaparin Sodium (Lovenox) 30 mg SC 2100 [facility] Last Admin: 10/25/17 20:19 Dose: 30 mg Famotidine (Pepcid) 20 mg PO BID [facility] Last Admin: 10/26/17 08:04 Dose: 20 mg Ferrous Sulfate (Feosol) 325 mg PO BID-WM [facility] Last Admin: 10/26/17 17:50 Dose: 325 mg Furosemide (Lasix) 80 mg PO DAILY [facility] Gabapentin (Neurontin) 300 mg PO TID [facility] Glucagon (Glucagon) 1 mg IM PRN PRN PRN Reason: Hypoglycemia Guaifenesin (Mucinex) 1,200 mg PO Q12HR [facility] Hydralazine HCl (Apresoline) 10 mg SLOW IVP Q6H PRN PRN Reason: SBP Greater Than 170 Dextrose/Water (D5w) 1,000 mls @ 0 mls/hr IV .Q0M PRN; As Directed PRN Reason: Hypoglycemia Insulin Human Lispro (Humalog) 0 units SC .MODERATE SLIDING SC PRN PRN Reason: Moderate Correctional Scale Last Admin: 10/26/17 17:50 Dose: 6 unit Insulin Human NPH (Humulin N) 30 unit SC DAILY [facility] Melatonin (Melatonin) 3 mg PO HS [facility] Metoclopramide HCl (Reglan) 10 mg PO ACHS [facility] Last Admin: 10/26/17 17:50 Dose: 10 mg Metoprolol Tartrate (Lopressor) 5 mg IVP Q6H PRN PRN Reason: To Control Heart Rate Last Admin: 10/24/17 01:57 Dose: 5 mg Mometasone Furoate/Formoterol Fumar (Dulera 200 Mcg/5 Mcg Inhaler) 2 puff INH BID-RT [facility] Last Admin: 10/26/17 07:03 Dose: 2 puff (Alendronate Sodium/Vitamin D3 [Fosamax Plus D] 1 Tablet) 0 tablet PO Q7D [facility] Ondansetron HCl (Zofran Odt) 4 mg PO Q6H PRN PRN Reason: Nausea/Vomiting Polyethylene Glycol (Miralax) 17 gm PO DAILY [facility] Prednisone (Prednisone) 20 mg PO QAM-WM [facility] Last Admin: 10/26/17 08:04 Dose: 20 mg Sodium Chloride (Flush - Normal Saline) 10 ml IVF PRN PRN PRN Reason: Saline Flush Spironolactone (Aldactone) 25 mg PO BID [facility] Tramadol HCl (Ultram) 50 mg PO Q6H PRN PRN Reason: Breakthrough Pain
[2017-10-26] MEDS ORDERED: Mometasone/Formoterol 120 PUFF INHALER INH SCH (18:30)
--- NOTE | 2017-10-26 20:26 | EKG ---
Test Reason : STAT Blood Pressure : / mmHG Vent. Rate : 093 BPM Atrial Rate : 093 BPM P-R Int : 180 ms QRS Dur : 182 ms QT Int : 406 ms P-R-T Axes : 056 -73 092 degrees QTc Int : 504 ms Atrial-sensed ventricular-paced rhythm Biventricular pacemaker detected Abnormal ECG When compared with ECG of 20-OCT-2017 13:59, (Unconfirmed) Premature ventricular complexes are no longer Present Vent. rate has increased BY 6 BPM Confirmed by LINDA SEE (2) on 10/26/2017 8:25:48 PM Referred By: KELTON Confirmed By:LINDA SEE
[2017-10-26] MEDS ORDERED: Melatonin 3 MG TAB PO SCH (21:00)
[2017-10-26] MEDS ORDERED: Ipratropium Oral Inhaler (200 INHALATIONS) INH SCH (21:00)
[2017-10-26] MEDS ORDERED: Carvedilol 6.25 MG TAB PO SCH (21:00)
[2017-10-26] MEDS: Gabapentin 300 MG CAP PO SCH (21:39)
[2017-10-26] MEDS: Enoxaparin Sodium 30 MG/0.3 ML SYRINGE SC SCH (21:39)
[2017-10-26] MEDS: guaiFENesin ER 600 MG TAB PO SCH (21:39)
[2017-10-27] MEDS: Acetaminophen 500 MG TAB PO SCH ×3 (06:24→15:10)
[2017-10-27] MEDS: Mometasone/Formoterol 120 PUFF INHALER INH SCH (06:39)
[2017-10-27 07:47] LABS: Anion Gap 10 mmol/L (10-20); BUN (Urea Nitrogen) 13 mg/dL (9.8-20.1); Calc. Creatinine Clearance 106 mL/min (70-130); Calcium 10.1 mg/dL (7.8-10.44); Carbon Dioxide 36 mmol/L (23-31); Chloride 98 mmol/L (98-107); Estimated GFR-MDRD Greater than 90; Glucose 138 mg/dL (83-110); Potassium 3.6 mmol/L (3.5-5.1); Sodium 140 mmol/L (136-145)
[2017-10-27] MEDS ORDERED: predniSONE 20 MG TAB PO SCH (08:00)
[2017-10-27] MEDS: Famotidine 20 MG TAB PO SCH (08:45)
[2017-10-27] MEDS: Spironolactone 25 MG TAB PO SCH (08:45)
[2017-10-27] MEDS: Gabapentin 300 MG CAP PO SCH ×2 (08:45→15:10)
[2017-10-27] MEDS: Metoclopramide HCl 10 MG TAB PO SCH ×2 (08:45→11:08)
[2017-10-27] MEDS: Ferrous Sulfate 325 MG TAB PO SCH (08:45)
[2017-10-27] MEDS: guaiFENesin ER 600 MG TAB PO SCH (08:45)
[2017-10-27] MEDS: predniSONE 20 MG TAB PO SCH (08:45)
[2017-10-27] MEDS: Carvedilol 3.125 MG TAB PO SCH (08:45)
[2017-10-27] MEDS ORDERED: Furosemide 80 MG TAB PO SCH (09:00)
[2017-10-27] MEDS ORDERED: Aspirin 81 mg Enteric Coated Tablet PO SCH (09:00)
[2017-10-27] MEDS ORDERED: Polyethylene Glycol 3350 17 GM Packet PO SCH ×2 (09:00)
[2017-10-27] MEDS ORDERED: NPH, Human Insulin Isophane 300 UNIT/3 ML VIAL SC SCH (09:00)
--- NOTE | 2017-10-27 09:49 | PRG ---
DATE OF SERVICE: 10/27/2017 SUBJECTIVE: Lucy Morales is doing well today. She is tolerating her diet. She has had a bowel movement. OBJECTIVE: VITAL SIGNS: Stable, afebrile, 82 heart rate, temperature 97.9 degrees, respirations 20, and blood p ressure 110/68. LUNGS: Clear to auscultation. She is not wheezing anymore. We stopped her IV fluids and she has be en on Lasix. CARDIAC: Regular rate and rhythm. ABDOMEN: Soft, baseline protuberance, nontender. Wound VAC in place. LABORATORY DATA: White count 10 yesterday, hemoglobin 8.1 yesterday. ASSESSMENT AND PLAN: Strangulated umbilical hernia, status post repair. The patient is ready for [facility] luz [facility] back to the shelter today. Plan is to transfer back to the shelter and follow up in my office in 2-3 weeks. She will have wound VAC care there. We can stop her antibiotics. She is o n iron. She can resume her home medications, nebulizers. She is on home oxygen.
[2017-10-27] MEDS: HumaLOG 300 UNITS/3 ML VIAL SC PRN (11:14)
[2017-10-27 11:16] VITALS: BP 136/81; TEMP 97.6
--- NOTE | 2017-10-27 13:53 | PRG ---
DATE OF SERVICE: 10/27/2017 SUBJECTIVE: Carmen is awake, alert, responsive, in no distress. OBJECTIVE: VITAL SIGNS: Sats are 98 on 2 liters, respiratory 20, temperature 97, blood pressure 137/72. CHEST: No wheezing. CARDIAC: Normal S1, S2. No gallops. ABDOMEN: Soft, no masses. LABORATORY DATA: Normal. IMPRESSION: 1. Chronic obstructive pulmonary disease and congestive heart failure. 2. Status post laparoscopic strangulated hernia. PLAN: I agree with discharge home low-dose prednisone. Pulmonary will follow at a distance.
--- NOTE | 2017-10-27 15:20 | PDOC.PN ---
- Subjective Encounter Start Date: 10/27/17 Encounter Start Time: 15:18 Subjective: no new complaints. - Objective MAR Reviewed: Yes Vital Signs & Weight: Vital Signs (12 hours) Temp Pulse Resp BP Pulse Ox 10/27/17 13:51 78 20 98 10/27/17 11:16 97.6 F 71 18 136/81 98 10/27/17 10:09 80 20 10/27/17 08:03 97.5 F L 75 18 137/72 99 10/27/17 06:37 82 20 98 10/27/17 04:03 97.9 F 69 16 110/68 100 Weight Admit Weight 178 lb 2.136 oz Weight 181 lb 7.047 oz Most Recent Monitor Data Heart Rate from ECG 99 NIBP 143/62 NIBP BP-Mean 79 Respiration from ECG 16 SpO2 100 I&O: 10/26/17 10/27/17 10/28/17 06:59 06:59 06:59 Intake Total 1320 900 Output Total 1200 2400 Balance 120 -1500 Result Diagrams: 10/26/17 06:29 10/27/17 07:25 Additional Labs: Accuchecks 10/27/17 10/27/17 10/26/17 11:12 05:54 20:39 POC Glucose 214 H 148 H 224 H 10/26/17 16:04 POC Glucose 262 H Microbiology 09/17/17 17:40 Anus Stool Occult Blood (JU) - Final 09/13/17 17:00 Urine espitia catheter Urine Culture - Final Pseudomonas aeruginosa 09/13/17 06:10 Stool Stool Occult Blood (JU) - Final 09/12/17 22:37 Venous blood - Right Arm Blood Culture - Final NO GROWTH IN 5 DAYS 09/12/17 22:30 Venous blood - Left Arm Blood Culture - Final NO GROWTH IN 5 DAYS Laboratory Tests 09/12/17 09/13/17 09/14/17 22:15 05:11 04:01 Hgb 7.4 L 7.0 L 7.0 L 09/17/17 09/18/17 05:16 04:00 Hgb 6.6 L 8.4 L Phys Exam - Physical Examination Constitutional: NAD hunched up in bed ,sleeping HEENT: PERRLA, moist MMs, sclera anicteric, oral pharynx no lesions Neck: no nodes, no JVD, supple, full ROM Respiratory: no wheezing, no rales, no rhonchi, clear to auscultation bilateral Cardiovascular: RRR, no significant murmur Gastrointestinal: soft, non-tender, no distention, positive bowel sounds wound vac in place Musculoskeletal: no edema, pulses present Neurological: non-focal, normal sensation, moves all 4 limbs Psychiatric: normal affect, A&O x 3 Skin: no rash Dx/Plan (1) Incarcerated umbilical hernia Code(s): K42.0 - UMBILICAL HERNIA WITH OBSTRUCTION, WITHOUT GANGRENE Status: Acute Comment: s/p surgery (2) CHF (congestive heart failure) Code(s): I50.9 - HEART FAILURE, UNSPECIFIED Status: Chronic Comment: Stable. ACC AHA Class D (3) COPD (chronic obstructive pulmonary disease) Status: Chronic Comment: stable (4) Anxiety disorder Code(s): F41.9 - ANXIETY DISORDER, UNSPECIFIED Status: Chronic Qualifiers: Anxiety disorder type: unspecified anxiety disorder Qualified Code(s): F41.9 - Anxiety disorder, unspecified (5) Chronic anemia Code(s): D64.9 - ANEMIA, UNSPECIFIED Status: Chronic Comment: stable (6) DM type 2 (diabetes mellitus, type 2) Status: Chronic Qualifiers: Diabetes mellitus chcf insulin use: with chcf use Comment: continue accuchecks, insulin sliding scale. (7) Diabetic gastroparesis Code(s): E11.43 - TYPE 2 DIABETES W DIABETIC AUTONOMIC (POLY)NEUROPATHY; K31.84 - GASTROPARESIS Status: Chronic Comment: (8) HTN (hypertension) Code(s): I10 - ESSENTIAL (PRIMARY) HYPERTENSION Status: Chronic Qualifiers: Hypertension type: essential hypertension Qualified Code(s): I10 - Essential (primary) hypertension Comment: BP controlled (9) Physical deconditioning Code(s): R53.81 - OTHER MALAISE Status: Chronic - Plan DVT proph w/SCDs Ok to DC to [facility] from IM side. -: HD stable.cont home meds-reviewed. * . Review of Systems - Review of Systems Constitutional: weakness, malaise ENT: negative: Ear Pain, Ear Discharge, Nose Pain, Nose Discharge, Nose Congestion, Mouth Pain, Mouth Swelling, Throat Pain, Throat Swelling, Other Respiratory: negative: Cough, Dry, Shortness of Breath, Hemoptysis, SOB with Excertion, Pleuritic Pain, Sputum, Wheezing Cardiovascular: negative: chest pain, palpitations, orthopnea, paroxysmal nocturnal dyspnea, edema, light headedness, other Gastrointestinal: negative: Nausea, Vomiting, Abdominal Pain, Diarrhea, Constipation, Melena, Hematochezia, Other Genitourinary: negative: Dysuria, Frequency, Incontinence, Hematuria, Retention , Other Musculoskeletal: negative: Neck Pain, Shoulder Pain, Arm Pain, Back Pain, Hand Pain, Leg Pain, Foot Pain, Other Skin: negative: Rash, Lesions, Han, Bruising, Other - Medications/Allergies Allergies/Adverse Reactions: Allergies Allergy/AdvReac Type Severity Reaction Status Date / Time ciprofloxacin HCl Allergy Verified 07/29/17 00:44 [From Cipro] clarithromycin [From Biaxin] Allergy Verified 07/29/17 00:44 codeine Allergy Verified 07/29/17 00:44 Penicillins Allergy Verified 07/29/17 00:44 Medications: Current Medications Acetaminophen (Tylenol) 1,000 mg PO Q6H [facility] Last Admin: 10/27/17 15:10 Dose: 1,000 mg Albuterol Sulfate (Ventolin) 2.5 mg NEB [id number] PRN PRN Reason: Wheezing Last Admin: 10/26/17 02:20 Dose: 2.5 mg Albuterol/Ipratropium (Duoneb) 3 ml NEB Q2H PRN PRN Reason: Wheezing Albuterol/Ipratropium (Duoneb) 3 ml NEB QID-RT [facility] Last Admin: 10/27/17 13:51 Dose: 3 ml Alprazolam (Xanax) 1 mg PO Q8H PRN PRN Reason: Anxiety Aspirin (Ecotrin) 81 mg PO DAILY [facility] Last Admin: 10/27/17 08:45 Dose: 81 mg Bisacodyl (Dulcolax) 10 mg [place] DAILY PRN PRN Reason: Constipation Calcium Carbonate (Tums) 1,000 mg PO Q4H PRN PRN Reason: ACID REFUX Carvedilol (Coreg) 3.125 mg PO BID-[facility] Last Admin: 10/27/17 08:45 Dose: 3.125 mg Dextrose/Water (Dextrose 50%) 25 gm SLOW IVP PRN PRN PRN Reason: Hypoglycemia [facility]) [facility] Docusate Sodium (Colace) 100 mg PO DAILY PRN PRN Reason: Constipation Enoxaparin Sodium (Lovenox) 40 mg SC 2100 [facility] Famotidine (Pepcid) 20 mg PO BID [facility] Last Admin: 10/27/17 08:45 Dose: 20 mg Ferrous Sulfate (Feosol) 325 mg PO BID-WM [facility] Last Admin: 10/27/17 08:45 Dose: 325 mg Furosemide (Lasix) 80 mg PO DAILY [facility] Last Admin: 10/27/17 08:45 Dose: 80 mg Gabapentin (Neurontin) 300 mg PO TID [facility] Last Admin: 10/27/17 15:10 Dose: 300 mg Glucagon (Glucagon) 1 mg IM PRN PRN PRN Reason: Hypoglycemia Guaifenesin (Mucinex) 1,200 mg PO Q12HR [facility] Last Admin: 10/27/17 08:45 Dose: 1,200 mg Hydralazine HCl (Apresoline) 10 mg SLOW IVP Q6H PRN PRN Reason: SBP Greater Than 170 Dextrose/Water (D5w) 1,000 mls @ 0 mls/hr IV .Q0M PRN; As Directed PRN Reason: Hypoglycemia Insulin Human Lispro (Humalog) 0 units SC .MODERATE SLIDING SC PRN PRN Reason: Moderate Correctional Scale Last Admin: 10/27/17 11:14 Dose: 4 unit Insulin Human NPH (Humulin N) 30 unit SC DAILY [facility] Last Admin: 10/27/17 08:44 Dose: 30 unit Melatonin (Melatonin) 3 mg PO HS [facility] Last Admin: 10/27/17 00:21 Dose: Not Given Metoclopramide HCl (Reglan) 10 mg PO ACHS [facility] Last Admin: 10/27/17 11:08 Dose: 10 mg Metoprolol Tartrate (Lopressor) 5 mg IVP Q6H PRN PRN Reason: To Control Heart Rate Last Admin: 10/24/17 01:57 Dose: 5 mg Mometasone Furoate/Formoterol Fumar (Dulera 200 Mcg/5 Mcg Inhaler) 2 puff INH BID-RT [facility] Last Admin: 10/27/17 06:39 Dose: 2 puff (Alendronate Sodium/Vitamin D3 [Fosamax Plus D] 1 Tablet) 0 tablet PO Q7D [facility] Ondansetron HCl (Zofran Odt) 4 mg PO Q6H PRN PRN Reason: Nausea/Vomiting Polyethylene Glycol (Miralax) 17 gm PO DAILY [facility] Last Admin: 10/27/17 08:45 Dose: 17 gm Prednisone (Prednisone) 10 mg PO QAM-WM [facility] Sodium Chloride (Flush - Normal Saline) 10 ml IVF PRN PRN PRN Reason: Saline Flush Spironolactone (Aldactone) 25 mg PO BID [facility] Last Admin: 10/27/17 08:45 Dose: 25 mg Tramadol HCl (Ultram) 50 mg PO Q6H PRN PRN Reason: Breakthrough Pain
--- NOTE | 2017-10-27 17:16 | DIS ---
DATE OF ADMISSION: 10/20/2017 DATE OF DISCHARGE: 10/27/2017 To [facility] CONSULTANTS: Dr. Lomax, Pulmonary Medicine, Hospitalist, Cardiology, Dr. Mcdermott. DISCHARGE DIAGNOSES: Strangulated umbilical hernia with bowel obstruction, chronic obstructive pulmo nary disease, pacemaker, diastolic dysfunction followed by Dr. Mcdermott, normal cardiac ejection fracti on. HISTORY: A 77-year-old female on chronic oxygen, [facility], presents with strangulated u mbilical hernia with a bowel obstruction. CAT scan demonstrated this finding with dilated small sandra l. She was taken to the operating room after receiving intravenous fluids and antibiotics, underwent a repair of her incarcerated/strangulated umbilical hernia with small bowel resection and fascial cl osure primarily without mesh. Wound VAC applied. The patient is discharged home at this time to [facility] with resumption of her home medications and resumption of her home oxygen. She wi ll have a wound VAC to the wound. She will follow up in my office in 2-3 weeks. Diet and activity a s tolerated. She will resume her home medications using Ultram for pain.
[2017-10-27] MEDS ORDERED: Enoxaparin Sodium 40 MG/0.4 ML SYRINGE SC SCH (21:00)
[2017-10-28] MEDS ORDERED: predniSONE 5 MG TAB PO SCH (08:00)
[2017-10-28] MEDS ORDERED: Digoxin 0.125 MG TAB PO SCH (09:00)
== END 2017-10-27 17:15 | DRG 329 ==
LOC: ERS 13:44 → CCU 17:36 → SDC 17:36 → CCU 18:31 → SURG A 10-24 18:46
PROVIDERS: ADMIT Specialist; ATTEND Specialist
PROC: 0DB80ZZ Excision of Small Intestine, Open Approach (ICD-10-PCS; principal; 2017-10-20)
PROC: 0WQF0ZZ Repair Abdominal Wall, Open Approach (ICD-10-PCS; 2017-10-20)
PROC: 5A1935Z Respiratory Ventilation, Less than 24 Consecutive Hours (ICD-10-PCS; 2017-10-20)
DX: K42.0 Umbilical hernia with obstruction, without gangrene (principal); I50.31 Acute diastolic (congestive) heart failure; J96.90 Respiratory failure, unspecified, unspecified whether with hypoxia or hypercapnia; I42.9 Cardiomyopathy, unspecified; I13.0 Hypertensive heart and chronic kidney disease with heart failure and stage 1 through stage 4 chronic kidney disease, or unspecified chronic kidney disease; J44.9 Chronic obstructive pulmonary disease, unspecified; Z95.0 Presence of cardiac pacemaker; Z88.5 Allergy status to narcotic agent; Z88.0 Allergy status to penicillin; Z88.8 Allergy status to other drugs, medicaments and biological substances; Z85.41 Personal history of malignant neoplasm of cervix uteri; Z92.3 Personal history of irradiation; F41.9 Anxiety disorder, unspecified; Z87.891 Personal history of nicotine dependence; N18.9 Chronic kidney disease, unspecified; E11.22 Type 2 diabetes mellitus with diabetic chronic kidney disease; Z79.4 Long term (current) use of insulin; D64.9 Anemia, unspecified; E11.43 Type 2 diabetes mellitus with diabetic autonomic (poly)neuropathy; K31.84 Gastroparesis; R53.81 Other malaise; Z79.51 Long term (current) use of inhaled steroids; Z79.82 Long term (current) use of aspirin
CPT/HCPCS: 36415; 36416; 71045; 74018; 74019; 74177; 80048; 80053; 80162; 81003; 81015; 82553; 82805; 83605; 83690; 84484; 85025; 86850; 86900; 86901; 88307; 93005; 93010; 94002; 94003; 94640; 94664; A4216; G8978-GP-CL; G8979-GP-CJ; G8987-GO-CM; G8988-GO-CJ; J0360; J1160; J1170; J1650; J1815; J1940; J2001; J2060; J2185; J2250; J2270; J2704; J3010; J3480; J7050; J7506; J7611; J7620; S0028

== ENCOUNTER 2017-12-28 14:00 | Outpatient (CLI) | payer MEDICARE ==
--- NOTE | 2017-12-28 14:17 | RAD ---
SINGLE VIEW OF THE CHEST: Comparison: 10-22-17 History: Shortness of breath, edema. FINDINGS: Single view of the chest shows an enlarged cardiomediastinal silhouette. A pacemaker is seen with its leads in the right atrium, right ventricle and coronary sinus. There is a small left pleural effusio n. IMPRESSION: Cardiomegaly and small left pleural effusion. POS: H
== END 2017-12-28 14:01 | disposition home or self-care (01) ==
LOC: RAD-FRANK 14:00
PROVIDERS: ATTEND Nurse Practitioner Family
DX: R06.02 Shortness of breath (principal); R60.9 Edema, unspecified; I51.7 Cardiomegaly; J90 Pleural effusion, not elsewhere classified
CPT/HCPCS: 71045; 71046

== ENCOUNTER 2018-01-13 14:01 | Inpatient (IN) | payer MEDICARE, MEDICAID ==
[2018-01-13 14:53] LABS: Hemoglobin 6.7 g/dL (12.0-16.0); Mean Corpuscular HGB CONC 33.8 g/dL (32.0-36.0); Mean Corpuscular Hemoglobin 31.5 pg (27.0-31.0); Mean Corpuscular Volume 93.3 fL (78.0-98.0); Platelet Count 403 thou/uL (130-400); RBC Distribution Width 20.4 % (11.5-14.5); Red Blood Cell (RBC) Count 2.13 mill/uL (4.20-5.40); White Blood Cell (WBC) Count 12.6 thou/uL (4.8-10.8)
[2018-01-13 15:15] LABS: Anisocytosis SLIGHT = 6-15 cells (100X) (0-5/hpf); Band 9 % (5-11); Lymphocytes 2 % (21-51); MDiff Complete? YES; Macrocytosis SLIGHT = 6-15 cells (100X) (0-5/hpf); Monocytes 3 % (0-10); Neutrophil 86 % (42-75); Nucleated RBC 3 % (0); PLT Morphology Comment Appears Increased; Polychromasia SLIGHT = 2-3 cells (100X) (0-2/hpf)
[2018-01-13 15:16] LABS: ALT (SGPT) 13 U/L (8-55); AST (SGOT) 9 U/L (5-34); Albumin 3.7 g/dL (3.4-4.8); Alkaline Phosphatase 53 U/L (40-150); Anion Gap 17 mmol/L (10-20); BUN (Urea Nitrogen) 75 mg/dL (9.8-20.1); Bilirubin, Total 0.3 mg/dL (0.2-1.2); Calc. Creatinine Clearance 0 mL/min (70-130); Calcium 10.2 mg/dL (7.8-10.44); Carbon Dioxide 31 mmol/L (23-31); Chloride 86 mmol/L (98-107); Estimated GFR-MDRD 26; Globulin 2.7 g/dL (2.4-3.5); Glucose 265 mg/dL (83-110); Potassium 4.5 mmol/L (3.5-5.1); Protein, Total 6.4 g/dL (6.0-8.3); Sodium 129 mmol/L (136-145)
[2018-01-13 19:01] VITALS: BMI 27.4
[2018-01-13] MEDS ORDERED: hydrALAZINE 20 MG/ML VIAL SLOW IVP PRN (19:49)
[2018-01-13] MEDS ORDERED: Ondansetron ODT 4 MG TAB PO PRN (19:49)
[2018-01-13] MEDS ORDERED: traMADol HCl 50 MG TAB PO PRN (19:49)
[2018-01-13] MEDS ORDERED: Ondansetron HCl/PF 4 MG/2 ML Vial IVP PRN (19:49)
[2018-01-13] MEDS ORDERED: HumaLOG 300 UNITS/3 ML VIAL SC PRN (19:49)
[2018-01-13] MEDS ORDERED: cloNIDine 0.1 MG TAB PO PRN (19:49)
[2018-01-13] MEDS ORDERED: Dextrose 5% in Water 1,000 ML IV PRN (19:49)
[2018-01-13] MEDS ORDERED: Acetaminophen 500 MG TAB PO PRN (19:49)
[2018-01-13] MEDS ORDERED: Dextrose 50% Abboject 50 ML SYRINGE SLOW IVP PRN (19:49)
[2018-01-13] MEDS: Famotidine 20 MG TAB PO SCH (21:11)
[2018-01-13] MEDS: Carvedilol 3.125 MG TAB PO SCH (21:11)
[2018-01-13] MEDS: Ferrous Sulfate 325 MG TAB PO SCH (21:11)
[2018-01-13] MEDS: Gabapentin 300 MG CAP PO SCH (21:11)
--- NOTE | 2018-01-14 01:43 | HP ---
DATE OF ADMISSION: 01/13/2018 PRIMARY CARE PROVIDER: JEFFREY oT CHIEF COMPLAINT: Dizziness. HISTORY OF PRESENT ILLNESS: This is a 77-year-old female who presents to [facility] and transferred from [facility]. The patient has been a current resident of [facility], receiving physical therapy and ambulating with use of a rolling walker. T he patient states that she was unable to fully participate with physical therapy due to increasing di zziness and weakness over the last several days. The patient apparently underwent CBC evaluation at the [facility] and was noted with a hemoglobin level of 5.9. The patient with longstanding chronic anemia, receiving multiple blood transfusions over the last 6-7 months. The patient denied any melissa k melena or hematemesis. The patient states she does take aspirin daily. The patient is unsure of t he last endoscopy she underwent, but has seen a stable helper in the last 2-3 years. The patien t denies any associated shortness of breath, cough, congestion, or fever. The patient denies any rec ent fall, head injury, visual disturbance, or unilateral weakness. In the emergency room, the patien t underwent general evaluation with repeat hemoglobin assessment showing a level of 6.7. Previous he moglobin on the electronic medical record shows 8.1 value on 10/26/2017. The patient was typed and c rossed for 1 unit of packed red blood cells in the emergency room and transferred to the [facility] for further evaluation. PAST MEDICAL HISTORY: 1. Acute on chronic normocytic anemia. 2. History of strangulated umbilical hernia with bowel obstruction in 10/2017. 3. Chronic obstructive pulmonary disease. 4. Diastolic dysfunction with preserved ejection fraction. 5. Cardiomyopathy with ejection fraction of 50%. 6. History of pneumothorax, status post chest tube placement. 7. Diabetes mellitus type 2, insulin requiring. 8. Hypertension. 9. History of recurrent respiratory failure, requiring intubation. 10. Cervical cancer, status post radiation therapy. 11. History of SVT, status post cardiac ablation. 12. Anxiety/depression. 13. Acute on chronic anemia. PAST SURGICAL HISTORY: 1. Status post tonsillectomy. 2. Status post pacemaker insertion. 3. Status post appendectomy. 4. Status post cataract removal with lens implant. 5. Status post bowel obstruction with strangulated umbilical hernia and small bowel resection. CURRENT MEDICATIONS: Based on previous admission and discharge in 10/2017: 1. ProAir HFA 2 puffs inhaled q.i.d. p.r.n. 2. Alendronate 70 mg p.o. q.7 days. 3. Xanax 1 mg p.o. t.i.d. p.r.n. 4. Enteric coated aspirin 81 mg 1 tab p.o. daily. 5. Coreg 3.125 mg p.o. b.i.d. 6. Digoxin 0.125 mg p.o. daily. 7. Ferrous sulfate 325 mg p.o. b.i.d. 8. Lasix 80 mg 1 tab p.o. daily. 9. Gabapentin 300 mg p.o. t.i.d. 10. Ipratropium HFA two puffs inhaled b.i.d. 11. Melatonin 3 mg p.o. at bedtime. 12. Reglan 10 mg p.o. q.i.d. 13. Dulera 200/5 mcg 2 puffs inhaled b.i.d. 14. NPH insulin 30 units subcutaneously daily. 15. Spironolactone 25 mg p.o. b.i.d. 16. Tramadol 50 mg p.o. q.6 hours p.r.n. ALLERGIES: CIPROFLOXACIN, CLARITHROMYCIN, CODEINE, PENICILLIN. FAMILY HISTORY: Father with myocardial infarction. Mother with COPD and stroke. SOCIAL HISTORY: Patient is formally a resident of [place], [place], now residing in [facility]. Former tobacco use, quitting more than 10 years prior to this evaluation. No alcohol or illicit drug use. Ambulates with use of a rolling walker with contact guard assistance. REVIEW OF SYSTEMS: The following complete review of systems was negative, unless otherwise mentioned in the HPI or below: Constitutional: Weight loss or gain, ability to conduct usual activities. Sk in: Rash, itching. Eyes: Double vision, pain. ENT/Mouth: Nose bleeding, neck stiffness, pain, te nderness. Cardiovascular: Palpitations, dyspnea on exertion, orthopnea. Respiratory: Shortness of breath, wheezing, cough, hemoptysis, fever or night sweats. Gastrointestinal: Poor appetite, abdom inal pain, heartburn, nausea, vomiting, constipation, or diarrhea. Genitourinary: Urgency, frequenc y, dysuria, nocturia. Musculoskeletal: Pain, swelling. Neurologic/Psychiatric: Anxiety, depressio n. Allergy/Immunologic: Skin rash, bleeding tendency. PHYSICAL EXAMINATION: VITAL SIGNS: On admission, blood pressure 124/66, pulse 85, respiratory rate 18, temperature 98.2 de grees Fahrenheit, O2 saturation 96% on 2 liters per minute by nasal cannula. GENERAL APPEARANCE: This is a 77-year-old female, alert and oriented x3, pleasant, respons vaibhav, in no acute distress. HEENT: Pupils are equal, round, and reactive to light and accommodation. Extraocular muscles are in tact. No scleral icterus, no conjunctival injection. Nares patent. OP is clear. Edentulous. NECK: Supple. No cervical adenopathy, no thyromegaly, no carotid bruits, no JVD appreciated. Cervi juancarlos spine with full active and passive range of motion. No meningeal signs noted. CHEST: Diminished breath sounds in the bases bilaterally. CARDIOVASCULAR: S1, S2 with distant heart sounds. No murmur, rub, or gallop appreciated. ABDOMEN: Rounded, soft with mild tenderness to palpation in the left and right upper quadrants. No palpable mass. No rebound or guarding noted. EXTREMITIES: Warm and dry with fair turgor. Mild edema to the bilateral lower extremities below-the -knee. Pulses palpable distally at the dorsalis pedis, posterior tibial, and popliteal arteries bila terally. Capillary refill less than 2 seconds. NEUROLOGIC: Cranial nerves II through XII are grossly intact. No focal or lateralizing signs apprec iated. The patient not observed ambulatory during this exam. PERTINENT LABORATORY AND X-RAY FINDINGS: Sodium 129, potassium 4.5, chloride 86, CO2 of 31, BUN 75, creatinine 1.88, estimated GFR 26, glucose 265, calcium 10.2. LFTs within normal limits. CBC showed a white blood cell count 12.6, hemoglobin 6.7, hematocrit 19.8, platelet count 403 with 86% neutroph ils. Stool hemoccult negative x1, 01/13/2018. Portable chest x-ray dated 12/28/2017 showed cardiome ike and small left pleural effusion. EKG dated 01/13/2018 by my interpretation shows A sensed and V paced rhythm in the 80s. ASSESSMENT AND PLAN: 1. Symptomatic anemia. The patient will be admitted to the medical floor. We will type and cross a nd transfuse 1 unit of packed red blood cells. Continue serial H&H monitoring. Consult GI Service i n the a.m. for any further recommendations. Avoid anticoagulation and aspirin. 2. Acute on chronic normocytic anemia. See #1 above. Resume the ferrous sulfate 325 mg b.i.d. 3. Acute kidney injury on chronic kidney disease, stage 3. Hold Lasix. Avoid nephrotoxic agents an d contrast media. Repeat serial creatinine monitoring. 4. Hyponatremia. Suspect secondary to hyperglycemia. We will repeat sodium level in the a.m. and m onitor overall sodium trend. 5. Diabetes mellitus type 2, insulin requiring. Insulin sliding scale for reflexive coverage. ADA diet. Accu-Cheks a.c. and at bedtime. Resume home insulin regimen once confirmed. 6. Chronic obstructive pulmonary disease - stable. No evidence to suggest acute exacerbation. Resu me home bronchodilator therapy and monitor clinically. 7. Prophylaxis. Sequential compression devices while in bed. Pepcid 20 mg p.o. b.i.d. PT evaluati on in the a.m. 8. Code status is FULL. Surrogate medical decision maker is not identified.
[2018-01-14 05:15] LABS: Anion Gap 17 mmol/L (10-20); BUN (Urea Nitrogen) 70 mg/dL (9.8-20.1); Calc. Creatinine Clearance 35 mL/min (70-130); Carbon Dioxide 30 mmol/L (23-31); Chloride 90 mmol/L (98-107); Estimated GFR-MDRD 33; Glucose 179 mg/dL (83-110); Potassium 3.7 mmol/L (3.5-5.1); Sodium 133 mmol/L (136-145)
[2018-01-14] MEDS: HumaLOG 300 UNITS/3 ML VIAL SC PRN ×2 (06:10→17:40)
[2018-01-14 07:10] LABS: Band 10 % (5-11); Hemoglobin 7.5 g/dL (12.0-16.0); Lymphocytes 6 % (21-51); MDiff Complete? YES; Mean Corpuscular HGB CONC 34.4 g/dL (32.0-36.0); Mean Corpuscular Hemoglobin 31.7 pg (27.0-31.0); Mean Corpuscular Volume 92.2 fL (78.0-98.0); Monocytes 4 % (0-10); Myelocyte 3 % (0-0); Neutrophil 77 % (42-75); Platelet Count 333 thou/uL (130-400); RBC Distribution Width 18.7 % (11.5-14.5); Red Blood Cell (RBC) Count 2.37 mill/uL (4.20-5.40); White Blood Cell (WBC) Count 8.8 thou/uL (4.8-10.8)
[2018-01-14] MEDS: Mometasone/Formoterol 120 PUFF INHALER INH SCH ×2 (07:24→18:59)
[2018-01-14] MEDS: Gabapentin 300 MG CAP PO SCH ×3 (10:26→22:01)
[2018-01-14] MEDS: Ferrous Sulfate 325 MG TAB PO SCH ×2 (10:26→22:02)
[2018-01-14] MEDS: Carvedilol 3.125 MG TAB PO SCH ×2 (10:26→22:02)
[2018-01-14] MEDS: Furosemide 80 MG TAB PO SCH (10:26)
[2018-01-14] MEDS: NPH, Human Insulin Isophane 300 UNIT/3 ML VIAL SC SCH (12:21)
--- NOTE | 2018-01-14 12:32 | CON ---
DATE OF CONSULTATION: 01/14/2018 REASON FOR CONSULTATION: Symptomatic anemia. CONSULTING PHYSICIAN: Dr. Jair Grossman. HISTORY OF PRESENT ILLNESS: The patient is a 77-year-old female with past medical history of COPD, c oronary artery disease and cardiomyopathy with an ejection fraction of 50%, status post pacemaker katrin cement, history of pneumothorax status post chest tube placement, diabetes, hypertension, cervical ca ncer status post XRT, anxiety/depression and chronic normocytic anemia presenting with complaints of symptomatic anemia. She states that she was in her usual state of health until approximately 1.5-2 w eeks ago when she had the acute onset of intermittent dizziness, dyspnea on exertion and overall gene ral weakness over her entire body. This prompted a physician at the skilled nursing for which she is [facility] to draw a CBC and she was noted to have a significant anemia (especially in light of her chr onic longstanding anemia and receiving multiple blood transfusions over the last 6-7 months). With h er significantly decreased hemoglobin and hematocrit, she was subsequently transferred to [facility] for further evaluation. Upon interview of the patient today, she states that she has been h aving darker colored stools with semi-solid consistency that had been present for the last 2-3 months ; however, she was placed on iron supplementation approximately 2-3 months ago after a strangulated u mbilical hernia with bowel obstruction was noted and she underwent surgery for this procedure in 10/12. She also endorses increased suprapubic abdominal pain characterized as a cramping type sensatio n, intermittent. This is only present for the last 1-2 days with the pain and would reach a severity of approximately 3-4/10. The pain is worse with not having a bowel movement, better with having a b owel movement for which she has been experiencing constipation, having approximately one solid to david isolid bowel movement daily, but requiring the use of laxatives to assist with this maneuver. She ad ds that she has been having constipation ever since she started iron supplementation 2-3 months ago. Otherwise, she denies any nausea, vomiting, fevers, chills, hematemesis, hematochezia, dysphagia, od ynophagia or weight loss. Of note, she has undergone both EGD and colonoscopy within the last 2-3 years with her prior EGD on 0 07/12/2015 which showed mild erosive gastritis without the evidence of H. pylori on biopsies. She als o underwent a colonoscopy on 02/03/2015 which showed multiple small arteriovenous malformations in th e rectosigmoid area. Two small tubular adenomas in the transverse colon in addition to diverticulosi s on the left side. REVIEW OF SYSTEMS: A 10-category review of systems was obtained with all responses negative except f or the pertinent positives as listed in the HPI. PAST MEDICAL HISTORY: As per HPI. PAST SURGICAL HISTORY: Tonsillectomy, pacemaker placement, appendectomy, cataract removal and bowel obstruction with strangulated umbilical hernia and small bowel resection in 10/2017. FAMILY HISTORY: Denies any GI malignancies. SOCIAL HISTORY: Denies any tobacco, alcohol or illicit drug use. OUTPATIENT MEDICATIONS: Reviewed. ALLERGIES: CIPROFLOXACIN, CLARITHROMYCIN, CODEINE, and PENICILLIN. PHYSICAL EXAMINATION: VITAL SIGNS: Temperature 97.9, pulse 80, blood pressure 119/65, respiratory rate 16, satting 96% on 2 liters nasal cannula (however, she did not have a nasal cannula in place at the time of interview). GENERAL: The patient is lying in bed in no acute distress. Alert and oriented x4. NECK: Supple. No JVD noted. However, she did have a mild hoarseness to her vocal quality. CARDIOVASCULAR: Regular rate and rhythm with no discernible murmurs, gallops or rubs. RESPIRATORY: Clear to auscultation bilaterally with no discernible wheezes or rales. ABDOMEN: Normoactive bowel sounds, soft, nondistended. Mild tenderness to palpation in the suprapub ic and left lower quadrants. EXTREMITIES: No cyanosis, clubbing or edema. LABORATORY DATA: CBC with a white blood cell count of 8.8, hemoglobin 7.5, hematocrit 21.8, platelet s 333. Chemistry with sodium of 133, potassium 3.7, chloride 90, CO2 30, BUN 70, creatinine 1.51, gl ucose 179. IMAGING DATA: Again esophagogastroduodenoscopy in 06/2015 showed mild erosive gastritis without evid ence of H. pylori infection. Colonoscopy performed in 01/2015 showed multiple small arteriovenous ma lformations in the rectosigmoid region. Two tubular adenomas were removed from the transverse colon (both less than 1 cm in size) as well as left-sided diverticulosis. ASSESSMENT AND PLAN: The patient is a 77-year-old female with past medical history of chronic obstru ctive pulmonary disease, coronary artery disease with cardiomyopathy, diabetes, hypertension, cervica l cancer, anxiety, depression, strangulated umbilical hernia with bowel obstruction and longstanding chronic normocytic anemia requiring multiple blood transfusions presenting with symptomatic anemia. Symptomatic anemia. The patient is presenting with a history of multiple blood transfusions over the last 6-7 months due to a decreasing hemoglobin and hematocrit. At this time, she does not endorse a ny symptoms of overt gastrointestinal bleeding, but has been having dark colored stools since the ini tiation of iron supplementation 2-3 months ago after correction of a strangulated small bowel. Radha gillette of her labs showed that in 09/2017, she had an iron of 25, ferritin of 24 and a TIBC of 308 which i s not necessarily indicative of iron deficiency anemia, but it cannot be ruled out at this time. Dif ferential could also include anemia of chronic disease/renal disease or other underlying malignancy. However, given the findings of erosive gastritis on her EGD in 2015 as well as arteriovenous malform ations on her colonoscopy in 2014, a GI source of her anemia cannot be ruled out at this time either. RECOMMENDATIONS: 1. We would place the patient on a clear liquid diet in anticipation of endoscopic procedures tomorr ow. 2. Would recommend both EGD and colonoscopy tomorrow for further evaluation of possible GI bleeding, GoLYTELY prep tonight in preparation for the colonoscopy. 3. We would continue to trend hemoglobin and hematocrit and transfuse as necessary to maintain an he moglobin and hematocrit of 7/21. 4. We would continue to monitor clinically for signs of active gastrointestinal bleeding. 5. We would hold on iron supplementation for right now given that it could possibly confound any lorie enic type stools. We will continue to follow. Please call with any questions.
--- NOTE | 2018-01-14 12:53 | PDOC.PN ---
- Subjective Encounter Start Date: 01/14/18 Encounter Start Time: 12:52 Patient seen and examined. No new complaints. No overnight events. c/o cough with green sputum. No fever or chills. No N/V or abd pain. - Objective Resuscitation Status: Resuscitation Status FULL:Full Resuscitation MAR Reviewed: Yes Vital Signs & Weight: Vital Signs (12 hours) Temp Pulse Resp BP Pulse Ox 01/14/18 11:59 98.5 F 85 20 117/68 100 01/14/18 11:22 85 20 100 01/14/18 08:00 97.9 F 80 16 98 01/14/18 07:45 97.9 F 80 16 119/65 96 01/14/18 07:22 84 16 100 01/14/18 06:25 97.8 F 84 18 122/67 100 Weight Weight 159 lb 14.4 oz I&O: 01/13/18 01/14/18 01/15/18 06:59 06:59 06:59 Intake Total 1125 Balance 1125 Result Diagrams: 01/14/18 04:36 01/14/18 04:36 Additional Labs: Accuchecks 01/14/18 01/13/18 11:19 20:23 POC Glucose 305 H 304 H Phys Exam - Physical Examination Constitutional: NAD HEENT: sclera anicteric Neck: supple Respiratory: no wheezing, no rales Cardiovascular: no significant murmur Gastrointestinal: soft Musculoskeletal: no edema Neurological: non-focal, moves all 4 limbs Psychiatric: normal affect, A&O x 3 Skin: no rash Dx/Plan (1) Anemia due to blood loss, acute Code(s): D62 - ACUTE POSTHEMORRHAGIC ANEMIA Status: Acute (2) COPD exacerbation Code(s): J44.1 - CHRONIC OBSTRUCTIVE PULMONARY DISEASE W (ACUTE) EXACERBATION Status: Acute (3) CKD (chronic kidney disease) stage 3, GFR 30-59 ml/min Status: Chronic Comment: Improved (4) COPD (chronic obstructive pulmonary disease) Status: Chronic Comment: stable (5) Chronic anemia Code(s): D64.9 - ANEMIA, UNSPECIFIED Status: Chronic Comment: stable (6) DM type 2 (diabetes mellitus, type 2) Status: Chronic Comment: continue accuchecks, insulin sliding scale. (7) Diabetic gastroparesis Code(s): E11.43 - TYPE 2 DIABETES W DIABETIC AUTONOMIC (POLY)NEUROPATHY; K31.84 - GASTROPARESIS Status: Chronic Comment: (8) HTN (hypertension) Code(s): I10 - ESSENTIAL (PRIMARY) HYPERTENSION Status: Chronic Qualifiers: Comment: BP controlled - Plan cont current plan of care * . Monitor H&H f/u with GI Endoscopy tomorrow. Zpak for 3 days for COPD. AM labs.
[2018-01-14] MEDS: Azithromycin 500 MG in Sodium Chloride 0.9% 250 ML 250 ML IVPB SCH (13:46)
[2018-01-14] MEDS ORDERED: GoLYTELY 4,000 ml Bottle PO SCH (18:00)
[2018-01-14] MEDS: Famotidine 20 MG TAB PO SCH (22:01)
[2018-01-15 05:03] LABS: #Eosinphils 0.1 thou/uL (0.0-0.7); #Lymphocytes 0.5 thou/uL (1.20-3.40); #Monocytes 0.8 thou/uL (0.11-0.59); #Neutrophils 6.2 thou/uL (1.40-6.50); %Basophils 0.2 % (0.0-1.0); %Eosinophils 1.2 % (0.0-10.0); %Lymphocytes 6.7 % (21.0-51.0); Mean Corpuscular HGB CONC 33.6 g/dL (32.0-36.0); Mean Corpuscular Hemoglobin 31.5 pg (27.0-31.0); Mean Corpuscular Volume 93.9 fL (78.0-98.0); Platelet Count 346 thou/uL (130-400); RBC Distribution Width 18.5 % (11.5-14.5); Red Blood Cell (RBC) Count 2.52 mill/uL (4.20-5.40); White Blood Cell (WBC) Count 7.6 thou/uL (4.8-10.8)
[2018-01-15 05:20] LABS: BUN (Urea Nitrogen) 48 mg/dL (9.8-20.1); Calc. Creatinine Clearance 43 mL/min (70-130); Calcium 9.8 mg/dL (7.8-10.44); Estimated GFR-MDRD 43; Glucose 146 mg/dL (83-110)
[2018-01-15 05:29] LABS: Anion Gap 19 mmol/L (10-20); Carbon Dioxide 35 mmol/L (23-31); Chloride 90 mmol/L (98-107); Sodium 141 mmol/L (136-145)
[2018-01-15 05:37] LABS: Potassium 2.7 mmol/L (3.5-5.1)
[2018-01-15] MEDS ORDERED: Potassium Chloride 20 MEQ in Premix Bag 1 BAG IVPB SCH (06:45)
[2018-01-15] MEDS ORDERED: GoLYTELY 4,000 ml Bottle PO SCH (07:15)
[2018-01-15] MEDS: Mometasone/Formoterol 120 PUFF INHALER INH SCH ×2 (07:32→18:39)
[2018-01-15] MEDS: Carvedilol 3.125 MG TAB PO SCH ×2 (08:43→21:55)
[2018-01-15] MEDS: NPH, Human Insulin Isophane 300 UNIT/3 ML VIAL SC SCH (08:44)
[2018-01-15] MEDS: Gabapentin 300 MG CAP PO SCH ×3 (08:44→21:55)
[2018-01-15] MEDS: Furosemide 80 MG TAB PO SCH (08:44)
[2018-01-15] MEDS: Ferrous Sulfate 325 MG TAB PO SCH ×2 (08:44→21:56)
--- NOTE | 2018-01-15 14:10 | PDOC.PN ---
- Subjective Encounter Start Date: 01/15/18 Encounter Start Time: 14:09 Complains of hoarseness. Still has cough. Doing prep and trying to get clear. Wants to eat. - Objective Resuscitation Status: Resuscitation Status FULL:Full Resuscitation Vital Signs & Weight: Vital Signs (12 hours) Temp Pulse Resp BP Pulse Ox 01/15/18 11:04 98.1 F 84 18 125/71 100 01/15/18 10:43 92 16 98 01/15/18 08:37 99.6 F 94 18 122/53 L 98 01/15/18 08:00 99.6 F 92 16 98 01/15/18 07:31 99 16 98 01/15/18 05:00 98 98 Weight Weight 156 lb 1.6 oz I&O: 01/14/18 01/15/18 01/16/18 06:59 06:59 06:59 Intake Total 1125 Balance 1125 Result Diagrams: 01/15/18 04:36 01/15/18 04:36 Additional Labs: Accuchecks 01/15/18 01/15/18 01/14/18 10:55 04:54 20:48 POC Glucose 181 H 157 H 288 H 01/14/18 17:06 POC Glucose 309 H Phys Exam - Physical Examination Constitutional: NAD Neck: no JVD, supple Scattered rales. Wet cough. Upper airway secretions. Partially clear. Cardiovascular: RRR, no significant murmur Gastrointestinal: soft, non-tender, no distention, positive bowel sounds Musculoskeletal: no edema Psychiatric: normal affect Dx/Plan (1) Anemia due to blood loss, acute Code(s): D62 - ACUTE POSTHEMORRHAGIC ANEMIA Status: Acute (2) FAAHD (iron deficiency anemia) Code(s): D50.9 - IRON DEFICIENCY ANEMIA, UNSPECIFIED Status: Chronic Comment : Acute drop (3) COPD (chronic obstructive pulmonary disease) Status: Chronic Comment: stable (4) Physical deconditioning Code(s): R53.81 - OTHER MALAISE Status: Chronic Comment: Getting therapy at [facility]. (5) DM type 2 (diabetes mellitus, type 2) Status: Chronic Comment: continue accuchecks, insulin sliding scale. (6) HTN (hypertension) Code(s): I10 - ESSENTIAL (PRIMARY) HYPERTENSION Status: Chronic Qualifiers: Comment: BP controlled (7) CKD (chronic kidney disease) stage 3, GFR 30-59 ml/min Status: Chronic Comment: Improved (8) Chronic bronchitis with acute exacerbation Code(s): J20.9 - ACUTE BRONCHITIS, UNSPECIFIED; J42 - UNSPECIFIED CHRONIC BRONCHITIS Status: Acute Comment: On Azithromycin. (9) Hypokalemia Code(s): E87.6 - HYPOKALEMIA Status: Acute - Plan * Hemoglobin holding. Colonoscopy today. * Intolerant to IV potassium. Gave elixir. Will need to repeat dose after scope.
[2018-01-15] MEDS ORDERED: Potassium Chloride 20 MEQ TAB PO SCH (14:15)
[2018-01-15] MEDS: Azithromycin 500 MG in Sodium Chloride 0.9% 250 ML 250 ML IVPB SCH (14:24)
[2018-01-15] MEDS ORDERED: PROPOFOL 200 MG/20 ML VIAL ONE (14:56)
[2018-01-15] MEDS ORDERED: PHENYLEPHRINE-NS 100 MCG/ML 10 ML SYRINGE ONE (14:56)
[2018-01-15] MEDS ORDERED: Ketamine 50 MG/ML VIAL ONE (18:02)
--- NOTE | 2018-01-15 21:10 | OP ---
DATE OF PROCEDURE: 01/15/2018 PROCEDURES: Esophagogastroduodenoscopy with polypectomy, colonoscopy with polypectomy. INDICATION FOR PROCEDURE: Symptomatic anemia. DESCRIPTION OF PROCEDURE: After the risks and benefits of the procedures were explained to the patie nt including risks of bleeding, infection, perforation, reactions to anesthesia aspiration and/or bonnie n, informed consent was obtained. The patient was then taken to the endoscopy suite where deep sedat ion was administered via ketamine and anesthesia support. Once adequate sedation was achieved, the s tandard gastroscope was introduced into the mouth with intubation of the esophagus, stomach and the p roximal small intestine with the findings listed below. Upon completion of this portion of the proce dure, the bed was then rotated 180 degrees. Once in position and after a digital rectal examination, the standard colonoscope was then introduced into the rectum and progressed through the colon to the terminal ileum without difficulty. The quality of the prep was excellent. The patient tolerated th e procedures well with no immediate perioperative complications. EGD FINDINGS: Esophagus: Normal appearing mucosa was seen in the proximal, mid and distal esophagus. There was no evidence of erosions, ulcerations, mass lesions or active/recent bleeding. Both the GE junction and diaphragmatic pinch were seen at 45 cm past the incisors. Stomach: Normal appearing mucosa was seen in the gastric cardia, fundus, body, antrum greater curvat ure and incisura. There was no evidence of erosions, ulcerations, mass lesions or active/recent blee ding. Upon rectal or gastric retroflexion, there appeared to be a small hiatal hernia that was not s een within the esophagus itself. Duodenum: A 4 mm polyp was seen in the duodenal bulb and completely removed with cold snare polypect kana. It was placed in a specimen jar and perforation for evaluation. Otherwise, the duodenal bulb a nd second portion of the duodenum appeared normal. There was no evidence of erosions, ulcerations, m ass lesions or active/recent bleeding. IMPRESSION: 1. A 4 mm polyp seen in the duodenal bulb, status post cold snare polypectomy. 2. Otherwise, normal upper endoscopy. FINDINGS: DIGITAL RECTAL EXAMINATION: Small perianal skin tags were seen on external examination as well as 2 ulcerations along the inferior aspect of the gluteus that appeared to be in a stage of ulceration/dec ubitus ulceration. COLON: Normal appearing mucosa was seen in the terminal ileum as well as within the cecum and at the ileocecal valve. 2 polyps measuring 2 and 4 mm in size were seen in the proximal ascending colon an d completely removed with biopsy forceps and cold snare polypectomy. They were both completely remov ed and retrieved for evaluation. Two polyps were measuring 2-4 mm in size were seen in the transvers e colon and completely removed with a combination of biopsy forceps and cold snare polypectomy. Both of these polyps were retrieved and placed in specimen jar for evaluation. 4 polyps measuring 2-5 mm in size were seen in the descending colon and completely removed with combination of cold snare poly pectomy and biopsy forceps. They were all retrieved and placed in a specimen jar for evaluation. A 5 mm polyp was seen in the sigmoid colon and completely removed with cold snare polypectomy, it was r etrieved and placed in a specimen jar for evaluation. Multiple small to medium sized diverticula wer e seen throughout the entire colon, most especially within the sigmoid colon. Multiple small telangi ectasias were seen in the rectum and within the rectosigmoid junction, all of which were nonbleeding with no evidence of active/recent bleeding. These telangiectasias were not intervened upon given the ir submucosal nature and low likelihood of GI bleed. Small internal hemorrhoids were seen on rectal retroflexion. IMPRESSION: 1. Moderate pancolonic diverticulosis. 2. Ascending colon polyps measuring 2-4 mm in size, completely removed with cold snare polypectomy a nd biopsy forceps. 3. Two polyps measuring 2-4 mm in size were seen in the transverse colon and completely removed with cold snare polypectomy and biopsy forceps. 4. Four polyps were seen in the descending colon measuring 2-4 mm in size and completely removed wit h cold snare polypectomy and biopsy forceps. 5. A 5 mm sigmoid colon polyp was completely removed with cold snare polypectomy. 6. Small internal hemorrhoids. 7. Perianal skin tags. 8. Two ulcerations of the buttocks measuring 2-3 cm in size with a stage II cholecystectomy decubitu s ulceration appearance. RECOMMENDATIONS: 1. We would continue to trend H&H and transfuse as necessary to maintain an H&H of 7/21. 2. Continue to monitor clinically for signs of active gastrointestinal bleeding, especially given th e amount of polyps removed today. 3. We would consider non-GI source of her symptomatic anemia. 4. We will follow up on the biopsy results with repeat EGD and colonoscopy interval depending on pat hology results given the number of polyps removed today, it will be most likely in [address] the patient on a higher fiber diet given the presence of pancolonic diverticulosis and internal hemorrhoids. 6. Capsule endoscopy is not indicated at this time given lack of findings of iron deficiency anemia on labs. We will sign off at this time. Please call with any additional questions.
[2018-01-15] MEDS: Famotidine 20 MG TAB PO SCH (21:56)
[2018-01-15] MEDS: ALPRAZolam 1 MG TAB PO PRN (21:56)
[2018-01-16 05:10] LABS: #Eosinphils 0.2 thou/uL (0.0-0.7); #Lymphocytes 0.6 thou/uL (1.20-3.40); #Monocytes 0.8 thou/uL (0.11-0.59); #Neutrophils 5.3 thou/uL (1.40-6.50); %Basophils 0.2 % (0.0-1.0); %Eosinophils 2.3 % (0.0-10.0); %Lymphocytes 8.9 % (21.0-51.0); %Monocytes 11.6 % (0.0-10.0); %Neutrophils 77.1 % (42.0-75.0); Hemoglobin 7.5 g/dL (12.0-16.0); Mean Corpuscular HGB CONC 33.1 g/dL (32.0-36.0); Mean Corpuscular Hemoglobin 31.2 pg (27.0-31.0); Mean Corpuscular Volume 94.3 fL (78.0-98.0); Mean Platelet Volume 6.9 fL (7.4-10.4); Platelet Count 312 thou/uL (130-400); RBC Distribution Width 17.2 % (11.5-14.5); White Blood Cell (WBC) Count 6.8 thou/uL (4.8-10.8)
[2018-01-16 05:31] LABS: Anion Gap 13 mmol/L (10-20); BUN (Urea Nitrogen) 32 mg/dL (9.8-20.1); Calc. Creatinine Clearance 38 mL/min (70-130); Calcium 8.8 mg/dL (7.8-10.44); Carbon Dioxide 36 mmol/L (23-31); Chloride 90 mmol/L (98-107); Estimated GFR-MDRD 38; Glucose 117 mg/dL (83-110); Sodium 136 mmol/L (136-145)
[2018-01-16 05:35] LABS: Potassium 2.7 mmol/L (3.5-5.1)
[2018-01-16] MEDS: Mometasone/Formoterol 120 PUFF INHALER INH SCH ×2 (06:18→18:46)
[2018-01-16 08:19] LABS: #Eosinphils 0.2 thou/uL (0.0-0.7); #Lymphocytes 0.6 thou/uL (1.20-3.40); #Monocytes 0.8 thou/uL (0.11-0.59); #Neutrophils 5.5 thou/uL (1.40-6.50); %Basophils 0.1 % (0.0-1.0); %Eosinophils 2.5 % (0.0-10.0); %Lymphocytes 7.8 % (21.0-51.0); %Monocytes 11.6 % (0.0-10.0); Hemoglobin 7.4 g/dL (12.0-16.0); Mean Corpuscular HGB CONC 32.7 g/dL (32.0-36.0); Mean Corpuscular Hemoglobin 30.9 pg (27.0-31.0); Mean Corpuscular Volume 94.6 fL (78.0-98.0); Mean Platelet Volume 7.1 fL (7.4-10.4); Platelet Count 303 thou/uL (130-400); Red Blood Cell (RBC) Count 2.38 mill/uL (4.20-5.40); White Blood Cell (WBC) Count 7.1 thou/uL (4.8-10.8)
[2018-01-16 08:29] LABS: Anion Gap 15 mmol/L (10-20); BUN (Urea Nitrogen) 29 mg/dL (9.8-20.1); Calc. Creatinine Clearance 40 mL/min (70-130); Calcium 8.9 mg/dL (7.8-10.44); Carbon Dioxide 33 mmol/L (23-31); Chloride 91 mmol/L (98-107); Estimated GFR-MDRD 40; Glucose 148 mg/dL (83-110); Potassium 3.4 mmol/L (3.5-5.1); Sodium 136 mmol/L (136-145)
[2018-01-16] MEDS ORDERED: Digoxin 0.125 MG TAB PO SCH (09:00)
[2018-01-16] MEDS: Carvedilol 3.125 MG TAB PO SCH ×2 (09:19→20:40)
[2018-01-16] MEDS: Furosemide 80 MG TAB PO SCH (09:19)
[2018-01-16] MEDS: Gabapentin 300 MG CAP PO SCH ×3 (09:19→20:39)
[2018-01-16] MEDS: Ferrous Sulfate 325 MG TAB PO SCH ×2 (09:19→20:39)
[2018-01-16] MEDS: NPH, Human Insulin Isophane 300 UNIT/3 ML VIAL SC SCH (09:23)
[2018-01-16] MEDS ORDERED: Potassium Chloride 20 MEQ TAB PO SCH (10:15)
[2018-01-16] MEDS: Azithromycin 500 MG in Sodium Chloride 0.9% 250 ML 250 ML IVPB SCH (11:39)
[2018-01-16] MEDS: HumaLOG 300 UNITS/3 ML VIAL SC PRN ×2 (11:39→16:51)
[2018-01-16] MEDS: Famotidine 20 MG TAB PO SCH (20:40)
[2018-01-16] MEDS: ALPRAZolam 1 MG TAB PO PRN (20:41)
--- NOTE | 2018-01-16 22:15 | PDOC.PN ---
- Subjective Encounter Start Date: 01/16/18 Encounter Start Time: 16:10 - Objective Resuscitation Status: Resuscitation Status FULL:Full Resuscitation Vital Signs & Weight: Vital Signs (12 hours) Temp Pulse Resp BP Pulse Ox 01/16/18 20:00 99.0 F 80 18 99/59 L 93 L 01/16/18 18:34 100 18 98 01/16/18 13:35 91 16 97 Weight Weight 156 lb 1.6 oz I&O: 01/15/18 01/16/18 01/17/18 06:59 06:59 06:59 Intake Total 1050 Balance 1050 Result Diagrams: 01/16/18 07:57 01/16/18 07:57 Additional Labs: Accuchecks 01/16/18 01/16/18 01/16/18 20:13 11:23 04:50 POC Glucose 215 H 216 H 131 H Phys Exam - Physical Examination Constitutional: NAD Neck: no JVD, supple Respiratory: no wheezing, no rales, no rhonchi, clear to auscultation bilateral Cardiovascular: RRR, no significant murmur Gastrointestinal: soft, non-tender, no distention Musculoskeletal: no edema Psychiatric: normal affect Dx/Plan (1) Anemia due to blood loss, acute Code(s): D62 - ACUTE POSTHEMORRHAGIC ANEMIA Status: Acute Comment: Discussed with GI. No significant findings on the scope to explain anemia. On iron repletion. Without definitive source and failure of iron repletion orally suspect she will drift down again. Has difficulty getting to and from care. Will go ahead and give an additional unit of prbc's. (2) FAHAD (iron deficiency anemia) Code(s): D50.9 - IRON DEFICIENCY ANEMIA, UNSPECIFIED Status: Chronic Comment : No source of bleeding found. Continue Fe. (3) COPD (chronic obstructive pulmonary disease) Status: Chronic Comment: stable (4) Physical deconditioning Code(s): R53.81 - OTHER MALAISE Status: Chronic Comment: Getting therapy at [facility]. (5) DM type 2 (diabetes mellitus, type 2) Status: Chronic Comment: continue accuchecks, insulin sliding scale. (6) HTN (hypertension) Code(s): I10 - ESSENTIAL (PRIMARY) HYPERTENSION Status: Chronic Qualifiers: Comment: BP controlled (7) CKD (chronic kidney disease) stage 3, GFR 30-59 ml/min Status: Chronic Comment: Improved (8) Chronic bronchitis with acute exacerbation Code(s): J20.9 - ACUTE BRONCHITIS, UNSPECIFIED; J42 - UNSPECIFIED CHRONIC BRONCHITIS Status: Acute Comment: On Azithromycin. (9) Hypokalemia Code(s): E87.6 - HYPOKALEMIA Status: Acute - Plan * Above. Anticipate discharge tomorrow.
[2018-01-17] MEDS: Mometasone/Formoterol 120 PUFF INHALER INH SCH ×2 (05:50→18:21)
[2018-01-17] MEDS: HumaLOG 300 UNITS/3 ML VIAL SC PRN ×2 (06:20→12:21)
[2018-01-17] MEDS: Gabapentin 300 MG CAP PO SCH ×3 (08:36→20:26)
[2018-01-17] MEDS: Ferrous Sulfate 325 MG TAB PO SCH ×2 (08:36→20:26)
[2018-01-17] MEDS: NPH, Human Insulin Isophane 300 UNIT/3 ML VIAL SC SCH (08:37)
[2018-01-17] MEDS: Carvedilol 3.125 MG TAB PO SCH ×2 (08:37→20:27)
[2018-01-17] MEDS: Furosemide 80 MG TAB PO SCH (08:37)
[2018-01-17 09:12] LABS: Hemoglobin 7.5 g/dL (12.0-16.0)
--- NOTE | 2018-01-17 15:45 | PRG ---
DATE OF SERVICE: 01/17/2018 SUBJECTIVE: The patient reports that she feels okay today. She still has a bit of a cough that is a bit productive. PHYSICAL EXAMINATION: VITAL SIGNS: T-max 100.1, temperature 98.3, pulse 69, respiration 14, O2 sat 97% on 2 liters nasal c annula, pulse 71, BP 105/61. GENERAL APPEARANCE: Age appropriate female. She is in no distress. She is awake, alert, oriented, pleasant and cooperative. HEENT: PERRL. No OP lesions. HEART: Regular rate and rhythm. LUNGS: Clear bilaterally without wheezes, other than some upper airway noise, which tends to clear w ith cough. ABDOMEN: Soft, nontender, nondistended. EXTREMITIES: Warm and dry. LABORATORY DATA: Hemoglobin 7.5, platelets 22.6. IMPRESSION AND PLAN: 1. Anemia, etiology remains a bit unclear. It appeared to be acute loss from GI bleeding. She was seen by Gastroenterology, had endoscopy done without any finding of any culprit lesions to explain th e bleeding. The patient has been on iron repletion and in spite of that, her numbers are down. Anti cipated giving the patient a unit of red blood cells yesterday; however, somehow that order got lost in the system. I have reordered this morning. Once she gets that done, hopefully, she will be stabl e for discharge. We will continue with the iron supplementation. 2. Chronic obstructive pulmonary disease, stable. 3. Bronchitis. The patient has been coughing with some sputum production. She has had negative neel st x-rays. Given that she had a subtle bump in her temperature today, we will go ahead and repeat a chest x-ray, although I suspect that is likely related to transfusion. 4. Physical deconditioning. The patient continues to [facility] at [facility]. 5. Diabetes mellitus, continuing with her Accu-Cheks and sliding scale. 6. Hypertension, stable. 7. Chronic kidney disease stage 3, stable. DISPOSITION: Anticipate the patient can discharge today once her transfusion is completed.
[2018-01-17 16:45] VITALS: TEMP 97.9
[2018-01-17] MEDS: Famotidine 20 MG TAB PO SCH (20:26)
[2018-01-17 20:44] VITALS: BP 120/70
== END 2018-01-17 21:50 | disposition home or self-care (01) | DRG 812 ==
LOC: ERS 14:01 → T4-B 16:27
PROVIDERS: ADMIT Family Medicine; ATTEND Family Medicine
PROC: 30233N1 Transfusion of Nonautologous Red Blood Cells into Peripheral Vein, Percutaneous Approach (ICD-10-PCS; 2018-01-13)
PROC: 0DB98ZX Excision of Duodenum, Via Natural or Artificial Opening Endoscopic, Diagnostic (ICD-10-PCS; principal; 2018-01-15)
PROC: 0DBK8ZX Excision of Ascending Colon, Via Natural or Artificial Opening Endoscopic, Diagnostic (ICD-10-PCS; 2018-01-15)
PROC: 0DBL8ZX Excision of Transverse Colon, Via Natural or Artificial Opening Endoscopic, Diagnostic (ICD-10-PCS; 2018-01-15)
PROC: 0DBN8ZX Excision of Sigmoid Colon, Via Natural or Artificial Opening Endoscopic, Diagnostic (ICD-10-PCS; 2018-01-15)
PROC: 0DBM8ZX Excision of Descending Colon, Via Natural or Artificial Opening Endoscopic, Diagnostic (ICD-10-PCS; 2018-01-15)
DX: D64.9 Anemia, unspecified (principal); I42.9 Cardiomyopathy, unspecified; N17.9 Acute kidney failure, unspecified; E87.1 Hypo-osmolality and hyponatremia; J44.0 Chronic obstructive pulmonary disease with (acute) lower respiratory infection; F41.9 Anxiety disorder, unspecified; F32.9 Major depressive disorder, single episode, unspecified; E11.22 Type 2 diabetes mellitus with diabetic chronic kidney disease; I12.9 Hypertensive chronic kidney disease with stage 1 through stage 4 chronic kidney disease, or unspecified chronic kidney disease; N18.3 Chronic kidney disease, stage 3 (moderate); E11.65 Type 2 diabetes mellitus with hyperglycemia; K44.9 Diaphragmatic hernia without obstruction or gangrene; K31.7 Polyp of stomach and duodenum; K64.4 Residual hemorrhoidal skin tags; K63.5 Polyp of colon; K64.8 Other hemorrhoids; K57.30 Diverticulosis of large intestine without perforation or abscess without bleeding; L89.302 Pressure ulcer of unspecified buttock, stage 2; K59.00 Constipation, unspecified; I78.1 Nevus, non-neoplastic; J20.9 Acute bronchitis, unspecified; E87.6 Hypokalemia; Z79.82 Long term (current) use of aspirin; Z79.4 Long term (current) use of insulin; Z88.5 Allergy status to narcotic agent; Z88.0 Allergy status to penicillin; Z88.8 Allergy status to other drugs, medicaments and biological substances; Z87.891 Personal history of nicotine dependence; Z95.0 Presence of cardiac pacemaker; Z82.3 Family history of stroke; Z82.49 Family history of ischemic heart disease and other diseases of the circulatory system
CPT/HCPCS: 36415; 36416; 36430; 80048; 80053; 82274; 85007; 85014; 85018; 85025; 85027; 86850; 86900; 86901; 88305; 93005; 94640; G8978-GP-CK; G8979-GP-CJ; J0456; J1815; J2405; J2704; J3480; J7050; J7620; P9016

== ENCOUNTER 2018-01-30 12:01 | Inpatient (IN) | payer MEDICARE, MEDICAID ==
[2018-01-30 12:44] LABS: #Eosinphils 0.3 thou/uL (0.0-0.7); #Lymphocytes 0.7 thou/uL (1.20-3.40); #Monocytes 0.8 thou/uL (0.11-0.59); #Neutrophils 11.6 thou/uL (1.40-6.50); %Basophils 0.1 % (0.0-1.0); %Lymphocytes 5.2 % (21.0-51.0); %Neutrophils 86.8 % (42.0-75.0); Hemoglobin 9.7 g/dL (12.0-16.0); Mean Corpuscular Hemoglobin 30.2 pg (27.0-31.0); Mean Corpuscular Volume 91.5 fL (78.0-98.0); Mean Platelet Volume 6.6 fL (7.4-10.4); Platelet Count 510 thou/uL (130-400); Red Blood Cell (RBC) Count 3.21 mill/uL (4.20-5.40); White Blood Cell (WBC) Count 13.3 thou/uL (4.8-10.8)
[2018-01-30 13:07] LABS: ALT (SGPT) 12 U/L (8-55); AST (SGOT) 10 U/L (5-34); Albumin 3.7 g/dL (3.4-4.8); Alkaline Phosphatase 62 U/L (40-150); Anion Gap 13 mmol/L (10-20); BUN (Urea Nitrogen) 80 mg/dL (9.8-20.1); Bilirubin, Total 0.3 mg/dL (0.2-1.2); Calc. Creatinine Clearance 0 mL/min (70-130); Calcium 10.6 mg/dL (7.8-10.44); Carbon Dioxide 36 mmol/L (23-31); Chloride 88 mmol/L (98-107); Estimated GFR-MDRD 28; Globulin 2.8 g/dL (2.4-3.5); Glucose 108 mg/dL (83-110); Protein, Total 6.5 g/dL (6.0-8.3); Sodium 134 mmol/L (136-145)
[2018-01-30 13:10] LABS: CKMB 1.3 ng/mL (0-6.6); Troponin I 0.033 ng/mL (< 0.028)
[2018-01-30 13:21] LABS: Bilirubin Negative (Negative); Blood, Urine Trace (Negative); Clarity CLOUDY (Clear); Glucose, Urine (Dipstick) Negative (Negative); Leukocyte Large (Negative); Nitrite Positive (Negative); Protein, Urine (Dipstick) Trace mg/dL (Neg-Trace); Urobilinogen 0.2 mg/dL (0.2-1.0); pH, Urine 8.5 (5.0-9.0)
--- NOTE | 2018-01-30 13:27 | RAD ---
UPRIGHT PORTABLE CHEST ONE VIEW: History: 77-year-old female with hypotension and weakness. Comparison: 12-28-17 FINDINGS: Cardiomegaly with blunting of the left costophrenic angle, evidence for some left pleural effusion. L eft ICD. Monitor leads overlie the chest. Evidence for hiatal hernia. No confluent pneumonia or overt edema. IMPRESSION: Cardiomegaly with left pleural effusion, evidence for hiatal hernia. Atherosclerosis of the aorta wit h ectasia. Left ICD. Stable from 12-28-17. POS: [facility]
[2018-01-30 13:51] LABS: Bacteria/HPF 4+ HPF (None Seen); Hyaline Casts/LPF 0-3 HYALINE CAST LPF (0-3 Hyaline); RBC/HPF 0-3 HPF (0-3); Renal Epithelial 0-3 HPF (0-3); Squamous Epithelial 0-3 HPF (0-3); Transitional Epithelial 0-3 HPF (0-3)
[2018-01-30] MEDS ORDERED: cefTRIAXone\\ROCEPHIN 1 GM VIAL ONE (15:56)
[2018-01-30 16:41] LABS: Lactic Acid 1.9 mmol/L (0.5-2.2)
[2018-01-30] MEDS ORDERED: Dextrose 5 % And 0.9 % NaCl 1,000 ML IV SCH (17:45)
[2018-01-30 17:55] VITALS: BMI 28.0
[2018-01-30] MEDS ORDERED: Ondansetron HCl/PF 4 MG/2 ML Vial IVP PRN (18:20)
[2018-01-30] MEDS ORDERED: Ondansetron ODT 4 MG TAB PO PRN (18:20)
[2018-01-30] MEDS ORDERED: Dextrose 50% Abboject 50 ML SYRINGE SLOW IVP PRN (18:20)
[2018-01-30] MEDS ORDERED: HumaLOG 300 UNITS/3 ML VIAL SC PRN (18:20)
[2018-01-30] MEDS ORDERED: PROVENTIL INHALER 6.7 G (200 INHALATIONS) INH PRN (18:20)
[2018-01-30] MEDS ORDERED: Acetaminophen 500 MG TAB PO PRN (18:20)
[2018-01-30] MEDS ORDERED: Dextrose 5% in Water 1,000 ML IV PRN (18:20)
[2018-01-30] MEDS: traMADol HCl 50 MG TAB PO PRN (19:01)
[2018-01-30] MEDS: Sodium Chloride 0.9% 1,000 ML IV SCH (19:03)
[2018-01-30] MEDS ORDERED: Potassium Chloride 20 MEQ TAB PO SCH (19:15)
[2018-01-30] MEDS: Mometasone/Formoterol 120 PUFF INHALER INH SCH (20:07)
[2018-01-30] MEDS: Famotidine 20 MG TAB PO SCH (20:19)
[2018-01-30] MEDS: Melatonin 3 MG TAB PO SCH (20:19)
[2018-01-30] MEDS: Gabapentin 300 MG CAP PO SCH (20:19)
[2018-01-30] MEDS: cefTRIAXone\\ROCEPHIN 1 GM in Sodium Chloride 0.9% 100 ML IVPB SCH (21:37)
[2018-01-30] MEDS: NPH, Human Insulin Isophane 300 UNIT/3 ML VIAL SC SCH (21:38)
--- NOTE | 2018-01-30 23:46 | HP ---
DATE OF ADMISSION: 01/30/2018 PRIMARY CARE PHYSICIAN: JEFFREY To CHIEF COMPLAINT: Weakness and vision changes. HISTORY OF PRESENT ILLNESS: This is a 77-year-old female who presented to [facility] in transfer from [facility], where patient was enroute for rout ine followup appointment. Patient was riding in the transport van when she felt dizzy with some pink baljit discoloration of her vision and feeling like she may pass out. Patient denied any specific fever , chills, or dysuria and no nausea, vomiting, or diarrhea. Patient does admit to chronic back pain m ainly in the shoulder and neck region. Patient denied any increased frequency of urination or hematu jethro. Patient denied any specific noncompliance with her medication regimen, recent injury, exposure history, or travel. Patient is a long-term resident of [facility]. Patient was recently admitted in 01/2018 for acute on chronic anemia undergoing endoscopy to include EGD and colonoscopy, status post polypectomy. Patient was diagnosed with pancolonic diverticulosis and received packed re d blood cells. In the emergency room, patient underwent general evaluation including urinalysis conc erning for infectious process receiving IV Rocephin and vancomycin as well as 2 liters of intravenous normal saline after patient was noted hypotensive with blood pressures in this 78-101 systolic range . Patient symptomatically improved with volume replacement and IV antibiotic therapy. Patient was t ransferred to the medical floor for further evaluation. PAST MEDICAL HISTORY: 1. Acute on chronic normocytic anemia. 2. Pancolonic diverticulosis. 3. History of strangulated umbilical hernia with bowel obstruction in 10/2017. 4. Chronic obstructive pulmonary disease. 5. Diastolic dysfunction with preserved ejection fraction of 50%. 6. Cardiomyopathy. 7. History of pneumothorax, status post chest tube placement. 8. Diabetes mellitus type 2, insulin-requiring. 9. Hypertension. 10. History of recurrent respiratory failure requiring intubation. 11. Cervical cancer, status post radiation therapy. 12. History of supraventricular tachycardia, status post cardiac ablation. 13. Anxiety/depression. PAST SURGICAL HISTORY: 1. Status post tonsillectomy. 2. Status post pacemaker insertion. 3. Status post appendectomy. 4. Status post cataract removal with lens implant. 5. Status post bowel obstruction with strangulated umbilical hernia and small bowel resection. 6. Status post EGD, colonoscopy showing pancolonic diverticulosis. CURRENT MEDICATIONS: 1. ProAir HFA 2 puffs inhaled q.i.d. p.r.n. 2. Alendronate 70 mg p.o. q.7 days. 3. Xanax 1 mg p.o. t.i.d. p.r.n. 4. Enteric coated aspirin 81 mg p.o. daily. 5. Coreg 3.125 mg p.o. b.i.d. 6. Digoxin 0.125 mg p.o. daily. 7. Ferrous sulfate 325 mg p.o. b.i.d. 8. Lasix 80 mg p.o. daily. 9. Gabapentin 300 mg p.o. t.i.d. 10. Ipratropium HFA 2 puffs inhaled b.i.d. 11. Melatonin 3 mg p.o. at bedtime. 12. Reglan 10 mg p.o. q.i.d. 13. Dulera 200/5 mcg two puffs inhaled b.i.d. 14. NPH insulin 30 units subcutaneously daily. 15. Spironolactone 25 mg p.o. b.i.d. 16. Tramadol 50 mg p.o. every 6 hours p.r.n. pain. ALLERGIES: CIPROFLOXACIN, CLARITHROMYCIN, CODEINE, PENICILLIN. FAMILY HISTORY: Father with myocardial infarction. Mother with COPD and stroke. SOCIAL HISTORY: Patient formerly a resident of [place], [place] now residing in [facility]. Used tobacco, quitting more than 10 years prior to this evaluation. No alcohol or illicit drug use. Ambulates with use of a rolling walker with contact guard assistance. REVIEW OF SYSTEMS: The following complete review of systems was otherwise negative, except as stated per HPI: Constitutional: Weight loss or gain, ability to conduct usual activities. Skin: Rash, i tching. Eyes: Double vision, pain. ENT/Mouth: Nose bleeding, neck stiffness, pain, tenderness. C ardiovascular: Palpitations, dyspnea on exertion, orthopnea. Respiratory: Shortness of breath, whe ezing, cough, hemoptysis, fever, or night sweats. Gastrointestinal: Poor appetite, abdominal pain, heartburn, nausea, vomiting, constipation, or diarrhea. Genitourinary: Urgency, frequency, dysuria, nocturia. Musculoskeletal: Pain, swelling. Neurologic/Psychiatric: Anxiety, depression. Allergy /Immunologic: Skin rash, bleeding tendency. PHYSICAL EXAMINATION: VITAL SIGNS: On admission, blood pressure 84/45, pulse 71, respiratory rate 16, temperature 97.7 deg josee Fahrenheit, O2 saturation 96% on 2 liters per minute by nasal cannula. GENERAL APPEARANCE: This is a 77-year-old female, alert and oriented x3, pleasant, respons vaibhav, in no acute distress. HEENT: Pupils are equal, round, and reactive to light and accommodation. Extraocular muscles are in tact. No scleral icterus, no conjunctival injection. Nares patent. OP is clear. Teeth in fair rep air. NECK: Supple, no cervical adenopathy, no thyromegaly, no carotid bruits, no JVD appreciated. Cervic al spine with full active and passive range of motion. No meningeal signs appreciated. CHEST: Lungs are clear to auscultation bilaterally. CARDIOVASCULAR: S1, S2 without noted murmur, rub, or gallop. Heart sounds are distant. ABDOMEN: Mild tenderness to palpation in the left lower quadrant. No rebound or guarding appreciate d. Bowel sounds are positive in all four quadrants. EXTREMITIES: Warm and dry with fair turgor. Mild pitting edema to the mid shins bilaterally. Pulse s are palpable distally at the dorsalis pedis, posterior tibial, and popliteal arteries bilaterally. Capillary refill less than 2 seconds. NEUROLOGIC: Cranial nerves II-XII are grossly intact. No focal or lateralizing signs appreciated. Patient not observed ambulatory during this exam. PERTINENT LABORATORY AND X-RAY FINDINGS: Sodium 134, potassium 3.0, chloride 88, CO2 of 36, BUN 80, creatinine 1.73, estimated GFR of 28, glucose 108. Lactic acid level 2.6, calcium 10.6. LFTs within normal limits. BNP 101. CBC showed a white blood cell count of 13.3, hemoglobin 10, hematocrit 29, platelet count 510 with 87% neutrophils. Urinalysis positive for nitrite and leukocyte esterase wit h greater than 50 to too numerous to count wbcs per high powered field, 4+ bacteria noted. Stool hem occult on 01/30/2018 negative. Portable chest x-ray dated 01/30/2018 showed cardiomegaly with left-s ided pleural effusion chronic. Left-sided AICD device in place. EKG dated 01/30/2018 showed a ventr icular paced rhythm. Heart rates in 70s. No acute ST-T wave changes appreciated. ASSESSMENT AND PLAN: 1. Urinary tract infection. Patient will be admitted to the medical floor. We will continue Roceph in 1 gram IV q.24 hours. Urine culture pending. We will continue intravenous normal saline 75 mL pe r hour. Await final urine culture results. 2. Hypotension. Improved with volume resuscitation. Avoid antihypertensive medications. We will c ontinue intravenous fluids as outlined in #1. Avoid diuretics. Serial blood pressure monitoring. 3. Visual disturbance. Suspect secondarily to hypotensive episode resolved currently. We will cont inue to monitor blood pressure trend. 4. Acute kidney injury. We will continue intravenous fluids as outlined previously. Avoid nephroto xic agents and contrast media. Repeat creatinine in the a.m. 5. Chronic normocytic anemia. Stable currently. No evidence of acute blood loss. Repeat CBC in th e a.m. 6. Chronic hypoxic respiratory failure. Stable currently. We will continue oxygen supplementation at 2 liters per minute by nasal cannula. General pulmonary supportive measures. 7. Diabetes mellitus, type 2, insulin-requiring. Insulin sliding scale for reflexive coverage. Res ume home insulin regimen. ADA diet. Serial Accu-Cheks before meals and at bedtime. 8. Prophylaxis. Sequential compression devices while in bed. Pepcid 20 mg p.o. b.i.d. PT evaluati on in the a.m. 9. Code status is FULL. Surrogate medical decision maker not identified.
[2018-01-31] MEDS: traMADol HCl 50 MG TAB PO PRN ×2 (04:39→15:08)
[2018-01-31 05:41] LABS: Anion Gap 12 mmol/L (10-20); BUN (Urea Nitrogen) 73 mg/dL (9.8-20.1); Calc. Creatinine Clearance 40 mL/min (70-130); Calcium 9.1 mg/dL (7.8-10.44); Carbon Dioxide 28 mmol/L (23-31); Chloride 97 mmol/L (98-107); Estimated GFR-MDRD 37; Glucose 121 mg/dL (83-110); Sodium 133 mmol/L (136-145)
[2018-01-31 05:49] LABS: Band 10 % (5-11); Hemoglobin 8.5 g/dL (12.0-16.0); Lymphocytes 8 % (21-51); MDiff Complete? YES; Mean Corpuscular HGB CONC 32.3 g/dL (32.0-36.0); Mean Corpuscular Hemoglobin 29.8 pg (27.0-31.0); Mean Corpuscular Volume 92.2 fL (78.0-98.0); Mean Platelet Volume 7.5 fL (7.4-10.4); Monocytes 2 % (0-10); Myelocyte 1 % (0-0); Neutrophil 79 % (42-75); Platelet Count 351 thou/uL (130-400); RBC Distribution Width 17.1 % (11.5-14.5); Red Blood Cell (RBC) Count 2.85 mill/uL (4.20-5.40); White Blood Cell (WBC) Count 9.7 thou/uL (4.8-10.8)
[2018-01-31] MEDS: Mometasone/Formoterol 120 PUFF INHALER INH SCH ×2 (06:12→19:03)
[2018-01-31] MEDS: Potassium Chloride 20 MEQ TAB PO SCH (09:07)
[2018-01-31] MEDS: NPH, Human Insulin Isophane 300 UNIT/3 ML VIAL SC SCH ×2 (09:08→21:05)
[2018-01-31] MEDS: Gabapentin 300 MG CAP PO SCH ×3 (09:08→21:04)
[2018-01-31] MEDS: Famotidine 20 MG TAB PO SCH (09:08)
[2018-01-31] MEDS: Sodium Chloride 0.9% 1,000 ML IV SCH ×2 (09:08→21:11)
--- NOTE | 2018-01-31 14:35 | PQF ---
CLINICAL DOCUMENTATION IMPROVEMENT CLARIFICATION FORM: ICD-10 Updated PLEASE DO AN ADDENDUM TO THE PROGRESS NOTE WITH ANY DOCUMENTATION UPDATES OR ADDITIONS AND CARRY THROUGH TO DC SUMMARY. THANK YOU. DATE: 01/31 ATTN: DR. KATE RAMOS Please exercise your independent, professional judgment in responding to the clarification form. Clinical indicators are provided on the bottom of this form for your review. Please check appropriate box(s): ____x___ I (concur) with the Nursing Admission Skin Assessment findings as stated below. [ ] Pressure Ulcer: (Stage I: Erythema; Stage II: Partial thickness; Stage III : Full thickness; Stage IV: Necrosis to muscle/bone) [ ] Location: POA: [ ] Yes [ ] No[ ] Unable to determine Stage (I to IV): (Left Right Bilateral N/A ) [ ] Location: POA: [ ] Yes [ ] No[ ] Unable to determine Stage (I to IV): (Left Right Bilateral N/A ) [ ] No pressure ulcer diagnosis [ ] Other diagnosis [ ] Unable to determine In addition, please specify: Present on Admission (POA): [ x ] Yes [ ] No [ ] Unable to determine For continuity of documentation, please document condition throughout progress notes and discharge summary. Thank You. CLINICAL INDICATORS - SIGNS / SYMPTOMS / LABS NURSING ADMISSION SKIN ASSESSMENT 01/30: STAGE III PRESSURE ULCER TO L HIP/ SACRUM; STAGE III PRESSURE ULCER TO R HIP/SACRUM; STAGE II PRESSURE ULCER TO COCCYX RISK FACTORS: NH PATIENT DM II REQUIRES MODERATE ASSISTANCE W/ 2 PERSON ASSIST TREATMENTS: WAFFLE MATTRESS WOUND CARE CONSULT TURN Q 2HRS THANK YOU! Milly (This form is maintained as a part of the permanent medical record) 2014 [employer]. All Rights Reserved Milly Saleh RN, BSN [email or web address] Office: [phone] [facility]ITAL[facility]elly
[2018-01-31] MEDS: cefTRIAXone\\ROCEPHIN 1 GM in Sodium Chloride 0.9% 100 ML IVPB SCH (18:44)
--- NOTE | 2018-01-31 18:54 | PDOC.PN ---
- Subjective Encounter Start Date: 01/31/18 Encounter Start Time: 18:45 Subjective: f/u for UTI, JOE and dehydration. Overall feels better and less back -: pain. Appetite good. - Objective Resuscitation Status: Resuscitation Status FULL:Full Resuscitation MAR Reviewed: Yes Vital Signs & Weight: Vital Signs (12 hours) Temp Pulse Resp BP BP BP Pulse Ox 01/31/18 14:05 69 16 95 01/31/18 11:26 97.5 F L 69 20 104/63 95 01/31/18 10:30 70 16 97 01/31/18 09:36 103/48 L 86/50 L 01/31/18 08:00 97.6 F 69 18 01/31/18 07:55 97.6 F 69 18 121/66 92 L Weight Admit Weight 168 lb 12.8 oz Weight 168 lb 12.8 oz I&O: 01/30/18 01/31/18 02/01/18 06:59 06:59 06:59 Intake Total 1750 Balance 1750 Result Diagrams: 01/31/18 04:56 01/31/18 04:56 Additional Labs: Accuchecks 01/31/18 01/31/18 01/31/18 16:54 11:28 04:09 POC Glucose 158 H 126 H 150 H 01/30/18 01/30/18 19:12 16:35 POC Glucose 289 H 193 H Microbiology 01/30/18 13:05 Stool - Pending Stool Occult Blood (JU) - Final 01/30/18 12:45 Venous blood - Right Hand Blood Culture - Preliminary Specimen has been received and culture in progress. No Growth to date. 01/30/18 12:32 Venous blood - Left Arm Blood Culture - Preliminary Specimen has been received and culture in progress. No Growth to date. Laboratory Tests 01/30/18 01/30/18 01/31/18 12:32 12:32 04:56 WBC 13.3 H Hgb 9.7 L Plt Count 510 H Neutrophils % 86.8 H Neutrophils % (Manual) 79 H BUN 80 H Creatinine 1.73 H Phys Exam - Physical Examination Constitutional: NAD HEENT: PERRLA, sclera anicteric, oral pharynx no lesions Neck: no nodes, no JVD, supple, full ROM Respiratory: no wheezing, no rales, no rhonchi, clear to auscultation bilateral S1, S2 Cardiovascular: RRR, no significant murmur, no rub, gallop Gastrointestinal: soft, non-tender, no distention, positive bowel sounds mild LE edema Musculoskeletal: pulses present Neurological: normal sensation, moves all 4 limbs Psychiatric: normal affect, A&O x 3 Deviation from normal: Stage III decub ulcer buttocks, Stage II on sacral region Skin: normal turgor, cap refill <2 seconds Dx/Plan (1) UTI (urinary tract infection) Status: Acute Comment: Ucx pending, continue Rocephin, await final cx (2) Hypotension Status: Acute Comment: Mild, hold all antihypertensives, serial BP monitoring (3) Visual disturbance Code(s): H53.9 - UNSPECIFIED VISUAL DISTURBANCE Status: Acute Comment: Resolved, secondary to hypotensive episode (4) Decubitus ulcer of buttock, stage 3 Code(s): L89.303 - PRESSURE ULCER OF UNSPECIFIED BUTTOCK, STAGE 3 Status: Chronic Comment: bilateral involvement, offload pressure, WCT (5) Dehydration Code(s): E86.0 - DEHYDRATION Status: Acute Comment: Resolving, decrease IVF 50ml/h (6) CKD (chronic kidney disease) stage 3, GFR 30-59 ml/min Status: Chronic Comment: Near baseline GFR - Plan plan discussed w/ family, continue antibiotics, PT/OT, social media content specialist, out of bed/ambulate, DVT proph w/SCDs Stable overall -: Decrease IVF 50ml/h -: Continue Rocephin another 24h -: Await final Ucx results -: AM Lab: BMP * .
[2018-01-31] MEDS: Melatonin 3 MG TAB PO SCH (21:04)
[2018-02-01] MEDS: Sodium Chloride 0.9% 1,000 ML IV SCH ×2 (02:55→15:06)
[2018-02-01 05:04] LABS: Anion Gap 13 mmol/L (10-20); BUN (Urea Nitrogen) 52 mg/dL (9.8-20.1); Calc. Creatinine Clearance 57 mL/min (70-130); Calcium 9.8 mg/dL (7.8-10.44); Carbon Dioxide 26 mmol/L (23-31); Chloride 102 mmol/L (98-107); Estimated GFR-MDRD 56; Glucose 139 mg/dL (83-110); Potassium 4.7 mmol/L (3.5-5.1); Sodium 136 mmol/L (136-145)
[2018-02-01] MEDS: Mometasone/Formoterol 120 PUFF INHALER INH SCH ×2 (06:29→18:52)
[2018-02-01] MEDS: Gabapentin 300 MG CAP PO SCH ×3 (08:29→20:04)
[2018-02-01] MEDS: Famotidine 20 MG TAB PO SCH (08:29)
[2018-02-01] MEDS: Potassium Chloride 20 MEQ TAB PO SCH (08:29)
[2018-02-01] MEDS: NPH, Human Insulin Isophane 300 UNIT/3 ML VIAL SC SCH ×2 (08:35→20:35)
--- NOTE | 2018-02-01 17:02 | PDOC.PN ---
- Subjective Encounter Start Date: 02/01/18 Encounter Start Time: 17:00 Subjective: f/u for JOE, UTI and dehydration. Overall feels ok. Noted some buzzing -: near her pacemaker over last several days. - Objective Resuscitation Status: Resuscitation Status FULL:Full Resuscitation MAR Reviewed: Yes Vital Signs & Weight: Vital Signs (12 hours) Temp Pulse Resp BP BP Pulse Ox 02/01/18 16:32 97.9 F 70 20 129/69 98 02/01/18 14:46 75 16 96 02/01/18 10:50 70 16 99 02/01/18 08:25 97.8 F 69 20 100 02/01/18 07:32 97.8 F 69 20 132/69 100 02/01/18 06:46 97 02/01/18 06:29 72 16 98 02/01/18 06:28 70 16 97 Weight Admit Weight 168 lb 12.8 oz Weight 168 lb 12.8 oz I&O: 01/31/18 02/01/18 02/02/18 06:59 06:59 06:59 Intake Total 1750 Balance 1750 Result Diagrams: 01/31/18 04:56 02/01/18 04:25 Additional Labs: Accuchecks 02/01/18 02/01/18 01/31/18 11:38 04:29 22:01 POC Glucose 112 H 142 H 203 H 01/31/18 01/31/18 20:15 16:54 POC Glucose 143 H 158 H Microbiology 01/30/18 13:05 Stool - Pending Stool Occult Blood (JU) - Final 01/30/18 12:45 Venous blood - Right Hand Blood Culture - Preliminary Specimen has been received and culture in progress. No Growth to date. 01/30/18 12:32 Venous blood - Left Arm Blood Culture - Preliminary Specimen has been received and culture in progress. No Growth to date. Laboratory Tests 01/30/18 01/30/18 01/31/18 12:32 12:32 04:56 WBC 13.3 H Hgb 9.7 L Plt Count 510 H Neutrophils % 86.8 H Neutrophils % (Manual) 79 H BUN 80 H Creatinine 1.73 H EKG Reviewed by me: Yes (PM interrogation - A-fib 100% since 01/29/18) Phys Exam - Physical Examination Constitutional: NAD HEENT: PERRLA, sclera anicteric, oral pharynx no lesions Neck: no nodes, no JVD, supple, full ROM Respiratory: no wheezing, no rales, no rhonchi Cardiovascular: RRR, no significant murmur, no rub Gastrointestinal: soft, non-tender, no distention, positive bowel sounds Musculoskeletal: no edema, pulses present Neurological: normal sensation, moves all 4 limbs Psychiatric: normal affect, A&O x 3 Skin: no rash, normal turgor, cap refill <2 seconds Dx/Plan (1) UTI (urinary tract infection) Status: Acute Comment: Ucx pending, continue Rocephin, await final cx (2) Hypotension Status: Acute Comment: Mild, hold all antihypertensives, serial BP monitoring , resolving (3) Visual disturbance Code(s): H53.9 - UNSPECIFIED VISUAL DISTURBANCE Status: Acute Comment: Resolved, secondary to hypotensive episode (4) Decubitus ulcer of buttock, stage 3 Code(s): L89.303 - PRESSURE ULCER OF UNSPECIFIED BUTTOCK, STAGE 3 Status: Chronic Comment: bilateral involvement, offload pressure, WCT (5) Dehydration Code(s): E86.0 - DEHYDRATION Status: Acute Comment: Resolving, saline lock IVF (6) CKD (chronic kidney disease) stage 3, GFR 30-59 ml/min Status: Chronic Comment: Near baseline GFR (7) Chronic atrial fibrillation Code(s): I48.2 - CHRONIC ATRIAL FIBRILLATION Status: Chronic Comment: Consult Cardiology for any further recommendations, remains rate-controlled, anticoagulation held due to recent GI bleed requiring transfusion - Plan continue antibiotics, PT/OT, psychotherapist social worker, DVT proph w/SCDs Stable overall -: Continue Rocephin another 24h then convert to po abx -: Saline lock IVF -: Resume Digoxin and Coreg -: AM lab: BMP, H/H * .
[2018-02-01] MEDS: cefTRIAXone\\ROCEPHIN 1 GM in Sodium Chloride 0.9% 100 ML IVPB SCH (17:27)
[2018-02-01] MEDS: HumaLOG 300 UNITS/3 ML VIAL SC PRN (17:54)
[2018-02-01] MEDS: Melatonin 3 MG TAB PO SCH (20:04)
[2018-02-01] MEDS: Carvedilol 3.125 MG TAB PO SCH (20:04)
[2018-02-02 04:19] LABS: Hemoglobin 8.2 g/dL (12.0-16.0); Platelet Count 336 thou/uL (130-400)
[2018-02-02 04:46] LABS: Anion Gap 10 mmol/L (10-20); BUN (Urea Nitrogen) 30 mg/dL (9.8-20.1); Calc. Creatinine Clearance 72 mL/min (70-130); Calcium 10.1 mg/dL (7.8-10.44); Carbon Dioxide 28 mmol/L (23-31); Chloride 104 mmol/L (98-107); Estimated GFR-MDRD 72; Glucose 133 mg/dL (83-110); Potassium 4.5 mmol/L (3.5-5.1); Sodium 137 mmol/L (136-145)
[2018-02-02] MEDS: Mometasone/Formoterol 120 PUFF INHALER INH SCH ×2 (06:26→18:25)
[2018-02-02] MEDS: predniSONE 20 MG TAB PO SCH (08:14)
[2018-02-02] MEDS: Potassium Chloride 20 MEQ TAB PO SCH (08:14)
[2018-02-02] MEDS: Carvedilol 3.125 MG TAB PO SCH ×2 (08:15→20:47)
[2018-02-02] MEDS: Famotidine 20 MG TAB PO SCH (08:15)
[2018-02-02] MEDS: Gabapentin 300 MG CAP PO SCH ×3 (08:16→20:47)
[2018-02-02] MEDS: NPH, Human Insulin Isophane 300 UNIT/3 ML VIAL SC SCH ×2 (08:16→20:47)
--- NOTE | 2018-02-02 09:19 | CON ---
DATE OF CONSULTATION: 02/02/2018 REASON FOR CONSULTATION: Congestive heart failure, atrial fibrillation, iron deficiency anemia, prev ious biventricular pacemaker defibrillator, COPD, cardiomyopathy, hypotension. HISTORY OF PRESENT ILLNESS: Ms. Lucy Morales is a 77-year-old woman with multiple medical probl ems as outlined above. She was admitted to the hospital when she was found to be hypotensive and sen t to the emergency room. In the emergency room, she was found to have anemia which was persistent an d recurrent. She had recently been hospitalized with iron deficiency anemia and found to have some p olyps which were not bleeding on colonoscopy. No source of bleeding from the upper gastrointestinal tract. Previous studies had shown some arteriovenous malformation. The patient has been found to kay ve atrial fibrillation on interrogating the defibrillator on this occasion and we have been consulted . The patient generally feels weak, cannot really get out of bed much. She has had progressive worseni ng of her symptoms over the last few years, especially this year. PAST MEDICAL HISTORY: 1. She has a long history of a cardiomyopathy with gradually worsening symptoms. 2. Chronic obstructive pulmonary disease. 3. As mentioned, iron deficiency anemia. MEDICATIONS: 1. She was on Xarelto, even at reduced dose she had some further reduction in hemoglobin. 2. Coreg very low dose as she cannot tolerate a high dose. 3. Could not tolerate TANNER inhibitor due to hypotension. 4. On oral iron. 5. Digoxin. 6. Torsemide. 7. Spironolactone. REVIEW OF SYSTEMS: CONSTITUTIONAL: Positive for weakness, fatigue. VISION: No changes. HEARING: No changes. PULMONARY: Positive shortness of breath. CARDIAC: Positive for shortness of breath, no chest pain. GASTROINTESTINAL: No nausea, vomiting, diarrhea. SKIN: No rashes. NEUROLOGIC: No unilateral weakness or numbness. PSYCHIATRIC: No unusual depression or anxiety. HEMATOLOGIC: No unusual bruising. GENITOURINARY: No burning with urination. FAMILY HISTORY: Negative for heart disease at a young age. SOCIAL HISTORY: The patient now resides in a nursing facility. PHYSICAL EXAMINATION: GENERAL: This is a pleasant elderly woman resting comfortably now in no distress. She says she just feels weak and cannot really get out of bed with generalized weakness. VITAL SIGNS: Her blood pressure is 124/68, pulse 70 regular. LUNGS: Clear. CARDIOVASCULAR: Normal S1, normal S2. ABDOMEN: Soft, nontender. EXTREMITIES: No clubbing or cyanosis. There is no edema. Extremities are warm and dry. PSYCHIATRIC: Mood and affect are normal. NEUROLOGIC: Grossly normal. PERTINENT LABORATORY: Her hemoglobin is 8.2. It has not increased despite oral iron. The sodium is 137, potassium 4.6, chloride 104, BUN is 33, creatinine 0.77. Most recent iron study was in September. Iron level was 25 with a ferritin of 24.59. BNP most recently 100.7. Interrogating the biventricular pacemaker defibrillator. She has been persistently in atrial fibrill ation since 01/29/2018, previously it was paroxysmal. Her OptiVol did show pulmonary vascular conges tion until recently, now, she is no longer in this state. The most recent ejection fraction that I see in the chart is 15-20%. ASSESSMENT: 1. Cardiomyopathy with an ejection fraction of 15-20%. 2. Chronic obstructive pulmonary disease. 3. Systolic heart failure, chronic, now currently compensated. 4. Recurrent iron deficiency anemia. 5. Atrial fibrillation. 6. Deconditioning. 7. History of renal insufficiency intermittently. 8. Cannot tolerate TANNER inhibitors due to renal insufficiency. 9. Also was recently hypotensive. PLAN: 1. Recheck iron studies. If they are low we will give intravenous iron. Almost certainly will quyen gillette. 2. Depending on iron studies may consider trying a reduced dose of Eliquis to see if this could be g iven without recurrent GI bleeding. There is really no ideal option in this case. Full dose anticoa gulation is going to have a high risk of bleeding, but totally off anticoagulation also will have an increased risk of stroke. 3. Resume Torsemide. 4. Resume spironolactone. 5. Continue digoxin. 6. May consider Entresto if blood pressure remains stable. 7. Continue carvedilol, low dose is all she has been able to tolerate at this time. 8. Recheck electrolytes and CBC tomorrow morning. 9. Probably back to the [facility] tomorrow.
[2018-02-02 09:28] LABS: Iron 28 ug/dL (50-170); Iron Binding Capacity, Total 293 mcg/dL (265-497)
[2018-02-02] MEDS: ADMIXTURE FEE IVPB SCH ×2 (09:42→20:47)
[2018-02-02] MEDS: SODIUM CHLORIDE IVPB SCH ×2 (09:42→20:47)
[2018-02-02] MEDS: SODIUM FERRIC GLUCONATE IVPB SCH ×2 (09:42→20:47)
[2018-02-02] MEDS: Torsemide 20 MG TAB PO SCH ×2 (09:42→14:50)
[2018-02-02] MEDS ORDERED: Iron Dextran 500 MG in Sodium Chloride 0.9% 250 ML IVPB SCH (11:00)
[2018-02-02] MEDS: HumaLOG 300 UNITS/3 ML VIAL SC PRN ×2 (13:06→18:15)
--- NOTE | 2018-02-02 17:17 | PDOC.PN ---
- Subjective Encounter Start Date: 02/02/18 Encounter Start Time: 17:15 Subjective: f/u for UTI, JOE, dehydration and A-fib. Overall feeling ok. Received -: IV Iron today. No new complaints. - Objective Resuscitation Status: Resuscitation Status FULL:Full Resuscitation MAR Reviewed: Yes Vital Signs & Weight: Vital Signs (12 hours) Temp Pulse Resp BP Pulse Ox 02/02/18 10:29 70 16 98 02/02/18 08:00 97.7 F 70 16 124/68 98 02/02/18 06:24 65 16 99 Weight Admit Weight 168 lb 12.8 oz Weight 168 lb 12.8 oz I&O: 02/01/18 02/02/18 02/03/18 06:59 06:59 06:59 Intake Total 1749 2055 420 Balance 1749 2055 420 Result Diagrams: 02/02/18 03:57 02/02/18 03:57 Additional Labs: Accuchecks 02/02/18 02/02/18 02/02/18 16:11 11:11 04:11 POC Glucose 264 H 191 H 136 H 02/01/18 19:31 POC Glucose 185 H Microbiology 01/30/18 13:05 Stool - Pending Stool Occult Blood (JU) - Final 01/30/18 12:45 Venous blood - Right Hand Blood Culture - Preliminary Specimen has been received and culture in progress. No Growth to date. 01/30/18 12:32 Venous blood - Left Arm Blood Culture - Preliminary Specimen has been received and culture in progress. No Growth to date. Laboratory Tests 01/30/18 01/30/18 01/31/18 12:32 12:32 04:56 WBC 13.3 H Hgb 9.7 L 8.5 L Plt Count 510 H Neutrophils % 86.8 H Neutrophils % (Manual) 79 H BUN 80 H Creatinine 1.73 H Iron TIBC % Saturation Ferritin 02/02/18 02/02/18 08:52 08:52 WBC Hgb Plt Count Neutrophils % Neutrophils % (Manual) BUN Creatinine Iron 28 L TIBC 293 % Saturation 10 L Ferritin 38.26 Phys Exam - Physical Examination Constitutional: NAD HEENT: PERRLA, sclera anicteric, oral pharynx no lesions Neck: no nodes, no JVD, supple, full ROM Respiratory: no wheezing, no rales, no rhonchi, clear to auscultation bilateral Cardiovascular: RRR, no significant murmur, no rub, gallop Gastrointestinal: soft, non-tender, no distention, positive bowel sounds Musculoskeletal: no edema, pulses present Neurological: normal sensation, moves all 4 limbs Psychiatric: A&O x 3 Skin: no rash, normal turgor, cap refill <2 seconds Dx/Plan (1) UTI (urinary tract infection) Status: Acute Comment: Ucx pending, d/c Rocephin, start Omnicef 300mg BID (2) Hypotension Status: Acute Comment: Mild, hold all antihypertensives, serial BP monitoring , resolving (3) Visual disturbance Code(s): H53.9 - UNSPECIFIED VISUAL DISTURBANCE Status: Acute Comment: Resolved, secondary to hypotensive episode (4) Decubitus ulcer of buttock, stage 3 Code(s): L89.303 - PRESSURE ULCER OF UNSPECIFIED BUTTOCK, STAGE 3 Status: Chronic Comment: bilateral involvement, offload pressure, WCT (5) Dehydration Code(s): E86.0 - DEHYDRATION Status: Acute Comment: Resolving, saline lock IVF (6) CKD (chronic kidney disease) stage 3, GFR 30-59 ml/min Status: Chronic Comment: Near baseline GFR (7) Chronic atrial fibrillation Code(s): I48.2 - CHRONIC ATRIAL FIBRILLATION Status: Chronic Comment: Consult Cardiology for any further recommendations, remains rate-controlled, Digoxin MWF - Plan continue antibiotics, PT/OT, social science professor, out of bed/ambulate, DVT proph w/ SCDs stable overall -: D/C Rocephin -: Start Omnicef 300mg BID -: IV Iron infusion x 2 doses -: OOB/ambulate with PT * AM lab: BMP, CBC * Home to SNF in am
[2018-02-02] MEDS: Spironolactone 25 MG TAB PO SCH (18:14)
[2018-02-02] MEDS: cefTRIAXone\\ROCEPHIN 1 GM in Sodium Chloride 0.9% 100 ML IVPB SCH (18:14)
[2018-02-02] MEDS: Melatonin 3 MG TAB PO SCH (20:47)
[2018-02-02] MEDS: Cefdinir 300 MG CAP PO SCH (20:47)
[2018-02-03 05:10] LABS: #Eosinphils 0.2 thou/uL (0.0-0.7); #Lymphocytes 0.6 thou/uL (1.20-3.40); #Monocytes 0.7 thou/uL (0.11-0.59); #Neutrophils 5.3 thou/uL (1.40-6.50); %Basophils 0.1 % (0.0-1.0); %Eosinophils 2.9 % (0.0-10.0); %Lymphocytes 8.8 % (21.0-51.0); %Monocytes 10.5 % (0.0-10.0); %Neutrophils 77.8 % (42.0-75.0); Hemoglobin 8.8 g/dL (12.0-16.0); Mean Corpuscular HGB CONC 32.5 g/dL (32.0-36.0); Mean Corpuscular Hemoglobin 30.2 pg (27.0-31.0); Mean Corpuscular Volume 92.9 fL (78.0-98.0); Mean Platelet Volume 6.9 fL (7.4-10.4); Platelet Count 360 thou/uL (130-400); RBC Distribution Width 16.2 % (11.5-14.5); White Blood Cell (WBC) Count 6.8 thou/uL (4.8-10.8)
[2018-02-03 05:25] LABS: Anion Gap 10 mmol/L (10-20); BUN (Urea Nitrogen) 27 mg/dL (9.8-20.1); Calc. Creatinine Clearance 63 mL/min (70-130); Calcium 10.7 mg/dL (7.8-10.44); Carbon Dioxide 30 mmol/L (23-31); Chloride 101 mmol/L (98-107); Estimated GFR-MDRD 62; Glucose 117 mg/dL (83-110); Potassium 3.8 mmol/L (3.5-5.1); Sodium 137 mmol/L (136-145)
[2018-02-03] MEDS: Mometasone/Formoterol 120 PUFF INHALER INH SCH (06:13)
[2018-02-03 07:13] VITALS: TEMP 97.7
[2018-02-03] MEDS ORDERED: Potassium Chloride 20 MEQ TAB PO SCH (08:00)
[2018-02-03] MEDS ORDERED: Spironolactone 25 MG TAB PO SCH (08:30)
[2018-02-03] MEDS ORDERED: Sacubitril 24.5 MG/Valsartan 25.5 MG TABLET PO SCH (09:00)
[2018-02-03] MEDS ORDERED: Digoxin 0.125 MG TAB PO SCH (09:00)
[2018-02-03] MEDS ORDERED: Apixaban 2.5 MG TAB PO SCH (09:00)
[2018-02-03] MEDS: Carvedilol 3.125 MG TAB PO SCH (09:27)
[2018-02-03] MEDS: Gabapentin 300 MG CAP PO SCH ×2 (09:28→14:38)
[2018-02-03] MEDS: Cefdinir 300 MG CAP PO SCH (09:28)
[2018-02-03] MEDS: Famotidine 20 MG TAB PO SCH (09:28)
[2018-02-03] MEDS: predniSONE 20 MG TAB PO SCH (09:29)
[2018-02-03] MEDS: NPH, Human Insulin Isophane 300 UNIT/3 ML VIAL SC SCH (09:29)
[2018-02-03] MEDS: Torsemide 20 MG TAB PO SCH ×2 (09:29→14:38)
[2018-02-03] MEDS: Spironolactone 25 MG TAB PO SCH (10:18)
--- NOTE | 2018-02-03 12:20 | DIS ---
DATE OF ADMISSION: 01/30/2018 DATE OF DISCHARGE: 02/03/2018 DISCHARGE DIAGNOSES: 1. Urinary tract infection, organism not identified. 2. Hypotension, iatrogenic, improved. 3. Visual disturbance secondary to hypotension, resolved. 4. Stage III decubitus ulcer of the buttock. 5. Dehydration, resolved. 6. Chronic kidney disease stage 3, stable. 7. Chronic atrial fibrillation with chronic Eliquis, rate controlled. 8. Chronic normocytic anemia with iron deficiency component. CONSULTATIONS: Dr. Mcdermott with Cardiology Service. PERTINENT LABORATORY AND X-RAY FINDINGS: Sodium ranged between 133-137, creatinine ranged between 0. 77-1.73, estimated GFR ranged between 28-62. Lactic acid level ranged between 1.9-2.6, calcium range d between 9.1-10.7. BNP 101. CBC showed a white blood cell count ranging between 6.8-13.3, hemoglob in ranged between 8.2-9.7. Blood cultures x2 dated 01/30/2018 showed no growth at 48 hours. Stool H emoccult dated 01/30/2018 negative x1. Portable chest x-ray dated 01/30/2018 showed left pleural eff usion. HOSPITAL COURSE: The patient was initially admitted after presenting with weakness and visual change s with associated hypotension and evidence for urinary tract infection. The patient was placed on IV Rocephin with urine culture unavailable and no organism identified. The patient received IV fluids and was monitored off antihypertensive medications for approximately 48 hours. The patient had overa ll stabilization and correction of visual disturbance with improvement in blood pressure. The patien t was also noted with acute kidney injury at the time of admission, resolving with IV fluids and avoi dance of nephrotoxic agents. The patient underwent interrogation of her current pacemaker device olman wing normal functioning device; however, the patient was noted with atrial fibrillation with variable rate. The patient was evaluated by the Cardiology Service with recommendations for iron supplementa tion and received 2 doses of IV iron. The patient's hemoglobin remained clinically stable with seria l monitoring with no evidence of acute blood loss. The patient was resumed on chronic anticoagulatio n with Eliquis 2.5 mg b.i.d. with recommendations for serial monitoring after discharge. I have exam ined the patient at the time of discharge and discussed followup instructions. The patient verbalize s understanding and agreement ready for discharge on 02/03/2018. DISCHARGE MEDICATIONS: 1. ProAir HFA 2 puffs inhaled q.6 hours p.r.n. 2. Fosamax 1 tablet p.o. weekly. 3. Calcium carbonate 1250 mg p.o. q.i.d. p.r.n. 4. Coreg 3.125 mg p.o. b.i.d. 5. Digoxin 0.125 mcg p.o. daily. 6. Breo Ellipta 200/25 mcg 1 inhalation daily. 7. Gabapentin 300 mg p.o. t.i.d. 8. Humalog sliding scale t.i.d. 9. Atrovent HFA 2 puffs inhaled q.i.d. 10. Melatonin 3 mg p.o. at bedtime. 11. Reglan 10 mg p.o. q.i.d. 12. NPH insulin 30 units subcutaneously b.i.d. 13. Protonix 40 mg p.o. daily. 14. MiraLax 17 grams p.o. daily. 15. Potassium chloride 20 mEq p.o. daily. 16. Prednisone 20 mg p.o. daily. 17. Spironolactone 25 mg p.o. daily. 18. Torsemide 20 mg p.o. b.i.d. 19. Tramadol 50 mg p.o. q.i.d. p.r.n. 20. Trazodone 100 mg p.o. b.i.d. 21. Eliquis 2.5 mg p.o. b.i.d. 22. Omnicef 300 mg p.o. b.i.d., stop on 02/08/2018. 23. Ferrous sulfate 325 mg p.o. daily. 24. Entresto 24.5/25.5 mg 1 tab p.o. b.i.d. FOLLOWUP: The patient will follow up with her primary care provider Hayley Brewer. CONDITION ON DISCHARGE: Fair. ACTIVITY: Ad florence. Rolling walker with contact guard assistance. DIET: ADA. CODE STATUS: Full. DISPOSITION: Discharged to [facility] on 02/03/2018. Total time preparing and coordinating discharge is 38 minutes.
--- NOTE | 2018-02-03 13:04 | PRG ---
DATE OF SERVICE: 02/03/2018 SUBJECTIVE: Ms. Morales is sleeping when I came into the room, but she awakens easily. PHYSICAL EXAMINATION: GENERAL: She is alert and oriented. No chest pain or pressure, no shortness of breath. VITAL SIGNS: Blood pressure 112/57, pulse 70. LUNGS: Clear. CARDIAC: Normal S1, normal S2. ABDOMEN: Soft, nontender. EXTREMITIES: Mild edema. ASSESSMENT: 1. Congestive heart failure, systolic. 2. Atrial fibrillation. 3. Recurrent anemia. 4. History of renal insufficiency. PLAN: 1. She is going to go home on twice a day. 2. Carvedilol 3.125 mg twice a day. 2. Digoxin 0.125 mg Tuesday, Tuesday, and Tuesday. 3. Eliquis 2.5 mg twice a day. Prognosis guarded. 4. Torsemide 20 mg twice a day. 5. Spironolactone 25 mg a day.
[2018-02-03] MEDS: traMADol HCl 50 MG TAB PO PRN (14:38)
[2018-02-03 15:21] VITALS: BP 127/69
[2018-02-03] MEDS ORDERED: Rivaroxaban 10 MG TAB PO SCH (18:00)
[2018-02-04] MEDS ORDERED: Spironolactone 25 MG TAB PO SCH (08:00)
--- NOTE | 2018-02-04 16:37 | EKG ---
Test Reason : Blood Pressure : / mmHG Vent. Rate : 070 BPM Atrial Rate : 034 BPM P-R Int : 000 ms QRS Dur : 196 ms QT Int : 506 ms P-R-T Axes : 000 254 102 degrees QTc Int : 546 ms Ventricular-paced rhythm Biventricular pacemaker detected Abnormal ECG Confirmed by KADEN MOODY ([id number]), business editor JONAH SAMANO ([id number] on 02/04/2018 4:37:17 PM Referred By: Confirmed By:KADEN MOODY
== END 2018-02-03 14:54 | DRG 689 ==
LOC: ERS 12:01 → T4-B 15:22
PROVIDERS: ADMIT Family Medicine; ATTEND Family Medicine
DX: N39.0 Urinary tract infection, site not specified (principal); L89.323 Pressure ulcer of left buttock, stage 3; L89.313 Pressure ulcer of right buttock, stage 3; I42.9 Cardiomyopathy, unspecified; N17.9 Acute kidney failure, unspecified; J96.11 Chronic respiratory failure with hypoxia; I13.0 Hypertensive heart and chronic kidney disease with heart failure and stage 1 through stage 4 chronic kidney disease, or unspecified chronic kidney disease; I50.22 Chronic systolic (congestive) heart failure; G89.29 Other chronic pain; M54.9 Dorsalgia, unspecified; K57.30 Diverticulosis of large intestine without perforation or abscess without bleeding; I95.9 Hypotension, unspecified; D50.0 Iron deficiency anemia secondary to blood loss (chronic); J44.9 Chronic obstructive pulmonary disease, unspecified; Z79.4 Long term (current) use of insulin; Z85.41 Personal history of malignant neoplasm of cervix uteri; Z92.3 Personal history of irradiation; F41.9 Anxiety disorder, unspecified; F32.9 Major depressive disorder, single episode, unspecified; Z95.0 Presence of cardiac pacemaker; Z79.82 Long term (current) use of aspirin; Z88.1 Allergy status to other antibiotic agents; Z88.5 Allergy status to narcotic agent; Z88.0 Allergy status to penicillin; Z87.891 Personal history of nicotine dependence; H53.9 Unspecified visual disturbance; E11.22 Type 2 diabetes mellitus with diabetic chronic kidney disease; E86.0 Dehydration; N18.3 Chronic kidney disease, stage 3 (moderate); I48.2 Chronic atrial fibrillation; E78.00 Pure hypercholesterolemia, unspecified; L89.152 Pressure ulcer of sacral region, stage 2
CPT/HCPCS: 36415; 36416; 51701; 71045; 80048; 80053; 81003; 81015; 82274; 82553; 82728; 83540; 83550; 83605; 83880; 84484; 85007; 85014; 85018; 85025; 85027; 85049; 87040; 93005; 94640; 94664; 96361; 96365; 96367; A4353; G8978-GP-CM; G8979-GP-CK; J0696; J1815; J2916; J3370; J7050; J7506; J7620

== ENCOUNTER 2018-02-24 09:40 | Day surgery (SDC) | payer MEDICARE, MEDICAID ==
[2018-02-24] MEDS ORDERED: Epoetin 40,000 UNITS/ML VIAL SC SCH (10:00)
[2018-02-24] MEDS ORDERED: diphenhydrAMINE 25 MG CAP PO SCH (10:00)
[2018-02-24] MEDS ORDERED: Acetaminophen 500 MG TAB PO SCH (10:00)
[2018-02-24 15:54] VITALS: BP 130/90; TEMP 98.2
== END 2018-02-24 16:07 | disposition home or self-care (01) ==
LOC: ONC/OP 09:40
PROVIDERS: ATTEND Nurse Practitioner Acute Care
DX: D50.8 Other iron deficiency anemias (principal); N18.9 Chronic kidney disease, unspecified; D63.1 Anemia in chronic kidney disease; Z88.0 Allergy status to penicillin; Z88.5 Allergy status to narcotic agent; Z88.1 Allergy status to other antibiotic agents
CPT/HCPCS: 36430; 86850; 86900; 86901; 96372; J0885; P9016

== ENCOUNTER 2018-06-19 18:14 | Emergency (ER) | payer MEDICARE, MEDICAID ==
--- NOTE | 2018-06-19 19:07 | RAD ---
PORTABLE CHEST: 06/19/2018 PROVIDED CLINICAL HISTORY: Cough. COMPARISON: 01/30/2018 FINDINGS: The cardiac silhouette remains enlarged. There is obscuration of the left hemidiaphragm. Left basil ar pleural and/or parenchymal opacity cannot be excluded. The lungs appear otherwise clear. No evid ence for pneumothorax. Vascular calcification and a left subclavian cardiac pacing device are again seen. Emphysematous changes are suggested. IMPRESSION: Cardiomegaly and left basilar pleural and/or parenchymal opacity. Correlation with a lateral view re commended. POS: [facility]
[2018-06-19] MEDS ORDERED: HYDROcodone/Acetaminophen 5/325 mg Tablet ONE (19:23)
[2018-06-19 19:25] LABS: #Eosinphils 0.1 thou/uL (0.0-0.7); #Lymphocytes 0.4 thou/uL (1.20-3.40); #Monocytes 0.5 thou/uL (0.11-0.59); #Neutrophils 9.2 thou/uL (1.40-6.50); %Basophils 0.2 % (0.0-1.0); %Lymphocytes 3.6 % (21.0-51.0); %Monocytes 4.7 % (0.0-10.0); %Neutrophils 90.5 % (42.0-75.0); Hemoglobin 10.2 g/dL (12.0-16.0); Mean Corpuscular HGB CONC 31.1 g/dL (32.0-36.0); Mean Corpuscular Hemoglobin 29.3 pg (27.0-31.0); Mean Corpuscular Volume 94.3 fL (78.0-98.0); Mean Platelet Volume 7.4 fL (7.4-10.4); Platelet Count 338 thou/uL (130-400); RBC Distribution Width 16.6 % (11.5-14.5); White Blood Cell (WBC) Count 10.2 thou/uL (4.8-10.8)
[2018-06-19 19:42] LABS: ALT (SGPT) 19 U/L (8-55); AST (SGOT) 11 U/L (5-34); Albumin 3.4 g/dL (3.4-4.8); Alkaline Phosphatase 63 U/L (40-150); Anion Gap 13 mmol/L (10-20); BUN (Urea Nitrogen) 31 mg/dL (9.8-20.1); Bilirubin, Total 0.2 mg/dL (0.2-1.2); Calc. Creatinine Clearance 0 mL/min (70-130); Calcium 10.3 mg/dL (7.8-10.44); Carbon Dioxide 32 mmol/L (23-31); Chloride 101 mmol/L (98-107); Estimated GFR-MDRD 31; Globulin 2.9 g/dL (2.4-3.5); Glucose 151 mg/dL (83-110); Potassium 4.3 mmol/L (3.5-5.1); Protein, Total 6.3 g/dL (6.0-8.3); Sodium 142 mmol/L (136-145)
== END 2018-06-19 22:29 ==
LOC: ERS 18:14
DX: J20.9 Acute bronchitis, unspecified (principal); D64.89 Other specified anemias; Z79.4 Long term (current) use of insulin; Z79.899 Other long term (current) drug therapy; Z79.891 Long term (current) use of opiate analgesic; Z79.51 Long term (current) use of inhaled steroids
CPT/HCPCS: 36415; 36416; 71045; 80053; 83880; 84484; 85025; 93005

== ENCOUNTER 2018-08-01 11:44 | Day surgery (SDC) | payer MEDICARE, MEDICAID ==
[2018-08-01] MEDS ORDERED: Sodium Chloride 0.9% 10 ML ONE (12:25)
[2018-08-01] MEDS ORDERED: diphenhydrAMINE 25 MG CAP PO SCH (12:30)
[2018-08-01] MEDS ORDERED: Acetaminophen 500 MG TAB PO SCH (12:30)
[2018-08-01 16:48] VITALS: BP 139/58; TEMP 98.2
[2018-08-01 16:58] LABS: #Eosinphils 0.2 thou/uL (0.0-0.7); #Lymphocytes 0.4 thou/uL (1.20-3.40); #Monocytes 0.4 thou/uL (0.11-0.59); #Neutrophils 8.4 thou/uL (1.40-6.50); %Eosinophils 1.8 % (0.0-10.0); %Lymphocytes 4.7 % (21.0-51.0); %Monocytes 4.3 % (0.0-10.0); %Neutrophils 89.3 % (42.0-75.0); Hemoglobin 8.6 g/dL (12.0-16.0); Mean Corpuscular HGB CONC 30.1 g/dL (32.0-36.0); Mean Corpuscular Hemoglobin 29.2 pg (27.0-31.0); Mean Corpuscular Volume 96.8 fL (78.0-98.0); Mean Platelet Volume 7.2 fL (7.4-10.4); Platelet Count 342 thou/uL (130-400); RBC Distribution Width 15.8 % (11.5-14.5); Red Blood Cell (RBC) Count 2.95 mill/uL (4.20-5.40); White Blood Cell (WBC) Count 9.5 thou/uL (4.8-10.8)
== END 2018-08-01 17:25 ==
LOC: EDSTATUS 11:44 → SDC/OP 11:44 → 3SE 11:45 → SDC/OP 17:25
PROVIDERS: ATTEND Internal Medicine Hematology & Oncology
PROC: 30233N1 Transfusion of Nonautologous Red Blood Cells into Peripheral Vein, Percutaneous Approach (ICD-10-PCS; principal; 2018-08-01)
DX: D64.9 Anemia, unspecified (principal); D69.6 Thrombocytopenia, unspecified; Z88.1 Allergy status to other antibiotic agents; Z88.5 Allergy status to narcotic agent; Z88.8 Allergy status to other drugs, medicaments and biological substances; Z88.0 Allergy status to penicillin; Z79.52 Long term (current) use of systemic steroids; Z79.51 Long term (current) use of inhaled steroids; Z79.2 Long term (current) use of antibiotics; Z79.01 Long term (current) use of anticoagulants; Z79.899 Other long term (current) drug therapy
CPT/HCPCS: 36430; 85025; 86850; 86900; 86901; 86920; P9016; 36415; Q0163

== ENCOUNTER 2018-08-21 10:35 | Day surgery (SDC) | payer MEDICARE, MEDICAID ==
[2018-08-21] MEDS ORDERED: diphenhydrAMINE 25 MG CAP PO SCH (12:15)
[2018-08-21] MEDS ORDERED: Acetaminophen 500 MG TAB PO SCH (12:15)
[2018-08-21 21:35] VITALS: BP 139/63; TEMP 98.7
[2018-08-21 22:04] LABS: #Lymphocytes 0.6 thou/uL (1.20-3.40); #Monocytes 0.8 thou/uL (0.11-0.59); #Neutrophils 6.7 thou/uL (1.40-6.50); %Eosinophils 0.6 % (0.0-10.0); %Lymphocytes 6.9 % (21.0-51.0); %Monocytes 9.5 % (0.0-10.0); %Neutrophils 83.1 % (42.0-75.0); Hemoglobin 11.3 g/dL (12.0-16.0); Mean Corpuscular Volume 96.5 fL (78.0-98.0); Mean Platelet Volume 7.1 fL (7.4-10.4); Platelet Count 309 thou/uL (130-400); RBC Distribution Width 14.4 % (11.5-14.5); Red Blood Cell (RBC) Count 3.76 mill/uL (4.20-5.40); White Blood Cell (WBC) Count 8.1 thou/uL (4.8-10.8)
== END 2018-08-21 22:05 ==
LOC: ONC/OP 10:35 → ONC 10:46 → ONC/OP 22:05
PROVIDERS: ATTEND Internal Medicine Hematology & Oncology
PROC: 30233N1 Transfusion of Nonautologous Red Blood Cells into Peripheral Vein, Percutaneous Approach (ICD-10-PCS; principal; 2018-08-21)
DX: D64.9 Anemia, unspecified (principal); D69.6 Thrombocytopenia, unspecified; Z88.0 Allergy status to penicillin; Z88.1 Allergy status to other antibiotic agents; Z88.5 Allergy status to narcotic agent; Z88.8 Allergy status to other drugs, medicaments and biological substances
CPT/HCPCS: 36415; 36416; 36430; 85025; 86850; 86900; 86901; P9016; Q0163

== ENCOUNTER 2018-09-21 15:00 | Inpatient (IN) | payer MEDICARE, MEDICAID ==
[2018-09-21 16:44] LABS: #Eosinphils 0.1 thou/uL (0.0-0.7); #Lymphocytes 0.4 thou/uL (1.20-3.40); #Monocytes 0.6 thou/uL (0.11-0.59); #Neutrophils 6.5 thou/uL (1.40-6.50); %Eosinophils 1.5 % (0.0-10.0); %Lymphocytes 5.5 % (21.0-51.0); %Monocytes 7.6 % (0.0-10.0); %Neutrophils 85.4 % (42.0-75.0); Mean Corpuscular HGB CONC 31.1 g/dL (32.0-36.0); Mean Corpuscular Hemoglobin 30.6 pg (27.0-31.0); Mean Corpuscular Volume 98.3 fL (78.0-98.0); Mean Platelet Volume 7.2 fL (7.4-10.4); Platelet Count 311 thou/uL (130-400); RBC Distribution Width 16.9 % (11.5-14.5); White Blood Cell (WBC) Count 7.6 thou/uL (4.8-10.8)
[2018-09-21 16:50] LABS: INR-International Normal Ratio 1.2; PTT 29.1 SEC (22.9-36.1); Prothrombin Time 14.9 SEC (12.0-14.7)
[2018-09-21 17:03] LABS: ALT (SGPT) 13 U/L (8-55); AST (SGOT) 11 U/L (5-34); Alkaline Phosphatase 42 U/L (40-150); Anion Gap 13 mmol/L (10-20); BUN (Urea Nitrogen) 68 mg/dL (9.8-20.1); Bilirubin, Total 0.2 mg/dL (0.2-1.2); Calc. Creatinine Clearance 0 mL/min (70-130); Calcium 9.8 mg/dL (7.8-10.44); Carbon Dioxide 36 mmol/L (23-31); Chloride 96 mmol/L (98-107); Estimated GFR-MDRD 34; Globulin 2.5 g/dL (2.4-3.5); Glucose 147 mg/dL (83-110); Potassium 4.6 mmol/L (3.5-5.1); Protein, Total 5.5 g/dL (6.0-8.3); Sodium 140 mmol/L (136-145)
[2018-09-21 19:17] LABS: CKMB 1.6 ng/mL (0-6.6)
[2018-09-21] MEDS ORDERED: Acetaminophen 325 MG TAB PO PRN (22:57)
[2018-09-21] MEDS ORDERED: Ondansetron PF 4 MG/2 ML Vial IVP PRN (22:57)
[2018-09-21] MEDS ORDERED: Ondansetron ODT 4 MG TAB SL PRN (22:57)
[2018-09-21] MEDS ORDERED: Dextrose 50% Abboject 50 ML SYRINGE SLOW IVP PRN (23:08)
[2018-09-21] MEDS ORDERED: Dextrose 5% in Water 1,000 ML IV PRN (23:08)
[2018-09-21] MEDS ORDERED: Furosemide 40 MG/4 ML VIAL SLOW IVP SCH (23:30)
[2018-09-21] MEDS: cefTRIAXone\\ROCEPHIN 1 GM in Sodium Chloride 0.9% 100 ML IVPB SCH (23:43)
[2018-09-21] MEDS ORDERED: Ipratropium Oral Inhaler (200 INHALATIONS) INH PRN (23:58)
[2018-09-22 00:23] LABS: Troponin I 0.017 ng/mL (< 0.028)
[2018-09-22] MEDS: Melatonin 3 MG TAB PO PRN ×2 (02:58→21:59)
[2018-09-22] MEDS: traMADol HCl 50 MG TAB PO PRN (04:24)
--- NOTE | 2018-09-22 05:24 | HP ---
CHIEF COMPLAINT: Shortness of breath. HISTORY OF PRESENT ILLNESS: This patient is an 78-year-old female, who presented via the emergency department. The patient has a longstanding history of a cardiomyopathy with an ejection fraction of 15% to 20% as well as chronic anemia. The patient is followed by Dr. Mendoza and has a significant iron deficiency component to her anemia. It appears that she had blood transfusion about 1 month ago. The patient reported that for the past week or so, she has had increasing shortness of breath and she is also reporting a sensation of chest congestion that does not feel like a bronchitis. However, she is coughing and producing discolored sputum. She denies any fevers or chills. She denies any sinus pressure or congestion. She is also experiencing substantial peripheral edema. However, she is not really sure where this is in comparison to her usual baseline. REVIEW OF SYSTEMS: All other systems reviewed. All pertinent positives and negatives noted in history of present illness. PAST MEDICAL HISTORY: Chronic normocytic anemia with iron deficiency component; pancolonic diverticulosis; history of bowel obstruction, secondary to strangulated umbilical hernia in October 2017; COPD; chronic congestive heart failure with cardiomyopathy with ejection fraction of 15% to 20%; diabetes mellitus; hypertension; history of recurrent respiratory failure, requiring intubation; history of cervical cancer, status post radiation; history of SVT, status post ablation; anxiety; and depression. PAST SURGICAL HISTORY: Tonsillectomy, pacemaker/AICD placement, appendectomy, cataractectomy, bowel resections secondary to strangulated umbilical hernia, and cardiac ablation. FAMILY HISTORY: Father had an PA. Mother had COPD and stroke. SOCIAL HISTORY: The patient currently resides in the assisted. She used tobacco, but quit more than 10 years ago. No alcohol or drugs. She does continue to ambulate a bit with a rolling walker. She is full code and indicates that she believes that it is fully up to God when she will pass and in the meantime, everything that can be done should be done. Her surrogate decision maker is her sister. ALLERGIES: CIPRO, CLARITHROMYCIN, CODEINE, ONDANSETRON, AND PENICILLIN. HOME MEDICATIONS: 1. Tylenol p.r.n. 2. DuoNeb p.r.n. 3. Eliquis 2.5 b.i.d. 4. Coreg 3.125 b.i.d. 5. Trazodone 100 mg b.i.d. 6. Tramadol 50 mg q.6. 7. Prednisone 15 daily. 8. Vitamin B complex one daily. 9. Torsemide 40 mg b.i.d. 10. Aldactone 25 mg p.o. every two days. 11. Entresto one p.o. b.i.d. 12. Potassium 20 mEq p.o. daily. 13. Polyethylene glycol 17 g daily p.r.n. 14. Pantoprazole 40 daily. 15. Reglan 10 mg q.i.d. p.r.n. 16. Melatonin one p.o. at bedtime p.r.n. 17. Atrovent HFA two puffs q.i.d. 18. Insulin lispro 20 units t.i.d. 19. Humalog sliding scale. 20. Gabapentin 300 t.i.d. 21. Folic acid one p.o. daily. 22. Breo Ellipta 200-25 one inhalation daily. 23. Flonase 2 sprays per nostril daily. 24. Ferrous sulfate 325 daily. 25. Epogen 40,000 units subcu, timing not known. 26. Docusate 100 mg daily p.r.n. 27. Digoxin 0.125 p.o. Tuesday, Tuesday, and Tuesday. 28. Coreg 3.125 p.o. b.i.d. 29. Calcium 1000 mg q.4 p.r.n. 30. Dulcolax p.r.n. 31. Vitamin C 500 b.i.d. 32. Fosamax 70 mg one p.o. q.7 days. 33. ProAir HFA two puffs p.r.n. 34. Tylenol p.r.n. PHYSICAL EXAMINATION: VITAL SIGNS: Temperature 99, pulse 69, respirations 18, O2 saturation 96% on 3 L nasal cannula, and blood pressure 127/58. GENERAL APPEARANCE: Age-appropriate female, slightly obese, no distress. She is awake, alert, pleasant, cooperative, interactive, fairly admitting. She has some difficulty remembering and has some evidence of short-term memory loss even regarding our conversations. HEENT: PERRL. No OP lesions. NECK: Supple and symmetric. HEART: Regular without murmurs, gallops, or rubs. Pacemaker/AICD present in the left upper chest. LUNGS: Clear to auscultation bilaterally with good chest wall expansion and air exchange. ABDOMEN: Soft, nontender, and nondistended. Positive bowel sounds. No masses. No organomegaly. EXTREMITIES: The patient has significant edema in both upper and lower extremities, which is 3 to 4+ and encompassing the majority of the extremities. She has some ecchymoses on the left forearm, which she believes may have been related to the blood pressure cuff. She has some skin breakdown on the posterior calf areas consistent with decubitus type ulcers, mostly stage II, some possibly early stage III. NEUROLOGIC: She appears to have movement of all extremities that she moves fairly spontaneously. LABORATORY DATA: White count 7.6, hemoglobin 7.0, and platelets 311. INR 1.2, PTT 29.1. Sodium 140, potassium 4.6, chloride 96, CO2 is 36, BUN 68, creatinine 1.46, estimated GFR 34, glucose 147. LFTs normal. Troponin 0.038. Albumin 3.0. Hemoccult negative. IMPRESSION AND PLAN: 1. Severe anemia, which is acute exacerbation of her chronic anemia. The patient has received transfusion about 1 month ago. We will go ahead and give her a couple of units now. This has been followed by Dr. Mendoza and has had extensive previous workup. I do not anticipate any further workup. 2. Severe peripheral edema. The patient has a cardiomyopathy with severely-decreased ejection fraction per the previous cardiology documentation. I suspect this represents a significant amount of failure. We will give her a dose of IV Lasix now and check BNP and continue with her usual home regimen. We will continue with some gentle peripheral compression. 3. Chronic kidney disease. The patient's renal function seems to be highly variable based on her previous measurements, slightly worse than the previous measurements now, but not inconsistent with numbers that she had in the past. It does appear to be significantly prerenal in nature, which likely represents the intravascular depletion related to the diuretics and her heart failure in general i.e. cardiorenal syndrome. 4. Slight elevation of troponin. Given her renal function and age, I suspect this is normal and does not represent a pathologic event. 5. Possible bronchitis. The patient is reporting that she has been coughing some discolored sputum. We will obtain a chest x-ray and start her on some Rocephin. 6. History of chronic obstructive pulmonary disease. Continue with her usual inhaled regimen. 7. History of atrial fibrillation, continue with the digoxin and the Eliquis. 8. History of cardiomyopathy with a previous biventricular pacemaker defibrillator placement. Continue with the digoxin, Eliquis. Job ID: [id number] [facility]
[2018-09-22 07:26] LABS: #Eosinphils 0.2 thou/uL (0.0-0.7); #Lymphocytes 0.5 thou/uL (1.20-3.40); #Monocytes 0.9 thou/uL (0.11-0.59); %Basophils 0.1 % (0.0-1.0); %Eosinophils 2.3 % (0.0-10.0); %Monocytes 12.2 % (0.0-10.0); %Neutrophils 78.4 % (42.0-75.0); Hemoglobin 6.2 g/dL (12.0-16.0); Mean Corpuscular HGB CONC 31.7 g/dL (32.0-36.0); Mean Corpuscular Hemoglobin 31.9 pg (27.0-31.0); Mean Platelet Volume 7.2 fL (7.4-10.4); Platelet Count 282 thou/uL (130-400); RBC Distribution Width 16.7 % (11.5-14.5); Red Blood Cell (RBC) Count 1.95 mill/uL (4.20-5.40); White Blood Cell (WBC) Count 7.7 thou/uL (4.8-10.8)
[2018-09-22] MEDS: Carvedilol 3.125 MG TAB PO SCH ×2 (07:35→16:26)
[2018-09-22 07:36] LABS: Anion Gap 11 mmol/L (10-20); BUN (Urea Nitrogen) 64 mg/dL (9.8-20.1); Calc. Creatinine Clearance 46 mL/min (70-130); Calcium 9.5 mg/dL (7.8-10.44); Carbon Dioxide 37 mmol/L (23-31); Chloride 96 mmol/L (98-107); Estimated GFR-MDRD 38; Glucose 151 mg/dL (83-110); Potassium 4.2 mmol/L (3.5-5.1); Sodium 140 mmol/L (136-145)
[2018-09-22] MEDS: Potassium Chloride 20 MEQ TAB PO SCH (07:36)
[2018-09-22] MEDS: Spironolactone 25 MG TAB PO SCH (07:36)
[2018-09-22] MEDS: predniSONE 5 MG TAB PO SCH (07:36)
--- NOTE | 2018-09-22 07:56 | RAD ---
EXAM: Chest one view: HISTORY: Shortness of breath, cough, congestive heart failure COMPARISON: 06/19/2018 FINDINGS: Heart size: Borderline in size. The lungs: Patchy bibasilar parenchymal changes with bilateral pleural effusion showing worsening fro m 06/19/2018. No acute edema or pneumothorax. IMPRESSION: Borderline heart size with bilateral pleural effusions and bibasilar pulmonary parenchymal changes sh owing mild progression from prior study.
[2018-09-22] MEDS ORDERED: Iron Sucrose Complex 200 MG in Sodium Chloride 0.9% 250 ML 250 ML IVPB SCH (08:15)
[2018-09-22] MEDS ORDERED: Torsemide 20 MG TAB PO SCH (09:00)
[2018-09-22] MEDS ORDERED: Apixaban 2.5 MG TAB PO SCH (09:00)
[2018-09-22] MEDS ORDERED: Furosemide 20 MG/2 ML VIAL SLOW IVP SCH (09:00)
[2018-09-22] MEDS: HumuLIN 70/30 (300 UNITS/3 ML VIAL) SC SCH (09:21)
[2018-09-22] MEDS: Gabapentin 300 MG CAP PO SCH ×3 (09:21→21:54)
[2018-09-22] MEDS: Digoxin 0.125 MG TAB PO SCH (09:26)
--- NOTE | 2018-09-22 10:14 | PDOC.PN ---
- Subjective Encounter Start Date: 09/22/18 Encounter Start Time: 10:12 Patient seen and examined, states she's having difficulty breathing, states this has no gotten worse since yesterday and been about the same, no family at bedside, all questions answered. - Objective Resuscitation Status - Order Detail: 09/21/18 23:05 Resuscitation Status Routine Resuscitation Status: FULL: Full Resuscitation Vital Signs & Weight: Vital Signs (12 hours) Temp Pulse Pulse Resp BP BP Pulse Ox 09/22/18 09:26 70 09/22/18 09:05 98.0 F 70 24 H 120/58 L 96 09/22/18 08:50 98.3 F 69 23 H 114/57 L 98 09/22/18 07:28 98.3 F 70 24 H 121/51 L 100 09/22/18 04:23 70 124/59 L 09/22/18 03:57 98.6 F 69 18 120/51 L 96 09/22/18 00:00 96 09/21/18 22:44 99 F 69 18 127/58 L 96 Weight Weight 192 lb 3 oz I&O: 09/21/18 09/22/18 09/23/18 06:59 06:59 06:59 Intake Total 900 0 Output Total 425 Balance 475 0 Result Diagrams: 09/22/18 06:44 09/22/18 06:44 Additional Labs: Accuchecks 09/22/18 09/21/18 05:14 19:41 POC Glucose 179 H 150 H Phys Exam - Physical Examination Constitutional: NAD HEENT: PERRLA, moist MMs, sclera anicteric Neck: no nodes, no JVD, supple Respiratory: no wheezing, no rales, no rhonchi Cardiovascular: RRR, no significant murmur, no rub Gastrointestinal: soft, non-tender, no distention Musculoskeletal: pulses present, edema present Dx/Plan (1) Anemia Code(s): D64.9 - ANEMIA, UNSPECIFIED Status: Acute (2) Shortness of breath Code(s): R06.02 - SHORTNESS OF BREATH Status: Acute (3) CHF (congestive heart failure) Code(s): I50.9 - HEART FAILURE, UNSPECIFIED Status: Chronic Comment: Stable. ACC AHA Class D (4) DM type 2 (diabetes mellitus, type 2) Status: Chronic Comment: continue accuchecks, insulin sliding scale. (5) HTN (hypertension) Code(s): I10 - ESSENTIAL (PRIMARY) HYPERTENSION Status: Chronic Qualifiers: Comment: BP controlled (6) FAHAD (iron deficiency anemia) Code(s): D50.9 - IRON DEFICIENCY ANEMIA, UNSPECIFIED Status: Chronic Comment : No source of bleeding found. Continue Fe. - Plan * start duonebs * nurse requested to give lasix 60mg IV now during transfusion, will also hold the 2nd blood transfusion, repeat CBC 2hrs after transfusion and depending on result will give 2nd bag, concern for volume overload from transfusion, baseline hx of CHF * will repeat echo * will also get 12 hour Crcl as the patient has very edematous an unclear what her actual eGFR is * will consult cardio and renal depending on results of above tests * patient wishes to remain a full code * case and plan d/w patient at length, she understood and agreed with this plan.
[2018-09-22] MEDS ORDERED: Docusate 100 MG CAP PO PRN (10:17)
[2018-09-22] MEDS ORDERED: Digoxin 0.125 MG TAB PO SCH (10:30)
[2018-09-22] MEDS: Iron, Sodium Ferric Gluconate 250 MG in Sodium Chloride 0.9% 100 ML IVPB SCH (11:35)
--- NOTE | 2018-09-22 11:39 | ULT ---
ULTRASOUND RENAL BILATERAL: HISTORY: Acute kidney injury. COMPARISON: CT abdomen and pelvis 10/20/2017. FINDINGS: Real-time, phelps scale, and color evaluation of the kidneys and urinary bladder was performed. Simila r appearance to the multicystic changes of the kidneys. There is increased echotexture of the renal cortices suggesting medical renal disease. No mass or hydronephrosis. The urinary bladder is unremarkable. IMPRESSION: No evidence for acute obstructive uropathy. POS: TPC
[2018-09-22] MEDS: HumaLOG 300 UNITS/3 ML VIAL SC PRN ×2 (12:05→17:55)
[2018-09-22] MEDS: Metoclopramide HCl 10 MG TAB PO SCH ×3 (12:40→21:54)
[2018-09-22] MEDS: Furosemide 40 MG/4 ML VIAL SLOW IVP SCH (14:08)
[2018-09-22 15:37] LABS: #Eosinphils 0.2 thou/uL (0.0-0.7); #Lymphocytes 0.5 thou/uL (1.20-3.40); #Monocytes 0.6 thou/uL (0.11-0.59); #Neutrophils 8.1 thou/uL (1.40-6.50); %Eosinophils 2.5 % (0.0-10.0); %Lymphocytes 5.7 % (21.0-51.0); %Monocytes 6.5 % (0.0-10.0); %Neutrophils 85.3 % (42.0-75.0); Anisocytosis SLIGHT = 6-15 cells (100X) (0-5/hpf); Hemoglobin 7.8 g/dL (12.0-16.0); Hypochromia SLIGHT = 6-15 cells (100X) (0-5/hpf); MDiff Complete? YES; Mean Corpuscular HGB CONC 30.6 g/dL (32.0-36.0); Mean Corpuscular Hemoglobin 29.1 pg (27.0-31.0); Mean Corpuscular Volume 95.2 fL (78.0-98.0); Mean Platelet Volume 7.2 fL (7.4-10.4); Platelet Count 306 thou/uL (130-400); Platelet Morphology Comment Appears Adequate; Poikilocytosis SLIGHT = 6-15 cells (100X) (0-5/hpf); Polychromasia SLIGHT = 2-3 cells (100X) (0-2/hpf); RBC Distribution Width 21.7 % (11.5-14.5); Red Blood Cell (RBC) Count 2.67 mill/uL (4.20-5.40); White Blood Cell (WBC) Count 9.5 thou/uL (4.8-10.8)
--- NOTE | 2018-09-22 18:17 | CON ---
DATE OF CONSULTATION: 09/22/2018 INDICATION FOR CONSULTATION: Congestive heart failure. HISTORY OF PRESENT ILLNESS: This is an 78-year-old female, who is followed by Dr. Mcdermott for quite some time now. She has a long history of cardiomyopathy. She has undergone AICD implant that she has a biventricular device. She has an ejection fraction of 15% to 20%. She has chronic anemia. Reason she has been complaining of increasing congestion, shortness of breath, and lower extremity edema as well as coughing. She presented to the emergency room, was felt to be in congestive heart failure and I would agree. I have discussed this patient with my nurse practitioner. I would agree with the present plan. We will need to increase her diuretics, but she also had complained of some chest discomfort. At this time, she is not a very good candidate to undergo further intervention. We will try to address the congestive heart failure at this time and see whether or not she needs to undergo further evaluation from a coronary artery standpoint. As far as her past medical history, social history, family history, review of systems, medications, and allergies, please refer to the notes dictated by the nurse practitioner. PHYSICAL EXAMINATION: GENERAL: Reveals an elderly female, who is in no acute distress at this time. VITAL SIGNS: Blood pressure is 131/60, heart rate is 70 and shows a regular rhythm at this time, and respiratory rate is 22. She is afebrile and O2 saturations are 100%. HEENT: Shows the head to be normocephalic and atraumatic. Carotid pulses are present. I did not hear any significant bruits. CHEST: Her chest has a diffuse expiratory wheezing throughout. CARDIOVASCULAR: Reveals a regular rhythm at this time. She has well-healed surgical incision over the left infraclavicular area after AICD implant. ABDOMEN: Shows obesity with positive bowel sounds. No significant organomegaly or masses were noted. EXTREMITIES: Showed 2 to 3+ edema. She has her lower extremities are wrapped in the Kody wraps. NEUROLOGIC: She appears to be relatively intact. She is unable to get out of the bed to make her to walk, but otherwise appears to be relatively intact overall at this time. SKIN: Warm and dry. IMPRESSION AND PLAN: 1. Congestive heart failure exacerbation, most likely associated with her severe anemia. She has been given blood transfusions, but hopefully try to get her hemoglobin up to 8 and this may also improve her symptoms as well as if she has underlying coronary artery disease, we will decrease the risk of acute myocardial infarction. 2. Severe anemia, which has been treated by Dr. Mendoza. She has received blood transfusions today. 3. Lower extremity edema. We will try to increase her diuretics as tolerated. 4. Chronic kidney disease. We will need to be very careful with the diuretics and also may need to readjust some of her medications. 5. Possible indeterminate or slightly elevated cardiac enzymes, which most likely is a reflection of her renal function as well as the congestive heart failure and may indicate a non-ST segment elevation myocardial infarction. We will continue to monitor very carefully. 6. History of atrial fibrillation. We will continue on her medications as far. 7. History of automatic implantable cardioverter-defibrillator implant due to cardiomyopathy. This appears to be relatively stable. We will continue to follow her with you throughout the hospital course. I have reviewed her medications and would agree with the present management. We will increase the diuretics as tolerated. Job ID: [id number]
[2018-09-22 20:12] LABS: #Eosinphils 0.2 thou/uL (0.0-0.7); #Lymphocytes 0.6 thou/uL (1.20-3.40); #Monocytes 0.8 thou/uL (0.11-0.59); #Neutrophils 6.2 thou/uL (1.40-6.50); %Basophils 0.1 % (0.0-1.0); %Eosinophils 2.5 % (0.0-10.0); %Lymphocytes 8.2 % (21.0-51.0); %Monocytes 10.2 % (0.0-10.0); Anisocytosis SLIGHT = 6-15 cells (100X) (0-5/hpf); Hemoglobin 7.7 g/dL (12.0-16.0); MDiff Complete? YES; Mean Corpuscular HGB CONC 30.6 g/dL (32.0-36.0); Mean Corpuscular Hemoglobin 29.2 pg (27.0-31.0); Mean Corpuscular Volume 95.6 fL (78.0-98.0); Mean Platelet Volume 7.2 fL (7.4-10.4); Platelet Count 295 thou/uL (130-400); Polychromasia SLIGHT = 2-3 cells (100X) (0-2/hpf); RBC Distribution Width 21.7 % (11.5-14.5); Red Blood Cell (RBC) Count 2.63 mill/uL (4.20-5.40); White Blood Cell (WBC) Count 7.8 thou/uL (4.8-10.8)
--- NOTE | 2018-09-22 20:49 | CON ---
DATE OF CONSULTATION: PRIMARY CARE PHYSICIAN: The patient's primary care is JEFFREY Peña, nurse practitioner. PRIMARY STENO TYPIST: The patient's primary drop crew laborer is Vishnu Mcdermott MD PRIMARY PROMOTIONAL REPRESENTATIVE: The patient's primary housekeeping/laundry is Martha Mendoza MD INGREDIENT SPECIALIST: Geochemist is going to be Michael Sahni MD REASON FOR CARDIOLOGY CONSULT: Shortness of breath and congestive heart failure. HISTORY OF PRESENT ILLNESS: Ms. Morales is an 78-year-old female with significant history of long history of chronic systolic heart failure, atrial fibrillation, iron-deficiency anemia, COPD, and cardiomyopathy with bilateral ventricular AICD placement. She is a resident of the [facility] and she was transferred to [facility] Emergency Department for worsening of shortness of breath and edema for 1 to 2 weeks. She stated she always have shortness of breath due to the long history of congestive heart failure and COPD; however, in the last 1 to 2 weeks, she started having more shortness of breath and more swelling to not only the lower extremity, but upper extremity also. After she received IV Lasix at the Emergency Department, she states that her breathing respiratory status is more stable. At this moment, the patient's O2 saturation is 98% with 2 L nasal cannula. She denies any chest pain, heaviness, tightness, dizziness, and lightheadedness prior to this admission and during the initial Cardiology assessment. She had a cardiac catheterization was done in 2000 with normal coronary arteries with EF 35%. Last echocardiogram was done in July 2011 with EF 50% to 55%, mild mitral valve regurgitation, and mild tricuspid regurgitation. The patient had [employer] bilateral ventricular defibrillator, AICD placement in 2017. PAST MEDICAL HISTORY: 1. Nonischemic cardiomyopathy with AICD placement in 2017. 2. Chronic systolic heart failure. 3. Atrial fibrillation. 4. Iron deficiency anemia. She is seen by Dr. Mendoza. 5. COPD. 6. Diabetes mellitus. 7. Hypertension. 8. History of cervical cancer with status post radiation. 9. History of SVT with status post SVT ablation. 10. Anxiety and depression. 11. Diverticulitis. 12. History of bowel obstruction secondary to umbilical hernia in October 2017. PAST SURGICAL HISTORY: 1. Bilateral ventricular AICD placement in 2017. 2. Tonsillectomy. 3. Appendectomy. 4. Cataract surgery. 5. Bowel resection secondary to the umbilical hernia. 6. Cardiac SVT ablation. FAMILY HISTORY: The patient's father had a history of myocardial infarction. The patient's mother had a history of COPD and stroke. SOCIAL HISTORY: She is a resident of the [facility]. She is an ex-smoker, quit 10 years ago. She denied any EtOH or illicit drug abuse. She ambulate with walker. ALLERGIES: SHE IS ALLERGIC TO CIPRO, CLARITHROMYCIN, CODEINE, AND PENICILLIN. HOME MEDICATIONS: Please refer to the patient's home medication list in the computer medical record. REVIEW OF SYSTEMS: Twelve-point review of systems negative unless as otherwise mentioned in the HPI. The patient denies any hematuria or blood in the stool at this moment; however, she is very forgetful. Sometimes she cannot recall her symptoms within the last 3 months. PHYSICAL EXAMINATION: VITAL SIGNS: Blood pressure 124/59, temperature 98.3, pulse is 70 and V-paced Bi-V pacing, respiratory rate 24, and O2 saturation 100% with 2 L nasal cannula. GENERAL: The patient is alert and oriented times to self, place, and situation; however, intermittently she is forgetful and sometimes she cannot recall her situation or event. HEENT: Head, normocephalic and atraumatic. Eyes, extraocular muscle movement intact. ENT and mouth, oral and nasal mucosa moist without lesion. NECK: Supple. Normal range of motion and no JVD at this moment. RESPIRATORY: Very coarse and very diminished at the bases. No wheezing, rales, or rhonchi noted at this moment. CARDIOVASCULAR: Regular rate and rhythm. Normal S1 and S2. No S3 or S4. No significant murmur, hives, or thrill noted. She had 2+ pulses in bilateral upper and lower extremities. She has 4 pitting generalized edema; however, her edema in the lower extremities is stable with Kody wrap in place. ABDOMEN: Soft and nontender. No mass to palpitate. Bowel sounds are present, but hypoactive. SKIN: Looks very fragile due to the severe edema, but warm and intact at this moment. She has a several bruises in upper extremities due to drainable attempt to the IV. MUSCULOSKELETAL: The patient is very weak at this moment and very shaky. At this moment, she states she cannot get up due to the weakness. NEUROLOGIC: The patient is alert and oriented to self and place, sometimes situation, but very forgetful. PSYCHIATRIC: The patient's mood is appropriate. LABORATORY DATA: WBC 7.7, hemoglobin 6.2, and hematocrit 19.6. She received 1 unit of packed red blood cells today. Platelets 282. INR 1.2. Sodium 140, potassium 4.2, BUN 64, creatinine 1.35, AST 11, and ALT 13. CK-MB is 1.6, CK 24, troponin 0.038 and 0.017, and BNP 170. The patient's chest x-ray shows a borderline heart size with bilateral pleural effusion and bibasilar pulmonary parenchymal change showing mild progression from prior study and the patient had a renal ultrasound done today, which shows no evidence of acute obstructive uropathy. The patient has an echocardiogram order at this moment and the results are pending at this moment. A 12-lead EKG shows Bi-V pacing and sensing, rate 70. ASSESSMENT AND PLAN: 1. Acute on chronic systolic heart failure. At this moment, the heart condition is stable. She has responded well to Lasix IV. We would like to go ahead to increase the IV Lasix to 40 mg twice a day and we would like to hold the torsemide due to her renal function. At this moment, the patient is on carvedilol 3.125 mg twice a day. Her blood pressure is stable. Once the patient's renal function is more stable, we would like to go ahead and resume the Entresto twice a day with the lowest dose at this moment. The patient is going to be on 1500 fluid restriction with low sodium diet. 2. Four pitting generalized edema at this moment, although the patient responds well with Lasix IV. We would like to continue the Lasix IV at this moment. If the patient still retain the extra fluids, we may consider to start metolazone or any other diuretic. 3. Atrial fibrillation. She is on carvedilol 3.125 mg twice a day and digoxin 0.125 on Tuesday, Tuesday, and Tuesday. At this moment, she was on Eliquis 2.5 mg twice a day for oral anticoagulant; however, we would like to go ahead to stop this medication due to the severe anemia for now and the patient's automatic implantable cardioverter-defibrillator will be interrogated to see for episode of atrial fibrillation. 4. Iron deficiency anemia. She already received 1 unit of packed red blood cell today. They are holding second 1 at this moment due to worsening of shortness of breath during the first blood transfusion. 5. Chronic obstructive pulmonary disease. The patient's condition is stable at this moment with 2 L nasal cannula. 6. Acute kidney injury on the chronic kidney disease. Dr. Rodriguez already consulted this patient and he liked to continue the current medication. He agreed with current medication. 7. Nonischemic cardiomyopathy with a bilateral ventricular automatic implantable cardioverter-defibrillator placement. We would like to interrogate the patient's automatic implantable cardioverter-defibrillator hopefully today. 8. Diabetes mellitus, which is managed by primary care doctor. She is on before meals and at bedtime blood glucose check with sliding scale insulin order. Thank you very much for allowing the Cardiology Services to participate in this patient. We will follow along the patient's care team and make further recommendation as appropriate. Job ID: [id number]
[2018-09-22] MEDS ORDERED: Carvedilol 3.125 MG TAB PO SCH (21:00)
[2018-09-22] MEDS: cefTRIAXone\\ROCEPHIN 1 GM in Sodium Chloride 0.9% 100 ML IVPB SCH (22:12)
--- NOTE | 2018-09-23 01:18 | CON ---
DATE OF CONSULTATION: REQUESTING PHYSICIAN: Dr. Nicole. REASON FOR CONSULTATION: [id number]-[id number] kidney disease. IMPRESSION: 1. Aqttr-jk-fghbwig kidney disease, this is likely hemodynamically mediated in the context of cardiorenal syndrome compounded by severe anemia. 2. Hypervolemia in the context of systolic congestive heart failure and anemia. PLAN: 1. Blood transfusion to optimize the patient's hemoglobin/oxygen carrying capacity. 2. Optimize the cardiac function, would defer to toolmaker. 3. The patient is to benefit from some of diuresis. 4. Renally dose all medications for low GFR and avoid potentially nephrotoxic agents. HISTORY OF PRESENT ILLNESS: An 78-year-old female patient with chronic anemia requiring intermittent blood transfusions followed by Dr. Mendoza, who presented here with worsening shortness of breath, noted to be severely anemic. The patient also noted with slightly elevated creatinine above her baseline, thus the need for renal consultation. On clinical evaluation, the patient seems to be overall fluid overloaded and significantly anemic with some degree of respiratory distress. PAST MEDICAL HISTORY: Significant for chronic normocytic anemia, congestive heart failure, systolic in nature with EF of about 15-20 percent, type 2 diabetes, hypertension, recurrent respiratory failure, SVT, anxiety and depression. MEDICATIONS: Reviewed and documented on [employer]. SOCIAL HISTORY: Denies alcohol, tobacco or illicit drug use. ALLERGIES: TO CIPRO, CLARITHROMYCIN, CODEINE, ZOFRAN, AND PENICILLIN. MEDICATIONS: Reviewed and as documented on [employer]. PHYSICAL EXAMINATION: VITAL SIGNS: The patient was found to be in some respiratory distress, noted with the following vital signs, afebrile, temperature 98.3, pulse 70, respiratory rate of 22, O2 saturation of 98% on 2.5 L, blood pressure 129/56. HEENT: Unremarkable. CARDIOVASCULAR SYSTEM: First and second heart sounds were heard. RESPIRATORY SYSTEM: Clear to auscultation. DIGESTIVE SYSTEM: Revealed a benign abdomen with positive bowel sounds. EXTREMITIES: No peripheral edema. SKIN: No new gross rash. LYMPHATICS: No peripheral lymphadenopathy. SUMMARY: An 78-year-old female patient with very severe anemia, presented with shortness of breath and slightly elevated creatinine level. Thank you for this consultation. We will follow with you. Job ID: [id number]
[2018-09-23] MEDS: Furosemide 40 MG/4 ML VIAL SLOW IVP SCH ×2 (05:34→16:57)
[2018-09-23 06:06] LABS: #Eosinphils 0.2 thou/uL (0.0-0.7); #Lymphocytes 0.5 thou/uL (1.20-3.40); #Monocytes 0.7 thou/uL (0.11-0.59); #Neutrophils 3.9 thou/uL (1.40-6.50); %Basophils 0.1 % (0.0-1.0); %Eosinophils 4.4 % (0.0-10.0); %Lymphocytes 9.8 % (21.0-51.0); %Monocytes 12.6 % (0.0-10.0); %Neutrophils 73.1 % (42.0-75.0); Hemoglobin 7.9 g/dL (12.0-16.0); Mean Corpuscular HGB CONC 31.9 g/dL (32.0-36.0); Mean Corpuscular Hemoglobin 29.8 pg (27.0-31.0); Mean Corpuscular Volume 93.4 fL (78.0-98.0); Mean Platelet Volume 7.2 fL (7.4-10.4); Platelet Count 282 thou/uL (130-400); RBC Distribution Width 21.2 % (11.5-14.5); Red Blood Cell (RBC) Count 2.67 mill/uL (4.20-5.40); White Blood Cell (WBC) Count 5.3 thou/uL (4.8-10.8)
[2018-09-23 06:26] LABS: Anion Gap 12 mmol/L (10-20); BUN (Urea Nitrogen) 55 mg/dL (9.8-20.1); Calc. Creatinine Clearance 59 mL/min (70-130); Calcium 9.8 mg/dL (7.8-10.44); Carbon Dioxide 37 mmol/L (23-31); Chloride 97 mmol/L (98-107); Estimated GFR-MDRD 50; Glucose 120 mg/dL (83-110); Potassium 3.8 mmol/L (3.5-5.1); Sodium 142 mmol/L (136-145)
[2018-09-23] MEDS ORDERED: Iron, Sodium Ferric Gluconate 250 MG in Sodium Chloride 0.9% 100 ML IVPB SCH (09:00)
[2018-09-23] MEDS: Carvedilol 3.125 MG TAB PO SCH ×2 (10:38→16:58)
[2018-09-23] MEDS: Potassium Chloride 20 MEQ TAB PO SCH (10:38)
[2018-09-23] MEDS: Spironolactone 25 MG TAB PO SCH (10:38)
[2018-09-23] MEDS: Iron, Sodium Ferric Gluconate 250 MG in Sodium Chloride 0.9% 100 ML IVPB SCH (10:39)
[2018-09-23] MEDS: predniSONE 5 MG TAB PO SCH (10:39)
[2018-09-23] MEDS: Gabapentin 300 MG CAP PO SCH ×3 (10:39→20:40)
[2018-09-23] MEDS: Folic Acid 1 MG TAB PO SCH (10:39)
[2018-09-23] MEDS: HumuLIN 70/30 (300 UNITS/3 ML VIAL) SC SCH (10:40)
[2018-09-23] MEDS: Metoclopramide HCl 10 MG TAB PO SCH ×4 (10:40→20:39)
[2018-09-23] MEDS: traMADol HCl 50 MG TAB PO PRN ×2 (10:50→16:58)
--- NOTE | 2018-09-23 11:11 | PDOC.PN ---
- Subjective Encounter Start Date: 09/23/18 Encounter Start Time: 11:08 Patient seen and examined, no new issues, says her SOB is about the same as yesterday, no family at bedside, all questions answered. - Objective Resuscitation Status - Order Detail: 09/21/18 23:05 Resuscitation Status Routine Resuscitation Status: FULL: Full Resuscitation Vital Signs & Weight: Vital Signs (12 hours) Temp Pulse Resp BP Pulse Ox 09/23/18 08:15 98.1 F 69 20 122/55 L 98 09/23/18 04:00 97.7 F 70 20 126/60 99 Weight Weight 194 lb I&O: 09/22/18 09/23/18 09/24/18 06:59 06:59 06:59 Intake Total 900 1810 Output Total 425 3250 Balance 475 -1440 Result Diagrams: 09/23/18 05:23 09/23/18 05:23 Additional Labs: Accuchecks 09/23/18 09/22/18 09/22/18 05:53 20:52 17:05 POC Glucose 141 H 202 H 218 H 09/22/18 11:05 POC Glucose 247 H Phys Exam - Physical Examination Constitutional: NAD HEENT: PERRLA, moist MMs, sclera anicteric Neck: no nodes, no JVD, supple coarse respiratory sounds no respiratory distress Cardiovascular: no rub, irregular systolic murmur Gastrointestinal: soft, non-tender, no distention, positive bowel sounds Musculoskeletal: pulses present, edema present Dx/Plan (1) Anemia Code(s): D64.9 - ANEMIA, UNSPECIFIED Status: Acute (2) Shortness of breath Code(s): R06.02 - SHORTNESS OF BREATH Status: Acute (3) CHF (congestive heart failure) Code(s): I50.9 - HEART FAILURE, UNSPECIFIED Status: Chronic Comment: Stable. ACC AHA Class D (4) DM type 2 (diabetes mellitus, type 2) Status: Chronic Comment: continue accuchecks, insulin sliding scale. (5) HTN (hypertension) Code(s): I10 - ESSENTIAL (PRIMARY) HYPERTENSION Status: Chronic Qualifiers: Comment: BP controlled (6) FAHAD (iron deficiency anemia) Code(s): D50.9 - IRON DEFICIENCY ANEMIA, UNSPECIFIED Status: Chronic Comment : No source of bleeding found. Continue Fe. - Plan * IV iron for today * Hgb stable * the patient states she wants to be "kept alive as long as possible" and wants to be a full code, the patient is significantly volume overloaded and also has a poor heart as well as kidneys, her Cr may be normal, however, this is likely due to a dilution from hypervolemia, she is on IV diuretics for now * subspecialists also following * will consult palliative care to help with decision making, patient states her only living relative is her sister who's also old and she does not wish to burden her with any respnsobility * Case and plan d/w patient at length, she understood and agreed with this plan.
--- NOTE | 2018-09-23 13:00 | PDOC.CTH ---
Cardiology Progress Note - Subjective The pt seen and examined. No overnight events. No cardiac complaints. - Objective Vital Signs Temp Pulse Resp BP Pulse Ox 09/23/18 08:15 98.1 F 69 20 122/55 L 98 09/23/18 04:00 97.7 F 70 20 126/60 99 Weight 194 lb 09/22/18 09/23/18 09/24/18 06:59 06:59 06:59 Intake Total 900 1810 Output Total 425 3250 Balance 475 -1440 - Physical Examination General/Neuro: alert & oriented x3 Neck: no JVD present Lungs: other: (diminished at bases) Heart: RRR, other: Abdomen: soft Extremities: other: (3-4+ pitting generalized edema) - Telemetry Telemetry Rhythm: BiV paced 70 - Labs Result Diagrams: 09/23/18 05:23 09/23/18 05:23 Troponin/CKMB CK-MB (CK-2) 1.6 ng/mL (0-6.6) 09/21/18 16:33 Troponin I 0.017 ng/mL (< 0.028) 09/21/18 23:48 - Assessment/Plan 1. Acute on Chronic Systolic HF - Generalized edema and resp. status have been improving with Lasix 40mg IV BID; On bblocker; will resume Entresto with stable renal function 2. Non-ischemic CMY with biV AICD placement - 3. Chronic Afib - Well controlled HR; not on OAC due to anemia 4. Iron deficiency anemia - improved after 1 unit of PRBC on 09/22/2018; she is receiving Iron infusion now 5. HTN - stable 6. DM type 2 - stable 7. COPD - stable with 2LNC 8. JOE on CKD - unchanged MAR reviewed Pt. seen and eval. by me. I agree with the A/P by the ROTATIONAL MOULDING OPERATOR. Irreg/irreg. gjm Review of Systems - Review of Systems Constitutional: reports: no symptoms reported EENTM: reports: no symptoms reported Respiratory: reports: no symptoms reported Cardiac (ROS): reports: no symptoms reported ABD/GI: reports: no symptoms reported : reports: no symptoms reported Musculoskeletal: reports: no symptoms reported
[2018-09-23] MEDS: HumaLOG 300 UNITS/3 ML VIAL SC PRN (17:07)
[2018-09-23] MEDS: Melatonin 3 MG TAB PO PRN (20:39)
[2018-09-23] MEDS: cefTRIAXone\\ROCEPHIN 1 GM in Sodium Chloride 0.9% 100 ML IVPB SCH (22:25)
--- NOTE | 2018-09-24 02:15 | PRG ---
DATE OF SERVICE: 09/23/2018 SUBJECTIVE: The patient was seen and examined, still in some respiratory distress, noted with the following vital signs. OBJECTIVE: VITAL SIGNS: Afebrile, temperature 98.8, pulse 70, respiratory rate of 16, O2 saturations are 100% on 2 L, blood pressure 136/63. HEENT: Unremarkable. CARDIOVASCULAR: First and second heart sounds were heard. RESPIRATORY: Shows some rales. DIGESTIVE: Revealed a benign abdomen. EXTREMITIES: Some peripheral edema. LABORATORY INVESTIGATION: Showed a hemoglobin of 7.9. Chemistry; creatinine 1.06, BUN 55. IMPRESSION: 1. Acute on chronic kidney disease, cardiorenal, seems to be improving with diuresis. 2. Hypervolemia. 3. Respiratory distress. PLAN: 1. We will augment the effect of the loop diuretic in this patient by the way of adding Zaroxolyn. 2. Renally dose all medications. 3. Further management to be dependent on the clinical course. Job ID: [id number]
[2018-09-24 05:33] LABS: #Eosinphils 0.3 thou/uL (0.0-0.7); #Lymphocytes 0.6 thou/uL (1.20-3.40); #Monocytes 0.8 thou/uL (0.11-0.59); #Neutrophils 5.2 thou/uL (1.40-6.50); %Basophils 0.1 % (0.0-1.0); %Eosinophils 3.7 % (0.0-10.0); %Lymphocytes 8.6 % (21.0-51.0); %Monocytes 11.8 % (0.0-10.0); %Neutrophils 75.8 % (42.0-75.0); Mean Corpuscular HGB CONC 30.7 g/dL (32.0-36.0); Mean Corpuscular Hemoglobin 29.7 pg (27.0-31.0); Mean Corpuscular Volume 96.7 fL (78.0-98.0); Mean Platelet Volume 6.9 fL (7.4-10.4); Platelet Count 273 thou/uL (130-400); RBC Distribution Width 21.1 % (11.5-14.5); Red Blood Cell (RBC) Count 2.35 mill/uL (4.20-5.40); White Blood Cell (WBC) Count 6.9 thou/uL (4.8-10.8)
[2018-09-24 05:51] LABS: BUN (Urea Nitrogen) 47 mg/dL (9.8-20.1); Calc. Creatinine Clearance 60 mL/min (70-130); Calcium 9.8 mg/dL (7.8-10.44); Estimated GFR-MDRD 51; Glucose 130 mg/dL (83-110)
[2018-09-24] MEDS: Furosemide 40 MG/4 ML VIAL SLOW IVP SCH ×2 (05:53→15:34)
[2018-09-24 06:00] LABS: Anion Gap 14 mmol/L (10-20); Carbon Dioxide 37 mmol/L (23-31); Chloride 98 mmol/L (98-107); Sodium 145 mmol/L (136-145)
[2018-09-24] MEDS: Gabapentin 300 MG CAP PO SCH ×3 (08:41→21:45)
[2018-09-24] MEDS: predniSONE 5 MG TAB PO SCH (08:41)
[2018-09-24] MEDS: Metoclopramide HCl 10 MG TAB PO SCH ×4 (08:43→21:45)
[2018-09-24] MEDS: Spironolactone 25 MG TAB PO SCH (08:43)
[2018-09-24] MEDS: Folic Acid 1 MG TAB PO SCH (08:43)
[2018-09-24] MEDS: Carvedilol 3.125 MG TAB PO SCH ×2 (08:44→15:34)
[2018-09-24] MEDS: Potassium Chloride 20 MEQ TAB PO SCH (08:44)
[2018-09-24] MEDS: traMADol HCl 50 MG TAB PO PRN ×2 (08:44→15:35)
[2018-09-24] MEDS: HumuLIN 70/30 (300 UNITS/3 ML VIAL) SC SCH (08:45)
--- NOTE | 2018-09-24 10:20 | PDOC.PN ---
- Subjective Encounter Start Date: 09/24/18 Encounter Start Time: 10:16 Patient seen and examined, states she's still feeling a bit SOB, no other symptoms. - Objective Resuscitation Status - Order Detail: 09/21/18 23:05 Resuscitation Status Routine Resuscitation Status: FULL: Full Resuscitation Vital Signs & Weight: Vital Signs (12 hours) Temp Pulse Resp BP Pulse Ox 09/24/18 08:00 96 09/24/18 07:45 98.5 F 70 20 122/57 L 96 09/24/18 04:00 97.5 F L 70 20 115/56 L 100 Weight Weight 188 lb 2 oz I&O: 09/23/18 09/24/18 09/25/18 06:59 06:59 06:59 Intake Total 1810 1660 Output Total 3250 2400 Balance -1440 -740 Result Diagrams: 09/24/18 05:10 09/24/18 05:10 Additional Labs: Accuchecks 09/24/18 09/23/18 09/23/18 05:19 20:32 17:02 POC Glucose 135 H 294 H 280 H 09/23/18 11:14 POC Glucose 212 H Phys Exam - Physical Examination Constitutional: NAD HEENT: PERRLA, moist MMs, sclera anicteric Neck: no nodes, no JVD, supple Respiratory: no wheezing, no rales, no rhonchi Cardiovascular: RRR, no significant murmur, no rub Gastrointestinal: soft, non-tender Musculoskeletal: pulses present, edema present Dx/Plan (1) Anemia Code(s): D64.9 - ANEMIA, UNSPECIFIED Status: Acute (2) Shortness of breath Code(s): R06.02 - SHORTNESS OF BREATH Status: Acute (3) CHF (congestive heart failure) Code(s): I50.9 - HEART FAILURE, UNSPECIFIED Status: Chronic Comment: Stable. ACC AHA Class D (4) DM type 2 (diabetes mellitus, type 2) Status: Chronic Comment: continue accuchecks, insulin sliding scale. (5) HTN (hypertension) Code(s): I10 - ESSENTIAL (PRIMARY) HYPERTENSION Status: Chronic Qualifiers: Comment: BP controlled (6) FAHAD (iron deficiency anemia) Code(s): D50.9 - IRON DEFICIENCY ANEMIA, UNSPECIFIED Status: Chronic Comment : No source of bleeding found. Continue Fe. - Plan * Hgb dropped to 7, will consult Dr. Mendoza for now, who see's her for anemia. Patient has received PRBCs and IV iron, will check guiac * 12 hour urine pending for CrCl * patient was found drinking the whole jug of water, for now will fluid restrict * renal and cardio following * labs in AM * patient wants to remain a full code and is not interested in palliation or hospice care * case and plan d/w patient at length, she understood and agreed with this plan.
--- NOTE | 2018-09-24 16:55 | PDOC.CTH ---
Cardiology Progress Note - Subjective The pt seen and examined. No overnight events. No cardiac complaints, but complains of weakness. - Objective Vital Signs Temp Pulse Resp BP Pulse Ox 09/24/18 14:40 98.8 F 70 20 140/65 100 09/24/18 08:00 96 09/24/18 07:45 98.5 F 70 20 122/57 L 96 Weight 188 lb 2 oz 09/23/18 09/24/18 09/25/18 06:59 06:59 06:59 Intake Total 1810 1660 Output Total 3250 2400 Balance -1440 -740 - Physical Examination General/Neuro: alert & oriented x3 Neck: no JVD present Lungs: other: (diminished at bases) Heart: other: (irregular) Abdomen: soft Extremities: other: (3+ generalized edema; TANNER wrap to BLE (Thank you to [facility] staff!)) - Telemetry Telemetry Rhythm: Afib - Labs Result Diagrams: 09/24/18 05:10 09/24/18 05:10 Troponin/CKMB CK-MB (CK-2) 1.6 ng/mL (0-6.6) 09/21/18 16:33 Troponin I 0.017 ng/mL (< 0.028) 09/21/18 23:48 - Assessment/Plan 1. Acute on Chronic Systolic HF - Generalized edema and resp. status have been improving with Lasix 40mg IV BID; On bblocker; may start Metolazone; will resume Entresto with stable renal function 2. Non-ischemic CMY with biV AICD placement - 3. Chronic Afib - Well controlled HR; not on OAC due to anemia 4. Iron deficiency anemia - Hgb today was 7.0 from 7.9 yesterday after 1 unit of PRBC on 09/22/2018 and Iron infusion on 09/23/2018 5. HTN - stable 6. DM type 2 - stable 7. COPD - stable with 2LNC 8. JOE on CKD - unchanged MAR reviewed * Echo on 09/23/2018: EF 55-60%, mod-severe dilated LA, trace MR, and mild TR *Dr Mcdermott's pt. Pt. seen and eval. by me. I agree with the A/P by the FIELD ADMINISTRATOR Review of Systems - Review of Systems Constitutional: reports: weakness EENTM: reports: no symptoms reported Respiratory: reports: shortness of breath, SOB with excertion Cardiac (ROS): reports: no symptoms reported ABD/GI: reports: no symptoms reported : reports: no symptoms reported
--- NOTE | 2018-09-24 21:08 | PRG ---
DATE OF SERVICE: 09/24/2018 SUBJECTIVE: The patient is seen and examined, seems to be showing some marginal improvement. OBJECTIVE: VITAL SIGNS: Following vital signs; afebrile, temperature 98.8, pulse 70, respiratory rate of 20, blood pressure 140/65, and O2 saturations 96%. HEENT: Unremarkable. CARDIOVASCULAR SYSTEM: First and second heart sounds were heard. RESPIRATORY SYSTEM: Clear to auscultation. DIGESTIVE SYSTEM: Revealed a benign abdomen. EXTREMITIES: Show some peripheral edema. IMPRESSION: 1. Vjqqz-gv-enhzxuw diastolic heart failure. 2. Xandd-lq-fwolntx kidney disease, which is improved. 3. Anemia. PLAN: 1. We will continue with current diuresis. 2. Further management to be dependent on the clinical course. Job ID: [id number]
[2018-09-24] MEDS: HumaLOG 300 UNITS/3 ML VIAL SC PRN (21:45)
[2018-09-25] MEDS: cefTRIAXone\\ROCEPHIN 1 GM in Sodium Chloride 0.9% 100 ML IVPB SCH (00:02)
[2018-09-25] MEDS: Furosemide 40 MG/4 ML VIAL SLOW IVP SCH ×2 (06:10→15:18)
[2018-09-25 06:53] LABS: #Eosinphils 0.3 thou/uL (0.0-0.7); #Lymphocytes 0.6 thou/uL (1.20-3.40); #Monocytes 0.9 thou/uL (0.11-0.59); #Neutrophils 5.3 thou/uL (1.40-6.50); %Basophils 0.2 % (0.0-1.0); %Eosinophils 3.7 % (0.0-10.0); %Lymphocytes 8.6 % (21.0-51.0); %Monocytes 12.5 % (0.0-10.0); Hemoglobin 7.4 g/dL (12.0-16.0); Mean Corpuscular HGB CONC 30.4 g/dL (32.0-36.0); Mean Corpuscular Hemoglobin 29.7 pg (27.0-31.0); Mean Corpuscular Volume 97.7 fL (78.0-98.0); Mean Platelet Volume 6.9 fL (7.4-10.4); Platelet Count 297 thou/uL (130-400); RBC Distribution Width 19.9 % (11.5-14.5); White Blood Cell (WBC) Count 7.1 thou/uL (4.8-10.8)
[2018-09-25 07:05] LABS: BUN (Urea Nitrogen) 44 mg/dL (9.8-20.1); Calc. Creatinine Clearance 47 mL/min (70-130); Estimated GFR-MDRD 40
[2018-09-25 07:06] LABS: Calcium 10.1 mg/dL (7.8-10.44); Glucose 137 mg/dL (83-110)
[2018-09-25 07:14] LABS: Anion Gap 15 mmol/L (10-20); Carbon Dioxide 37 mmol/L (23-31); Chloride 97 mmol/L (98-107); Potassium 4.1 mmol/L (3.5-5.1); Sodium 145 mmol/L (136-145)
[2018-09-25] MEDS: HumuLIN 70/30 (300 UNITS/3 ML VIAL) SC SCH (09:28)
[2018-09-25] MEDS: Folic Acid 1 MG TAB PO SCH (09:29)
[2018-09-25] MEDS: Metoclopramide HCl 10 MG TAB PO SCH ×4 (09:30→21:29)
[2018-09-25] MEDS: Gabapentin 300 MG CAP PO SCH ×3 (09:30→21:29)
[2018-09-25] MEDS: predniSONE 5 MG TAB PO SCH (09:30)
[2018-09-25] MEDS: Carvedilol 3.125 MG TAB PO SCH ×2 (09:31→18:00)
[2018-09-25] MEDS: Potassium Chloride 20 MEQ TAB PO SCH (09:31)
[2018-09-25] MEDS: Spironolactone 25 MG TAB PO SCH (09:31)
[2018-09-25] MEDS: Digoxin 0.125 MG TAB PO SCH (09:32)
--- NOTE | 2018-09-25 10:38 | PRG ---
DATE OF SERVICE: 09/25/2018 SUBJECTIVE: Ms. Morales states she is still not breathing well, but she thinks this is about how normally is. She still has a cough. No chest pain. OBJECTIVE: VITAL SIGNS: Blood pressure 127/60, pulse 70. LUNGS: There are rhonchi. CARDIAC: I do not hear any new murmur, rub, or gallop. ABDOMEN: Soft, nontender. EXTREMITIES: 1+ edema. LABORATORY DATA: Most recent hemoglobin 7.4. The patient did receive 1 unit of packed red blood cells here. Echocardiogram revealed normal left ventricular function. ASSESSMENT: 1. Diastolic congestive heart failure. 2. Anemia, status post blood transfusion. It appears she has also received at least one dose of intravenous iron. There is still a bag hanging from a couple days ago. Empty bag. 3. Difficult to establish fluid status. PLAN: We will interrogate the defibrillator to see if she is still volume overloaded. She continues to be on intravenous diuretics as well as spironolactone. Job ID: [id number]
[2018-09-25] MEDS: HumaLOG 300 UNITS/3 ML VIAL SC PRN ×3 (12:21→22:38)
--- NOTE | 2018-09-25 17:50 | PRG ---
DATE OF SERVICE: 09/25/2018 SUBJECTIVE: The patient is doing okay. States she typically is able to get up a little bit with the walker and sit up in a wheelchair. She has not done any of that since she has been here. Otherwise, feels about the same. OBJECTIVE: VITAL SIGNS: Temperature 98.1, pulse 80, respirations are 22, O2 saturation 97% on 3 L, and BP 136/63. GENERAL APPEARANCE: Age-appropriate female, in no distress. HEART: Regular without murmurs. LUNGS: Diminished, but no wheezes or rales. ABDOMEN: Soft, nontender, and nondistended. EXTREMITIES: Still have 3+ edema that is pitting both in upper and lower extremities. LABORATORY DATA: White count 7.1, hemoglobin 7.4, and platelets are 297. Sodium 145, potassium 4.1, chloride 97, CO2 37, BUN 44, creatinine 1.27, and glucose 137 to 265. IMPRESSION AND PLAN: 1. Congestive heart failure, acute on chronic, diastolic. Continue diuresis. 2. Anemia status post transfusion and iron infusion, followed by Dr. Mendoza. She will see the patient today in consultation. 3. Chronic kidney disease stage 3, stable. 4. Diabetes mellitus, adequate control. 5. Shortness of breath, somewhat improved secondary to both anemia and the heart failure. 6. Hypertension, chronic and stable. Job ID: [id number]
--- NOTE | 2018-09-25 19:29 | PRG ---
DATE OF SERVICE: SUBJECTIVE: The patient is seen and examined, seems to be marginally doing better, noted with the following vital signs. OBJECTIVE: VITAL SIGNS: Afebrile, temperature 98.1; pulse 80; respiratory rate of 22; O2 saturations 97%; blood pressure 136/63. HEENT: Unremarkable. CARDIOVASCULAR SYSTEM: First and second heart sounds were heard. RESPIRATORY SYSTEM: Shows some rales. DIGESTIVE SYSTEM: Revealed a benign abdomen. EXTREMITIES: No peripheral edema. SKIN: No new gross rash. LYMPHATICS: No peripheral lymphadenopathy. IMPRESSION: 1. Acute on chronic kidney disease with hypovolemia, responding to diuretics. 2. Obesity. 3. Anemia. PLAN: 1. Continue diuresis, but we will begin to deescalate diuretic regimen slowly. 2. Further management to be dependent on the clinical course. Job ID: [id number]
--- NOTE | 2018-09-25 23:57 | CON ---
DATE OF CONSULTATION: REASON FOR CONSULTATION: Chronic anemia. HISTORY OF PRESENT ILLNESS: Ms. Morales is an 78-year-old female who resides at [facility]. She has multiple medical problems including chronic normocytic anemia, COPD, coronary artery disease, and chronic kidney disease. She presented to the emergency room for shortness of breath and anemia. Her hemoglobin was 7. She was transfused 1 unit of packed RBCs. The patient is seen periodically in our clinic for IV iron and Procrit injections. She does receive the Procrit at nursing facility. She is on Eliquis. She has had a GI workup about one year ago, which showed no evidence of bleeding. No capsule endoscopy was performed. She has been getting 40,000 units of Procrit every two weeks since February of 2018. Her hemoglobin on her last CBC on 09/08, was 9.1 with a drop of 2.5 g in 2 weeks. The patient complains of shortness of breath. She has fatigue. Her performance status is poor. She is essentially bedridden with occasional wheelchair use. She has received IV iron on this admission. PAST MEDICAL HISTORY: 1. Normocytic anemia. 2. Stage II cervical cancer with radiation. 3. COPD. 4. Coronary artery disease with a defibrillator. 5. Chronic kidney disease 3. 6. Hyperlipidemia. 7. Congestive heart failure. 8. High cholesterol. 9. Diabetes mellitus 2. 10. Anxiety disorder. PAST SURGICAL HISTORY: 1. Tonsillectomy. 2. Defibrillator placement. 3. Appendectomy. 4. Cataract surgeries. 5. Bowel resections. 6. Cardiac ablation. ALLERGIES: BIAXIN, CIPRO, CLARITHROMYCIN, CODEINE, AND PENICILLINS. HOME MEDICATIONS: Noted on long-term record, but significant for oral iron, Procrit 40,000 units every 2 weeks, and Eliquis b.i.d. FAMILY HISTORY: Noncontributory. SOCIAL HISTORY: Resides in a long-term. No children. No alcohol or illicit drug use. REVIEW OF SYSTEMS: A 10-point review of systems is negative except for noted in HPI. PHYSICAL EXAMINATION: VITAL SIGNS: Temperature 98.1, pulse is 80, respiratory rate 22, blood pressure is 136/63. She is 97% on 3 L. GENERAL: This is a chronically ill-appearing female, in no acute distress. HEENT: Normocephalic, atraumatic. Pupils are equal and reactive to light. NECK: Supple. CV: Regular rate and rhythm. LUNGS: Diminished anterior. ABDOMEN: Obese, nontender. Bowel sounds are positive. EXTREMITIES: She has 2 to 3+ edema in her upper and lower extremities. SKIN: There is no rash. HEMATOLOGICAL: She has scattered bruising on her chest and arms. NEURO: Nonfocal. PSYCH: The patient is alert and oriented. PERTINENT LABS AND X-RAYS: Current WBCs are 7.1, hemoglobin 7.4, hematocrit 24.4, platelet count is 297,000. She has 75% neutrophils, 9% lymphocytes. PT is 14.9, INR is 1.2, PTT is 29.1. Sodium is 145, potassium 4.1, chloride 97, CO2 is 37, BUN is 44, creatinine 1.27, calcium is 10, total bilirubin is 0.2, AST is 11, ALT is 13, alkaline phosphatase is 42. Troponin is 0.17. BNP is 170.4. Serum total protein is 5.5, albumin 3.0, globulin 2.5. ASSESSMENT: 1. Normocytic anemia. 2. Chronic kidney disease. 3. History of pelvic radiation, possibly contributing to anemia. 4. Negative GI workup within the past year. DISCUSSION: The patient has received 1 unit of IV iron on this admission as well as has been transfused 1 unit of blood. She should resume her Procrit injections when she returns to the facility and should be every 2 weeks and continue oral iron. Further recommendations by the other consultants for her contributing medical problems. Thank you for the consult. Job ID: [id number]
[2018-09-26] MEDS: cefTRIAXone\\ROCEPHIN 1 GM in Sodium Chloride 0.9% 100 ML IVPB SCH (00:33)
[2018-09-26] MEDS: Furosemide 40 MG/4 ML VIAL SLOW IVP SCH ×2 (05:46→14:48)
[2018-09-26] MEDS: Spironolactone 25 MG TAB PO SCH (08:09)
[2018-09-26] MEDS: Potassium Chloride 20 MEQ TAB PO SCH (08:09)
[2018-09-26] MEDS: Metoclopramide HCl 10 MG TAB PO SCH ×4 (08:09→21:11)
[2018-09-26] MEDS: Carvedilol 3.125 MG TAB PO SCH (08:09)
[2018-09-26] MEDS: Gabapentin 300 MG CAP PO SCH ×3 (08:09→21:11)
[2018-09-26] MEDS: predniSONE 5 MG TAB PO SCH (08:09)
[2018-09-26] MEDS: Folic Acid 1 MG TAB PO SCH (08:09)
[2018-09-26] MEDS: HumuLIN 70/30 (300 UNITS/3 ML VIAL) SC SCH (08:16)
--- NOTE | 2018-09-26 09:56 | PRG ---
DATE OF SERVICE: SUBJECTIVE: Ms. Morales remains short of breath. She wants to go home soon. No chest pain. OBJECTIVE: VITAL SIGNS: Her blood pressure 136/60, pulse 70. LUNGS: Clear. CARDIAC: Normal S1, normal S2. ABDOMEN: Soft and nontender. EXTREMITIES: There is mild edema. DIAGNOSTIC DATA: The patient's OptiVol was checked yesterday, it is still extremely high. EKG continues to show a biventricular paced rhythm. Echocardiogram was normal. ASSESSMENT: 1. Diastolic congestive heart failure becoming increasingly refractory to therapy. 2. Chronic atrial fibrillation. 3. Chronic anemia including iron deficiency anemia, not feasible to anticoagulate. PLAN: 1. The prognosis is guarded to poor. 2. Stop carvedilol, really no role for this in diastolic heart failure. 3. She is still on intravenous furosemide. 4. She is still on spironolactone, possibly go back home tomorrow with a poor long-term prognosis. Job ID: [id number]
[2018-09-26] MEDS: HumaLOG 300 UNITS/3 ML VIAL SC PRN ×3 (11:27→21:12)
[2018-09-26] MEDS ORDERED: hydrALAZINE 20 MG/ML VIAL SLOW IVP PRN ×2 (20:35→22:07)
[2018-09-26] MEDS: Melatonin 3 MG TAB PO PRN (21:11)
[2018-09-26] MEDS ORDERED: cloNIDine 0.1 MG TAB PO PRN (22:07)
--- NOTE | 2018-09-26 22:07 | PDOC.PN ---
- Subjective Encounter Start Date: 09/26/18 Encounter Start Time: 14:00 Patient seen and examined for CHF/Anemia. SOB improving. No new complaints. No overnight events - Objective Resuscitation Status - Order Detail: 09/21/18 23:05 Resuscitation Status Routine Resuscitation Status: FULL: Full Resuscitation MAR Reviewed: Yes Vital Signs & Weight: Vital Signs (12 hours) Temp Pulse Resp BP Pulse Ox 09/26/18 21:47 70 20 90 L 09/26/18 19:57 69 20 09/26/18 19:45 98.7 F 71 21 H 217/93 H 98 09/26/18 15:54 98.1 F 69 20 128/60 93 L 09/26/18 11:25 98.5 F 69 20 123/57 L 93 L Weight Weight 186 lb 12.8 oz I&O: 09/25/18 09/26/18 09/27/18 06:59 06:59 06:59 Intake Total 340 1420 620 Output Total 3794 426 5536 Balance -760 520 -1080 Result Diagrams: 09/25/18 06:41 09/25/18 06:41 Additional Labs: Accuchecks 09/26/18 09/26/18 09/26/18 17:21 11:04 05:39 POC Glucose 308 H 220 H 163 H EKG Reviewed by me: Yes (Tele paced) Phys Exam - Physical Examination Constitutional: NAD Respiratory: no wheezing, no rhonchi few rales at bases Cardiovascular: RRR, no rub Gastrointestinal: soft, non-tender, positive bowel sounds Musculoskeletal: edema present Dx/Plan - Plan DVT proph w/SCDs Acute on diastolic HF - ACC Stage C Anemia s/p 1 unit PRBC s/p AICD DM2 JOE on CKD 3 HTN Obesity BMI 31 Swallow dysfunction Chronic Afib PLAN: Cont IV diuresis Epogen as outpt Monitor renal function Cont current dose of Insulin and sliding scale AM labs Cont current meds as below Review of Systems - Review of Systems Cardiovascular: orthopnea, edema. negative: chest pain, palpitations, paroxysmal nocturnal dyspnea, light headedness, other Gastrointestinal: negative: Nausea, Vomiting, Abdominal Pain, Diarrhea, Constipation, Melena, Hematochezia, Other - Medications/Allergies Allergies/Adverse Reactions: Allergies Allergy/AdvReac Type Severity Reaction Status Date / Time ciprofloxacin HCl Allergy Verified 09/21/18 23:17 [From Cipro] clarithromycin [From Biaxin] Allergy Verified 09/21/18 23:17 codeine Allergy Verified 09/21/18 23:17 ondansetron [From Zofran] Allergy Verified 09/21/18 23:17 Penicillins Allergy Verified 09/21/18 23:17 Medications: Current Medications Albuterol/Ipratropium (Duoneb) 3 ml NEB [id number] [facility] Last Admin: 09/26/18 21:47 Dose: 3 ml Dextrose/Water (Dextrose 50%) 25 gm SLOW IVP PRN PRN PRN Reason: Hypoglycemia Digoxin (Lanoxin) 0.125 mg PO MoWeFr [facility] Last Admin: 09/25/18 09:32 Dose: 0.125 mg Docusate Sodium (Colace) 100 mg PO DAILY PRN PRN Reason: Constipation Folic Acid (Folvite) 1 mg PO DAILY [facility] Last Admin: 09/26/18 08:09 Dose: 1 mg Furosemide (Lasix) 40 mg SLOW IVP 0600,1400 [facility] Last Admin: 09/26/18 14:48 Dose: 40 mg Gabapentin (Neurontin) 300 mg PO TID [facility] Last Admin: 09/26/18 21:11 Dose: 300 mg Glucagon (Glucagon) 1 mg IM PRN PRN PRN Reason: Hypoglycemia Hydralazine HCl (Apresoline) 10 mg SLOW IVP Q4H PRN PRN Reason: SBP<170 Dextrose/Water (D5w) 1,000 mls @ 0 mls/hr IV .Q0M PRN PRN Reason: Hypoglycemia Insulin Human Isoph/Insulin Regular (Humulin 70/30) 30 units SC DAILY [facility] Last Admin: 09/26/18 08:16 Dose: 30 unit Insulin Human Lispro (Humalog) 0 units SC .MILD SLIDING SCALE PRN PRN Reason: Mild Correctional Scale Last Admin: 09/26/18 17:52 Dose: 5 unit Insulin Human Lispro (Humalog) 0 units SC .BEDTIME SLIDING SC PRN PRN Reason: Bedtime Correctional Scale Last Admin: 09/26/18 21:12 Dose: 5 unit Ipratropium [place] (Atrovent Hfa) 1 puff INH QIDPRN PRN PRN Reason: Wheezing or Cough Melatonin (Melatonin) 3 mg PO HSPRN PRN PRN Reason: Insomnia Last Admin: 09/26/18 21:11 Dose: 3 mg Metoclopramide HCl (Reglan) 10 mg PO QID [facility] Last Admin: 09/26/18 21:11 Dose: 10 mg Pantoprazole Sodium (Protonix) 40 mg PO DAILY [facility] Last Admin: 09/26/18 08:10 Dose: 40 mg Potassium Chloride (K-Dur) 20 meq PO QAM-[facility] Last Admin: 09/26/18 08:09 Dose: 20 meq Prednisone (Prednisone) 15 mg PO QAM-[facility] Last Admin: 09/26/18 08:09 Dose: 15 mg Spironolactone (Aldactone) 25 mg PO QAM-WM [facility] Last Admin: 09/26/18 08:09 Dose: 25 mg Tramadol HCl (Ultram) 50 mg PO Q6H PRN PRN Reason: Pain Last Admin: 09/24/18 15:35 Dose: 50 mg Trazodone HCl (Desyrel) 100 mg PO BID [facility] Last Admin: 09/26/18 21:11 Dose: 100 mg
[2018-09-27] MEDS: Furosemide 40 MG/4 ML VIAL SLOW IVP SCH ×2 (05:05→13:55)
[2018-09-27 05:46] LABS: Hemoglobin 7.1 g/dL (12.0-16.0); Platelet Count 305 thou/uL (130-400)
[2018-09-27 06:54] LABS: BUN (Urea Nitrogen) 45 mg/dL (9.8-20.1); Calc. Creatinine Clearance 52 mL/min (70-130); Estimated GFR-MDRD 45; Glucose 195 mg/dL (83-110); Magnesium 2.4 mg/dL (1.6-2.6)
[2018-09-27 07:07] LABS: Anion Gap 16 mmol/L (10-20); Carbon Dioxide 36 mmol/L (23-31); Chloride 97 mmol/L (98-107); Potassium 4.4 mmol/L (3.5-5.1); Sodium 145 mmol/L (136-145)
[2018-09-27] MEDS: Folic Acid 1 MG TAB PO SCH (08:34)
[2018-09-27] MEDS: predniSONE 5 MG TAB PO SCH (08:34)
[2018-09-27] MEDS: Potassium Chloride 20 MEQ TAB PO SCH (08:34)
[2018-09-27] MEDS: Metoclopramide HCl 10 MG TAB PO SCH ×4 (08:34→20:59)
[2018-09-27] MEDS: Gabapentin 300 MG CAP PO SCH ×3 (08:35→20:59)
[2018-09-27] MEDS: Spironolactone 25 MG TAB PO SCH (08:35)
[2018-09-27] MEDS: HumuLIN 70/30 (300 UNITS/3 ML VIAL) SC SCH (08:38)
[2018-09-27] MEDS: Digoxin 0.125 MG TAB PO SCH (08:38)
[2018-09-27] MEDS: HumaLOG 300 UNITS/3 ML VIAL SC PRN ×5 (08:39→23:46)
[2018-09-27] MEDS ORDERED: Iron Sucrose Complex 100 MG in Sodium Chloride 0.9% 100 ML IVPB SCH (10:45)
[2018-09-27] MEDS ORDERED: Iron, Sodium Ferric Gluconate 125 MG in Sodium Chloride 0.9% 100 ML IVPB SCH (11:15)
--- NOTE | 2018-09-27 12:16 | PDOC.PN ---
- Subjective Encounter Start Date: 09/27/18 Encounter Start Time: 11:15 Patient seen and examined for CHF/Anemia. SOB+. Cough with some production. No other complaints. No overnight events - Objective Resuscitation Status - Order Detail: 09/21/18 23:05 Resuscitation Status Routine Resuscitation Status: FULL: Full Resuscitation MAR Reviewed: Yes Vital Signs & Weight: Vital Signs (12 hours) Temp Pulse Resp BP Pulse Ox 09/27/18 11:17 98.4 F 70 16 152/65 H 96 09/27/18 10:40 76 22 H 09/27/18 08:38 69 09/27/18 07:45 98 09/27/18 07:35 97.9 F 69 24 H 131/62 98 09/27/18 06:37 69 22 H 96 09/27/18 04:05 98.2 F 69 26 H 115/56 L 98 09/27/18 01:30 69 22 H Weight Weight 187 lb 9 oz I&O: 09/26/18 09/27/18 09/28/18 06:59 06:59 06:59 Intake Total 1420 1120 Output Total 900 2800 Balance 520 -1680 Result Diagrams: 09/27/18 05:13 09/27/18 05:13 Additional Labs: Accuchecks 09/27/18 09/27/18 09/26/18 10:31 05:19 20:26 POC Glucose 275 H 213 H 372 H 09/26/18 17:21 POC Glucose 308 H EKG Reviewed by me: Yes (Tele paced) Phys Exam - Physical Examination Constitutional: NAD Respiratory: no wheezing Bibasilar rhonchi/rales Cardiovascular: RRR, no rub Gastrointestinal: soft, non-tender, positive bowel sounds Musculoskeletal: edema present Neurological: non-focal Psychiatric: A&O x 3 Dx/Plan - Plan IMPRESSION: Acute on diastolic HF - ACC Stage C Anemia s/p 1 unit PRBC s/p AICD DM2 JOE on CKD 3 HTN Obesity BMI 31 Swallow dysfunction Chronic Afib PLAN: Cont IV Lasix One dose of IV iron Epogen as outpatient Change NPH to 20 QAM and 15 QPM Cont current meds as below AM labs Probably dc in 24-48 hr if stable Review of Systems - Review of Systems Cardiovascular: orthopnea, edema. negative: chest pain, palpitations, paroxysmal nocturnal dyspnea, light headedness, other Gastrointestinal: negative: Nausea, Vomiting, Abdominal Pain, Diarrhea, Constipation, Melena, Hematochezia, Other - Medications/Allergies Allergies/Adverse Reactions: Allergies Allergy/AdvReac Type Severity Reaction Status Date / Time ciprofloxacin HCl Allergy Verified 09/21/18 23:17 [From Cipro] clarithromycin [From Biaxin] Allergy Verified 09/21/18 23:17 codeine Allergy Verified 09/21/18 23:17 ondansetron [From Zofran] Allergy Verified 09/21/18 23:17 Penicillins Allergy Verified 09/21/18 23:17 Medications: Current Medications Albuterol/Ipratropium (Duoneb) 3 ml NEB [id number] [facility] Last Admin: 09/27/18 10:40 Dose: 3 ml Clonidine (Catapres) 0.1 mg PO Q4H PRN PRN Reason: Systolic BP > 180 Cyanocobalamin (Vitamin B-12) 1,000 mcg PO DAILY [facility] Dextrose/Water (Dextrose 50%) 25 gm SLOW IVP PRN PRN PRN Reason: Hypoglycemia Digoxin (Lanoxin) 0.125 mg PO MoWeFr [facility] Last Admin: 09/27/18 08:38 Dose: 0.125 mg Docusate Sodium (Colace) 100 mg PO DAILY PRN PRN Reason: Constipation Folic Acid (Folvite) 1 mg PO DAILY [facility] Last Admin: 09/27/18 08:34 Dose: 1 mg Folic Acid (Folvite) 1 mg PO DAILY [facility] Furosemide (Lasix) 40 mg SLOW IVP 0600,1400 [facility] Last Admin: 09/27/18 05:05 Dose: 40 mg Gabapentin (Neurontin) 300 mg PO TID [facility] Last Admin: 09/27/18 08:35 Dose: 300 mg Glucagon (Glucagon) 1 mg IM PRN PRN PRN Reason: Hypoglycemia Hydralazine HCl (Apresoline) 10 mg SLOW IVP Q4H PRN PRN Reason: SBP<170 Hydralazine HCl (Apresoline) 10 mg SLOW IVP Q4H PRN PRN Reason: SBP Greater Than 180 Dextrose/Water (D5w) 1,000 mls @ 0 mls/hr IV .Q0M PRN PRN Reason: Hypoglycemia Ferric Sodium Gluconate Complex 125 mg/ Sodium Chloride 110 mls @ 110 mls/hr IVPB NOW [facility] Stop: 09/27/18 13:15 Last Admin: 09/27/18 12:03 Dose: 110 mls Insulin Human Lispro (Humalog) 0 units SC .BEDTIME SLIDING SC PRN PRN Reason: Bedtime Correctional Scale Last Admin: 09/26/18 21:12 Dose: 5 unit Insulin Human Lispro (Humalog) 0 units SC .MODERATE SLIDING SC PRN PRN Reason: Moderate Correctional Scale Insulin Human NPH (Humulin N) 20 unit SC DAILY [facility] Insulin Human NPH (Humulin N) 15 unit SC HS [facility] Ipratropium [place] (Atrovent Hfa) 1 puff INH QIDPRN PRN PRN Reason: Wheezing or Cough Melatonin (Melatonin) 3 mg PO HSPRN PRN PRN Reason: Insomnia Last Admin: 09/26/18 21:11 Dose: 3 mg Metoclopramide HCl (Reglan) 10 mg PO QID [facility] Last Admin: 09/27/18 12:04 Dose: 10 mg Multivitamins (Theragran) 1 tab PO DAILY [facility] Pantoprazole Sodium (Protonix) 40 mg PO DAILY [facility] Last Admin: 09/27/18 08:35 Dose: 40 mg Potassium Chloride (K-Dur) 20 meq PO QAM-WM [facility] Last Admin: 09/27/18 08:34 Dose: 20 meq Prednisone (Prednisone) 15 mg PO QAM-WM [facility] Last Admin: 09/27/18 08:34 Dose: 15 mg Spironolactone (Aldactone) 25 mg PO QAM-WM [facility] Last Admin: 09/27/18 08:35 Dose: 25 mg Tramadol HCl (Ultram) 50 mg PO Q6H PRN PRN Reason: Pain Last Admin: 09/24/18 15:35 Dose: 50 mg Trazodone HCl (Desyrel) 100 mg PO BID [facility] Last Admin: 09/27/18 08:37 Dose: 100 mg
[2018-09-27] MEDS ORDERED: Metolazone 5 MG TAB PO SCH (12:45)
--- NOTE | 2018-09-27 13:04 | PRG ---
DATE OF SERVICE: 09/27/2018 SUBJECTIVE: Ms. Morales is still short of breath at rest. She very looks very uncomfortable. No chest pain. OBJECTIVE: VITAL SIGNS: Her blood pressure earlier was 130/60, but now 152/64, pulse 70. LUNGS: Clear. CARDIAC: Normal S1, normal S2. ABDOMEN: Soft, nontender. EXTREMITIES: There are still mild edema. ASSESSMENT: 1. Congestive heart failure, diastolic, acute on chronic, very difficult to get her out of heart failure. 2. Atrial fibrillation. 3. Anemia, requiring packed red blood cells, previous iron deficiency. The patient is currently receiving IV iron. She is not a candidate for anticoagulation in view of the persistent anemia. Hemoglobin is only 7 now. PLAN: 1. Recheck a CBC and ferritin level tomorrow. If the hemoglobin is under 7, she may need further packed red blood cells. 2. Give her one dose of metolazone. PROGNOSIS: Guarded. Job ID: [id number]
[2018-09-27 14:57] LABS: Actual Bicarbonate (HCO3a) 38.2 mEq/L (22-28); Base Excess (BEa) 12.4 mEq/L (-2.0 to +3.0); CO2 Tension 58.4 mmHg (35.0-45.0); Calcium, Ionized 1.31 mmol/L (1.12-1.30); Carboxyhemoglobin (COHb) 2.6 gm% (0.0-3.0); Hemoglobin (Hb) 8.7 g/dL (12.0-16.0); O2 Tension (PaO2) 49.5 mmHg (> 60.0); Potassium - ABG Lab 5.21 mmol/L (3.70-5.30); Puncture Site LRA; pH, Arterial 7.43 (7.35-7.45)
[2018-09-27 15:23] LABS: Hemoglobin 8.7 g/dL (12.0-16.0); Platelet Count 369 thou/uL (130-400)
[2018-09-27 15:32] LABS: Anion Gap 15 mmol/L (10-20); BUN (Urea Nitrogen) 47 mg/dL (9.8-20.1); Calc. Creatinine Clearance 45 mL/min (70-130); Calcium 10.7 mg/dL (7.8-10.44); Carbon Dioxide 37 mmol/L (23-31); Chloride 94 mmol/L (98-107); Estimated GFR-MDRD 38; Glucose 391 mg/dL (83-110); Potassium 5.4 mmol/L (3.5-5.1); Sodium 141 mmol/L (136-145)
[2018-09-27] MEDS ORDERED: Potassium Chloride 20 MEQ TAB PO SCH (17:00)
--- NOTE | 2018-09-27 17:28 | CON ---
DATE OF CONSULTATION: 09/27/2018 HISTORY OF PRESENT ILLNESS: Lucy Morales is an 78-year-old female, who is well known to our service for many years. She has been in the hospital since the , today is the . I have been consulted since she was transferred to the MICU from a monitored bed because of increasing shortness of breath. Certified Control Systems Technician on long-standing duration is Dr. Mcdermott. She has diastolic dysfunction at one time. She had associated systolic dysfunction. She presents with increased shortness of breath and unresponsive to her usual chronic medications including diuretics, low-flow O2, and multiple inhalers. This morning apparently, her condition got worse. X-ray shows cardiomegaly and small pleural effusion. She was transferred to the MICU on a noninvasive ventilation. Upon arrival, her sats were 100%, pulse was 80, blood pressure 130/80, and respirations 20. She says she is feeling somewhat better. She is thirsty and she wants some ice. PAST MEDICAL HISTORY: Previous extensive medical history is extensively well outlined. It includes multiple admissions for respiratory failure requiring multiple intubations, chronic renal failure, diastolic dysfunction, diabetes, chronic pain, osteoporosis, neuropathy, COPD, apparently has a decubitus, chronic anemia, and depression. PREVIOUS SURGERIES: Included otherwise previous cardiac cath, previous vent, tonsils, pacemaker, appendix, bowel obstruction, and endoscopy. HOME MEDICATIONS: Prior to admission include, 1. Insulin 20. 2. Flonase. 3. Eliquis 2.5. 4. Digoxin 125. 5. Coreg 3.125 twice a day. 6. Ferrous sulfate. 7. Breo 200/25 one puff a day. 8. Atrovent inhaler. 9. Reglan. 10. Torsemide 100. 11. Spironolactone 25. 12. Prednisone 15. 13. Trazodone 100. 14. Tramadol 50. 15. She is now on prednisone 15 neb treatment. ALLERGIES: PENICILLIN, CODEINE, CIPRO, AND BIAXIN. SOCIAL HISTORY: Tobacco, former. Alcohol, none. REVIEW OF SYSTEMS: Negative. PHYSICAL EXAMINATION: VITAL SIGNS: Sats on the BiPAP are 100%, pulse is 80, respirations are 18, and blood pressure 120/80. CHEST: Decreased breath sounds. No wheezing. CARDIAC: Normal S1, S2. No gallops. ABDOMEN: Soft. EXTREMITIES: 2+ edema. NEUROLOGIC: She is awake, alert, and responsive. LABORATORY DATA: Shows pO2 was 49, pCO2 was 50, pH 7.43 on 4 liters. Glucose 293. Her chemistry showed that her BUN and creatinine were 45 and 1.6, GFR 45, mild azotemia, probably some of it is prerenal. H and H have been stable at 8 and 29. Platelet count normal. IMPRESSION: 1. Respiratory distress and failure secondary to congestive heart failure and pleural effusion. 2. Chronic obstructive pulmonary disease, former smoker, long-term, low-dose steroids apparently, though she has not been seen by us for quite some time. 3. Severe deconditioning. 4. Decubitus. 5. Azotemia. PLAN: Unfortunately, not much to add at this stage. I will not increase her steroids. I will continue the neb treatments. Continue noninvasive ventilation. We could try high-flow later on that may be more easier than noninvasive ventilation. I am going to add Dulera to her present regime if they would not help her breathing. Consultation note, 70 minutes, 50% direct patient care. Job ID: [id number]
--- NOTE | 2018-09-27 17:47 | PRG ---
DATE OF SERVICE: SUBJECTIVE: The patient was seen and examined with no new complaints, renal santiago. OBJECTIVE: HEENT: Unremarkable. CARDIOVASCULAR: First and second heart sounds were heard. RESPIRATORY: Showed some rales. The patient seems to still be showing some shortness of breath. IMPRESSION: 1. Acute on chronic kidney disease, which seems to be stable. 2. Diastolic congestive heart failure. 3. Atrial fibrillation. 4. Anemia, status post blood transfusion. PLAN: 1. We will continue with diuresis. 2. Further management will be dependent on the clinical course. Job ID: [id number]
[2018-09-27] MEDS: Mometasone/Formoterol 120 PUFF INHALER INH SCH (18:59)
[2018-09-27 19:37] LABS: BUN (Urea Nitrogen) 48 mg/dL (9.8-20.1); Calc. Creatinine Clearance 45 mL/min (70-130); Calcium 10.6 mg/dL (7.8-10.44); Estimated GFR-MDRD 38; Glucose 328 mg/dL (83-110)
[2018-09-27] MEDS: Furosemide 100 MG in Sodium Chloride 0.9% 90 ML IVPB SCH (19:39)
[2018-09-27 19:46] LABS: Anion Gap 17 mmol/L (10-20); Carbon Dioxide 37 mmol/L (23-31); Chloride 95 mmol/L (98-107); Potassium 5.7 mmol/L (3.5-5.1); Sodium 143 mmol/L (136-145)
[2018-09-27] MEDS: guaiFENesin ER 600 MG TAB PO SCH (20:59)
[2018-09-27] MEDS: NPH, Human Insulin Isophane 300 UNIT/3 ML VIAL SC SCH (21:00)
[2018-09-27] MEDS ORDERED: guaiFENesin ER 600 MG TAB PO SCH (21:00)
[2018-09-28] MEDS: Mometasone/Formoterol 120 PUFF INHALER INH SCH ×2 (06:59→18:49)
[2018-09-28 08:16] LABS: #Eosinphils 0.2 thou/uL (0.0-0.7); #Lymphocytes 0.7 thou/uL (1.20-3.40); #Monocytes 0.6 thou/uL (0.11-0.59); #Neutrophils 5.4 thou/uL (1.40-6.50); %Eosinophils 2.6 % (0.0-10.0); %Lymphocytes 9.8 % (21.0-51.0); %Monocytes 8.2 % (0.0-10.0); %Neutrophils 79.4 % (42.0-75.0); Hemoglobin 7.6 g/dL (12.0-16.0); Mean Corpuscular HGB CONC 30.4 g/dL (32.0-36.0); Mean Corpuscular Volume 95.4 fL (78.0-98.0); Mean Platelet Volume 7.3 fL (7.4-10.4); Platelet Count 309 thou/uL (130-400); RBC Distribution Width 18.7 % (11.5-14.5); Red Blood Cell (RBC) Count 2.63 mill/uL (4.20-5.40); White Blood Cell (WBC) Count 6.8 thou/uL (4.8-10.8)
[2018-09-28 08:22] LABS: Hemoglobin 7.6 g/dL (12.0-16.0); Platelet Count 310 thou/uL (130-400)
[2018-09-28] MEDS: predniSONE 5 MG TAB PO SCH (08:33)
[2018-09-28] MEDS: Gabapentin 300 MG CAP PO SCH ×3 (08:33→21:05)
[2018-09-28] MEDS: Folic Acid 1 MG TAB PO SCH (08:33)
[2018-09-28] MEDS: Cyanocobalamin (Vitamin B-12) 1,000 MCG TAB PO SCH (08:33)
[2018-09-28 08:34] LABS: BUN (Urea Nitrogen) 48 mg/dL (9.8-20.1); Calc. Creatinine Clearance 52 mL/min (70-130); Calcium 10.6 mg/dL (7.8-10.44); Estimated GFR-MDRD 45; Glucose 149 mg/dL (83-110)
[2018-09-28] MEDS: Metoclopramide HCl 10 MG TAB PO SCH ×4 (08:34→21:06)
[2018-09-28] MEDS: Multivit, Therapeutic 1 TAB PO SCH (08:34)
[2018-09-28] MEDS: NPH, Human Insulin Isophane 300 UNIT/3 ML VIAL SC SCH ×2 (08:34→21:06)
[2018-09-28] MEDS: guaiFENesin ER 600 MG TAB PO SCH ×2 (08:34→21:05)
[2018-09-28 08:43] LABS: Anion Gap 18 mmol/L (10-20); Carbon Dioxide 36 mmol/L (23-31); Chloride 98 mmol/L (98-107); Potassium 4.6 mmol/L (3.5-5.1); Sodium 147 mmol/L (136-145)
--- NOTE | 2018-09-28 08:45 | PRG ---
DATE OF SERVICE: 09/28/2018 SUBJECTIVE: This morning, she looks better, off the BiPAP. OBJECTIVE: VITAL SIGNS: Sats are 98, respiratory rate 22, temperature 98.6, blood pressure 130/80. CHEST: No wheezing or crackles. CARDIAC: Normal S1 and S2. No gallops. ABDOMEN: Soft. No masses. LABORATORY DATA: White count 6000, H and H 7 and 25. IMPRESSION: 1. Chronic obstructive pulmonary disease. 2. Diastolic dysfunction. 3. Congestive heart failure. 4. Severe deconditioning. 5. Chronic pain. PLAN: Continue present treatment, low-dose steroids. We will follow. Job ID: [id number]
[2018-09-28] MEDS ORDERED: Folic Acid 1 MG TAB PO SCH (09:00)
[2018-09-28] MEDS: Furosemide 100 MG in Sodium Chloride 0.9% 90 ML IVPB SCH (10:26)
--- NOTE | 2018-09-28 11:16 | PRG ---
DATE OF SERVICE: 09/28/2018 SUBJECTIVE: Ms. Morales had to be moved to the intermediate care unit last night due to more trouble breathing, yesterday after evening. She is off the BiPAP, now doing better. OBJECTIVE: VITAL SIGNS: Her blood pressure was 145/54, pulse 70 it is paced per AICD. LUNGS: Clear. CARDIAC: Normal S1, normal S2. ABDOMEN: Soft, nontender. ASSESSMENT: 1. Diastolic heart failure. 2. Chronic obstructive pulmonary disease. 3. Anemia, ferritin is now normal at 215. PLAN: Continue supportive care. She is on intravenous furosemide. She was hyperkalemic yesterday, but not today. Prognosis guarded. Job ID: [id number]
[2018-09-28] MEDS: HumaLOG 300 UNITS/3 ML VIAL SC PRN ×3 (12:06→21:07)
--- NOTE | 2018-09-28 16:09 | PRG ---
DATE OF SERVICE: 09/28/2018 SUBJECTIVE: The patient decompensated overnight in respiratory distress, had to move to [facility]. The patient is currently doing a little bit better. OBJECTIVE: VITAL SIGNS: Blood pressure 135/45, respiratory rate of 18, O2 saturation 100%. HEENT: Unremarkable. CARDIOVASCULAR SYSTEM: First and second heart sounds were heard. RESPIRATORY SYSTEM: Revealed some respiratory sounds. DIGESTIVE SYSTEM: Revealed obese abdomen. EXTREMITIES: Improving peripheral edema. LABORATORY INVESTIGATION: Significant for sodium of 147, BUN of 48, and creatinine 1.15. IMPRESSION: 1. Respiratory distress likely multifactorial including diastolic heart failure and chronic obstructive pulmonary disease. 2. Hypernatremia in the context of free water loss due to loop diuretic. 3. Acute on chronic kidney disease, more or less stable. PLAN: 1. The patient is currently on continuous diuresis. 2. Replete the free water. 3. Further management will be dependent on the clinical course. Job ID: [id number]
--- NOTE | 2018-09-28 18:15 | PDOC.PN ---
- Subjective Encounter Start Date: 09/28/18 Encounter Start Time: 13:00 Patient seen and examined for Resp failure. Off NIPPV. SOB improving. No new complaints. No overnight events - Objective Resuscitation Status - Order Detail: 09/21/18 23:05 Resuscitation Status Routine Resuscitation Status: FULL: Full Resuscitation MAR Reviewed: Yes Vital Signs & Weight: Vital Signs (12 hours) Temp Pulse Pulse Pulse Resp BP BP 09/28/18 16:57 74 74 134/59 L 134/59 L 09/28/18 15:45 97.1 F L 09/28/18 15:22 71 18 09/28/18 15:20 73 23 H 09/28/18 11:16 96.1 F L 09/28/18 10:29 70 24 H 09/28/18 08:00 09/28/18 07:19 96.7 F L 09/28/18 07:03 21 H 09/28/18 07:02 70 20 09/28/18 06:59 70 18 Pulse Ox Pulse Ox Pulse Ox 09/28/18 16:57 98 98 09/28/18 15:45 09/28/18 15:22 100 09/28/18 15:20 100 09/28/18 11:16 09/28/18 10:29 97 09/28/18 08:00 97 09/28/18 07:19 09/28/18 07:03 98 09/28/18 07:02 97 09/28/18 06:59 98 Weight Weight 187 lb 9 oz Most Recent Monitor Data Heart Rate from ECG 70 NIBP 117/53 NIBP BP-Mean 74 Respiration from ECG 18 SpO2 100 I&O: 09/27/18 09/28/18 09/29/18 06:59 06:59 06:59 Intake Total 1120 1334 1560 Output Total 2800 1850 2850 Balance -7491 -564 -8297 Result Diagrams: 09/28/18 07:38 09/28/18 07:38 Additional Labs: Accuchecks 09/28/18 09/28/18 09/28/18 17:00 12:06 08:17 POC Glucose 383 H 255 H 188 H 09/28/18 09/27/18 09/27/18 04:53 23:43 19:56 POC Glucose 191 H 287 H 323 H EKG Reviewed by me: Yes (Tele paced) Phys Exam - Physical Examination Constitutional: NAD Respiratory: no wheezing, no rhonchi Bibasilar rales Cardiovascular: RRR, no rub Gastrointestinal: soft, non-tender, positive bowel sounds Musculoskeletal: edema present Neurological: non-focal, moves all 4 limbs Dx/Plan - Plan DVT proph w/SCDs IMPRESSION: Acute hypoxic resp failure s/p NIPPV Acute on diastolic HF - ACC Stage C Anemia s/p 1 unit PRBC Hyperkalemia - improved s/p AICD DM2 JOE on CKD 3 HTN Obesity BMI 31 Swallow dysfunction Chronic Afib - Not on anticoag due to Anemia PLAN: Cont IV Lasix drip Cont current dose of NPH and sliding scale Cont current meds as below AM labs AM labs Cont IMCU monitoring Review of Systems - Review of Systems Respiratory: SOB with Excertion. negative: Cough, Dry, Shortness of Breath, Hemoptysis, Pleuritic Pain, Sputum, Wheezing Cardiovascular: negative: chest pain, palpitations, orthopnea, paroxysmal nocturnal dyspnea, edema, light headedness, other - Medications/Allergies Allergies/Adverse Reactions: Allergies Allergy/AdvReac Type Severity Reaction Status Date / Time ciprofloxacin HCl Allergy Verified 09/21/18 23:17 [From Cipro] clarithromycin [From Biaxin] Allergy Verified 09/21/18 23:17 codeine Allergy Verified 09/21/18 23:17 ondansetron [From Zofran] Allergy Verified 09/21/18 23:17 Penicillins Allergy Verified 09/21/18 23:17 Medications: Current Medications Albuterol/Ipratropium (Duoneb) 3 ml NEB [id number] [facility] Last Admin: 09/28/18 15:20 Dose: 3 ml Albuterol/Ipratropium (Duoneb) 3 ml NEB [id number] PRN PRN Reason: SOB &/or Wheezing Clonidine (Catapres) 0.1 mg PO Q4H PRN PRN Reason: Systolic BP > 180 Cyanocobalamin (Vitamin B-12) 1,000 mcg PO DAILY [facility] Last Admin: 09/28/18 08:33 Dose: 1,000 mcg Dextrose/Water (Dextrose 50%) 25 gm SLOW IVP PRN PRN PRN Reason: Hypoglycemia Digoxin (Lanoxin) 0.125 mg PO MoWeFr [facility] Last Admin: 04/17/19 08:38 Dose: 0.125 mg Docusate Sodium (Colace) 100 mg PO DAILY PRN PRN Reason: Constipation Folic Acid (Folvite) 1 mg PO DAILY [facility] Last Admin: 09/28/18 08:33 Dose: 1 mg Gabapentin (Neurontin) 300 mg PO TID [facility] Last Admin: 09/28/18 14:40 Dose: 300 mg Glucagon (Glucagon) 1 mg IM PRN PRN PRN Reason: Hypoglycemia Guaifenesin (Mucinex) 600 mg PO Q12HR [facility] Last Admin: 09/28/18 08:34 Dose: 600 mg Hydralazine HCl (Apresoline) 10 mg SLOW IVP Q4H PRN PRN Reason: SBP<170 Hydralazine HCl (Apresoline) 10 mg SLOW IVP Q4H PRN PRN Reason: SBP Greater Than 180 Dextrose/Water (D5w) 1,000 mls @ 0 mls/hr IV .Q0M PRN PRN Reason: Hypoglycemia Furosemide 100 mg/ Sodium (Chloride) 100 mls @ 5 mls/hr IVPB INF [facility] Last Admin: 09/28/18 10:26 Dose: 100 mls Insulin Human Lispro (Humalog) 0 units SC .BEDTIME SLIDING SC PRN PRN Reason: Bedtime Correctional Scale Last Admin: 09/27/18 23:46 Dose: 3 unit Insulin Human Lispro (Humalog) 0 units SC .MODERATE SLIDING SC PRN PRN Reason: Moderate Correctional Scale Last Admin: 09/28/18 17:03 Dose: 10 unit Insulin Human NPH (Humulin N) 20 unit SC DAILY [facility] Last Admin: 09/28/18 08:34 Dose: 20 unit Insulin Human NPH (Humulin N) 15 unit SC HS [facility] Last Admin: 09/27/18 21:00 Dose: 15 unit Ipratropium [place] (Atrovent Hfa) 1 puff INH QIDPRN PRN PRN Reason: Wheezing or Cough Melatonin (Melatonin) 3 mg PO HSPRN PRN PRN Reason: Insomnia Last Admin: 09/26/18 21:11 Dose: 3 mg Metoclopramide HCl (Reglan) 10 mg PO QID [facility] Last Admin: 09/28/18 16:59 Dose: 10 mg Mometasone Furoate/Formoterol Fumar (Dulera 200 Mcg/5 Mcg Inhaler) 2 puff INH BID-RT [facility] Last Admin: 09/28/18 06:59 Dose: 2 puff Multivitamins (Theragran) 1 tab PO DAILY [facility] Last Admin: 09/28/18 08:34 Dose: 1 tab Pantoprazole Sodium (Protonix) 40 mg PO DAILY [facility] Last Admin: 09/28/18 08:34 Dose: 40 mg Prednisone (Prednisone) 15 mg PO QAM-[facility] Last Admin: 09/28/18 08:33 Dose: 15 mg Sodium Chloride (Flush - Normal Saline) 10 ml IVF Q12HR [facility] Last Admin: 09/28/18 08:34 Dose: 10 ml Sodium Chloride (Flush - Normal Saline) 10 ml IVF PRN PRN PRN Reason: Saline Flush Spironolactone (Aldactone) 25 mg PO QAM-[facility] Last Admin: 09/27/18 08:35 Dose: 25 mg Tramadol HCl (Ultram) 50 mg PO Q6H PRN PRN Reason: Pain Last Admin: 09/24/18 15:35 Dose: 50 mg Trazodone HCl (Desyrel) 100 mg PO BID [facility] Last Admin: 09/28/18 08:35 Dose: 100 mg
[2018-09-29] MEDS: HumaLOG 300 UNITS/3 ML VIAL SC PRN ×4 (01:29→21:48)
[2018-09-29 04:16] LABS: #Eosinphils 0.2 thou/uL (0.0-0.7); #Lymphocytes 0.5 thou/uL (1.20-3.40); #Monocytes 0.6 thou/uL (0.11-0.59); #Neutrophils 7.3 thou/uL (1.40-6.50); %Basophils 0.4 % (0.0-1.0); %Eosinophils 2.2 % (0.0-10.0); %Lymphocytes 6.1 % (21.0-51.0); %Monocytes 7.4 % (0.0-10.0); %Neutrophils 83.9 % (42.0-75.0); Hemoglobin 7.5 g/dL (12.0-16.0); Mean Corpuscular HGB CONC 30.9 g/dL (32.0-36.0); Mean Corpuscular Hemoglobin 29.5 pg (27.0-31.0); Mean Corpuscular Volume 95.5 fL (78.0-98.0); Mean Platelet Volume 7.2 fL (7.4-10.4); Platelet Count 308 thou/uL (130-400); RBC Distribution Width 18.3 % (11.5-14.5); Red Blood Cell (RBC) Count 2.55 mill/uL (4.20-5.40); White Blood Cell (WBC) Count 8.7 thou/uL (4.8-10.8)
[2018-09-29 04:30] LABS: ALT (SGPT) 10 U/L (8-55); AST (SGOT) 11 U/L (5-34); Albumin 3.1 g/dL (3.4-4.8); Alkaline Phosphatase 44 U/L (40-150); BUN (Urea Nitrogen) 53 mg/dL (9.8-20.1); Bilirubin, Total 0.2 mg/dL (0.2-1.2); Calc. Creatinine Clearance 50 mL/min (70-130); Estimated GFR-MDRD 43; Globulin 2.6 g/dL (2.4-3.5); Glucose 197 mg/dL (83-110); Magnesium 2.1 mg/dL (1.6-2.6); Phosphorus 4.2 mg/dL (2.3-4.7); Protein, Total 5.7 g/dL (6.0-8.3)
[2018-09-29 04:39] LABS: Anion Gap 16 mmol/L (10-20); Chloride 90 mmol/L (98-107); Potassium 3.9 mmol/L (3.5-5.1); Sodium 145 mmol/L (136-145)
[2018-09-29 04:41] LABS: Carbon Dioxide 43 mmol/L (23-31)
[2018-09-29] MEDS: Mometasone/Formoterol 120 PUFF INHALER INH SCH ×2 (06:42→18:37)
[2018-09-29] MEDS: NPH, Human Insulin Isophane 300 UNIT/3 ML VIAL SC SCH ×2 (08:52→21:46)
[2018-09-29] MEDS: Gabapentin 300 MG CAP PO SCH ×3 (08:57→21:46)
[2018-09-29] MEDS: predniSONE 5 MG TAB PO SCH (08:57)
[2018-09-29] MEDS: Furosemide 100 MG in Sodium Chloride 0.9% 90 ML IVPB SCH (08:57)
[2018-09-29] MEDS: Metoclopramide HCl 10 MG TAB PO SCH ×4 (08:57→21:46)
[2018-09-29] MEDS: Folic Acid 1 MG TAB PO SCH (08:58)
[2018-09-29] MEDS: Multivit, Therapeutic 1 TAB PO SCH (08:58)
[2018-09-29] MEDS: guaiFENesin ER 600 MG TAB PO SCH ×2 (08:58→21:45)
[2018-09-29] MEDS: Cyanocobalamin (Vitamin B-12) 1,000 MCG TAB PO SCH (08:58)
[2018-09-29] MEDS ORDERED: acetaZOLAMIDE Sodium 500 MG in Sodium Chloride 0.9% 50 ML IVPB SCH (09:00)
[2018-09-29] MEDS: Digoxin 0.125 MG TAB PO SCH (09:01)
--- NOTE | 2018-09-29 12:02 | PRG ---
DATE OF SERVICE: 09/29/2018 SUBJECTIVE: The patient continues to struggle to breathe. She seems encephalopathic to me. OBJECTIVE: VITAL SIGNS: Temperature is 97.9, pulse 70, blood pressure 137/49, O2 saturation 96%. HEENT: Unremarkable. NECK: No JVD. LUNGS: Coarse wheezes and rhonchi bilaterally. CARDIAC: S1 and S2. Regular. ABDOMEN: Soft. EXTREMITIES: Edematous. LABORATORY DATA: White blood cell count 8.7, hematocrit 24.3, and platelet count 308. Sodium 145, potassium 3.9, chloride 90, CO2 of 43, BUN 53, creatinine 1.2, glucose 197. ASSESSMENT: 1. Chronic obstructive pulmonary disease. 2. Diastolic heart failure. 3. Severe deconditioning. PLAN: She is continuing nebulization treatments and steroids. She continues on diuresis through Lasix drip. Prognosis remains very poor. She remains full code. Job ID: [id number]
--- NOTE | 2018-09-29 13:22 | PRG ---
DATE OF SERVICE: SUBJECTIVE: The patient was seen and examined. Seems to be doing much better. OBJECTIVE: VITAL SIGNS: Noted with the following vital signs, blood pressure 145/65, pulse 71 are respiratory rate of 22. HEENT: Unremarkable. CARDIOVASCULAR SYSTEM: First and second heart sounds were heard. RESPIRATORY SYSTEM: Clear to auscultation. DIGESTIVE SYSTEM: Reviewed revealed a benign abdomen. EXTREMITY: Improved peripheral edema. SKIN: No new gross rash. LYMPHATICS: No peripheral lymphadenopathy. LABORATORY INVESTIGATION: Showed a creatinine of 1.21, BUN of 53, bicarb of 43, calcium of 11. IMPRESSION: 1. Hypervolemia, which seems to have responded well to loop diuretic. 2. Metabolic alkalosis, likely multifactorial including compensatory metabolic alkalosis to respiratory chronic respiratory acidosis, now being compounded by contraction alkalosis due to diuresis. 3. likely in the context of intravascular depletion. PLAN: 1. We will recommend to begin to deescalate diuresis. 2. Hypernatremia seems to have responded well to free water repletion. 3. Further management to be dependent on the clinical course. Job ID: [id number]
--- NOTE | 2018-09-29 13:45 | PRG ---
DATE OF SERVICE: SUBJECTIVE: Ms. Morales states she still has some trouble breathing. No chest pain. OBJECTIVE: VITAL SIGNS: Her blood pressure 145/65, pulse is in the 70s. LUNGS: Clear. CARDIAC: Normal S1, normal S2. ABDOMEN: Soft, nontender. EXTREMITIES: Still moderate edema. ASSESSMENT: 1. Diastolic heart failure is still volume overloaded, but improving. 2. Chronic obstructive pulmonary disease. 3. Metabolic alkalosis secondary to diuresis. PLAN: 1. Give a single dose of Diamox 500 mg. 2. Continues on IV Lasix drip. Job ID: [id number]
--- NOTE | 2018-09-29 17:25 | PRG ---
DATE OF SERVICE: 09/29/2018 SUBJECTIVE: The patient feels like she is doing well. She has no specific complaints. OBJECTIVE: VITAL SIGNS: Temperature 99.4, pulse 70, respirations 19, and O2 saturation 92% on nasal cannula. GENERAL APPEARANCE: Age-appropriate female, in no distress. She is awake, alert, talking. HEART: Regular with 2/6 murmur. LUNGS: Slightly diminished at the bases, but generally clear without wheezes or rales. ABDOMEN: Soft, nontender, and nondistended. Positive bowel sounds. EXTREMITIES: No cyanosis or clubbing. She still has some trace edema in the lower extremities with compression wraps, although vastly improved from the last time I examined her several days ago. Of note, her weight appears to be down about 7 pounds and her total in's and out's are -2 L. LABORATORY DATA: White counts 8.7, hemoglobin 7.5. Chemistries; CO2 is 43, BUN 53, creatinine 1.21. Blood sugars 195 to 418. IMPRESSION AND PLAN: 1. Acute hypoxic respiratory failure. She is now off BiPAP and doing well with additional diuresis. 2. Acute on chronic diastolic heart failure stage C. The patient is improving with more aggressive diuresis with the Lasix drip. Edema is much improved. Breathing appears to be improving. Continue with the Lasix. However, given some mild alkalosis, she was given one dose of Diamox today. 3. Anemia, chronic status post transfusion, stable. 4. Diabetes mellitus. Blood sugar is fairly high. May need to make some adjustments in her regimen. 5. Acute on chronic kidney disease with stage 3 chronic kidney disease, appears to be stabilized at this point with stable hemoglobin. 6. Hypertension, stable. 7. History of chronic atrial fibrillation, not on aggressive anticoagulation due to her history of anemia. Job ID: [id number]
[2018-09-30] MEDS: Melatonin 3 MG TAB PO PRN ×2 (00:25→23:27)
[2018-09-30] MEDS: HumaLOG 300 UNITS/3 ML VIAL SC PRN ×3 (00:25→20:18)
[2018-09-30 04:50] LABS: #Eosinphils 0.2 thou/uL (0.0-0.7); #Lymphocytes 0.7 thou/uL (1.20-3.40); #Monocytes 0.6 thou/uL (0.11-0.59); #Neutrophils 5.8 thou/uL (1.40-6.50); %Basophils 0.3 % (0.0-1.0); %Eosinophils 2.7 % (0.0-10.0); %Lymphocytes 9.2 % (21.0-51.0); %Monocytes 8.1 % (0.0-10.0); %Neutrophils 79.6 % (42.0-75.0); Hemoglobin 7.4 g/dL (12.0-16.0); Mean Corpuscular HGB CONC 31.3 g/dL (32.0-36.0); Mean Corpuscular Hemoglobin 29.2 pg (27.0-31.0); Mean Platelet Volume 7.3 fL (7.4-10.4); Platelet Count 311 thou/uL (130-400); RBC Distribution Width 17.9 % (11.5-14.5); Red Blood Cell (RBC) Count 2.55 mill/uL (4.20-5.40); White Blood Cell (WBC) Count 7.2 thou/uL (4.8-10.8)
[2018-09-30 05:07] LABS: ALT (SGPT) 16 U/L (8-55); AST (SGOT) 15 U/L (5-34); Alkaline Phosphatase 48 U/L (40-150); BUN (Urea Nitrogen) 53 mg/dL (9.8-20.1); Bilirubin, Total 0.2 mg/dL (0.2-1.2); Calc. Creatinine Clearance 52 mL/min (70-130); Calcium 10.8 mg/dL (7.8-10.44); Estimated GFR-MDRD 47; Globulin 2.6 g/dL (2.4-3.5); Glucose 154 mg/dL (83-110); Magnesium 2.2 mg/dL (1.6-2.6); Phosphorus 4.2 mg/dL (2.3-4.7); Protein, Total 5.6 g/dL (6.0-8.3)
[2018-09-30 05:16] LABS: Anion Gap 13 mmol/L (10-20); Chloride 91 mmol/L (98-107); Potassium 3.3 mmol/L (3.5-5.1); Sodium 142 mmol/L (136-145)
[2018-09-30 05:20] LABS: Carbon Dioxide 41 mmol/L (23-31)
[2018-09-30] MEDS ORDERED: Furosemide 100 MG in Sodium Chloride 0.9% 90 ML IVPB SCH (05:23)
--- NOTE | 2018-09-30 05:24 | PDOC.EVN ---
Event Note - Event Note Event Note: RN called - Bicarb 41. Will reduce Lasix drip to 3 mg/hr from 5 mg/hr
[2018-09-30] MEDS ORDERED: SODIUM CHLORIDE 0.9% IVPB SCH (06:00)
[2018-09-30] MEDS ORDERED: FUROSEMIDE IVPB SCH (06:00)
[2018-09-30] MEDS ORDERED: ADMIXTURE FEE CHEMO IVPB SCH (06:00)
[2018-09-30] MEDS: Mometasone/Formoterol 120 PUFF INHALER INH SCH ×2 (09:18→18:36)
[2018-09-30] MEDS: Cyanocobalamin (Vitamin B-12) 1,000 MCG TAB PO SCH (10:34)
[2018-09-30] MEDS: predniSONE 5 MG TAB PO SCH (10:34)
[2018-09-30] MEDS: Folic Acid 1 MG TAB PO SCH (10:34)
[2018-09-30] MEDS: guaiFENesin ER 600 MG TAB PO SCH ×2 (10:34→20:16)
[2018-09-30] MEDS: Metoclopramide HCl 10 MG TAB PO SCH ×4 (10:34→20:17)
[2018-09-30] MEDS: Multivit, Therapeutic 1 TAB PO SCH (10:35)
[2018-09-30] MEDS: Gabapentin 300 MG CAP PO SCH ×3 (10:35→20:16)
[2018-09-30] MEDS: NPH, Human Insulin Isophane 300 UNIT/3 ML VIAL SC SCH ×2 (10:37→20:17)
--- NOTE | 2018-09-30 11:58 | PRG ---
DATE OF SERVICE: 09/30/2018 SUBJECTIVE: Ms. Morales is off the BiPAP today, looks more energetic than yesterday. OBJECTIVE: VITAL SIGNS: On exam, temperature 97.2, pulse 70, blood pressure 138/49, O2 saturation 97%. A 24-hour intake 1480, output 2200. HEENT: Unremarkable. NECK: No JVD. LUNGS: Inspiratory crackles at bases. CARDIAC: S1, S2. Regular. ABDOMEN: Soft. EXTREMITIES: No edema. LABORATORY DATA: White blood cell count 7.2, hematocrit 23.7, and platelet count 311. Sodium 140, potassium 3.3, BUN 53, creatinine 1.1, glucose 154. ASSESSMENT: 1. Chronic diastolic heart failure. 2. Chronic obstructive pulmonary disease. 3. Severe deconditioning. 4. Acute on chronic respiratory failure, requiring intermittent BiPAP. PLAN: The patient is continuing diuresis, oral steroids, nebulization treatments, and p.r.n. BiPAP. Overall, she looks a little better compared to yesterday. We will continue the same management. Job ID: [id number]
--- NOTE | 2018-09-30 14:55 | PRG ---
DATE OF SERVICE: 09/30/2018 SUBJECTIVE: The patient is seen and examined, seems to be doing much better. Noted with the following vital signs. OBJECTIVE: VITAL SIGNS: Afebrile, temperature 97.2, pulse 70, respiratory rate of 14, blood pressure 111/51, and O2 saturation of 94%. HEENT: Unremarkable. CARDIOVASCULAR SYSTEM: First and second heart sounds were heard. RESPIRATORY SYSTEM: Clear to auscultation. DIGESTIVE SYSTEM: Revealed a benign abdomen. EXTREMITIES: Improved peripheral edema. SKIN: No new gross rash. LYMPHATICS: No peripheral lymphadenopathy. LABORATORY INVESTIGATION: Significant for hemoglobin of 7.4. Chemistry showed a creatinine of 1.1, bicarb of 41 with a potassium of 3.3. IMPRESSION: 1. Acute on chronic kidney disease, stable. 2. Contraction alkalosis compounded by compensatory metabolic alkalosis due to diuresis. 3. Hypervolemia, responded to diuresis. PLAN: 1. Given the worsening metabolic alkalosis, we will consider deescalate in diuretic regimen. 2. Further management to be dependent on the clinical course. 3. Replete potassium. Job ID: [id number]
[2018-10-01 05:07] LABS: #Eosinphils 0.1 thou/uL (0.0-0.7); #Lymphocytes 0.5 thou/uL (1.20-3.40); #Monocytes 0.5 thou/uL (0.11-0.59); #Neutrophils 5.8 thou/uL (1.40-6.50); %Eosinophils 1.1 % (0.0-10.0); %Lymphocytes 6.8 % (21.0-51.0); %Monocytes 7.4 % (0.0-10.0); %Neutrophils 84.7 % (42.0-75.0); Hemoglobin 7.4 g/dL (12.0-16.0); Mean Corpuscular HGB CONC 31.8 g/dL (32.0-36.0); Mean Corpuscular Hemoglobin 29.6 pg (27.0-31.0); Mean Platelet Volume 7.6 fL (7.4-10.4); Platelet Count 302 thou/uL (130-400); RBC Distribution Width 17.7 % (11.5-14.5); White Blood Cell (WBC) Count 6.9 thou/uL (4.8-10.8)
[2018-10-01 05:17] LABS: ALT (SGPT) 16 U/L (8-55); AST (SGOT) 14 U/L (5-34); Albumin 3.1 g/dL (3.4-4.8); Alkaline Phosphatase 51 U/L (40-150); BUN (Urea Nitrogen) 55 mg/dL (9.8-20.1); Bilirubin, Total 0.3 mg/dL (0.2-1.2); Calc. Creatinine Clearance 47 mL/min (70-130); Calcium 10.5 mg/dL (7.8-10.44); Estimated GFR-MDRD 43; Globulin 2.6 g/dL (2.4-3.5); Glucose 157 mg/dL (83-110); Magnesium 2.1 mg/dL (1.6-2.6); Phosphorus 4.1 mg/dL (2.3-4.7); Protein, Total 5.7 g/dL (6.0-8.3)
[2018-10-01 05:26] LABS: Anion Gap 13 mmol/L (10-20); Chloride 89 mmol/L (98-107); Potassium 3.1 mmol/L (3.5-5.1); Sodium 141 mmol/L (136-145)
[2018-10-01 05:29] LABS: Carbon Dioxide 42 mmol/L (23-31)
[2018-10-01] MEDS: Mometasone/Formoterol 120 PUFF INHALER INH SCH ×2 (06:32→18:49)
[2018-10-01] MEDS: guaiFENesin ER 600 MG TAB PO SCH ×2 (08:25→20:09)
[2018-10-01] MEDS: Folic Acid 1 MG TAB PO SCH (08:25)
[2018-10-01] MEDS: Multivit, Therapeutic 1 TAB PO SCH (08:25)
[2018-10-01] MEDS: predniSONE 5 MG TAB PO SCH (08:25)
[2018-10-01] MEDS: Gabapentin 300 MG CAP PO SCH ×3 (08:25→20:09)
[2018-10-01] MEDS: Cyanocobalamin (Vitamin B-12) 1,000 MCG TAB PO SCH (08:25)
[2018-10-01] MEDS: Furosemide 40 MG TAB PO SCH ×2 (08:26→13:50)
[2018-10-01] MEDS: Metoclopramide HCl 10 MG TAB PO SCH ×4 (08:26→20:09)
[2018-10-01] MEDS: NPH, Human Insulin Isophane 300 UNIT/3 ML VIAL SC SCH ×2 (08:27→20:09)
[2018-10-01] MEDS ORDERED: acetaZOLAMIDE Sodium 500 mg Vial IVP SCH (09:30)
[2018-10-01] MEDS ORDERED: Potassium Chloride 20 MEQ TAB PO SCH (09:30)
--- NOTE | 2018-10-01 11:47 | PRG ---
DATE OF SERVICE: 10/01/2018 SUBJECTIVE: Ms. Morales remains in the IMCU. She said she did not use the BiPAP last night. OBJECTIVE: VITAL SIGNS: Temperature 97.7, pulse 70, blood pressure 118/53, and O2 saturation 98%. HEENT: Unremarkable. NECK: No JVD. LUNGS: Clear, but distant breath sounds. CARDIAC: S1 and S2. Regular. ABDOMEN: Soft. EXTREMITIES: Edematous. LABORATORY DATA: White blood cell count 6.9, hematocrit 23.3, and platelet count 302. Sodium 141, potassium 3.1, chloride 89, CO2 of 42, BUN 55, creatinine 1.2, and glucose 157. ASSESSMENT: 1. Chronic diastolic heart failure. 2. Chronic obstructive pulmonary disease. 3. Severe deconditioning. 4. Acute on chronic respiratory failure, requiring intermittent bilevel positive airway pressure. RECOMMENDATIONS: I am concerned about her worsening metabolic alkalosis. This is probably due to diuretics and I would strongly consider decreasing the Lasix and increasing acetazolamide further than what is being done. We will follow. Job ID: [id number]
[2018-10-01] MEDS: HumaLOG 300 UNITS/3 ML VIAL SC PRN ×3 (12:39→20:10)
--- NOTE | 2018-10-01 16:14 | PDOC.PN ---
- Subjective Encounter Start Date: 10/01/18 Encounter Start Time: 16:17 Subjective: Pt is seen and Examined for Acute on Chronic Diastoic Failure - Objective Resuscitation Status - Order Detail: 09/21/18 23:05 Resuscitation Status Routine Resuscitation Status: FULL: Full Resuscitation Vital Signs & Weight: Vital Signs (12 hours) Temp Pulse Resp Pulse Ox 10/01/18 15:46 97.0 F L 10/01/18 14:00 70 19 100 10/01/18 11:06 97.7 F 10/01/18 10:25 71 24 H 100 10/01/18 07:40 97.0 F L 10/01/18 06:31 70 22 H 99 Weight Weight 173 lb 7 oz Most Recent Monitor Data Heart Rate from ECG 70 NIBP 135/47 NIBP BP-Mean 76 Respiration from ECG 18 SpO2 100 I&O: 09/30/18 10/01/18 10/02/18 06:59 06:59 06:59 Intake Total 1480 1490 Output Total 2200 1900 Balance -720 -410 Result Diagrams: 10/01/18 03:55 10/01/18 03:55 Additional Labs: Accuchecks 10/01/18 10/01/18 09/30/18 12:39 08:40 20:17 POC Glucose 295 H 161 H 376 H 09/30/18 16:34 POC Glucose 297 H Phys Exam - Physical Examination HEENT: PERRLA Neck: no JVD, supple, full ROM Respiratory: no wheezing, no rales, no rhonchi Cardiovascular: RRR, no significant murmur, no rub, gallop Gastrointestinal: soft, non-tender, positive bowel sounds Musculoskeletal: no edema, pulses present, edema present Dx/Plan - Plan Acute hypoxic resp failure s/p NIPPV Acute on diastolic HF - ACC Stage C Anemia s/p 1 unit PRBC Hyperkalemia - improved s/p AICD DM2 JOE on CKD 3 HTN Obesity BMI 31 Swallow dysfunction Chronic Afib - Not on anticoag due to Anemia PLAN: Hold Lasix drip because of Metabolic Alkalosis Cont current dose of NPH and sliding scale Cont IMCU monitoring * . Review of Systems - Review of Systems Cardiovascular: chest pain - Medications/Allergies Allergies/Adverse Reactions: Allergies Allergy/AdvReac Type Severity Reaction Status Date / Time ciprofloxacin HCl Allergy Verified 09/21/18 23:17 [From Cipro] clarithromycin [From Biaxin] Allergy Verified 09/21/18 23:17 codeine Allergy Verified 09/21/18 23:17 ondansetron [From Zofran] Allergy Verified 09/21/18 23:17 Penicillins Allergy Verified 09/21/18 23:17 Medications: Current Medications Albuterol/Ipratropium (Duoneb) 3 ml NEB [id number] [facility] Last Admin: 10/01/18 14:00 Dose: 3 ml Albuterol/Ipratropium (Duoneb) 3 ml NEB [id number] PRN PRN Reason: SOB &/or Wheezing Clonidine (Catapres) 0.1 mg PO Q4H PRN PRN Reason: Systolic BP > 180 Cyanocobalamin (Vitamin B-12) 1,000 mcg PO DAILY [facility] Last Admin: 10/01/18 08:25 Dose: 1,000 mcg Dextrose/Water (Dextrose 50%) 25 gm SLOW IVP PRN PRN PRN Reason: Hypoglycemia Digoxin (Lanoxin) 0.125 mg PO MoWeFr [facility] Last Admin: 09/29/18 09:01 Dose: 0.125 mg Docusate Sodium (Colace) 100 mg PO DAILY PRN PRN Reason: Constipation Folic Acid (Folvite) 1 mg PO DAILY [facility] Last Admin: 10/01/18 08:25 Dose: 1 mg Furosemide (Lasix) 40 mg PO DAILY-[facility] Gabapentin (Neurontin) 300 mg PO TID [facility] Last Admin: 10/01/18 13:50 Dose: 300 mg Glucagon (Glucagon) 1 mg IM PRN PRN PRN Reason: Hypoglycemia Guaifenesin (Mucinex) 600 mg PO Q12HR [facility] Last Admin: 10/01/18 08:25 Dose: 600 mg Hydralazine HCl (Apresoline) 10 mg SLOW IVP Q4H PRN PRN Reason: SBP<170 Hydralazine HCl (Apresoline) 10 mg SLOW IVP Q4H PRN PRN Reason: SBP Greater Than 180 Dextrose/Water (D5w) 1,000 mls @ 0 mls/hr IV .Q0M PRN PRN Reason: Hypoglycemia Insulin Human Lispro (Humalog) 0 units SC .BEDTIME SLIDING SC PRN PRN Reason: Bedtime Correctional Scale Last Admin: 09/30/18 20:18 Dose: 5 unit Insulin Human Lispro (Humalog) 0 units SC .MODERATE SLIDING SC PRN PRN Reason: Moderate Correctional Scale Last Admin: 10/01/18 12:39 Dose: 6 unit Insulin Human NPH (Humulin N) 20 unit SC DAILY [facility] Last Admin: 10/01/18 08:27 Dose: 20 unit Insulin Human NPH (Humulin N) 15 unit SC HS [facility] Last Admin: 09/30/18 20:17 Dose: 15 unit Ipratropium [place] (Atrovent Hfa) 1 puff INH QIDPRN PRN PRN Reason: Wheezing or Cough Melatonin (Melatonin) 3 mg PO HSPRN PRN PRN Reason: Insomnia Last Admin: 09/30/18 23:27 Dose: 3 mg Metoclopramide HCl (Reglan) 10 mg PO QID [facility] Last Admin: 10/01/18 13:50 Dose: 10 mg Mometasone Furoate/Formoterol Fumar (Dulera 200 Mcg/5 Mcg Inhaler) 2 puff INH BID-RT [facility] Last Admin: 10/01/18 06:32 Dose: 2 puff Multivitamins (Theragran) 1 tab PO DAILY [facility] Last Admin: 10/01/18 08:25 Dose: 1 tab Pantoprazole Sodium (Protonix) 40 mg PO DAILY [facility] Last Admin: 10/01/18 08:26 Dose: 40 mg Prednisone (Prednisone) 15 mg PO QAM-WM [facility] Last Admin: 10/01/18 08:25 Dose: 15 mg Sodium Chloride (Flush - Normal Saline) 10 ml IVF Q12HR [facility] Last Admin: 10/01/18 08:27 Dose: 10 ml Sodium Chloride (Flush - Normal Saline) 10 ml IVF PRN PRN PRN Reason: Saline Flush Last Admin: 09/29/18 08:58 Dose: 10 ml Spironolactone (Aldactone) 25 mg PO QAM-WM [facility] Last Admin: 09/27/18 08:35 Dose: 25 mg Tramadol HCl (Ultram) 50 mg PO Q6H PRN PRN Reason: Pain Last Admin: 09/24/18 15:35 Dose: 50 mg Trazodone HCl (Desyrel) 100 mg PO BID [facility] Last Admin: 10/01/18 08:27 Dose: 100 mg
[2018-10-02 05:57] LABS: BUN (Urea Nitrogen) 57 mg/dL (9.8-20.1); Calc. Creatinine Clearance 49 mL/min (70-130); Calcium 10.1 mg/dL (7.8-10.44); Estimated GFR-MDRD 46; Glucose 143 mg/dL (83-110)
[2018-10-02 06:08] LABS: Anion Gap 16 mmol/L (10-20); Carbon Dioxide 34 mmol/L (23-31); Chloride 93 mmol/L (98-107); Potassium 3.1 mmol/L (3.5-5.1); Sodium 140 mmol/L (136-145)
[2018-10-02] MEDS: Mometasone/Formoterol 120 PUFF INHALER INH SCH ×2 (07:17→19:05)
--- NOTE | 2018-10-02 09:24 | PRG ---
DATE OF SERVICE: 10/02/2018 SUBJECTIVE: This morning, she is sleeping. OBJECTIVE: VITAL SIGNS: Saturations are 99% on room air, temperature 97, respiratory rate 18, and blood pressure 90/48. CHEST: Decreased breath sounds. No wheezing. CARDIAC: Normal S1 and S2. No gallops. ABDOMEN: No masses. IMPRESSION: 1. End-stage diastolic dysfunction. 2. Chronic obstructive pulmonary disease. PLAN: At this stage, nothing additional to offer, noninvasive ventilation as needed, neb treatments as needed, low-dose prednisone. We will follow. Job ID: [id number]
[2018-10-02] MEDS: Gabapentin 300 MG CAP PO SCH ×3 (09:32→20:08)
[2018-10-02] MEDS: Furosemide 40 MG TAB PO SCH (09:32)
[2018-10-02] MEDS: guaiFENesin ER 600 MG TAB PO SCH ×2 (09:32→20:08)
[2018-10-02] MEDS: Cyanocobalamin (Vitamin B-12) 1,000 MCG TAB PO SCH (09:32)
[2018-10-02] MEDS: Multivit, Therapeutic 1 TAB PO SCH (09:32)
[2018-10-02] MEDS: Metoclopramide HCl 10 MG TAB PO SCH ×4 (09:33→20:09)
[2018-10-02] MEDS: Folic Acid 1 MG TAB PO SCH (09:33)
[2018-10-02] MEDS: NPH, Human Insulin Isophane 300 UNIT/3 ML VIAL SC SCH ×2 (09:34→20:54)
[2018-10-02] MEDS: Digoxin 0.125 MG TAB PO SCH (09:38)
--- NOTE | 2018-10-02 09:59 | PRG ---
DATE OF SERVICE: 10/02/2018 SUBJECTIVE: Ms. Morales seems to be breathing about her baseline. No complaints. OBJECTIVE: VITAL SIGNS: Her blood pressure 119/48 and pulse 70. LUNGS: Clear. CARDIAC: Normal S1 and normal S2. ABDOMEN: Soft and nontender. EXTREMITIES: There is no edema. ASSESSMENT: 1. Diastolic heart failure appears to be stable likely at her baseline. 2. Hypokalemia, being repleted. PLAN: Okay to me to go back to telemetry hopefully back to half-way soon. Long-term prognosis is likely poor. Likely, we will go back to furosemide twice a day starting tomorrow. Job ID: [id number]
--- NOTE | 2018-10-02 10:04 | PRG ---
DATE OF SERVICE: 10/02/2018 SUBJECTIVE: The patient was seen and examined. Noted with the following vital signs. OBJECTIVE: VITAL SIGNS: Pulse 70, respiratory rate of 20, and O2 saturations are 97% with blood pressure 119/48. HEENT: Unremarkable. CARDIOVASCULAR SYSTEM: First and second heart sounds were heard. RESPIRATORY SYSTEM: Clear with some rales. DIGESTIVE SYSTEM: Revealed a benign abdomen. EXTREMITIES: No peripheral edema. IMPRESSION: 1. Acute on chronic kidney disease, stable. 2. Metabolic alkalosis, multifactorial. 3. Respiratory failure, chronic in nature. PLAN: 1. The patient's metabolic alkalosis seems to be much improved status post de-escalation of diuretics. 2. We will continue with current renal supportive measures. 3. Further management will be dependent on the clinical course. Job ID: [id number]
--- NOTE | 2018-10-02 10:05 | PRG ---
DATE OF SERVICE: 09/30/2018 SUBJECTIVE: The patient says she feels better at times and other times she does not. She was able to get up a little bit for physical therapy, but was afraid nurses would not be able to get her back, so she had them put her back to bed within 10 minutes. Told staff that she prefers lying in bed. She is also telling them that she is not capable of feeding herself, although she was doing so prior to this admission. OBJECTIVE: VITAL SIGNS: Temperature 97.2, pulse 70, blood pressure 111/51, respirations 22, O2 saturation 94%. GENERAL: She is awake, alert, oriented, pleasant, cooperative. HEART: Regular rate and rhythm without murmurs. LUNGS: Clear bilaterally with no wheezes or rales. ABDOMEN: Soft, nontender, and nondistended. Positive bowel sounds. EXTREMITIES: Much improved edema. She still has some compression wraps on the lower extremity. I cannot appreciate any real pitting edema there at this time. LABORATORY DATA: White count 7.2, hemoglobin 7.4, platelets 311. Sodium 142, potassium 3.3, chloride 91, CO2 is 41, BUN 53, creatinine 1.13. IMPRESSION AND PLAN: 1. Severe diastolic heart failure. EF 55% to 60%. She had a significant amount of anasarca, and attempts at more conservative approaches to pulling the fluid off her were challenging at best and she ultimately had episode of respiratory distress. She was transferred here into the [facility] and started on the Lasix drip. Since that time, she has diuresed substantially. She has now lost 10 pounds and in's and out's would suggest that she continues to diurese and she did develop some alkalosis and was given a dose of Diamox day before yesterday. Currently, the plan is to continue with the diuresis through the Lasix drip. Hopefully, she will be stable enough to transfer out of [facility] tomorrow and try to get her back on po diuretics. 2. Contraction alkalosis secondary to the diuresis, given a dose of Diamox, very slightly better today, but basically stable, continue to monitor. 3. Acute hypoxic respiratory failure secondary to congestive heart failure, improving. 4. Chronic anemia, status post transfusion, followed by Dr. Mendoza as an outpatient, still anemic, but stable. 5. Diabetes mellitus. Blood sugars are better controlled today. Continue to monitor. 6. Hypertension, stable. 7. History of chronic atrial fibrillation, not on aggressive anticoagulation because of the chronic anemia. Job ID: [id number] MARITA
[2018-10-02] MEDS: predniSONE 5 MG TAB PO SCH (10:12)
[2018-10-02] MEDS ORDERED: Potassium Chloride 20 MEQ TAB PO SCH (12:00)
[2018-10-02] MEDS: HumaLOG 300 UNITS/3 ML VIAL SC PRN ×2 (16:30→20:56)
[2018-10-02] MEDS: Melatonin 3 MG TAB PO PRN (20:12)
--- NOTE | 2018-10-02 22:27 | PDOC.PN ---
- Subjective Encounter Start Date: 10/02/18 Encounter Start Time: 13:30 Patient seen and examined for CHF/Resp failure. Off NIPPV. No new complaints. No overnight events - Objective Resuscitation Status - Order Detail: 09/21/18 23:05 Resuscitation Status Routine Resuscitation Status: FULL: Full Resuscitation MAR Reviewed: Yes Vital Signs & Weight: Vital Signs (12 hours) Temp Pulse Resp Pulse Ox 10/02/18 19:58 99.0 F 10/02/18 19:05 73 25 H 94 L 10/02/18 15:14 98.8 F 10/02/18 14:49 70 16 97 10/02/18 11:26 71 18 96 10/02/18 11:13 97.4 F L Weight Admit Weight 192 lb 3 oz Weight 174 lb 7 oz Most Recent Monitor Data Heart Rate from ECG 78 NIBP 110/53 NIBP BP-Mean 72 Respiration from ECG 26 SpO2 92 I&O: 10/01/18 10/02/18 10/03/18 06:59 06:59 06:59 Intake Total 1490 970 600 Output Total 1900 1200 500 Balance -410 -230 100 Result Diagrams: 10/01/18 03:55 10/03/18 06:55 Additional Labs: Accuchecks 10/02/18 10/02/18 10/02/18 20:46 16:32 10:36 POC Glucose 249 H 231 H 172 H 10/02/18 06:02 POC Glucose 162 H EKG Reviewed by me: Yes (Tele paced) Phys Exam - Physical Examination Constitutional: NAD Respiratory: no wheezing, no rhonchi few rales at bases Cardiovascular: RRR, no rub Gastrointestinal: soft, non-tender, positive bowel sounds Musculoskeletal: edema present Neurological: moves all 4 limbs Dx/Plan - Plan DVT proph w/SCDs IMPRESSION: Acute hypoxic resp failure s/p NIPPV Acute on chronic diastolic HF - ACC Stage C Anemia s/p 1 unit PRBC Hyperkalemia - improved s/p AICD DM2 JOE on CKD 3 HTN Obesity BMI 31 Swallow dysfunction Chronic Afib - Not on anticoag due to Anemia PLAN: Cont PO Lasix Cont current dose of NPH and sliding scale Cont current meds as below AM labs Transfer to Tele DC planning Review of Systems - Review of Systems Respiratory: negative: Cough, Dry, Shortness of Breath, Hemoptysis, SOB with Excertion, Pleuritic Pain, Sputum, Wheezing Cardiovascular: negative: chest pain, palpitations, orthopnea, paroxysmal nocturnal dyspnea, edema, light headedness, other - Medications/Allergies Allergies/Adverse Reactions: Allergies Allergy/AdvReac Type Severity Reaction Status Date / Time ciprofloxacin HCl Allergy Verified 09/21/18 23:17 [From Cipro] clarithromycin [From Biaxin] Allergy Verified 09/21/18 23:17 codeine Allergy Verified 09/21/18 23:17 ondansetron [From Zofran] Allergy Verified 09/21/18 23:17 Penicillins Allergy Verified 09/21/18 23:17 Medications: Current Medications Albuterol/Ipratropium (Duoneb) 3 ml NEB [id number] [facility] Last Admin: 10/02/18 19:05 Dose: 3 ml Albuterol/Ipratropium (Duoneb) 3 ml NEB [id number] PRN PRN Reason: SOB &/or Wheezing Clonidine (Catapres) 0.1 mg PO Q4H PRN PRN Reason: Systolic BP > 180 Cyanocobalamin (Vitamin B-12) 1,000 mcg PO DAILY [facility] Last Admin: 10/02/18 09:32 Dose: 1,000 mcg Dextrose/Water (Dextrose 50%) 25 gm SLOW IVP PRN PRN PRN Reason: Hypoglycemia Digoxin (Lanoxin) 0.125 mg PO MoWeFr [facility] Last Admin: 10/02/18 09:38 Dose: 0.125 mg Docusate Sodium (Colace) 100 mg PO DAILY PRN PRN Reason: Constipation Folic Acid (Folvite) 1 mg PO DAILY [facility] Last Admin: 10/02/18 09:33 Dose: 1 mg Furosemide (Lasix) 40 mg PO DAILY-AC [facility] Last Admin: 10/02/18 09:32 Dose: 40 mg Gabapentin (Neurontin) 300 mg PO TID [facility] Last Admin: 10/02/18 20:08 Dose: 300 mg Glucagon (Glucagon) 1 mg IM PRN PRN PRN Reason: Hypoglycemia Guaifenesin (Mucinex) 600 mg PO Q12HR [facility] Last Admin: 10/02/18 20:08 Dose: 600 mg Hydralazine HCl (Apresoline) 10 mg SLOW IVP Q4H PRN PRN Reason: SBP<170 Hydralazine HCl (Apresoline) 10 mg SLOW IVP Q4H PRN PRN Reason: SBP Greater Than 180 Dextrose/Water (D5w) 1,000 mls @ 0 mls/hr IV .Q0M PRN PRN Reason: Hypoglycemia Insulin Human Lispro (Humalog) 0 units SC .BEDTIME SLIDING SC PRN PRN Reason: Bedtime Correctional Scale Last Admin: 10/02/18 20:56 Dose: 2 unit Insulin Human Lispro (Humalog) 0 units SC .MODERATE SLIDING SC PRN PRN Reason: Moderate Correctional Scale Last Admin: 10/02/18 16:30 Dose: 4 unit Insulin Human NPH (Humulin N) 20 unit SC DAILY [facility] Last Admin: 10/02/18 09:34 Dose: 20 unit Insulin Human NPH (Humulin N) 15 unit SC HS [facility] Last Admin: 10/02/18 20:54 Dose: 15 unit Ipratropium [place] (Atrovent Hfa) 1 puff INH QIDPRN PRN PRN Reason: Wheezing or Cough Melatonin (Melatonin) 3 mg PO HSPRN PRN PRN Reason: Insomnia Last Admin: 10/02/18 20:12 Dose: 3 mg Metoclopramide HCl (Reglan) 10 mg PO QID [facility] Last Admin: 10/02/18 20:09 Dose: 10 mg Mometasone Furoate/Formoterol Fumar (Dulera 200 Mcg/5 Mcg Inhaler) 2 puff INH BID-RT [facility] Last Admin: 10/02/18 19:05 Dose: 2 puff Multivitamins (Theragran) 1 tab PO DAILY [facility] Last Admin: 10/02/18 09:32 Dose: 1 tab Pantoprazole Sodium (Protonix) 40 mg PO DAILY [facility] Last Admin: 10/02/18 09:32 Dose: 40 mg Prednisone (Prednisone) 10 mg PO QAM-[facility] Sodium Chloride (Flush - Normal Saline) 10 ml IVF Q12HR [facility] Last Admin: 10/02/18 20:12 Dose: 10 ml Sodium Chloride (Flush - Normal Saline) 10 ml IVF PRN PRN PRN Reason: Saline Flush Last Admin: 09/29/18 08:58 Dose: 10 ml Spironolactone (Aldactone) 25 mg PO QAM-WM [facility] Last Admin: 09/27/18 08:35 Dose: 25 mg Trazodone HCl (Desyrel) 100 mg PO BID [facility] Last Admin: 10/02/18 20:07 Dose: 100 mg
[2018-10-03] MEDS: HumaLOG 300 UNITS/3 ML VIAL SC PRN ×3 (05:43→16:16)
[2018-10-03] MEDS: Acetaminophen 325 MG TAB PO PRN (06:38)
[2018-10-03] MEDS: Furosemide 40 MG TAB PO SCH (06:39)
[2018-10-03] MEDS: Mometasone/Formoterol 120 PUFF INHALER INH SCH ×2 (07:31→19:02)
[2018-10-03 08:03] LABS: Anion Gap 16 mmol/L (10-20); BUN (Urea Nitrogen) 56 mg/dL (9.8-20.1); Calc. Creatinine Clearance 43 mL/min (70-130); Carbon Dioxide 33 mmol/L (23-31); Chloride 94 mmol/L (98-107); Estimated GFR-MDRD 37; Glucose 176 mg/dL (83-110); Potassium 3.7 mmol/L (3.5-5.1); Sodium 139 mmol/L (136-145)
[2018-10-03] MEDS: Gabapentin 300 MG CAP PO SCH ×3 (09:33→20:04)
[2018-10-03] MEDS: Folic Acid 1 MG TAB PO SCH (09:33)
[2018-10-03] MEDS: guaiFENesin ER 600 MG TAB PO SCH ×2 (09:33→20:04)
[2018-10-03] MEDS: Multivit, Therapeutic 1 TAB PO SCH (09:33)
[2018-10-03] MEDS: predniSONE 5 MG TAB PO SCH (09:33)
[2018-10-03] MEDS: Cyanocobalamin (Vitamin B-12) 1,000 MCG TAB PO SCH (09:34)
[2018-10-03] MEDS: Metoclopramide HCl 10 MG TAB PO SCH ×4 (09:34→20:04)
[2018-10-03] MEDS: NPH, Human Insulin Isophane 300 UNIT/3 ML VIAL SC SCH ×4 (10:09→21:21)
--- NOTE | 2018-10-03 10:12 | PRG ---
DATE OF SERVICE: 10/03/2018 OBJECTIVE: VITAL SIGNS: Saturations are 91 on 1 L, temperature 98, blood pressure 130/56 she remains encephalopathic, arousable. CHEST: Decreased breath sounds. No wheezing. CARDIAC: Normal S1 and S2. No gallops. ABDOMEN: No masses. LABORATORY DATA: Creatinine 1.36, slightly elevated. IMPRESSION: Diastolic dysfunction, chronic obstructive pulmonary disease, renal failure, encephalopathy. Prognosis is grave. At this stage, continue schedule neb treatments, supportive care, Dulera, low-dose prednisone. We will follow. Job ID: [id number]
--- NOTE | 2018-10-03 10:41 | PRG ---
DATE OF SERVICE: 10/03/2018 SUBJECTIVE: Ms. Morales looks progressively weaker. She is sleeping much of the time now. OBJECTIVE: VITAL SIGNS: Blood pressure 114/40. Pulse is 70, it is paced. LUNGS: Clear, but she is breathing shallow. CARDIAC: I do not hear any new murmur, rub, or gallop. ABDOMEN: Soft, nontender. LABORATORY DATA: The patient's creatinine has increased to 1.37, CO2 is 33. ASSESSMENT: 1. Diastolic heart failure, refractory. 2. Chronic obstructive pulmonary disease. PLAN: 1. She is on oral diuretics. 2. We will check the OptiVol to see if she is still in heart failure. The prognosis is very poor. If the patient is released home, we really should discuss code status first, as mentioned, the prognosis is very poor in this patient. Job ID: [id number]
--- NOTE | 2018-10-03 14:17 | PDOC.PN ---
- Subjective Encounter Start Date: 10/03/18 Encounter Start Time: 14:23 Subjective: Pt is seen and examined for Acute on Chronic Diastolic HF - Objective Resuscitation Status - Order Detail: 09/21/18 23:05 Resuscitation Status Routine Resuscitation Status: FULL: Full Resuscitation MAR Reviewed: Yes Vital Signs & Weight: Vital Signs (12 hours) Temp Pulse Pulse Pulse Resp BP BP 10/03/18 11:42 98.4 F 10/03/18 10:57 73 18 10/03/18 08:45 71 70 105/36 L 130/52 L 10/03/18 07:37 10/03/18 07:35 98.0 F 10/03/18 07:30 71 21 H 10/03/18 03:55 10/03/18 03:48 100.4 F H Pulse Ox Pulse Ox Pulse Ox 10/03/18 11:42 10/03/18 10:57 100 10/03/18 08:45 94 L 99 10/03/18 07:37 96 10/03/18 07:35 10/03/18 07:30 96 10/03/18 03:55 94 L 10/03/18 03:48 Weight Admit Weight 192 lb 3 oz Weight 182 lb 11.2 oz Most Recent Monitor Data Heart Rate from ECG 73 NIBP 120/42 NIBP BP-Mean 68 Respiration from ECG 23 SpO2 100 I&O: 10/02/18 10/03/18 10/04/18 06:59 06:59 06:59 Intake Total 970 1110 Output Total 1200 550 Balance -230 560 Result Diagrams: 10/01/18 03:55 10/03/18 06:55 Additional Labs: Accuchecks 10/03/18 10/03/18 10/02/18 11:29 05:40 20:46 POC Glucose 248 H 216 H 249 H 10/02/18 16:32 POC Glucose 231 H Phys Exam - Physical Examination HEENT: PERRLA, moist MMs, sclera anicteric, oral pharynx no lesions Neck: no nodes, no JVD, supple Respiratory: no wheezing, no rales, no rhonchi, clear to auscultation bilateral Cardiovascular: RRR, no significant murmur, no rub Gastrointestinal: soft, non-tender, no distention, positive bowel sounds Musculoskeletal: edema present Neurological: non-focal, normal sensation Lymphatic: no nodes Psychiatric: A&O x 3 Dx/Plan (1) Shortness of breath Code(s): R06.02 - SHORTNESS OF BREATH Status: Acute (2) CKD (chronic kidney disease) stage 3, GFR 30-59 ml/min Status: Chronic Comment: Near baseline GFR - Plan cont current plan of care Acute on Chronic Diastolic HF, Change to PO , follow CO2/Alkalosis -: Anemia of CKD stage 3 stable -: Type 2 DM continue sliding scale and NPH * . Review of Systems - Review of Systems Eyes: negative: Pain, Vision Change, Conjunctivae Inflammation, Eyelid Inflammation, Redness, Other ENT: negative: Ear Pain, Ear Discharge, Nose Pain, Nose Discharge, Nose Congestion, Mouth Pain, Mouth Swelling, Throat Pain, Throat Swelling, Other Respiratory: negative: Cough, Dry, Shortness of Breath, Hemoptysis, SOB with Excertion, Pleuritic Pain, Sputum, Wheezing Cardiovascular: orthopnea, paroxysmal nocturnal dyspnea, edema Gastrointestinal: negative: Nausea, Vomiting, Abdominal Pain, Diarrhea, Constipation, Melena, Hematochezia, Other Genitourinary: negative: Dysuria, Frequency, Incontinence, Hematuria, Retention , Other Musculoskeletal: negative: Neck Pain, Shoulder Pain, Arm Pain, Back Pain, Hand Pain, Leg Pain, Foot Pain, Other - Medications/Allergies Allergies/Adverse Reactions: Allergies Allergy/AdvReac Type Severity Reaction Status Date / Time ciprofloxacin HCl Allergy Verified 09/21/18 23:17 [From Cipro] clarithromycin [From Biaxin] Allergy Verified 09/21/18 23:17 codeine Allergy Verified 09/21/18 23:17 ondansetron [From Zofran] Allergy Verified 09/21/18 23:17 Penicillins Allergy Verified 09/21/18 23:17 Medications: Current Medications Acetaminophen (Tylenol) 650 mg PO Q6H PRN PRN Reason: Headache/Fever or Pain Last Admin: 10/03/18 06:38 Dose: 650 mg Albuterol/Ipratropium (Duoneb) 3 ml NEB [id number] [facility] Last Admin: 10/03/18 14:02 Dose: Not Given Albuterol/Ipratropium (Duoneb) 3 ml NEB [id number] PRN PRN Reason: SOB &/or Wheezing Clonidine (Catapres) 0.1 mg PO Q4H PRN PRN Reason: Systolic BP > 180 Cyanocobalamin (Vitamin B-12) 1,000 mcg PO DAILY [facility] Last Admin: 10/03/18 09:34 Dose: 1,000 mcg Dextrose/Water (Dextrose 50%) 25 gm SLOW IVP PRN PRN PRN Reason: Hypoglycemia Digoxin (Lanoxin) 0.125 mg PO MoWeFr [facility] Last Admin: 10/02/18 09:38 Dose: 0.125 mg Docusate Sodium (Colace) 100 mg PO DAILY PRN PRN Reason: Constipation Folic Acid (Folvite) 1 mg PO DAILY [facility] Last Admin: 10/03/18 09:33 Dose: 1 mg Furosemide (Lasix) 40 mg PO DAILY-AC [facility] Last Admin: 10/03/18 06:39 Dose: 40 mg Gabapentin (Neurontin) 300 mg PO TID [facility] Last Admin: 10/03/18 13:58 Dose: 300 mg Glucagon (Glucagon) 1 mg IM PRN PRN PRN Reason: Hypoglycemia Guaifenesin (Mucinex) 600 mg PO Q12HR [facility] Last Admin: 10/03/18 09:33 Dose: 600 mg Hydralazine HCl (Apresoline) 10 mg SLOW IVP Q4H PRN PRN Reason: SBP<170 Hydralazine HCl (Apresoline) 10 mg SLOW IVP Q4H PRN PRN Reason: SBP Greater Than 180 Dextrose/Water (D5w) 1,000 mls @ 0 mls/hr IV .Q0M PRN PRN Reason: Hypoglycemia Insulin Human Lispro (Humalog) 0 units SC .BEDTIME SLIDING SC PRN PRN Reason: Bedtime Correctional Scale Last Admin: 10/02/18 20:56 Dose: 2 unit Insulin Human Lispro (Humalog) 0 units SC .MODERATE SLIDING SC PRN PRN Reason: Moderate Correctional Scale Last Admin: 10/03/18 11:36 Dose: 4 unit Insulin Human NPH (Humulin N) 20 unit SC DAILY [facility] Last Admin: 10/03/18 10:09 Dose: 20 unit Insulin Human NPH (Humulin N) 15 unit SC HS [facility] Last Admin: 10/02/18 20:54 Dose: 15 unit Ipratropium [place] (Atrovent Hfa) 1 puff INH QIDPRN PRN PRN Reason: Wheezing or Cough Melatonin (Melatonin) 3 mg PO HSPRN PRN PRN Reason: Insomnia Last Admin: 10/02/18 20:12 Dose: 3 mg Metoclopramide HCl (Reglan) 10 mg PO QID [facility] Last Admin: 10/03/18 13:58 Dose: 10 mg Mometasone Furoate/Formoterol Fumar (Dulera 200 Mcg/5 Mcg Inhaler) 2 puff INH BID-RT [facility] Last Admin: 10/03/18 07:31 Dose: 2 puff Multivitamins (Theragran) 1 tab PO DAILY [facility] Last Admin: 10/03/18 09:33 Dose: 1 tab Pantoprazole Sodium (Protonix) 40 mg PO DAILY [facility] Last Admin: 10/03/18 09:33 Dose: 40 mg Prednisone (Prednisone) 10 mg PO QA-[facility] Last Admin: 10/03/18 09:33 Dose: 10 mg Sodium Chloride (Flush - Normal Saline) 10 ml IVF Q12HR [facility] Last Admin: 10/03/18 09:34 Dose: 10 ml Sodium Chloride (Flush - Normal Saline) 10 ml IVF PRN PRN PRN Reason: Saline Flush Last Admin: 09/29/18 08:58 Dose: 10 ml Spironolactone (Aldactone) 25 mg PO QAM-[facility] Last Admin: 09/27/18 08:35 Dose: 25 mg Trazodone HCl (Desyrel) 100 mg PO BID [facility] Last Admin: 10/03/18 09:34 Dose: 100 mg
--- NOTE | 2018-10-03 15:35 | RAD ---
MODIFIED BARIUM SWALLOW: HISTORY: Dysphagia, unspecified. Feeding difficulty. EXPOSURE: 1.4 minutes 59.7 mGy per m2. FINDINGS: In the presence of the speech pathologist, the patient was administered thin liquid and nectar thick and pudding consistencies. There was evidence of penetration and aspiration with all the aforementio renetta consistencies. Please refer to the speech pathology report for feeding recommendations. IMPRESSION: Please refer to the speech pathology report for feeding recommendations. POS: OFF
--- NOTE | 2018-10-03 18:04 | PRG ---
DATE OF SERVICE: 10/03/2018 SUBJECTIVE: The patient is seen and examined with no new complaint. Noted with the following vital signs. OBJECTIVE: VITAL SIGNS: Afebrile, temperature 97.7, pulse 70, and blood pressure 102/44. HEENT: Unremarkable. CARDIOVASCULAR SYSTEM: First and second heart sounds were heard. RESPIRATORY: Clear to auscultation with some rales. DIGESTIVE SYSTEM: Revealed a benign abdomen. Positive bowel sounds. EXTREMITIES: No peripheral edema. SKIN: No new gross rash. LYMPHATICS: No peripheral lymphadenopathy. IMPRESSION: 1. Acute on chronic kidney disease, which seems to be stable. 2. Chronic anemia, status post transfusion. 3. Hypervolemia, responded to diuretics. PLAN: We will continue current renal supportive measures. Job ID: [id number]
[2018-10-04] MEDS: Mometasone/Formoterol 120 PUFF INHALER INH SCH ×2 (06:56→19:29)
--- NOTE | 2018-10-04 08:43 | PRG ---
DATE OF SERVICE: 10/04/2018 SUBJECTIVE: Awake, alert, responsive. OBJECTIVE: VITAL SIGNS: On 1 L, saturations are 93%, temperature 99, pulse 72, and blood pressure 144/38. HEENT: Mucous membranes are dry. CHEST: Decreased breath sounds. No wheezing. CARDIAC: Normal S1 and S2. No gallops. ABDOMEN: No masses. LABORATORY DATA: Creatinine 1.37, glucose 168. IMPRESSION: Kbfld-uf-jvcgvsc diastolic dysfunction, respiratory failure, and chronic obstructive pulmonary disease. PLAN: 1. She can be transferred back out of the MICU on monitored bed. 2. Minimize sedation. 3. Noninvasive ventilation as needed. Job ID: [id number]
[2018-10-04] MEDS: Metoclopramide HCl 10 MG TAB PO SCH ×4 (10:03→21:04)
[2018-10-04] MEDS: Gabapentin 300 MG CAP PO SCH ×3 (10:03→21:05)
[2018-10-04] MEDS: Folic Acid 1 MG TAB PO SCH (10:03)
[2018-10-04] MEDS: Multivit, Therapeutic 1 TAB PO SCH (10:03)
[2018-10-04] MEDS: Cyanocobalamin (Vitamin B-12) 1,000 MCG TAB PO SCH (10:04)
[2018-10-04] MEDS: predniSONE 5 MG TAB PO SCH (10:04)
[2018-10-04] MEDS: guaiFENesin ER 600 MG TAB PO SCH ×2 (10:04→21:04)
--- NOTE | 2018-10-04 10:04 | PRG ---
DATE OF SERVICE: 10/04/2018 SUBJECTIVE: Ms. Moraels is very thirsty. Apparently, she failed a swallow test and is n.p.o. now. OBJECTIVE: VITAL SIGNS: Her blood pressure 130/40, pulse 70. LUNGS: Clear anteriorly and laterally. CARDIAC: Normal S1. Normal S2. The patient had the defibrillator checked. Her OptiVol is still high and indicating she is still in diastolic heart failure. ASSESSMENT: 1. Diastolic heart failure, which became more and more refractory. 2. Cannot swallow. 3. Renal failure, stage 3. 4. Chronic obstructive pulmonary disease. 5. Previous pacemaker defibrillator. 6. Deficiency anemia, stable. PLAN: 1. There is consideration apparently about putting a PEG tube in because she cannot swallow. 2. Code status is being discussed. The patient has not agreed to do not resuscitate. 3. We will go ahead and increase the furosemide back to higher levels to try to get her out of heart failure. Prognosis is very poor. Goal of therapy is try to reduce pain and suffering. Job ID: [id number]
[2018-10-04] MEDS: Digoxin 0.125 MG TAB PO SCH (10:08)
[2018-10-04] MEDS: NPH, Human Insulin Isophane 300 UNIT/3 ML VIAL SC SCH ×2 (10:08→21:06)
[2018-10-04] MEDS: Furosemide 40 MG TAB PO SCH ×3 (10:13→13:58)
--- NOTE | 2018-10-04 10:26 | PRG ---
DATE OF SERVICE: I spoke to the patient's sister, Nicole Lugo, telephone #[phone]. She has legal [id number] for the sister. She has nobody else. Pt has no kids never . It is stated that she wants to be made a DNR, no chest compression, no intubation, clearly no trach and PEG. The sister is going to arrive tomorrow or today to confirm the above findings. Once again as per the conversation with the sister, she wants to make patient, Lucy Tianna Morales, a DNR. Job ID: [id number] MTDD
--- NOTE | 2018-10-04 12:20 | PRG ---
DATE OF SERVICE: Advanced care planning note along conversation with the patient approximately 20 minutes regarding her overall situation. She has end-stage diastolic heart failure that is refractory to treatment. She now has dysphagia with aspiration with all consistencies of food and she is adamantly opposed to a PEG tube because her sister told her that she should not do that. The patient wants to eat and drink knowing that it could exacerbate the heart failure and lead to aspiration, which would potentially result in resuscitation effort and intubation and mechanical ventilation. The patient is amenable to that plan at this point. She understands the risks and is willing to accept them. I explained that the choice not to do a PEG tube, but to have intubation and ventilation are contradictory decisions and she stated that she could not help that, but that is what she wanted. Unfortunately, the patient's problems are not amenable to significant treatment successes. At this point we will keep the patient full code as she desires. When the sister gets here tomorrow, I will likely need to have another care planning discussion with the sister and the patient to determine the appropriate treatment plan and disposition status. Job ID: [id number]
--- NOTE | 2018-10-04 12:26 | PRG ---
DATE OF SERVICE: 10/04/2018 SUBJECTIVE: The patient reports that she wants to drink water. Otherwise, she has no new or specific concerns. OBJECTIVE: VITAL SIGNS: Temperature is 99.8, pulse 70, respirations 20, BP 131/36, and O2 saturations 97%. GENERAL APPEARANCE: Age-appropriate female. She is in no distress. She is a little bit somnolent, but able to have a good conversation with me today. HEART: Regular. Do not appreciate a murmur today. LUNGS: Diminished at bases, but otherwise clear with no wheezes or rales. ABDOMEN: Soft, nontender, and nondistended. EXTREMITIES: Much improved edema. Still has Kody bandage and compression wraps, but I do not appreciate significant edema or bullous at all. LABORATORY DATA: Blood sugars 168 to 209. IMPRESSION AND PLAN: 1. Severe diastolic failure followed by Cardiology. Her OptiVol still high indicating still in diastolic heart failure. Dr. Mcdermott has increased her Lasix back to higher dose, continuing to try to work on her diastolic failure, although at this point, it appears to be refractory to treatment. 2. Dysphagia. The patient failed her swallow study with all textures. The patient wants to drink at this time. We had a long discussion regarding the risk associated with aspiration and worsening heart failure and she is accepting of those risks, so we will give her small amounts of water at this point. 3. Chronic kidney disease stage 3, stable. 4. Chronic obstructive pulmonary disease, stable. 5. Diabetes mellitus, stable. 6. Hypertension, stable. 7. Chronic atrial fibrillation, not on anticoagulation due to her anemia. DISPOSITION: The patient can transfer out of the [facility] to tele bed, although those are backed up and on hold. The patient and I had a long conversation regarding her disposition. Bottom line is she does not want a PEG tube because her sister told her she should not get 1. Otherwise, she is willing to accept the risk of aspiration with eating and drinking and still would want to be intubated and resuscitated should those things become necessary. Her sister, who has her power of claim attorney would be her surrogate decision maker if the patient were not competent to make decisions on her own. She apparently is coming tomorrow. The Palliative Care Team is also involved, so hopefully, we can continue to have some discussion with her to figure out the plan. Job ID: [id number]
[2018-10-04] MEDS: Nystatin 500,000 UNITS/5 ML UDCUP SSW SCH ×3 (13:58→21:05)
--- NOTE | 2018-10-04 16:40 | PRG ---
DATE OF SERVICE: 10/04/2018 SUBJECTIVE: The patient is seen and examined with no new complaint. Noted with the following vital signs. OBJECTIVE: VITAL SIGNS: Afebrile. Temperature 99.3, pulse 70, respiratory rate of 22, and blood pressure 141/53. HEENT: Unremarkable. CARDIOVASCULAR: First and second heart sounds were heard. RESPIRATORY: Clear to auscultation. DIGESTIVE: Revealed a benign abdomen. EXTREMITIES: No peripheral edema. SKIN: No new gross rash. LYMPHATICS: No peripheral lymphadenopathy. IMPRESSION: 1. Vmnan-ap-jvrhgnt kidney disease, which seems to be stable. 2. Metabolic alkalosis, improved. 3. Hypervolemia, responded to diuretics. PLAN: 1. Renal supportive measures. 2. Further management will be dependent on the clinical course. Job ID: [id number]
[2018-10-04] MEDS: HumaLOG 300 UNITS/3 ML VIAL SC PRN (17:10)
[2018-10-05] MEDS: Mometasone/Formoterol 120 PUFF INHALER INH SCH ×2 (08:04→19:19)
--- NOTE | 2018-10-05 10:10 | PRG ---
DATE OF SERVICE: 10/05/2018 SUBJECTIVE: The patient is seen and examined. OBJECTIVE: VITAL SIGNS: Noted with the following vital signs, pulse 70, respiratory rate 23, O2 saturations 99%, and blood pressure 137/64. HEENT: Unremarkable. CARDIOVASCULAR: First and second heart sounds were heard. RESPIRATORY: Revealed some rales. DIGESTIVE: Revealed a benign abdomen with positive bowel sounds. EXTREMITIES: No peripheral edema. SKIN: No new gross rash. LYMPHATICS: No peripheral lymphadenopathy. IMPRESSION: 1. Acute on chronic kidney disease, somewhat stable, but creatinine beginning to change. 2. Hypervolemia, responded to diuretics. 3. Advanced age. swallowing very well, the patient will prefer to carry on with oral feeding. PLAN: 1. Continue current renal supportive measures. 2. Aspiration precautions. 3. Further management to be dependent on the clinical course. Job ID: [id number]
--- NOTE | 2018-10-05 10:19 | PRG ---
DATE OF SERVICE: 10/05/2018 SUBJECTIVE: This morning, she is definitely looking better. She is less short of breath, less confused, and some of the medicines was adjusted. She apparently failed speech. OBJECTIVE: VITAL SIGNS: Blood pressure is 137/64, sats 98% on 1 L, respirations 23, pulse 70. CHEST: Decreased breath sounds. No wheezing. CARDIAC: Normal S1 and S2. No gallops. ABDOMEN: No masses. IMPRESSION: 1. The patient was made DNR by her sister, who is power of environmental attorney, due to come today. 2. Congestive heart failure. 3. Chronic obstructive pulmonary disease. 4. Encephalopathy. She is more awake since she is cut back on some of her excessive medication. She needs to be left on 2 L, do not adjust the oxygen. Continue Dulera, low-dose steroids, neb treatments. Disposition, custodial. Job ID: [id number]
[2018-10-05] MEDS: predniSONE 5 MG TAB PO SCH (10:38)
[2018-10-05] MEDS: Multivit, Therapeutic 1 TAB PO SCH (10:38)
[2018-10-05] MEDS: Cyanocobalamin (Vitamin B-12) 1,000 MCG TAB PO SCH (10:38)
[2018-10-05] MEDS: Nystatin 500,000 UNITS/5 ML UDCUP SSW SCH ×4 (10:38→20:42)
[2018-10-05] MEDS: Folic Acid 1 MG TAB PO SCH (10:38)
[2018-10-05] MEDS: Furosemide 40 MG TAB PO SCH ×2 (10:39→15:13)
[2018-10-05] MEDS: NPH, Human Insulin Isophane 300 UNIT/3 ML VIAL SC SCH (10:39)
[2018-10-05] MEDS: Gabapentin 300 MG CAP PO SCH ×3 (10:39→20:42)
[2018-10-05] MEDS: guaiFENesin ER 600 MG TAB PO SCH ×2 (10:39→20:42)
[2018-10-05] MEDS: Metoclopramide HCl 10 MG TAB PO SCH ×4 (10:39→20:42)
[2018-10-05] MEDS: Acetaminophen 325 MG TAB PO PRN (10:40)
--- NOTE | 2018-10-05 13:00 | PRG ---
DATE OF SERVICE: 10/05/2018 SUBJECTIVE: Ms. Morales is more alert and awake today. She said she is not short of breath. OBJECTIVE: VITAL SIGNS: Her blood pressure 146/51 and pulse 70, it is paced. LUNGS: Clear. CARDIAC: Normal S1 and S2. ABDOMEN: Soft and nontender. EXTREMITIES: Still moderate edema. ASSESSMENT: 1. Diastolic heart failure. 2. Iron-deficiency anemia. 3. Diabetes. 4. Renal insufficiency. Most recent creatinine 1.37. The patient is still in diastolic heart failure, most recent defibrillator interrogation. PLAN: 1. Increase furosemide to 80 mg twice a day. 2. Potential. 3. She is currently do not resuscitate. 4. Possibly back to alf tomorrow. The goal of therapy is to try to make her feel as good as possible. Job ID: [id number]
[2018-10-05] MEDS: HumaLOG 300 UNITS/3 ML VIAL SC PRN ×2 (16:43→20:43)
--- NOTE | 2018-10-05 17:03 | PDOC.PN ---
- Subjective Encounter Start Date: 10/05/18 Encounter Start Time: 17:01 Subjective: Admitted with worsening SOB. Found to have severe anemia -: Feeling better. still with some edema. -: denied chest pain. - Objective Resuscitation Status - Order Detail: 09/21/18 23:05 Resuscitation Status Routine Resuscitation Status: FULL: Full Resuscitation Vital Signs & Weight: Vital Signs (12 hours) Temp Pulse Resp Pulse Ox 10/05/18 14:58 99.7 F H 10/05/18 14:32 70 18 99 10/05/18 11:17 70 18 99 10/05/18 10:38 99.3 F 10/05/18 08:04 98 10/05/18 08:03 70 23 H 99 10/05/18 07:52 94 L 10/05/18 07:07 99.9 F H Weight Admit Weight 192 lb 3 oz Weight 173 lb 1.6 oz Most Recent Monitor Data Heart Rate from ECG 70 NIBP 170/55 NIBP BP-Mean 93 Respiration from ECG 26 SpO2 97 I&O: 10/04/18 10/05/18 10/06/18 06:59 06:59 06:59 Intake Total 410 590 Output Total 1200 1600 Balance -790 -1010 Result Diagrams: 10/01/18 03:55 10/03/18 06:55 Additional Labs: Accuchecks 10/05/18 10/05/18 10/05/18 16:12 10:15 05:30 POC Glucose 363 H 234 H 198 H 10/04/18 19:51 POC Glucose 231 H Phys Exam - Physical Examination Constitutional: NAD comfortable HEENT: PERRLA, moist MMs Neck: supple fair air entry with transmitted sound Cardiovascular: RRR Gastrointestinal: soft, no distention, positive bowel sounds Musculoskeletal: pulses present Edema of the limbs noted Awake and conversational. moving all limbs but weakly Psychiatric: A&O x 3 Dx/Plan (1) Acute on chronic anemia Code(s): D64.9 - ANEMIA, UNSPECIFIED Status: Acute (2) Acute on chronic diastolic (congestive) heart failure Code(s): I50.33 - ACUTE ON CHRONIC DIASTOLIC (CONGESTIVE) HEART FAILURE Status : Acute (3) CKD (chronic kidney disease) stage 3, GFR 30-59 ml/min Status: Chronic Comment: Near baseline GFR (4) COPD (chronic obstructive pulmonary disease) Status: Chronic Comment: stable (5) Chronic atrial fibrillation Code(s): I48.2 - CHRONIC ATRIAL FIBRILLATION Status: Chronic Comment: Consult Cardiology for any further recommendations, remains rate-controlled, Digoxin MWF (6) DM type 2 (diabetes mellitus, type 2) Status: Chronic Comment: continue accuchecks, insulin sliding scale. (7) HTN (hypertension) Code(s): I10 - ESSENTIAL (PRIMARY) HYPERTENSION Status: Chronic Qualifiers: Comment: BP controlled (8) Physical deconditioning Code(s): R53.81 - OTHER MALAISE Status: Chronic Comment: Getting therapy at [facility]. (9) JOE (acute kidney injury) Code(s): N17.9 - ACUTE KIDNEY FAILURE, UNSPECIFIED Status: Resolved (10) Acute and chronic respiratory failure with hypoxia Code(s): J96.21 - ACUTE AND CHRONIC RESPIRATORY FAILURE WITH HYPOXIA Status: Resolved - Plan Increase NPH insulin to 30 am and 25 pm to get better glycemic control -: Get renal function panel in the am. -: continue diuretics. -: Monitor I/O, weight and electrolytes. * .
[2018-10-05] MEDS: Melatonin 3 MG TAB PO PRN (20:42)
[2018-10-05] MEDS ORDERED: NPH, Human Insulin Isophane 300 UNIT/3 ML VIAL SC SCH (21:00)
[2018-10-06 05:11] VITALS: BMI 29.1
[2018-10-06] MEDS: Mometasone/Formoterol 120 PUFF INHALER INH SCH (06:14)
[2018-10-06 06:50] LABS: #Eosinphils 0.2 thou/uL (0.0-0.7); #Lymphocytes 0.4 thou/uL (1.20-3.40); #Monocytes 0.6 thou/uL (0.11-0.59); #Neutrophils 4.8 thou/uL (1.40-6.50); %Basophils 0.1 % (0.0-1.0); %Eosinophils 3.7 % (0.0-10.0); %Lymphocytes 6.4 % (21.0-51.0); %Monocytes 9.4 % (0.0-10.0); %Neutrophils 80.3 % (42.0-75.0); Hemoglobin 7.4 g/dL (12.0-16.0); Mean Corpuscular HGB CONC 31.1 g/dL (32.0-36.0); Mean Corpuscular Hemoglobin 28.5 pg (27.0-31.0); Mean Corpuscular Volume 91.6 fL (78.0-98.0); Mean Platelet Volume 9.2 fL (7.4-10.4); Platelet Count 246 thou/uL (130-400); RBC Distribution Width 17.4 % (11.5-14.5); Red Blood Cell (RBC) Count 2.61 mill/uL (4.20-5.40)
[2018-10-06 07:04] LABS: Albumin 2.8 g/dL (3.4-4.8); Anion Gap 14 mmol/L (10-20); BUN (Urea Nitrogen) 53 mg/dL (9.8-20.1); BUN/Creatinine Ratio 49.07; Calc. Creatinine Clearance 52 mL/min (70-130); Calcium 9.7 mg/dL (7.8-10.44); Carbon Dioxide 35 mmol/L (23-31); Chloride 97 mmol/L (98-107); Estimated GFR-MDRD 49; Glucose 129 mg/dL (83-110); Potassium 3.4 mmol/L (3.5-5.1); Sodium 143 mmol/L (136-145)
[2018-10-06] MEDS ORDERED: Potassium Chloride 20 MEQ TAB PO SCH ×2 (08:30→09:30)
--- NOTE | 2018-10-06 08:44 | PRG ---
DATE OF SERVICE: 10/06/2018 SUBJECTIVE: Awake, alert, and responsive. OBJECTIVE: VITAL SIGNS: Sats are 97 on 1 L, temperature 97, and blood pressure 120/50. CHEST: Decreased breath sounds. No wheezing. CARDIAC: Normal S1 and S2. No gallop. ABDOMEN: No mass. LABORATORY DATA: White count 6.8, H and H 7 and 23, platelet count normal. Lytes are normal. IMPRESSION: Diastolic dysfunction, chronic obstructive pulmonary disease, and advanced age. Still on high dose of Lasix, low dose prednisone, awaiting consultation, eventually placement. Once again, I had a lengthy discussion with the patient's family, sister, who has the power of ip technology transactions attorney apparently legally. She was told to make her DNR. Awaiting the patient's family arrival. Job ID: [id number]
[2018-10-06] MEDS ORDERED: NPH, Human Insulin Isophane 300 UNIT/3 ML VIAL SC SCH (09:00)
--- NOTE | 2018-10-06 10:11 | PRG ---
DATE OF SERVICE: 10/06/2018 SUBJECTIVE: Ms. Morales feels somewhat better. She is more alert and awake. OBJECTIVE: VITAL SIGNS: Blood pressure 100/46 and pulse 70. LUNGS: There is some expiratory wheezing. CARDIAC: Normal S1 and normal S2. ABDOMEN: Soft and nontender. EXTREMITIES: There is no significant edema. PERTINENT LABORATORY DATA: Hemoglobin was 7.4, stable. Potassium 3.4, BUN 53, and creatinine 1.08. ASSESSMENT: 1. Diastolic congestive heart failure, seems to be somewhat improved. 2. Diabetes. 3. Previous biventricular pacemaker-defibrillator. 4. Hypokalemia. PLAN: 1. Replete potassium. 2. It is okay for me to either to go to medical or back to the [facility]. 3. We are also going to recheck the OPTIVOL today. Job ID: [id number] MTDD
[2018-10-06] MEDS: guaiFENesin ER 600 MG TAB PO SCH (10:17)
[2018-10-06] MEDS: Furosemide 40 MG TAB PO SCH (10:17)
[2018-10-06] MEDS: Folic Acid 1 MG TAB PO SCH (10:18)
[2018-10-06] MEDS: Multivit, Therapeutic 1 TAB PO SCH (10:18)
[2018-10-06] MEDS: Gabapentin 300 MG CAP PO SCH (10:18)
[2018-10-06] MEDS: Metoclopramide HCl 10 MG TAB PO SCH (10:18)
[2018-10-06] MEDS: predniSONE 5 MG TAB PO SCH (10:19)
[2018-10-06] MEDS: Cyanocobalamin (Vitamin B-12) 1,000 MCG TAB PO SCH (10:19)
[2018-10-06] MEDS: Nystatin 500,000 UNITS/5 ML UDCUP SSW SCH (10:20)
[2018-10-06] MEDS: Digoxin 0.125 MG TAB PO SCH (10:25)
[2018-10-06 10:57] VITALS: TEMP 97.2
[2018-10-06 11:55] VITALS: BP 156/70
--- NOTE | 2018-10-06 15:12 | DIS ---
DATE OF ADMISSION: 09/21/2018 DATE OF DISCHARGE: 10/06/2018 DISCHARGE DIAGNOSES: 1. Phigb-yw-upfyiwy diastolic heart failure. 2. Kgfut-br-srybhnh anemia. 3. Chronic obstructive pulmonary disease. 4. Acute on chronic respiratory failure with hypoxia. 5. Acute kidney injury. 6. Chronic kidney disease stage 3. 7. Chronic atrial fibrillation. 8. Type 2 diabetes mellitus. 9. Hypertension. 10. Physical deconditioning. 11. Hypokalemia. CONSULTS: 1. Cardiology. 2. Pulmonary and Critical Care. 3. Hematology and Oncology. 4. Nephrology. PROCEDURES PERFORMED: Interrogation of AICD. HOSPITAL COURSE: An 78-year-old female, [facility] resident with longstanding history of congestive heart failure, who was admitted due to worsening anemia as noticed by blood work associated with worsening shortness of breath and generalized weakness. The patient was found to have severe anemia with hemoglobin of 7 as well as acute elevation in creatinine to 1.46. She also was noted to have severe peripheral edema, impression of scfqg-kf-zkcmmdk diastolic heart failure as well as severe anemia was made. The patient also was felt to have rpmzu-tw-frqpirb respiratory failure with hypoxia, thought to be due to acute bronchitis/COPD exacerbation. Anticoagulation with Eliquis was initially discontinued and the patient was treated with steroid, antibiotics, bronchodilators, and respiratory support as well as transfusion of packed red blood cells with improvement. Cardiology consult was obtained and interrogation of the AICD showed paroxysmal atrial fibrillation. The patient also had echocardiogram, which showed preserved systolic function with EF of 50% to 55%, which is markedly improved from prior EF of 15% to 20%. Medications were adjusted by Cardiology. Hematology-Oncology saw the patient and was in agreement with transfusion of packed red blood cells; however, recommended that the patient will resume Procrit when she is [facility] the [facility]. Head Men[employer]S Tennis [employer] saw the patient and recommended diuretics. With improvement of cardiac function and respiratory function, renal function improved such as creatinine was 1.08 at the time of discharge. Hospital course was also complicated by electrolyte derangements, which were corrected appropriately. The patient remained stable and oxygen was weaned down to baseline of 1-2 L/minute. She was subsequently discharged back to the alf home for further treatment. PHYSICAL EXAMINATION: VITAL SIGNS: Temperature 97.2, pulse 70, respiratory rate 19, SpO2 99% on 1 L nasal cannula, blood pressure is 141/55. GENERAL: Comfortable, elderly female, in no distress. Afebrile. Anicteric. HEENT: Normocephalic, atraumatic. Pupils are reacting to light. PULMONARY: Fair air entry bilaterally with some transmitted sounds. CARDIOVASCULAR: Regular rhythm and rate. Normal heart sounds 1 and 2. ABDOMEN: Full, soft, nontender, nondistended with normal bowel sounds. EXTREMITIES: Mild bilateral upper extremity edema noticed. NEUROLOGIC: Conscious and alert, oriented x3 with appropriate mental status. DISCHARGE MEDICATIONS: 1. Calcium carbonate 1000 mg p.o. q.4 p.r.n. 2. Tylenol 1000 mg q.6 p.r.n. 3. Albuterol sulfate 2 puffs inhalation q.6 p.r.n. 4. Tramadol 50 mg p.o. q.6 p.r.n. 5. Alendronate with vitamin D (Fosamax plus D) 1 tablet every 7 days. 6. Ascorbic acid 500 mg b.i.d. 7. Dulcolax suppository 1 p.r.n. 8. Carvedilol 3.125 mg b.i.d. 9. Digoxin 125 mcg p.o. daily. 10. Docusate sodium 100 mg daily p.r.n. 11. Procrit 40,000 units. 12. Fluticasone propionate nasal spray two sprays to each nostril daily. 13. Breo Ellipta 200/25 mcg inhalation 1 daily. 14. Folic acid 1 mg daily. 15. Gabapentin 300 mg t.i.d. 16. Humalog t.i.d. with meals p.r.n. 17. Humalog 20 units subcutaneously t.i.d. with meals. 18. Atrovent inhalation 2 puffs q.i.d. 19. Melatonin 3 mg p.o. daily at bedtime as needed. 20. Metoclopramide 10 mg q.i.d. 21. NPH insulin 30 units subcutaneously b.i.d. 22. Ondansetron 4 mg q.6 p.r.n. for nausea. 23. Protonix 40 mg p.o. daily. 24. MiraLAX 17 g p.o. daily p.r.n. for constipation. 25. Prednisone 50 mg p.o. daily. 26. Trazodone 100 mg p.o. b.i.d. 27. Vitamin B complex 1 tablet p.o. daily. 28. Mucinex 600 mg b.i.d. 29. Eliquis 2.5 mg p.o. b.i.d. 30. Ferrous sulfate 325 mg p.o. daily. 31. Potassium chloride 20 mEq p.o. b.i.d. 32. Spironolactone 25 mg p.o. daily. 33. Torsemide 40 mg p.o. b.i.d. This discharge took more than 45 minutes. DISCHARGE CONDITION: Improved and stable. Job ID: [id number]
[2018-10-06] MEDS ORDERED: Potassium Chloride 10 MEQ TAB PO SCH (17:00)
[2018-10-07] MEDS ORDERED: Potassium Chloride 10 MEQ TAB PO SCH (08:00)
== END 2018-10-06 13:57 | DRG 291 ==
LOC: ERS 15:00 → 2NO 20:40 → IMCU/EMU 09-27 15:06
PROVIDERS: ADMIT Internal Medicine; ATTEND Internal Medicine
PROC: 30233N1 Transfusion of Nonautologous Red Blood Cells into Peripheral Vein, Percutaneous Approach (ICD-10-PCS; principal; 2018-09-22)
PROC: 5A09357 Assistance with Respiratory Ventilation, Less than 24 Consecutive Hours, Continuous Positive Airway Pressure (ICD-10-PCS; 2018-09-27)
DX: I13.0 Hypertensive heart and chronic kidney disease with heart failure and stage 1 through stage 4 chronic kidney disease, or unspecified chronic kidney disease (principal); I50.33 Acute on chronic diastolic (congestive) heart failure; J96.21 Acute and chronic respiratory failure with hypoxia; N17.9 Acute kidney failure, unspecified; E87.1 Hypo-osmolality and hyponatremia; E87.3 Alkalosis; G93.40 Encephalopathy, unspecified; J44.0 Chronic obstructive pulmonary disease with (acute) lower respiratory infection; J44.1 Chronic obstructive pulmonary disease with (acute) exacerbation; D63.1 Anemia in chronic kidney disease; N18.3 Chronic kidney disease, stage 3 (moderate); E11.22 Type 2 diabetes mellitus with diabetic chronic kidney disease; Z66 Do not resuscitate; J20.9 Acute bronchitis, unspecified; I25.10 Atherosclerotic heart disease of native coronary artery without angina pectoris; I42.8 Other cardiomyopathies; E78.00 Pure hypercholesterolemia, unspecified; E66.9 Obesity, unspecified; E87.6 Hypokalemia; R13.10 Dysphagia, unspecified; I48.0 Paroxysmal atrial fibrillation; E11.40 Type 2 diabetes mellitus with diabetic neuropathy, unspecified; L89.159 Pressure ulcer of sacral region, unspecified stage; Z68.31 Body mass index [BMI] 31.0-31.9, adult; Z99.81 Dependence on supplemental oxygen; G89.29 Other chronic pain; F41.8 Other specified anxiety disorders; Z79.4 Long term (current) use of insulin; Z79.01 Long term (current) use of anticoagulants; Z95.810 Presence of automatic (implantable) cardiac defibrillator; Z87.891 Personal history of nicotine dependence; Z88.1 Allergy status to other antibiotic agents; Z88.0 Allergy status to penicillin
CPT/HCPCS: 36415; 36416; 36430; 71045; 74230; 76770; 80048; 80053; 80069; 82274; 82550; 82553; 82728; 82805; 83735; 83880; 84100; 84484; 85014; 85018; 85025; 85049; 85610; 85730; 86850; 86900; 86901; 93005; 93306; 94640; 94660; J0360; J0696; J1120; J1815; J1940; J2916; J3490; J7050; J7512; J7620; J8597; P9016

== ENCOUNTER 2018-10-15 14:28 | Inpatient (IN) | payer MEDICARE ==
[~2018-10-15 14:28] MED LIST changes: +EPINEPHrine 1 MG/10 ML Abboject SYRINGE ONE; -ISOVUE-370 76%-LOCM 1 ML ONE; -Lidocaine 1% PF 5 ML VIAL ONE; -PHENYLEPHRINE-NS 100 MCG/ML 10 ML SYRINGE ONE; -PROPOFOL 200 MG/20 ML VIAL ONE; -Succinylcholine Chloride 20 MG/ML 10 ml SYRINGE FS ONE
[2018-10-15 15:12] LABS: Bilirubin Negative (Negative); Blood, Urine Moderate (Negative); Clarity CLEAR (Clear); Glucose, Urine (Dipstick) Negative (Negative); Leukocyte Moderate (Negative); Nitrite Negative (Negative); Protein, Urine (Dipstick) Negative (Neg-Trace); Specific Gravity, Urine 1.008 (1.002-1.036); Urobilinogen 0.2 mg/dL (0.2-1.0); pH, Urine 5.5 (5.0-9.0)
[2018-10-15 15:15] LABS: Bacteria/HPF None Seen HPF (None Seen); Hyaline Casts/LPF 0-3 HYALINE CAST LPF (0-3 Hyaline); RBC/HPF 0-3 HPF (0-3); Squamous Epithelial None Seen HPF (0-3); WBC/HPF 21-50 HPF (0-3)
[2018-10-15 15:23] LABS: #Eosinphils 0.4 thou/uL (0.0-0.7); #Lymphocytes 0.6 thou/uL (1.20-3.40); #Monocytes 0.6 thou/uL (0.11-0.59); #Neutrophils 7.5 thou/uL (1.40-6.50); %Eosinophils 4.9 % (0.0-10.0); %Lymphocytes 6.8 % (21.0-51.0); %Monocytes 6.7 % (0.0-10.0); %Neutrophils 81.7 % (42.0-75.0); Hemoglobin 6.5 g/dL (12.0-16.0); Mean Corpuscular HGB CONC 30.8 g/dL (32.0-36.0); Mean Corpuscular Hemoglobin 27.8 pg (27.0-31.0); Mean Corpuscular Volume 90.2 fL (78.0-98.0); Platelet Count 514 thou/uL (130-400); RBC Distribution Width 20.1 % (11.5-14.5); Red Blood Cell (RBC) Count 2.34 mill/uL (4.20-5.40); White Blood Cell (WBC) Count 9.1 thou/uL (4.8-10.8)
[2018-10-15 15:28] LABS: INR-International Normal Ratio 1.3; PTT 28.3 SEC (22.9-36.1); Prothrombin Time 16.4 SEC (12.0-14.7)
[2018-10-15 15:46] LABS: ALT (SGPT) 14 U/L (8-55); AST (SGOT) 16 U/L (5-34); Alkaline Phosphatase 52 U/L (40-150); Anion Gap 11 mmol/L (10-20); BUN (Urea Nitrogen) 89 mg/dL (9.8-20.1); Bilirubin, Total 0.2 mg/dL (0.2-1.2); Calc. Creatinine Clearance 0 mL/min (70-130); Carbon Dioxide 36 mmol/L (23-31); Chloride 97 mmol/L (98-107); Estimated GFR-MDRD 32; Globulin 2.5 g/dL (2.4-3.5); Glucose 115 mg/dL (83-110); Potassium 5.4 mmol/L (3.5-5.1); Protein, Total 5.5 g/dL (6.0-8.3); Sodium 139 mmol/L (136-145)
[2018-10-15] MEDS ORDERED: Pantoprazole 40 MG VIAL ONE (15:50)
--- NOTE | 2018-10-15 16:17 | RAD ---
Portable frontal chest radiograph: 10/15/2018 COMPARISON: 09/22/2018 HISTORY: GI bleeding FINDINGS: Stable multilead AICD. No pneumothorax. Mild linear density in right lung base suggests sca r and/or volume loss. There is increased density in the left base obscuring the left hemidiaphragm with blunting of the left costophrenic angle, suggesting nonspecific left lower lobe consolidation/co llapse and/or left pleural fluid. Aeration in the right base has improved since the prior examination. Findings in the left base are stable. IMPRESSION: Persistent nonspecific pleural and parenchymal opacity within the left lung base as detai led above. Recommend follow-up PA and lateral imaging of the chest following treatment to document resolution.
[2018-10-15] MEDS ORDERED: Acetaminophen 325 MG TAB PO PRN (20:12)
[2018-10-15] MEDS ORDERED: PROVENTIL INHALER 6.7 G (200 INHALATIONS) INH PRN (20:12)
[2018-10-15] MEDS ORDERED: Dextrose 50% Abboject 50 ML SYRINGE SLOW IVP PRN (20:12)
[2018-10-15] MEDS ORDERED: HumaLOG 300 UNITS/3 ML VIAL SC PRN (20:12)
[2018-10-15] MEDS ORDERED: Melatonin 3 MG TAB PO PRN (20:12)
[2018-10-15] MEDS ORDERED: Dextrose 5% in Water 1,000 ML IV PRN (20:12)
[2018-10-15] MEDS ORDERED: Famotidine/PF 20 mg/2ml Vial SLOW IVP SCH (21:00)
[2018-10-15 21:10] VITALS: BMI 28.2
--- NOTE | 2018-10-15 21:15 | HP ---
REASON FOR ADMISSION: GI bleed, acute blood loss anemia. HISTORY OF PRESENTING ILLNESS: Please note majority of this history is obtained by talking to the ER physician and skilled nursing records as the patient has advanced dementia and she is not able to contribute in any meaningful way for the history. She wants me to call the skilled nursing to find out what happened when asked why she is in the hospital. She apparently had an episode of bleeding 4 days back at [facility]. She had another episode of bleeding today rectally, which prompted them to send the patient here to the ER. She has no complaints of abdominal pain or nausea or vomiting. The patient's hemoglobin was 6.5 on arrival and has received a unit of blood. The second unit of packed cell is currently running. She was recently hospitalized here, got discharged on the for diastolic heart failure exacerbation. The patient also has chronic AFib and is on Eliquis. She has known history of CKD stage 3 as well. PAST MEDICAL AND SURGICAL HISTORY: Chronic AFib, chronic anemia, CKD stage 3, diabetes mellitus type 2. The patient says she is bedbound for last 2 months prior to which she was ambulating a bit with chronic anemia, history of diverticulosis , history of umbilical hernia with repair, COPD, history of CHF with diastolic dysfunction and ejection fraction of 55% to 60%, history of a prior ablation for AFib, anxiety, depression, pacemaker, tonsillectomy, appendectomy, cataract surgery. CURRENT MEDICATIONS: Please note the patient is on multiple medications and these are obtained from the skilled nursing records from [facility]. 1. Breo Ellipta inhaler daily. 2. Coreg 3.125 mg twice daily. 3. DuoNeb inhaler. 4. Digoxin 0.125 mg p.o. on Tuesday, Tuesday, Tuesday. 5. Colace 100 mg daily. 6. Eliquis 2.5 mg twice daily. 7. Entresto 24/26 mg one tablet twice daily. 8. Ferrous sulfate 325 mg p.o. daily. 9. Flonase nasal spray 2 sprays to each nostril daily. 10. Folic acid 1 mg daily. 11. Fosamax once a week. 12. Gabapentin 300 mg three times daily. 13. Humalog sliding scale and insulin lispro 20 units subcutaneous three times daily. 14. Humulin N 30 units subcutaneous twice daily. 15. Melatonin 3 mg p.o. q.h.s. 16. Reglan 10 mg a.c. and h.s. 17. MiraLAX 17 g p.r.n. 18. Protonix 40 mg daily. 19. Potassium chloride extended release 20 mEq p.o. daily. 20. Prednisone 10 mg daily per skilled nursing records. This is for COPD related illness. 21. Procrit 40,000 units every 2 weeks. 22. Spironolactone 25 mg every other day. 23. Torsemide 40 mg daily. 24. Trazodone 100 mg p.o. twice daily. 25. Vitamin C 500 mg twice daily. 26. Vitamin D3 of 400 units daily. PERSONAL HISTORY: The patient is a resident of [facility]. Does not abuse alcohol or drugs. She says she has not ambulated in nearly 2 months now prior to which was ambulating with a rolling walker. FAMILY HISTORY: Mother has history of COPD and stroke. Father had history of [place]. ALLERGIES: TO CIPROFLOXACIN, CLARITHROMYCIN, CODEINE, ZOFRAN, PENICILLIN. REVIEW OF SYSTEMS: CONSTITUTIONAL: Negative for weight loss or gain, ability to conduct usual activities. SKIN: Negative for rash, itching. EYES: Negative for double vision, pain. ENT/MOUTH: Negative for nose bleeding, neck stiffness, pain, tenderness. CARDIOVASCULAR: Negative for palpitations, dyspnea on exertion, orthopnea. RESPIRATORY: Negative for shortness of breath, wheezing, cough, hemoptysis, fever or night sweats. GASTROINTESTINAL: Negative for poor appetite, abdominal pain, heartburn, nausea , vomiting, constipation, or diarrhea. GENITOURINARY: Negative for urgency, frequency, dysuria, nocturia. MUSCULOSKELETAL: Negative for pain, swelling. NEUROLOGIC/PSYCHIATRIC: Negative for anxiety, depression. ALLERGY/IMMUNOLOGIC: Negative for skin rash, bleeding tendency. PHYSICAL EXAMINATION: GENERAL: The patient is an 78-year-old female, who is currently not in any acute distress. VITAL SIGNS: Blood pressure 114/54, pulse 72 per minute, respiratory rate 20 per minute, temperature 98.7 degrees Fahrenheit, saturating 95% on 2 L nasal cannula. NECK: Supple. No elevated JVD. HEENT: Eyes; extraocular muscles intact. Pupils are reacting to light. Oral cavity, mucous membranes are moist. No exudates or congestion. CARDIOVASCULAR SYSTEM: S1 and S2 heard. Regular rhythm. RESPIRATORY SYSTEM: Air entry 1+ bilateral. Scattered rhonchi plus no rales. ABDOMEN: Soft. Bowel sounds heard. No tenderness, rigidity, or guarding. EXTREMITIES: Mild peripheral edema. No calf tenderness. VASCULAR SYSTEM: Peripheral pulses 1+ bilateral. No ischemic ulcerations or gangrene. CENTRAL NERVOUS SYSTEM: No gross focal deficits noted. The patient is alert and awake, but is not fully oriented, but responds well to verbal questions. Her memory is impaired. PSYCHIATRIC: No obvious hallucinations or delusions. LABORATORY DATA: White count of 9, H and H of 6.5 and 21, platelet count is 514 , MCV is 90 with 81% neutrophils. PT/INR 16 and 1.3, PTT 28. Potassium is 5.4, bicarb is 36, BUN 89, creatinine 1.5. Albumin is 3.0. BNP is 139. Stool occult blood is positive for blood. Chest x-ray done shows no new changes when compared to prior x-ray. CLINICAL IMPRESSION AND PLAN: The patient will be admitted to telemetry for rectal bleed with acute blood loss anemia. Her second unit of packed cell is currently running. We will obtain H and H q.6 hourly x4. I spoke to Dr. Chavira, who can be called in an emergency if the patient started to bleed profusely. She will be on clear liquid diet. Her Eliquis and aspirin will be held. The patient is on prednisone for chronic obstructive pulmonary disease and will continue the same to avoid adrenal insufficiency. She will be on Coreg, gabapentin, DuoNeb, melatonin, Reglan, and trazodone as before. She will be gently hydrated for acute kidney injury on top of chronic kidney disease stage 3 with normal saline at 70 mL per hour for now and after 1 L fluid, she can be switched over to half NS if she still requires fluid resuscitation. We will obtain metabolic panel in the morning. I have discussed code status with her and she would want to be a full code. Her sister, Ms. Nicole Lugo is the power of ip attorney for her. The patient has no children. Job ID: [id number] [facility]
[2018-10-15] MEDS: Sodium Chloride 0.9% 1,000 ML IV SCH (22:41)
[2018-10-15] MEDS: Carvedilol 3.125 MG TAB PO SCH (22:44)
[2018-10-15] MEDS: Metoclopramide HCl 10 MG TAB PO SCH (22:44)
[2018-10-15] MEDS: Gabapentin 300 MG CAP PO SCH (22:44)
[2018-10-16 03:05] LABS: Hemoglobin 8.2 g/dL (12.0-16.0)
[2018-10-16 03:56] LABS: ALT (SGPT) 12 U/L (8-55); AST (SGOT) 11 U/L (5-34); Albumin 2.8 g/dL (3.4-4.8); Alkaline Phosphatase 52 U/L (40-150); Anion Gap 11 mmol/L (10-20); BUN (Urea Nitrogen) 75 mg/dL (9.8-20.1); Bilirubin, Total 0.5 mg/dL (0.2-1.2); Calc. Creatinine Clearance 44 mL/min (70-130); Calcium 9.8 mg/dL (7.8-10.44); Carbon Dioxide 33 mmol/L (23-31); Chloride 99 mmol/L (98-107); Estimated GFR-MDRD 41; Globulin 2.7 g/dL (2.4-3.5); Glucose 103 mg/dL (83-110); Potassium 4.3 mmol/L (3.5-5.1); Protein, Total 5.5 g/dL (6.0-8.3); Sodium 139 mmol/L (136-145)
[2018-10-16] MEDS ORDERED: Mometasone/Formoterol 120 PUFF INHALER INH SCH (06:30)
[2018-10-16] MEDS: Ipratropium Oral Inhaler (200 INHALATIONS) INH SCH ×2 (07:13→10:52)
[2018-10-16 07:52] VITALS: BP 120/58; TEMP 98.3
[2018-10-16] MEDS ORDERED: Non-Formulary Item 1 EACH (Fluticasone/Vilanterol [Breo Ellipta 200-25 Mcg Inh] 1 EACH) INH SCH (09:00)
[2018-10-16] MEDS ORDERED: predniSONE 20 MG TAB PO SCH (09:00)
[2018-10-16 09:05] LABS: Hemoglobin 8.3 g/dL (12.0-16.0)
[2018-10-16] MEDS: Gabapentin 300 MG CAP PO SCH (09:58)
[2018-10-16] MEDS: Carvedilol 3.125 MG TAB PO SCH (09:59)
[2018-10-16] MEDS: Metoclopramide HCl 10 MG TAB PO SCH (09:59)
[2018-10-16] MEDS ORDERED: Atropine Sulfate 1 mg/10 ml Syringe ONE (11:11)
[2018-10-16] MEDS ORDERED: Calcium Chloride 1 GM/10 ML Abboject SYRINGE ONE (11:11)
[2018-10-16] MEDS ORDERED: EPINEPHrine 1 MG/10 ML Abboject SYRINGE ONE (11:11)
[2018-10-16] MEDS ORDERED: Sodium Bicarb 50 MEQ/50 ML Abboject 8.4% SYRINGE ONE (11:11)
[2018-10-16] MEDS: Sodium Chloride 0.9% 1,000 ML IV SCH (11:43)
--- NOTE | 2018-10-16 18:47 | DIS ---
DATE OF ADMISSION: 10/15/2018 DATE OF DISCHARGE: 10/16/2018 SUMMARY: DATE OF : 10/16/2018. TIME OF : 12:51 p.m. PRIMARY CAUSE OF : 1. Acute respiratory failure, 24 hours. 2. Acute congestive heart failure exacerbation with diastolic dysfunction, 2 hours. 3. Gastrointestinal bleed with blood loss anemia. 4. Acute kidney injury with history of chronic kidney disease, stage 3. FACTORS CONTRIBUTING TO CAUSE OF : 1. Severe deconditioning. 2. History of chronic obstructive pulmonary disease. 3. Atrial fibrillation. BRIEF COURSE During hospitalization: the patient initially was sent over from [facility] for GI bleed. Her initial hemoglobin was 6.5 g on arrival. The patient was given 2 units of packed cell transfusion. She was admitted to telemetry. Her hemoglobin stabilized at around 8 g. The patient did not have any further rectal bleed. Around 12 noon on , the patient went into acute respiratory failure, likely due to flash pulmonary edema and acute congestive heart failure exacerbation. The patient also went into cardiac arrest within a few minutes. [place] orona was called, and extensive resuscitation measures were done. The patient regained pulse after 15 minutes of CPR, but the patient went into cardiac arrest after being transported to ICU. Meanwhile, the patient was intubated as well. Due to multiple comorbid conditions and second arrest, consultations were held at bedside with the patient's power of family law attorney , Ms. Nicole Lugo, the patient's sister and POA. She did not want any further resuscitation, and resuscitation was stopped. The patient was declared at 12:51 p.m. Body will be released to home per hospital protocol. Job ID: [id number] [facility]
--- NOTE | 2018-10-16 21:21 | CON ---
DATE OF CONSULTATION: HISTORY OF PRESENT ILLNESS: Ms. Morales was apparently admitted yesterday. She was recently seen by my associate when she was in the hospital. Apparently family made no decisions regarding code status inspite of Dr. Lomax's encouragement for them to do so. Dr. Lomax, I believe is taking care of her for close to 30 years. She has been living in a full-time care environment with dementia and chronic obstructive pulmonary disease. Apparently, she coded and was resuscitated by the emergency physician and the code team and transferred to Critical Care Unit. I was in the ICU when she arrived. Shortly after arrival within 15 minutes, she coded again. Hospitalist was talking to the sister who has power of health care by making decisions regarding the code. She was given 1 mg of epi while chest compressions were going on. Resident physicians inserted a 16-gauge femoral vein line quickly for more IV access. About that time, nurses came in stating that the family said they wanted to stop chest compressions. Chest compressions were stopped and she was pronounced . Job ID: [id number]
== END 2018-10-16 12:51 | disposition expired | DRG 377 ==
LOC: ERS 14:28 → 2NO 20:52 → CCU 10-16 12:46
PROVIDERS: ADMIT Internal Medicine; ATTEND Internal Medicine
PROC: 30233N1 Transfusion of Nonautologous Red Blood Cells into Peripheral Vein, Percutaneous Approach (ICD-10-PCS; 2018-10-15)
PROC: 5A12012 Performance of Cardiac Output, Single, Manual (ICD-10-PCS; principal; 2018-10-16)
PROC: 0BH17EZ Insertion of Endotracheal Airway into Trachea, Via Natural or Artificial Opening (ICD-10-PCS; 2018-10-16)
PROC: 5A1935Z Respiratory Ventilation, Less than 24 Consecutive Hours (ICD-10-PCS; 2018-10-16)
DX: K92.2 Gastrointestinal hemorrhage, unspecified (principal); I50.33 Acute on chronic diastolic (congestive) heart failure; J96.00 Acute respiratory failure, unspecified whether with hypoxia or hypercapnia; D62 Acute posthemorrhagic anemia; I13.0 Hypertensive heart and chronic kidney disease with heart failure and stage 1 through stage 4 chronic kidney disease, or unspecified chronic kidney disease; N17.9 Acute kidney failure, unspecified; I46.9 Cardiac arrest, cause unspecified; Z66 Do not resuscitate; F03.90 Unspecified dementia, unspecified severity, without behavioral disturbance, psychotic disturbance, mood disturbance, and anxiety; I48.2 Chronic atrial fibrillation; N18.3 Chronic kidney disease, stage 3 (moderate); E11.22 Type 2 diabetes mellitus with diabetic chronic kidney disease; J44.9 Chronic obstructive pulmonary disease, unspecified; F41.9 Anxiety disorder, unspecified; K21.9 Gastro-esophageal reflux disease without esophagitis; F32.9 Major depressive disorder, single episode, unspecified; Z88.1 Allergy status to other antibiotic agents; Z74.01 Bed confinement status; Z79.01 Long term (current) use of anticoagulants; Z88.0 Allergy status to penicillin; Z88.5 Allergy status to narcotic agent; Z88.8 Allergy status to other drugs, medicaments and biological substances; Z95.0 Presence of cardiac pacemaker; Z90.49 Acquired absence of other specified parts of digestive tract; Z79.51 Long term (current) use of inhaled steroids; Z79.4 Long term (current) use of insulin; Z79.899 Other long term (current) drug therapy
CPT/HCPCS: 36415; 36416; 36430; 71045; 80053; 81003; 81015; 82274; 83880; 85014; 85018; 85025; 85610; 85730; 86850; 86900; 86901; 87040; 87077; 87086; 87186; 92950; 93005; C9113; J0171; J0461; J7512; J8597; P9016; S0028